=== PATIENT | male | born 1955 | race Caucasian/White ===

== ENCOUNTER 2023-06-15 08:51 | Outpatient (CLI) | payer MEDICARE, OTHER, SELFPAY | END 2023-06-15 08:52 | disposition home or self-care (01) | PROVIDERS: PCP Nurse Practitioner Family; Visit Provider Nurse Practitioner Family | DX: Z00.00 Encounter for general adult medical examination without abnormal findings (principal); E78.5 Hyperlipidemia, unspecified; I10 Essential (primary) hypertension; M10.9 Gout, unspecified; E11.9 Type 2 diabetes mellitus without complications; E87.5 Hyperkalemia; Z12.5 Encounter for screening for malignant neoplasm of prostate | CPT/HCPCS: 80053; 80061; 82043; 82570; 84153; 84443; 84550 ==

== ENCOUNTER 2023-06-28 09:12 | Outpatient (CLI) | payer MEDICARE, OTHER, SELFPAY | END 2023-06-28 09:13 | disposition home or self-care (01) | LOC: WOUND 09:14 | PROVIDERS: PCP Nurse Practitioner Family; Visit Provider Surgery | DX: M1A.0721 Idiopathic chronic gout, left ankle and foot, with tophus (tophi) (principal); E08.40 Diabetes mellitus due to underlying condition with diabetic neuropathy, unspecified; L97.322 Non-pressure chronic ulcer of left ankle with fat layer exposed; Z79.84 Long term (current) use of oral hypoglycemic drugs | CPT/HCPCS: 97597; 99213 ==

== ENCOUNTER 2023-07-07 08:49 | Outpatient (CLI) | payer MEDICARE, OTHER, SELFPAY | END 2023-07-07 08:50 | disposition home or self-care (01) | LOC: WOUND 08:50 | PROVIDERS: PCP Nurse Practitioner Family; Visit Provider Nurse Practitioner Family | DX: M1A.0721 Idiopathic chronic gout, left ankle and foot, with tophus (tophi) (principal); E08.40 Diabetes mellitus due to underlying condition with diabetic neuropathy, unspecified; L97.322 Non-pressure chronic ulcer of left ankle with fat layer exposed; Z79.84 Long term (current) use of oral hypoglycemic drugs | CPT/HCPCS: 97597 ==

== ENCOUNTER 2023-07-19 09:28 | Outpatient (CLI) | payer MEDICARE, OTHER, SELFPAY | END 2023-07-19 09:29 | disposition home or self-care (01) | LOC: WOUND 09:28 | PROVIDERS: PCP Nurse Practitioner Family; Visit Provider Surgery | DX: L89.523 Pressure ulcer of left ankle, stage 3 (principal) | CPT/HCPCS: 97597 ==

== ENCOUNTER 2023-07-26 10:59 | Outpatient (CLI) | payer MEDICARE, OTHER, SELFPAY | END 2023-07-26 11:00 | disposition home or self-care (01) | LOC: WOUND 10:59 | PROVIDERS: PCP Nurse Practitioner Family; Visit Provider Surgery | DX: M1A.0721 Idiopathic chronic gout, left ankle and foot, with tophus (tophi) (principal); E08.40 Diabetes mellitus due to underlying condition with diabetic neuropathy, unspecified; L89.523 Pressure ulcer of left ankle, stage 3; Z79.84 Long term (current) use of oral hypoglycemic drugs | CPT/HCPCS: 99212 ==

== ENCOUNTER 2023-08-09 10:50 | Outpatient (CLI) | payer MEDICARE, OTHER, SELFPAY | END 2023-08-09 10:51 | disposition home or self-care (01) | LOC: WOUND 10:50 | PROVIDERS: PCP Nurse Practitioner Family; Visit Provider Surgery | DX: M1A.0721 Idiopathic chronic gout, left ankle and foot, with tophus (tophi) (principal); E08.40 Diabetes mellitus due to underlying condition with diabetic neuropathy, unspecified; L89.523 Pressure ulcer of left ankle, stage 3; Z79.84 Long term (current) use of oral hypoglycemic drugs | CPT/HCPCS: 99212 ==

== ENCOUNTER 2023-11-24 08:45 | Outpatient (CLI) | payer MEDICARE, OTHER, SELFPAY ==
--- OUTSIDE RECORDS SUMMARY | 2023-11-24 08:49 | XMS_ITS | Clinical Summary ---
Author Name Unknown Organization [employer] [facility] Address [place], [place] [address] Care Team Providers Care Cartoonist Special Effects Name Role Phone Al Orourke MD Unavailable [phone] Joanne Serra NP Primary Care Provider Jeannine vailable Allergies Active Allergy Reactions Criticality Noted Date Comments Pollen Extracts Runny Nose 08/05/2020 Itchy watery eyes Medications Medication Sig Dispensed Refills Start Date End Date Status allopurinol (ZYLOPRIM) 100 mg tabletIndications:go ut Take 100 mg by mouth once daily. Indications: GOUT 0 Active atenolol (TENORMIN) 50 mg tablet Take 50 mg by mouth 2 times daily. 0 Active lisinopril (PRINIVIL; ZESTRIL) 40 mg tablet Take 80 mg by mouth once daily. 0 Active INDOMETHACIN (INDOCIN ORAL)Indications:pre vention of acute gout attack Take by mouth once daily if needed. Indications: GOUT PREVENTION 0 Active aspirin 81 mg tablet Take 81 mg by mouth once daily. 0 Active metFORMIN (GLUCOPHAGE) 500 mg tabletIndications:ty pe 2 diabetes mellitus Take 1,000 mg by mouth 2 times daily with meals. Indications: TYPE 2 DIABETES MELLITUS 0 Active atorvastatin (LIPITOR) 40 mg tablet Take 1 tablet by mouth at bedtime. 30 tablet 11 08/07/2013 Active glyBURIDE (MICRONASE; DIABETA) 2.5 mg tabletIndications:ty pe 2 diabetes mellitus Take 0.5 tablets by mouth 2 times daily before meals. Indications: TYPE 2 DIABETES MELLITUS 0 10/01/2013 Active prednisoLONE acetate 1% ophthalmic (PRED FORTE) suspensionIndication s:Nuclear sclerotic cataract of both eyes START DROPS IN AFFECTED EYE AFTER SURGERY, LEFT EYE 07/30/2020 RIGHT EYE 08/06/2020 . ONE DROP FOUR TIMES A DAY FOR THREE WEEKS. 5 mL 2 07/30/2020 Active multivit-min/FA/lyco pen/lutein (MEN 50 PLUS MULTIVITAMIN ORAL) Take 1 Tab by mouth once daily. 0 Active VICTOZA 3-CHULA 0.6 mg/0.1 mL (18 mg/3 mL) injection 0 08/03/2020 Active dapagliflozin (FARXIGA) 10 mg tablet Take 10 mg by mouth once daily. 0 Active Active Problems Problem Noted Date Diagnosed Date CAD (coronary artery disease) 10/01/2013 NSTEMI (non-ST elevated myocardial infarction) 1 Gout 08/07/2013 Hyperlipidemia, mixed 08/07/2013 HTN (hypertension) 08/06/2013 DM (diabetes mellitus) 08/06/2013 Social History Tobacco Use Types Packs/Day Years Used Date Smoking Tobacco: Never Smokeless Tobacco: Former Snuff Quit: 10/06/1998 Tobacco Cessation:Counseling Given: No Alcohol Use Standard Drinks/Week Comments No 0 (1 standard drink = 0.6 oz pur e alcohol) Social Connections Answer Date Recorded Frequency of Communication with Friends and Fami ly Not on file 02/25/2022 Sex and Gender Information Value Date Recorded Sex Assigned at Not on file Gender Identity Not on file Sexual Orientation Not on file Obstetrics History Last Filed Vital Signs Vital Sign Reading Time Taken Comments Blood Pressure 146/68 02/25/2022 3:23 PM CDT Pulse 60 02/25/2022 3:23 PM CDT Temperature 36.1 ??C (97 ??F) 08/06/2020 11:00 AM CDT Respiratory Rate 16 02/25/2022 3:23 PM CDT Oxygen Saturation 96% 08/06/2020 11:22 AM CDT Inhaled Oxygen Concentration - - Weight 101.2 kg (223 lb) 02/25/2022 3:23 PM CDT Height 182.2 cm (5' 11.75) 08/05/2020 12:10 PM CDT Body Mass Index 30.46 08/05/2020 12:10 PM CDT Plan of Treatment Health Maintenance Due Date Last Done Comments COVID-19 vaccine series (#1) 1955 Pneumococcal series for age 65+ (1 of 2 - PCV) 959 Tdap 1964 Depression screening for age 12+ 1965 BMI (ht and wt on same day) for age 18+ 1971 Hepatitis C screening for age 18-79 1971 Tetanus booster 1973 Colonoscopy through age 75 1998 Zoster (shingles) series for age 50+ (1 of 2) 05/21/20 03 Medicare Wellness for age 65+ 2018 Lipids for age 45-75 08/06/2018 08/06/2013 Influenza for age 65+ 06/30/2023 Medical Devices Implanted Type Area Urban Designer Device Identifier Shelf Expiration Date Model / Serial / Lot [id number] - [id number] Implanted:Qty : 1 on 07/30/2020 by Nikko Galindo MD at [facility] Opthalmology Implants Left: Eye [employer] 08/06/2024 [id number] / [id number] / NA Description:Tecnis Aspheric IOL +21.0 Iol [place] +21 Tecnis [id number] - [id number] Implanted:Qty : 1 on 08/06/2020 by Nikko Galindo MD at [facility] Opthalmology Implants Right: Eye [employer] 02/25/2025 [id number] 21.0# / [id number] / N/A Care Teams Cartoonist Special Effects Relationship Specialty Start Date End Date Joanne Serra NP [address] [place] [address] PCP - General Emergency Medicine 02/11/22 Al Orourke MD [address] [place] [address] Consulting Physician Cardiovascular Disease 01/16/15
== END 2023-11-24 08:46 | disposition home or self-care (01) ==
LOC: KYNREF 08:45
PROVIDERS: PCP Nurse Practitioner Family; Visit Provider Nurse Practitioner Family
DX: E11.9 Type 2 diabetes mellitus without complications (principal)
CPT/HCPCS: 80048; 84132

== ENCOUNTER 2024-01-12 08:38 | Outpatient (CLI) | payer MEDICARE, OTHER, SELFPAY | END 2024-01-12 08:39 | disposition home or self-care (01) | LOC: NFLDREF 01-19 08:45 | PROVIDERS: PCP Nurse Practitioner Family; Referring Provider Nurse Practitioner Family; Visit Provider Nurse Practitioner Family | DX: N28.9 Disorder of kidney and ureter, unspecified (principal); I10 Essential (primary) hypertension; E11.9 Type 2 diabetes mellitus without complications; Z79.84 Long term (current) use of oral hypoglycemic drugs | CPT/HCPCS: 80048 ==

== ENCOUNTER 2024-03-12 14:59 | Outpatient (CLI) | payer MEDICARE, OTHER, SELFPAY ==
--- OUTSIDE RECORDS SUMMARY | 2024-03-12 15:10 | XMS_ITS | Clinical Summary ---
Author Name Unknown Organization [employer] [facility] Address [place], [place] [address] Care Team Providers Care Port Patrol Officer Name Role Phone Al Orourke MD Unavailable [phone] Joanne Serra NP Primary Care Provider Jeannine vailable Allergies Active Allergy Reactions Criticality Noted Date Comments Pollen Extracts Runny Nose 08/05/2020 Itchy watery eyes Medications Medication Sig Dispensed Refills Start Date End Date Status allopurinol (ZYLOPRIM) 100 mg tabletIndications:go ut Take 100 mg by mouth once daily. Indications: GOUT Active atenolol (TENORMIN) 50 mg tablet Take 50 mg by mouth 2 times daily. Active lisinopril (PRINIVIL; ZESTRIL) 40 mg tablet Take 80 mg by mouth once daily. Active INDOMETHACIN (INDOCIN ORAL)Indications:pre vention of acute gout attack Take by mouth once daily if needed. Indications: GOUT PREVENTION Active aspirin 81 mg tablet Take 81 mg by mouth once daily. Active metFORMIN (GLUCOPHAGE) 500 mg tabletIndications:ty pe 2 diabetes mellitus Take 1,000 mg by mouth 2 times daily with meals. Indications: TYPE 2 DIABETES MELLITUS Active atorvastatin (LIPITOR) 40 mg tablet Take [...] Take 1 Tab by mouth once daily. Active VICTOZA 3-CHULA 0.6 mg/0.1 mL (18 mg/3 mL) injection 08/03/2020 Active dapagliflozin (FARXIGA) 10 mg tablet Take 10 mg by mouth once daily. Active Active Problems Problem Noted Date Diagnosed [...] Health Maintenance Due Date Last Done Comments Tdap 1964 Depression screening for age 12+ 1965 BMI (ht and wt on same day) for age 18+ 1971 Hepatitis C screening for age 18-79 1971 Tetanus booster 1973 Colonoscopy through age 75 1998 Zoster (shingles) series for age 50+ (1 of 2) 05/21/20 03 Medicare Wellness for age 65+ 2018 Pneumococcal series for age 65+ (1 of 1 - PCV) 018 Lipids for age 45-75 08/06/2018 08/06/2013 COVID-19 vaccine series (1 - 2022- season) 3 Influenza for age 65+ 06/30/2024 Medical Devices Implanted Type Area Pocket Secretary Assembler Device Identifier Shelf Expiration Date Model / Serial / Lot [id number] - [id number] Implanted:Qty : 1 on 07/30/2020 by Nikko Galindo MD at [facility] Opthalmology Implants Left: Eye [employer] 08/06/2024 [id number] / [id number] 0 / NA Description:Tecnis Aspheric IOL +21.0 Iol [place] +21 Tecnis [id number] - [id number] Implanted:Qty : 1 on 08/06/2020 by Nikko Galindo MD at [facility] Opthalmology Implants Right: Eye [employer] 02/25/2025 [id number] 21.0# / [id number] / N/A Procedures Procedure Name Priority Date/Time Associated Diagnosis Comments LIPID PANEL Timed 08/06/2013 2:25 PM CDT from Last 3 Months or Most Recently Relevant to Health Maintenance Results * (ABNORMAL) Lipid Panel Fasting (08/06/2013 2:25 PM CDT) CHOLESTEROL,TOTAL 272(H) 100 - 199 mg/dL 08/06/2013 2:58 PM CDT [facility] TRIGLYCERIDES 517(H) <150 mg/dL 08/06/2013 2:58 PM CDT [facility] HDL CHOLESTEROL 34(L) >40 mg/dL 3 2:58 PM CDT [facility] NON-HDL CHOLESTEROL 238(H) <145 mg/dl 08/06/2013 2:58 PM CDT [facility] CHOL/HDL RATIO 8.00(H) <4.50 08/06/2013 2:58 PM CDT [facility] LDL CHOLESTEROL 3 2:58 PM CDT [facility] Comment:Invalid LDL when Tri g >400. PATIENT STATUS FASTING 08/06/2013 2:58 PM CDT [facility] Blood specimen (specimen) BLOOD SPECIMEN / Unknown Non-Lab Venipuncture / Unknown 08/06/2013 2:25 PM CDT 08/06/2013 2:35 PM CDT Al Orourke MD CHEMISTRY [facility] SENDOUT [place]IP [address] [address] [place] [address] from Last 3 Months or Most Recently Relevant to Health Maintenance Care Teams Port Patrol Officer Relationship Specialty Start Date End Date Joanne Serra NP [address] [place] [address] PCP - General Emergency Medicine 02/11/22 Al Orourke MD [address] [place] [address] Consulting Physician Cardiovascular Disease 01/16/15
== END 2024-03-12 15:00 | disposition home or self-care (01) ==
PROVIDERS: PCP Nurse Practitioner Family; Visit Provider Nurse Practitioner Family
DX: R06.09 Other forms of dyspnea (principal)
CPT/HCPCS: 80053; 83880; 84484

== ENCOUNTER 2024-03-27 12:46 | Outpatient (CLI) | payer MEDICARE, SELFPAY ==
--- OUTSIDE RECORDS SUMMARY | 2024-03-27 12:53 | XMS_ITS | Clinical Summary ---
Author Organization [employer] [facility] Address [place], [place] [address] Care Team Providers Care Meteorological Technician Name Role Phone Al Orourke MD Unavailable Joanne Serra NP Primary Care Provider Jeannine [...] 08/05/2020 12:10 PM CDT Plan of Treatment Upcoming Encounters Date Type Department Care Team (Late st Contact Info) Description 03/27/2024 1:00 PM CDT Ancillary Procedure [facility] [address] [place] [address] Health Maintenance Due Date Last Done Comments [...] age 45-75 08/06/2018 08/06/2013 COVID-19 vaccine series ( - season) 3 Influenza for age 65+ 06/30/2024 Medical Devices Implanted Type Area Deputy Coroner Device Identifier Shelf Expiration Date Model / Serial / Lot [id number] - [id number] Implanted:Qty : 1 on 07/30/2020 by Nikko Galindo MD at [facility] Opthalmology Implants Left: Eye [employer] 08/06/2024 [id number] / [id number] / NA Description:Tecnis Aspheric IOL +21.0 Iol [place] +21 Tecnis [id number] - [id number] Implanted:Qty : 1 on 08/06/2020 by Nikko Galindo MD at [facility] Opthalmology Implants Right: Eye [employer] 02/25/2025 [id number] 21.0# / [id number] / N/A Procedures Procedure Name Priority Date/Time Associated Diagnosis Comments LIPID PANEL Timed 08/06/2013 2:25 PM CDT from Last 3 Months or Most Recently Relevant to Health Maintenance Results * (ABNORMAL) Lipid Panel Fasting (08/06/2013 2:25 PM CDT) Pathologist [facility] CHOLESTEROL,TOTAL 272(H) 100 - 199 mg/dL 08/06/2013 2:58 PM CDT [facility] TRIGLYCERIDES 517(H) <150 mg/dL 08/06/2013 2:58 PM CDT [facility] HDL CHOLESTEROL 34(L) >40 mg/dL 3 2:58 PM CDT [facility] NON-HDL CHOLESTEROL 238(H) <145 mg/dl 08/06/2013 2:58 PM CDT [facility] CHOL/HDL RATIO 8.00(H) <4.50 08/06/2013 2:58 PM CDT [facility] LDL CHOLESTEROL 3 2:58 PM CDT [facility] Comment:Invalid LDL when Tri g >400. PATIENT STATUS FASTING 08/06/2013 2:58 PM CDT [facility] Blood specimen (specimen) BLOOD SPECIMEN / Unknown Non-Lab Venipuncture / Unknown 08/06/2013 2:25 PM CDT 08/06/2013 2:35 PM CDT Al Orourke MD CHEMISTRY [facility] SENDOUT INTERNAL ZIP [address] [place] [address] from Last 3 Months or Most Recently Relevant to Health Maintenance Care Teams Meteorological Technician Relationship Specialty Start Date End Date Joanne Serra NP [address] [place] [address] PCP - General Emergency Medicine 02/11/22 Al Orourke MD [address] [place] [address] Consulting Physician Cardiovascular Disease 01/16/15
[2024-03-27] MEDS: PERFLUTREN LIPID MICROSPHERES 2 ML VIAL IV (13:30)
== END 2024-03-27 12:47 | disposition home or self-care (01) ==
LOC: RAD 12:51
PROVIDERS: PCP Nurse Practitioner Family; Visit Provider Nurse Practitioner Family
DX: R06.09 Other forms of dyspnea (principal); I35.0 Nonrheumatic aortic (valve) stenosis; I34.0 Nonrheumatic mitral (valve) insufficiency
CPT/HCPCS: 93306; Q9957

== ENCOUNTER 2024-04-12 18:30 | Emergency (ER) | payer MEDICARE, SELFPAY ==
[2024-04-12] VITALS (20 sets, daily range): BP systolic 151–231; BP diastolic 69–123; PULSE 53–71; RESP 12–20; TEMP 36.2; O2SAT 91–98; BMI 32.1
--- OUTSIDE RECORDS SUMMARY | 2024-04-12 19:09 | XMS_ITS | Clinical Summary ---
Author Organization [employer] [facility] Address [place], [place] [address] Care Team Providers Care Service Mechanic Name Role Phone Al Orourke MD Unavailable [phone] Tran Serra NP Primary Care Provider Jeannine vailable [...] HTN (hypertension) 08/06/2013 DM (diabetes mellitus) 08/06/2013 Encounters Date Type Department Care Team Description 03/27/2024 1:00 PM CDT Ancillary Procedure [facility] [address] [address] 03/27/2024 Travel from Last 3 Months Social History Tobacco Use Types Packs/Day Years [...] 65+ 06/30/2024 Medical Devices Implanted Type Area Substation Designer Device Identifier Shelf Expiration Date Model / Serial / Lot [id number] - [id number] Implanted:Qty : 1 on 07/30/2020 by Nikko Galindo MD at [facility] Opthalmology Implants Left: Eye [employer] 08/06/2024 [id number] / [id number] / NA Description:Tecnis Aspheric IOL +21.0 Iol [place] +21 Tecnis [id number] - [id number] Implanted:Qty : 1 on 08/06/2020 by Nikko Galindo MD at [facility] Opthalmology Implants Right: Eye [employer] 02/25/2025 [id number] 21.0# / [id number] / N/A Procedures Procedure Name Priority Date/Time Associated Diagnosis Comments ECHO TTE COMPLETE W CONTRAST Routine 03/27/2024 2:01 PM CDT Other forms of dyspnea LIPID PANEL Timed 08/06/2013 2:25 PM CDT from Last 3 Months or Most Recently Relevant to Health Maintenance Results * ECHO TTE COMPLETE W CONTRAST (03/27/2024 2:01 PM CDT) AORTIC VALVE MEAN PG 29 mmHg EJECTION FRACTION 65 % LVEDD 4.7 cm Anatomical Region Laterality Modality Ultrasound 03/27/2024 1:03 PM CDT Narrative 03/27/2024 2:57 PM CDT ECHOCARDIOGRAM MARY KNAPP ? Accession#: ?? [id number] : ?1955 68 years Study Date: ?? 03/27/2024 1:03:30 PM Gender: M ?BP: ? 158/76 mmHg Height: 180.00 cm ?BSA: ?2.20 m? ? ? Weight: 101.00 kg ?Tech: ? MSR ? Referring MD: TRAN SERRA Site: ? [facility] Reading Location: [facility] Patient Location: Outpatient. Procedure: 2D, Color Doppler and Spectral Doppler. Indication for study: Other forms of dyspnea Cardiac Rhythm: Regular.Study quality: Technically limited. Final Impressions: 1. Technically limited exam. 2. Normal left ventricular size, mildly increased wall thickness, normal global systolic function, calculated EF of 65 %. 3. The aortic valve is calcified and not well visualized, severe stenosis (paradoxical low flow low gradient) and no regurgitation. The aortic valve peak velocity is 3.3 m/s, the peak gradient is 43 mmHg, and the mean gradient is 29 mmHg. The aortic valve area is 0.91 cm? ? ? with a dimensionless index of 0.23. The stroke volume index is 31.1 ml/m? ? ?. 4. The mitral valve is sclerotic, trace mitral regurgitation. 5. Echo contrast was administered to enhance visualization of all left ventricular segments. Chamber Sizes and Function Normal left ventricular size, mildly increased wall thickness, normal global systolic function, calculated EF of 65 %. Left ventricular wall motion not well visualized. Left atrial size is normal. Right ventricular cavity size is normal, global systolic RV function is normal. The right atrium is normal. The pulmonary artery is not well visualized. The sinus of Valsalva is normal sized. The ascending aorta is normal sized. Valves, RV Pressures and Diastolic Function The aortic valve is calcified and not well visualized , severe stenosis and no regurgitation. The mitral valve is sclerotic, trace mitral regurgitation. Indeterminate pattern of LV diastolic filling. The tricuspid valve is not well visualized. Tricuspid regurgitation is mild regurgitation. The pulmonic valve is not well visualized. Unable to determine pulmonary regurgitation. Masses, Effusion, Shunts There is no pericardial effusion. The inferior vena cava is not well visualized, respiratory size variation not well visualized. No left to right shunting was detected by limited color flow Doppler interrogation of the interatrial septum. MEASUREMENTS AND CALCULATIONS 2-D Measurements and LV Function: LVID (d) 4.7 cm Planimetered EF 65 % LVID (s) 3.0 cm LV FS% (2D) ? 37 % IVS (d) ??1.2 cm LVOT diameter ?? 2.2 cm LVPW (d) 1.6 cm HR ?56 bpm Ao Sinus 3.5 cm LA Vol index ?26 ml/m2 Asc Ao ?? 3.7 cm RV Max 4C (d) ?? 4.1 cm Diastology: Mitral ?Tissue Doppler E Peak 1.2 m/s ??e', Septum ? 0.04 m/s A Peak 0.7 m/s ??e', Lateral ?0.05 m/s E/A ?1.8 ?E/e' Average ?? 27.73 DT ? 283 msec Aortic Valve: Vmax ? 3.3 m/s ??KALPANA (V) ?? 0.82 cm? ? ? VTI ?0.76 m ?? KALPANA (I) ?? 0.91 cm? ? ? LVOT V max 0.7 m/s ??Max PG ?43 mmHg LVOT VTI ?? 0.17 m ?? Mean PG ?? 29 mmHg SV ? 69 ml ?Dim Index 0.23 SV index ?? 31 ml/m? ? ? CO ?3.8 l/min ?CI ?1.7 l/min/m? ? ? Mitral Valve: MVA ? 2.7 cm? ? ? MV P 1/2 ??82 msec MV Mean G 2 mmHg MV VTI ?0.40 m Tricuspid Valve and estimated PA pressures: TAPSE 2.6 cm Contrast documentation: 2ml ml diluted Definity, lot #[id number], [facility]# [id number] was administered peripherally to enhance visualization of all left ventricular segments. . This study was interpreted by an [facility] accredited facility. CC: [facility] (formerly [facility]) [facility]. ??Final ?? Procedure Note Terese Briones MD - 03/27/2024 ECHOCARDIOGRAM MARY KNAPP : 1955 68 years Study Date: 03/27/2024 1:03:30 PM Gender: M BP: 158/76 mmHg Height: 180.00 cm BSA: 2.20 m? ? ? Weight: 101.00 kg Tech: MSR Referring MD: TRAN SERRA Site: [facility] Reading Location: [facility] Patient Location: Outpatient. Procedure: 2D, Color Doppler and Spectral Doppler. Indication for study: Other forms of dyspnea Cardiac Rhythm: Regular.Study quality: Technically limited. Final Impressions: 1. Technically limited exam. 2. Normal left ventricular size, mildly increased wall thickness, normalglobal systolic function, calculated EF of 65 %. 3. The aortic valve is calcified and not well visualized, severe stenosis(paradoxical low flow low gradient) and no regurgitation. The aortic valvepeak velocity is 3.3 m/s, the peak gradient is 43 mmHg, and the meangradient is 29 mmHg. The aortic valve area is 0.91 cm? ? ? with adimensionless index of 0.23. The stroke volume index is 31.1 ml/m? ? ?. 4. The mitral valve is sclerotic, trace mitral regurgitation. 5. Echo contrast was administered to enhance visualization of all leftventricular segments. Chamber Sizes and Function Normal left ventricular size, mildly increased wall thickness, normalglobal systolic function, calculated EF of 65 %. Left ventricular wallmotion not well visualized. Left atrial size is normal. Right ventricularcavity size is normal, global systolic RV function is normal. The rightatrium is normal. The pulmonary artery is not well visualized. The sinusof Valsalva is normal sized. The ascending aorta is normal sized. Valves, RV Pressures and Diastolic Function The aortic valve is calcified and not well visualized , severe stenosisand no regurgitation. The mitral valve is sclerotic, trace mitralregurgitation. Indeterminate pattern of LV diastolic filling. Thetricuspid valve is not well visualized. Tricuspid regurgitation is mildregurgitation. The pulmonic valve is not well visualized. Unable todetermine pulmonary regurgitation. Masses, Effusion, Shunts There is no pericardial effusion. The inferior vena cava is not wellvisualized, respiratory size variation not well visualized. No left toright shunting was detected by limited color flow Doppler interrogation ofthe interatrial septum. MEASUREMENTS AND CALCULATIONS 2-D Measurements and LV Function: LVID (d) 4.7 cm Planimetered EF 65 % LVID (s) 3.0 cm LV FS% (2D) 37 % IVS (d) 1.2 cm LVOT diameter 2.2 cm LVPW (d) 1.6 cm HR 56 bpm Ao Sinus 3.5 cm LA Vol index 26 ml/m2 Asc Ao 3.7 cm RV Max 4C (d) 4.1 cm Diastology: Mitral Tissue Doppler E Peak 1.2 m/s e', Septum 0.04 m/s A Peak 0.7 m/s e', Lateral 0.05 m/s E/A 1.8 E/e' Average 27.73 DT 283 msec Aortic Valve: Vmax 3.3 m/s KALPANA (V) 0.82 cm? ? ? VTI 0.76 m KALPANA (I) 0.91 cm? ? ? LVOT V max 0.7 m/s Max PG 43 mmHg LVOT VTI 0.17 m Mean PG 29 mmHg SV 69 ml Dim Index 0.23 SV index 31 ml/m? ? ? CO 3.8 l/min CI 1.7 l/min/m? ? ? Mitral Valve: MVA 2.7 cm? ? ? MV P 1/2 82 msec MV Mean G 2 mmHg MV VTI 0.40 m Tricuspid Valve and estimated PA pressures: TAPSE 2.6 cm Contrast documentation: 2ml ml diluted Definity, lot #[id number], [facility]#[id number] was administered peripherally to enhance visualization of allleft ventricular segments. . This study was interpreted by an [facility] accredited facility. CC: [facility] (med records) [facility]. Final Tran Serra AUTOMATIC SPLICING MACHINE OPERATOR ECHO ORD * (ABNORMAL) Lipid Panel Fasting (08/06/2013 2:25 PM CDT) CHOLESTEROL,TOTAL 272(H) 100 - 199 mg/dL 08/06/2013 2:58 PM CDT [facility] TRIGLYCERIDES 517(H) <150 mg/dL 08/06/2013 2:58 PM CDT [facility] HDL CHOLESTEROL 34(L) >40 mg/dL 3 2:58 PM CDT [facility] NON-HDL CHOLESTEROL 238(H) <145 mg/dl 08/06/2013 2:58 PM T [facility] CHOL/HDL RATIO 8.00(H) <4.50 08/06/2013 2:58 PM CDT [facility] LDL CHOLESTEROL 3 2:58 PM CDT [facility] Comment:Invalid LDL when Tri g >400. PATIENT STATUS FASTING 08/06/2013 2:58 PM CDT [facility] Blood specimen (specimen) BLOOD SPECIMEN / Unknown Non-Lab Venipuncture / Unknown 08/06/2013 2:25 PM CDT 08/06/2013 2:35 PM CDT Al Orourke MD CHEMISTRY [facility] SENDOUT INTERNAL ZIP [address] [place] [address] from Last 3 Months or Most Recently Relevant to Health Maintenance Care Teams Service Mechanic Relationship Specialty Start Date End Date Tran Serra AUTOMATIC SPLICING MACHINE OPERATOR [address] [place] [address] PCP - General Emergency Medicine 02/11/22 Al Orourke MD [address] [place] [address] Consulting Physician Cardiovascular Disease 01/16/15
[2024-04-12 19:31] LABS: Basophils Absolute Auto 0.02 K/uL (0.00-0.30); Basophils Percent Auto 0.3 % (0.0-3.0); Eosinophils Absolute Auto 0.14 K/uL (0.00-0.50); Eosinophils Percent Auto 2.3 % (0.0-7.0); Hematocrit 47.6 % (37.0-53.0); Hemoglobin* 16.1 gm/dL (13.5-17.5); Immature Granulocytes Abs Auto 0.01 K/uL (0.00-0.30); Immature Granulocytes Pct Auto 0.2 %; Lymphocytes Absolute Auto 1.54 K/uL (0.90-2.90); Lymphocytes Percent Auto 25.4 % (20-44); Mean Corpuscular HGB Conc 34 gm/dL (32-36); Mean Corpuscular Hemoglobin 28 pg (26-34); Mean Corpuscular Volume 83 fL (80-100); Monocytes Percent Auto 6.4 % (0.0-11.0); Neutrophils Absolute Auto 3.97 K/uL (1.7-7.0); Neutrophils Percent Auto 65.4 % (42.0-72.0); Platelet Count* 178 K/uL (140-440); RDW Coefficient of Variation % 14.5 % (11.5-15.5); Red Blood Count 5.71 m/uL (4.30-5.90); White Blood Count* 6.07 K/uL (4.50-11.00)
--- NOTE | 2024-04-12 19:32 | ED.GENADULT ---
HPI - General Adult General Date Seen: 04/12/24 <Swapna Nicholson MD - Last Filed: 04/28/24 16:42> Chief complaint: Abdominal Pain <Swapna Nicholson MD - Last Filed: 04/28/24 16:42> Stated complaint: Pain beneath R ribs <Swapna Nicholson MD - Last Filed: 04/28/24 16:42> Time Seen by Provider: 04/12/24 18:53 <Swapna Nicholson MD - Last Filed: 04/28/24 16:42> Source: patient, RN notes reviewed and old records reviewed <Swapna Nicholson MD - Last Filed: 04/28/24 16:42> Mode of arrival: ambulatory <wSapna Nicholson MD - Last Filed: 04/28/24 16:42> Limitations: no limitations <Swapna Nichloson MD - Last Filed: 04/28/24 16:42> History of Present Illness HPI narrative: Patient is a 68-year-old male with recent visit in clinic for dyspnea on exertion with murmur noted, he had an echo which showed severe aortic stenosis and he has an appointment next week with cardiology to discuss. He says that around 3:00 p.m. today he just had a diet Pepsi when he developed some pain in the right upper quadrant which occasionally radiated more toward the epigastrium and sometimes into the back. He says it waxed and waned for the next several hours, it is better now although it is not gone. He says if he was not going through all this cardiac workup he would have even come in, it has never been severe. No associated nausea, vomiting, black or bloody stools, fever, urinary symptoms. He does not feel short of breath. He says when the pain was at its worst if he took a very deep breath there was some worsening of pain but it does not hurt to breathe in general and he does not have any pleuritic pain right now. He denies any history of coronary artery disease, had a stress test a couple of years ago which he says was negative. Denies any history of gastritis, ulcers, gallstones, kidney stones,. Did have some sort of surgery as a 2-day-old which he thinks had to do with his stomach. <Swapna Nicholson MD - Last Filed: 04/28/24 16:42> Related Data Home medications: Previous Rx's ?Medication ?Instructions ?Recorded atorvastatin 10 mg tablet (Lipitor) 10 mg PO QHS 90 days #90 tabs 06/16/23 empagliflozin 25 mg tablet 25 mg PO DAILY 90 days #90 tabs 06/16/23 (Jardiance) indomethacin 50 mg capsule See Rx Instructions .Route 06/16/23 .COMPLEX #135 caps lisinopril 40 mg tablet 40 mg PO QDAY #90 tabs 06/16/23 tamsulosin 0.4 mg capsule 0.4 mg PO QDAY #90 caps 11/24/23 insulin glargine 100 unit/mL (3 30 unit (0.3 mL) subcut QAM 90 11/28/23 mL) subcutaneous pen (Lantus days #27 mL Solostar U-100 Insulin) furosemide 20 mg tablet (Lasix) 10 mg (1/2 x 20 mg) PO QAM 90 days 03/13/24 #45 tabs amlodipine 5 mg tablet 5 mg PO BID #30 tabs 04/14/24 hydralazine 10 mg tablet 30 mg (3 x 10 mg) PO TID #30 tabs 04/14/24 <Swapna Nicholson MD - Last Filed: 04/28/24 16:42> Allergies/adverse reactions: Allergies Allergy/AdvReac Type Severity Reaction Status Date / Time No Known Drug Allergies Allergy Verified 04/16/24 11:02 <Swapna Nicholson MD - Last Filed: 04/28/24 16:42> Review of Systems Status of ROS: Reports: 10 or more systems reviewed and unremarkable except as noted in History and below <Swapna Nicholson MD - Last Filed: 04/28/24 16:42> [facility] Medical History: Medical History (Updated 04/28/24 @ 00:00 by Rachana Chairez) NSTEMI (non-ST elevated myocardial infarction) (08/07/13) ?I21.4 - Non-ST elevation (NSTEMI) myocardial infarction (ICD-10) Ulcer of lower extremity ?L97.909 - Non-pressure chronic ulcer of unspecified part of unspecified lower leg with unspecified severity (ICD-10) Hypertension ?I10 - Essential (primary) hypertension (ICD-10) Severe aortic stenosis ?I35.0 - Nonrheumatic aortic (valve) stenosis (ICD-10) Left shoulder pain ?M25.512 - Pain in left shoulder (ICD-10) Trigger finger ?M65.30 - Trigger finger, unspecified finger (ICD-10) BPH (benign prostatic hyperplasia) ?N40.0 - Benign prostatic hyperplasia without lower urinary tract symptoms (ICD-10) Depression (04/29/11) ?F32.A - Depression, unspecified (ICD-10) Hyperlipidemia ?E78.5 - Hyperlipidemia, unspecified (ICD-10) Coronary artery disease ?I25.10 - Atherosclerotic heart disease of [place] coronary artery without angina pectoris (ICD-10) History of malignant neoplasm of skin ?Z85.828 - Personal history of other malignant neoplasm of skin (ICD-10) Gout ?M10.9 - Gout, unspecified (ICD-10) Type 2 diabetes mellitus ?E11.9 - Type 2 diabetes mellitus without complications (ICD-10) <Swapna Nicholson MD - Last Filed: 04/28/24 16:42> Surgical History: Surgical History History of coronary artery stent placement ?Z95.5 - Presence of coronary angioplasty implant and graft (ICD-10) History of cataract extraction ?Z98.49 - Cataract extraction status, unspecified eye (ICD-10) <Swapna Nicholson MD - Last Filed: 04/28/24 16:42> Family History: Family History Sister Lung cancer Mother Lung cancer <Swapna Nicholson MD - Last Filed: 04/28/24 16:42> Social History: Social History What is your current living situation?: I presently have a place to live Problems where you live: no known problems Problems where you live details: N/A In the past 12 months, utilities in danger of being shut off: no In past 12 months, lack of transportation kept you from medical appts, meetings, work, or getting things needed for daily living: no In the past 12 mos, have been you worried that your food would run out before you had money to buy more?: never true In the past 12 mos, the food you bought just didn't last and you didn't have money to buy more?: never true Highest level of school completed/degree received: Bachelor's degree Smoking Status: Never smoker Do you use any of these nicotine containing products: None Second hand tobacco smoke exposure: No How often do you have a drink containing alcohol: never How often do you have six or more drinks on one occasion: Never AUDIT-C Alcohol total score: 0 Non-prescribed substance use: denies use Caffeine: Yes How often does anyone, including family, friends and others, physically hurt you: never How often does anyone, including family, friends and others, insult or talk down to you: never How often does anyone, including family, friends and others, threaten you with harm: never How often does anyone, including family, friends and others, scream or curse at you: never Little interest or pleasure in doing things: not at all Feeling down, depressed, or hopeless: not at all service: No <Swapna Nicholson MD - Last Filed: 04/28/24 16:42> Exam Narrative: Exam Narrative: Vital signs as noted above. In general, an alert, well-appearing patient. He looks comfortable, breathing easily. Head: Normocephalic, atraumatic. Eyes: Pupils are equal reactive. Extraocular movements are full. Conjunctivae are normal. ENT: Mucous membranes are moist. Throat is normal. Neck: Supple without lymphadenopathy. Heart: Regular rate and rhythm. No murmur or rub. Lungs: Clear bilaterally. No increased work of breathing, crackles or wheezes. Abdomen: Protuberant and soft, nontender to palpation including the right upper quadrant. Negative Duncan's. Extremities: Well perfused. No edema. No calf tenderness. Pulses intact. Neurologic: Patient is alert and oriented to person and place. Speech is fluent. Face is symmetric. Moves all extremities equally. Affect: Normal. Skin: Warm and dry. Well perfused. <Swapna Nicholson MD - Last Filed: 04/28/24 16:42> Const: Vital Signs, click to edit/add: Vital Signs - 24 hr 04/12/24 18:40 04/12/24 19:07 04/12/24 19:30 Temperature 97.1 F L Pulse Rate 59 L Pulse Rate [Pulse Oximeter] 61 Respiratory Rate 20 Blood Pressure Blood Pressure [Ri ght Upper Arm] 209/94 H Pulse Oximetry 95 98 94 Oxygen Delivery Me thod Room Air 04/12/24 20:03 04/12/24 20:21 04/12/24 20:33 Temperature Pulse Rate 53 L 62 54 L Pulse Rate [Pulse Oximeter] Respiratory Rate 16 14 16 Blood Pressure 224/112 H 231/112 H 189/121 H Blood Pressure [Ri ght Upper Arm] Pulse Oximetry 95 97 96 Oxygen Delivery Me thod <Swapna Nicholson MD - Last Filed: 04/28/24 16:42> Vital Signs, click to edit/add: Vital Signs - 24 hr 04/12/24 18:40 04/12/24 19:07 04/12/24 19:30 Temperature 97.1 F L Pulse Rate 59 L Pulse Rate [Pulse Oximeter] 61 Respiratory Rate 20 Blood Pressure Blood Pressure [Ri ght Upper Arm] 209/94 H Pulse Oximetry 95 98 94 Oxygen Delivery Me thod Room Air 04/12/24 20:03 04/12/24 20:21 04/12/24 20:33 Temperature Pulse Rate 53 L 62 54 L Pulse Rate [Pulse Oximeter] Respiratory Rate 16 14 16 Blood Pressure 224/112 H 231/112 H 189/121 H Blood Pressure [Ri ght Upper Arm] Pulse Oximetry 95 97 96 Oxygen Delivery Me thod <Robert Tony MD - Last Filed: 04/15/24 07:55> Documenting provider has reviewed patient's vital signs: yes <Swapna Nicholson MD - Last Filed: 04/28/24 16:42> Course Course ED Course: On arrival, patient had an EKG. This shows a normal sinus rhythm, ventricular rate of 60. He does have T-wave inversions in leads 3 and F, I do not see any acute ST segment changes. He is significantly hypertensive here, he says this is unusual for him. He does have a history of hypertension but never numbers this high. Comparing his new EKG to his EKG from a month ago, he had upright T-waves in 3 and F at that time. Point of care troponin and other labs are pending. I did look with the bedside ultrasound, somewhat limited secondary to bowel gas but the visualized aorta looked normal, gallbladder did not show gallstones or wall thickening. Negative sonographic Duncan's. Overall, he looks comfortable, does not need anything for pain, rates pain is mild this time. My suspicion for dissection is therefore somewhat low but I did order a D-dimer, will maintain him on the monitor, see what his blood pressure does over time. Other diagnostic considerations would include acute coronary syndrome, pleural effusion or pneumonia, biliary colic, pulmonary embolism, pancreatitis or cholecystitis, diverticulitis, among others. Patient's lab work is unremarkable, white count and hemoglobin are normal, D-dimer was normal at 0.45. Chest x-ray by my review showed normal mediastinum, my suspicion for dissection is low. Metabolic panel normal, BUN of 27 creatinine 1.3, which is in line with his baseline creatinine. Blood sugars 212. Lactate normal at 1, LFTs are unremarkable and CRP is less than 0.5. Lipase is 94. Initial point of care troponin was 0.01. He remained significantly hypertensive however. I did talk with Cardiology about this patient given severe hypertension and EKG changes. He recommended control of blood pressure with either IV hydralazine or nitroglycerin. Recommended hydralazine 20 mg 3 times daily at home. I did given oral dose of 20 mg here and started a nitroglycerin drip. According to Cardiology, if patient's blood pressure is controlled, repeat troponin is negative and pain is resolved, he could go home and follow up with outpatient Cardiology. However, if blood pressure is not well controlled, pain is persistent, or troponin is abnormal, would recommend repeat conversation with Cardiology and consideration of admission here or transfer for more definitive management. Signed out to ric TOPETE for final disposition/plan. <Swapna Nicholson MD - Last Filed: 04/28/24 16:42> Vital Signs Vital signs: Initial Vital Signs Temperature 97.1 F L 04/12/24 18:40 Temperature Source Temporal Artery Scan 04/12/24 18:40 Pulse Rate 61 04/12/24 18:40 Pulse Rhythm Regular 04/12/24 18:40 Respiratory Rate 20 04/12/24 18:40 Blood Pressure 209/94 H 04/12/24 18:40 Blood Pressure Mean 132 H 04/12/24 18:40 Blood Pressure Position Supine 04/12/24 18:40 Pulse Oximetry 95 04/12/24 18:40 Oxygen Delivery Method Room Air 04/12/24 18:40 Vital Signs Temperature 97.1 F L 04/12/24 18:40 Pulse Rate 61 04/12/24 18:40 Respiratory Rate 20 04/12/24 18:40 Blood Pressure 209/94 H 04/12/24 18:40 Pulse Oximetry 95 04/12/24 18:40 Oxygen Delivery Method Room Air 04/12/24 18:40 Temperature 97.1 F L 04/13/24 01:44 Pulse Rate 61 04/13/24 01:44 Respiratory Rate 14 04/13/24 01:44 Blood Pressure 201/94 H 04/13/24 01:44 Pulse Oximetry 96 04/13/24 01:03 Oxygen Delivery Method Room Air 04/12/24 18:40 <Swapna Nicholson MD - Last Filed: 04/28/24 16:42> Initial Vital Signs Temperature 97.1 F L 04/12/24 18:40 Temperature Source Temporal Artery Scan 04/12/24 18:40 Pulse Rate 61 04/12/24 18:40 Pulse Rhythm Regular 04/12/24 18:40 Respiratory Rate 20 04/12/24 18:40 Blood Pressure 209/94 H 04/12/24 18:40 Blood Pressure Mean 132 H 04/12/24 18:40 Blood Pressure Position Supine 04/12/24 18:40 Pulse Oximetry 95 04/12/24 18:40 Oxygen Delivery Method Room Air 04/12/24 18:40 Vital Signs Temperature 97.1 F L 04/12/24 18:40 Pulse Rate 61 04/12/24 18:40 Respiratory Rate 20 04/12/24 18:40 Blood Pressure 209/94 H 04/12/24 18:40 Pulse Oximetry 95 04/12/24 18:40 Oxygen Delivery Method Room Air 04/12/24 18:40 Temperature 97.1 F L 04/13/24 01:44 Pulse Rate 61 04/13/24 01:44 Respiratory Rate 14 04/13/24 01:44 Blood Pressure 201/94 H 04/13/24 01:44 Pulse Oximetry 96 04/13/24 01:03 Oxygen Delivery Method Room Air 04/12/24 18:40 <Robert Tony MD - Last Filed: 04/15/24 07:55> Medications Administered Medications: Discontinued Medications Generic Name Dose Route Start Last Admin Trade Name Sawyerq PRN Reason Stop Dose Admin Amlodipine Besylate 5 mg 04/13/24 01:12 04/13/24 01:40 Amlodipine 5 Mg Tablet PO 04/13/24 01:13 5 mg ONCE ONE Administration Aspirin 324 mg 04/12/24 21:02 04/12/24 21:15 Aspirin 81 Mg Tab.Chew PO 04/12/24 21:03 324 mg ONCE ONE Administration Hydralazine HCl 20 mg 04/12/24 20:14 04/12/24 20:45 Hydralazine 10 Mg Tablet PO 04/12/24 20:15 20 mg ONCE ONE Administration Hydralazine HCl 25 mg 04/13/24 01:12 04/13/24 01:43 Hydralazine 25 Mg Tablet PO 04/13/24 01:13 25 mg ONCE ONE Administration Nitroglycerin/Dextrose 25,000 mcg in 250 mls @ 3 mls/hr 04/12/24 20:12 04/13/24 00:45 Nitroglycerin/Dextrose IVPB 0 mcg/min .TITRATE PRN 0 mls/hr Titration Protocol 5 MCG/MIN Lidocaine/Aluminum/Magnesium/Simeth 30 ml 04/12/24 23:47 04/13/24 00:34 Gi Cocktail (Visc Lido/Antacid) 30 Ml PO 04/12/24 23:48 30 ml ONCE ONE Administration Ondansetron HCl 4 mg 04/13/24 00:58 04/13/24 01:00 Ondansetron Odt 4 Mg Tab PO 04/13/24 00:59 4 mg ONCE ONE Administration <Swapna Nicholson MD - Last Filed: 04/28/24 16:42> Discontinued Medications Generic Name Dose Route Start Last Admin Trade Name Freq PRN Reason Stop Dose Admin Amlodipine Besylate 5 mg 04/13/24 01:12 04/13/24 01:40 Amlodipine 5 Mg Tablet PO 04/13/24 01:13 5 mg ONCE ONE Administration Aspirin 324 mg 04/12/24 21:02 04/12/24 21:15 Aspirin 81 Mg Tab.Chew PO 04/12/24 21:03 324 mg ONCE ONE Administration Hydralazine HCl 20 mg 04/12/24 20:14 06/14/24 20:45 Hydralazine 10 Mg Tablet PO 04/12/24 20:15 20 mg ONCE ONE Administration Hydralazine HCl 25 mg 04/13/24 01:12 04/13/24 01:43 Hydralazine 25 Mg Tablet PO 04/13/24 01:13 25 mg ONCE ONE Administration Nitroglycerin/Dextrose 25,000 mcg in 250 mls @ 3 mls/hr 04/12/24 20:12 04/13/24 00:45 Nitroglycerin/Dextrose IVPB 0 mcg/min .TITRATE PRN 0 mls/hr Titration Protocol 5 MCG/MIN Lidocaine/Aluminum/Magnesium/Simeth 30 ml 04/12/24 23:47 04/13/24 00:34 Gi Cocktail (Visc Lido/Antacid) 30 Ml PO 04/12/24 23:48 30 ml ONCE ONE Administration Ondansetron HCl 4 mg 04/13/24 00:58 04/13/24 01:00 Ondansetron Odt 4 Mg Tab PO 04/13/24 00:59 4 mg ONCE ONE Administration <Robert Tony MD - Last Filed: 04/15/24 07:55> Medical Decision Making MDM Narrative Medical decision making narrative: Received this patient in handoff at change of shift. Pending repeat troponins and EKG and nitroglycerin and hydralazine effect on elevated blood pressure. On nitro drip for marked hypertension. I suspect it would be easier to get control of this with inpatient hospitalization. Did discuss with hospitalist. Plan had been arranged as above potentially for outpatient management. Labs overall reassuring with improved creatinine as well. Had been initiated on nitroglycerin drip. Was at 40 mcg and did make it to 151 systolic. We did repeat EKG around this time as well as repeating a troponin. EKG remained similar by my read with these T-wave inversions persist as noted prior; though maybe with some of these T-wave changes being a little more equivocal Reviewing symptoms again with Mr. Knapp, he has described being particularly gassy or bloaty and that belching does relieve the discomfort that he had been initially complaining of. He admits to also being constipated. He would like to try GI cocktail. This was given and though he did end up vomiting, did appear to help somewhat. This may explain his abdominal lower chest pain symptoms but I am not sure that would explain this uncontrolled blood pressures. Reviewing records he is generally above 150 systolic. He does not typically struggle with lower extremity edema though there is very trace here when I check. Perhaps would benefit also from amlodipine. Has never had renal ultrasound; this might be part of evaluation as well. Does already have close follow-up this coming week with Cardiology. At this point is to continue with hydralazine as arranged through conversation with Cardiology. Was given 5 mg of amlodipine before departure. He is already taking furosemide which I would not increase and further stress kidneys. Already on 40 mg of lisinopril. And is verified to be taking atenolol. See patient discharge plan for further discussion/plan Procedure(s): XR chest 1V portable Accession Number(s): [id number] cc: BERNABE MCGEE, Joanne Serra; Swapna Nicholson M.D.~ For Patients: As a result of the Cures Act, medical imaging exams and procedure reports are released immediately into your electronic medical record. You may view this report before your referring provider. If you have questions, please contact your health care provider. INDICATION: Right upper quadrant chest pain TECHNIQUE: Chest radiograph 1 view on 2 films COMPARISON: 03/12/2024 FINDINGS: The sensitivity and specificity of the exam are moderately limited by the patient`s body habitus. Mediastinum: The mediastinum is normal in appearance. The heart silhouette is normal in size and morphology. Lung: Both lungs are unremarkable in appearance. A small stable granuloma is noted in the left lower lung zone. No sign of pleural effusion seen. No pneumothorax is identified. Bone and Soft tissue: Unremarkable for age. IMPRESSION: 1. No acute cardiopulmonary disease is seen. <Robert Tony MD - Last Filed: 04/15/24 07:55> Lab Data Lab results reviewed: Yes I reviewed the patient's lab results <Robert Tony MD - Last Filed: 04/15/24 07:55> Labs: Lab Results 04/12/24 04/12/24 04/12/24 Range/Units 19:20 21:20 23:46 WBC 6.07 (4.50-11.00) K/uL RBC 5.71 (4.30-5.90) m/uL Hgb 16.1 (13.5-17.5) gm/dL Hct 47.6 (37.0-53.0) % MCV 83 (80-100) fL MCH 28 (26-34) pg MCHC 34 (32-36) gm/dL RDW Coeff of Marty 14.5 (11.5-15.5) % Plt Count 178 (140-440) K/uL Neut % (Auto) 65.4 (42.0-72.0) % Lymph % (Auto) 25.4 (20-44) % [place] % (Auto) 6.4 (0.0-11.0) % Eos % (Auto) 2.3 (0.0-7.0) % Baso % (Auto) 0.3 (0.0-3.0) % Neut # (Auto) 3.97 (1.7-7.0) K/uL Lymph # (Auto) 1.54 (0.90-2.90) K/uL [place] # (Auto) 0.40 (0.00-0.90) K/UL Eos # (Auto) 0.14 (0.00-0.50) K/uL Baso # (Auto) 0.02 (0.00-0.30) K/uL Abs Immat Gran (auto) 0.01 (0.00-0.30) K/uL Imm/Tot Granulo (auto) 0.2 % D-Dimer Quant (PE/DVT) 0.45 (0.00-0.50) ug/ml Sodium 138 (135-149) mmol/L Potassium 4.0 (3.6-5.1) mmol/L Chloride 102 (96-114) mmol/L Carbon Dioxide 29 (20-32) mmol/L Anion Gap 7 (7-15) mEq/L BUN 27 (7-30) mg/dL Creatinine 1.3 (0.5-1.5) mg/dL Estimated Creat Clear 56.31 Estimated GFR 59 ml/min Glucose 212 H (60-115) mg/dL Lactate 1.0 (0.5-1.9) mmol/L Calcium 9.7 (8.4-10.6) mg/dL Total Bilirubin 0.7 (0.1-1.5) mg/dL Direct Bilirubin 0.5 (0.0-0.5) mg/dL AST 25 (12-35) U/L ALT 22 (4-50) U/L Alkaline Phosphatase 70 (40-150) U/L C-Reactive Protein < 0.5 L (0.5-1.0) mg/dL Total Protein 7.2 (6.0-8.3) g/dL Albumin 4.6 (3.3-5.0) g/dL Lipase 94 (23-300) U/L Urine Color Yellow (Yellow) Urine Appearance Clear (Clear) Urine pH 6.5 (5.0-8.5) Ur Specific [place] 1.020 (1.000-1.030) Urine Protein Trace A (Negative) Urine Glucose (UA) 2+ A (Negative) Urine Ketones 1+ A (Negative) Urine Blood Trace-intact A (Negative) Urine Nitrite Negative (Negative) Urine Bilirubin Negative (Negative) Urine Urobilinogen 0.2 (0.2-1.0) Ur Leukocyte Esterase Negative (Negative) Urine RBC 0-2 (0-2) Urine WBC 0-2 (0-5) Ur Squamous Epith Cells None (None-Few) Urine Bacteria None (None) POC Troponin I 0.01 0.02 (0.01-0.04) ng/ml <Swapna Nicholson MD - Last Filed: 04/28/24 16:42> Lab Results 04/12/24 04/12/24 04/12/24 Range/Units 19:20 21:20 23:46 WBC 6.07 (4.50-11.00) K/uL RBC 5.71 (4.30-5.90) m/uL Hgb 16.1 (13.5-17.5) gm/dL Hct 47.6 (37.0-53.0) % MCV 83 (80-100) fL MCH 28 (26-34) pg MCHC 34 (32-36) gm/dL RDW Coeff of Marty 14.5 (11.5-15.5) % Plt Count 178 (140-440) K/uL Neut % (Auto) 65.4 (42.0-72.0) % Lymph % (Auto) 25.4 (20-44) % [place] % (Auto) 6.4 (0.0-11.0) % Eos % (Auto) 2.3 (0.0-7.0) % Baso % (Auto) 0.3 (0.0-3.0) % Neut # (Auto) 3.97 (1.7-7.0) K/uL Lymph # (Auto) 1.54 (0.90-2.90) K/uL [place] # (Auto) 0.40 (0.00-0.90) K/UL Eos # (Auto) 0.14 (0.00-0.50) K/uL Baso # (Auto) 0.02 (0.00-0.30) K/uL Abs Immat Gran (auto) 0.01 (0.00-0.30) K/uL Imm/Tot Granulo (auto) 0.2 % D-Dimer Quant (PE/DVT) 0.45 (0.00-0.50) ug/ml Sodium 138 (135-149) mmol/L Potassium 4.0 (3.6-5.1) mmol/L Chloride 102 (96-114) mmol/L Carbon Dioxide 29 (20-32) mmol/L Anion Gap 7 (7-15) mEq/L BUN 27 (7-30) mg/dL Creatinine 1.3 (0.5-1.5) mg/dL Estimated Creat Clear 56.31 Estimated GFR 59 ml/min Glucose 212 H (60-115) mg/dL Lactate 1.0 (0.5-1.9) mmol/L Calcium 9.7 (8.4-10.6) mg/dL Total Bilirubin 0.7 (0.1-1.5) mg/dL Direct Bilirubin 0.5 (0.0-0.5) mg/dL AST 25 (12-35) U/L ALT 22 (4-50) U/L Alkaline Phosphatase 70 (40-150) U/L C-Reactive Protein < 0.5 L (0.5-1.0) mg/dL Total Protein 7.2 (6.0-8.3) g/dL Albumin 4.6 (3.3-5.0) g/dL Lipase 94 (23-300) U/L Urine Color Yellow (Yellow) Urine Appearance Clear (Clear) Urine pH 6.5 (5.0-8.5) Ur Specific [place] 1.020 (1.000-1.030) Urine Protein Trace A (Negative) Urine Glucose (UA) 2+ A (Negative) Urine Ketones 1+ A (Negative) Urine Blood Trace-intact A (Negative) Urine Nitrite Negative (Negative) Urine Bilirubin Negative (Negative) Urine Urobilinogen 0.2 (0.2-1.0) Ur Leukocyte Esterase Negative (Negative) Urine RBC 0-2 (0-2) Urine WBC 0-2 (0-5) Ur Squamous Epith Cells None (None-Few) Urine Bacteria None (None) POC Troponin I 0.01 0.02 (0.01-0.04) ng/ml <Robert Tony MD - Last Filed: 04/15/24 07:55> Discharge Plan Discharge Clinical Impression: Hypertensive urgency, Constipation, Atypical chest pain, Sensation of gaseous abdominal fullness <Swapna Nicholson MD - Last Filed: 04/28/24 16:42> Patient Disposition: Home w/ Parent or Adult <Swapna Nicholson MD - Last Filed: 04/28/24 16:42> Condition: Stable <Swapna Nicholson MD - Last Filed: 04/28/24 16:42> Additional Instructions: Please take these copies of the EKGs to your follow-up with Cardiology this coming week. Return for persistent and worsening chest pain, increasing shortness of breath, lightheadedness. It is possible it gas and constipation is playing some part here in your discomfort. If you are experiencing hard stool, would place an enema and repeat an hour if no good result. Could also place a suppository overnight. Clean out can also be accomplished then from above with a bottle of magnesium citrate and repeating the next day if no good result. Otherwise to control abdominal gas I would try a liquid anti gas. Usually it is something containing simethicone. Record blood pressures daily after a period of rest. Take these readings in to your follow-up. I am also adding some amlodipine to your blood pressure control. If you are noticing lower extremity swelling, consider wearing compression stockings when up and about and when at rest, get your legs up. Can take this next hydralazine at 5:00 a.m. Can also fudge dosing a little bit over the next few days so that the 3 times a day hydralazine dosing can be at a more convenient time. <Swapna Nicholsno MD - Last Filed: 04/28/24 16:42> Prescriptions: No Action tamsulosin 0.4 mg capsule 0.4 mg PO QDAY Qty: 90 3RF hydralazine 10 mg Tablet 30 mg PO TID Qty: 30 0RF amlodipine 5 mg Tablet 5 mg PO BID Qty: 30 0RF Jardiance 25 mg tablet 25 mg PO DAILY 90 Days Qty: 90 3RF Hold Instructions: Doctor's Order indomethacin 50 mg capsule See Rx Instructions .ROUTE .COMPLEX Qty: 135 3RF Dose Instruction: TAKE 1 CAPSULE BY MOUTH THREE TIMES DAILY NEEDED FOR GOUT Rx Instructions: TAKE 1 CAPSULE BY MOUTH THREE TIMES DAILY NEEDED FOR GOUT atorvastatin [Lipitor] 10 mg tablet 10 mg PO QHS 90 Days Qty: 90 3RF lisinopril 40 mg tablet 40 mg PO QDAY Qty: 90 3RF insulin glargine [Lantus Solostar U-100 Insulin] 100 unit/mL (3 mL) insulin pen 30 unit subcut QAM 90 Days Qty: 27 3RF furosemide [Lasix] 20 mg tablet 10 mg PO QAM 90 Days Qty: 45 3RF <Swapna Nicholson MD - Last Filed: 04/28/24 16:42> Follow Up/Referrals: Joanne Serra, PSYCHOLOGICAL AIDE, MAINTENANCE SHOP WELDER [Primary Care Provider] - <Swapna Nicholson MD - Last Filed: 04/28/24 16:42> Stand Alone Forms: MyHealth Info Instructions <Swapna Nicholson MD - Last Filed: 04/28/24 16:42>
[2024-04-12 19:39] LABS: Slide Review Reflex No
--- NOTE | 2024-04-12 19:41 | CRLHL7_ITS ---
For Patients: As a result of the Century Cures Act, medical imaging exams and procedure reports are released immediately into your electronic medical record. You may view this report before your referring provider. If you have questions, please contact your health care provider. INDICATION: Right upper quadrant chest pain TECHNIQUE: Chest radiograph 1 view on 2 films COMPARISON: 03/12/2024 FINDINGS: The sensitivity and specificity of the exam are moderately limited by the patient`s body habitus. Mediastinum: The mediastinum is normal in appearance. The heart silhouette is normal in size and morphology. Lung: Both lungs are unremarkable in appearance. A small stable granuloma is noted in the left lower lung zone. No sign of pleural effusion seen. No pneumothorax is identified. Bone and Soft tissue: Unremarkable for age. IMPRESSION: 1. No acute cardiopulmonary disease is seen. Dictated by: Eitan Parisi MD @ 04/12/2024 21:03:06 (Electronically Signed)
[2024-04-12 19:45] LABS: Albumin* 4.6 g/dL (3.3-5.0); Chloride* 102 mmol/L (96-114); Sodium* 138 mmol/L (135-149)
[2024-04-12 19:47] LABS: Creatinine* 1.3 mg/dL (0.5-1.5); Est. Creatinine Clearance* 56.31; Estimated Glomerular Filt Rate 59 ml/min
[2024-04-12 19:48] LABS: Alkaline Phosphatase* 70 U/L (40-150); Anion Gap 7 mEq/L (7-15); Aspartate Amino Transferase* 25 U/L (12-35); Bilirubin Direct* 0.5 mg/dL (0.0-0.5); Bilirubin Total* 0.7 mg/dL (0.1-1.5); Blood Urea Nitrogen* 27 mg/dL (7-30); Carbon Dioxide* 29 mmol/L (20-32); Glucose* 212 mg/dL (60-115); Lipase* 94 U/L (23-300); Total Protein* 7.2 g/dL (6.0-8.3)
[2024-04-12 19:49] LABS: Alanine Aminotransferase* 22 U/L (4-50); Calcium* 9.7 mg/dL (8.4-10.6); D Dimer Quantitative* 0.45 ug/ml (0.00-0.50)
[2024-04-12 19:54] LABS: C Reactive Protein* < 0.5 mg/dL (0.5-1.0)
[2024-04-12] MEDS: NITROGLYCERIN/DEXTROSE 25,000 MCG/250 ML BOTTLE 3 MCG IVPB (20:30)
[2024-04-12] MEDS: HYDRALAZINE 10 MG TABLET 20 MG PO (20:45)
[2024-04-12] MEDS: ASPIRIN 81 MG TAB.CHEW 324 MG PO (21:15)
[2024-04-12 21:32] LABS: Appearance Urine Clear (Clear); Bilirubin Urine Negative (Negative); Blood Urine Trace-intact (Negative); Color Urine Yellow (Yellow); Glucose Urine 2+ (Negative); Ketones Urine 1+ (Negative); Leukocyte Esterase Urine Negative (Negative); Nitrite Urine Negative (Negative); Protein Urine Trace (Negative); Urobilinogen Urine 0.2 (0.2-1.0); pH Urine 6.5 (5.0-8.5)
[2024-04-12 21:44] LABS: RBC Urine 0-2 (0-2); WBC Urine 0-2 (0-5)
[2024-04-13] VITALS: BP 159/86; PULSE 63; RESP 12; O2SAT 95
[2024-04-13 00:09] LABS: Troponin, Point-of-Care* 0.02 ng/ml (0.01-0.04)
[2024-04-13 00:15] VITALS: BP 157/80; PULSE 54; RESP 14; O2SAT 96
[2024-04-13 00:30] VITALS: BP 164/84; PULSE 57; RESP 16; O2SAT 94
[2024-04-13] MEDS: GI COCKTAIL (VISC LIDO/ANTACID) 30 ML PO (00:34)
[2024-04-13 00:45] VITALS: BP 170/141; PULSE 61; RESP 12; O2SAT 95
[2024-04-13] MEDS: ONDANSETRON ODT 4 MG TAB PO (01:00)
[2024-04-13 01:03] VITALS: BP 201/99; PULSE 59; RESP 14; O2SAT 96
[2024-04-13] MEDS: AMLODIPINE 5 MG TABLET PO (01:40)
[2024-04-13] MEDS: HYDRALAZINE 25 MG TABLET PO (01:43)
[2024-04-13 01:44] VITALS: BP 201/94; PULSE 61; RESP 14; TEMP 36.2
[2024-04-17 10:02] LABS: Troponin, Point-of-Care* 0.01 ng/ml (0.01-0.04)
== END 2024-04-13 01:44 | disposition home or self-care (01) ==
PROVIDERS: Family Medicine; Emergency Provider Emergency Medicine; PCP Nurse Practitioner Family
DX: I16.0 Hypertensive urgency (principal); K59.00 Constipation, unspecified; R07.9 Chest pain, unspecified
CPT/HCPCS: 36415; 71045; 80048; 80076; 81001; 83605; 83690; 83880; 84484; 84550; 85025; 85379; 86140; 93005; 94761; 96372; 96374; 99284; 99285; 99291; G0378; A9270; J0360

== ENCOUNTER 2024-04-13 19:51 | Observation (INO) | payer MEDICARE, OTHER, SELFPAY ==
[2024-04-13] VITALS (10 sets, daily range): BP systolic 188–213; BP diastolic 82–94; PULSE 58–87; RESP 14–18; TEMP 36.6–36.8; O2SAT 95–98; BMI 32.1; BMI 31.7
--- OUTSIDE RECORDS SUMMARY | 2024-04-13 20:40 | XMS_ITS | Clinical Summary ---
Author Organization [facility] Address [place], [place] [address] Care Team Providers Care Decal Maker Name Role Phone Al Orourke MD Unavailable [phone] Joanne Serra NP Primary Care Provider Jeannine [...] Encounters Date Type Department Care Team Description 04/12/2024 Telephone [facility] [address] [place] [address] August Montoya MD 03/27/2024 1:00 PM CDT Ancillary Procedure [facility] [address] [place] [address] 03/27/2024 Travel from Last 3 Months Social [...] 65+ 06/30/2024 Medical Devices Implanted Type Area Car Sales Associate Device Identifier Shelf Expiration Date Model / Serial / Lot [id number] - [id number] Implanted:Qty : 1 on 07/30/2020 by Nikko Galindo MD at [facility] Opthalmology Implants Left: Eye [employer] 08/06/2024 [id number] / [id number] / NA Description:Tecnis Aspheric IOL +21.0 Iol [place] +21 Tecnis [id number] - [id number] Implanted:Qty : 1 on 08/06/2020 by Nikko Galindo MD at [facility] Opthalmology Implants Right: Eye [employer] 02/25/2025 [id number] 21.0# / [id number] / N/A Procedures Procedure Name Priority [...] CDT Narrative 03/27/2024 2:57 PM CDT ECHOCARDIOGRAM JOSEPH KNAPP ? Accession#: ?? [id number] : ?1955 68 years Study Date: ?? 03/27/2024 1:03:30 PM Gender: M ?BP: ? 158/76 mmHg Height: 180.00 cm ?BSA: ?2.20 m? ? ? Weight: 101.00 kg ?Tech: ? MSR ? Referring MD: JOANNE SERRA Site: ? [facility] Reading Location: [facility] Patient Location: Outpatient. Procedure: 2D, Color Doppler [...] 2ml ml diluted Definity, lot #[id number], [facility]# [id number] was administered peripherally to enhance visualization of all left ventricular segments. . This study was interpreted by an [facility] accredited facility. CC: HIM ([facility]) [facility]. ??Final ?? Procedure Note Terese Briones MD - 03/27/2024 ECHOCARDIOGRAM JOSEPH KNAPP : 1955 68 years Study Date: 03/27/2024 1:03:30 PM Gender: M BP: 158/76 mmHg Height: 180.00 cm BSA: 2.20 m? ? ? Weight: 101.00 kg Tech: MSR Referring MD: JOANNE SERRA Site: [facility] Reading Location: Mobile [facility] Patient Location: Outpatient. Procedure: 2D, Color Doppler [...] 2ml ml diluted Definity, lot #[id number], [facility]#[id number] was administered peripherally to enhance visualization of allleft ventricular segments. . This study was interpreted by an [facility] accredited facility. CC: [facility] (med records) [facility]. Final Joanne Serra EMBOSSING PRESS OPERATOR [employer] ECHO ORD * (ABNORMAL) Lipid Panel Fasting (08/06/2013 2:25 PM CDT) Pathologist [facility] CHOLESTEROL,TOTAL 272(H) 100 - 199 mg/dL 08/06/2013 2:58 PM CDT [facility] TRIGLYCERIDES 517(H) <150 mg/dL 08/06/2013 2:58 PM T [facility] HDL CHOLESTEROL 34(L) >40 mg/dL 3 2:58 PM T [facility] NON-HDL CHOLESTEROL 238(H) <145 mg/dl 08/06/2013 2:58 PM T [facility] CHOL/HDL RATIO 8.00(H) <4.50 08/06/2013 2:58 PM T [facility] LDL CHOLESTEROL 3 2:58 PM T [facility] Comment:Invalid LDL when Tri g >400. PATIENT STATUS FASTING 08/06/2013 2:58 PM T [facility] Blood specimen (specimen) BLOOD SPECIMEN / Unknown Non-Lab Venipuncture / Unknown 08/06/2013 2:25 PM CDT 08/06/2013 2:35 PM CDT Al Orourke MD CHEMISTRY [facility] SENDOUT INTERNAL ZIP [address] [address] [place] [address] from Last 3 Months or Most Recently Relevant to Health Maintenance Care Teams Decal Maker Relationship Specialty Start Date End Date Joanne Serra EMBOSSING PRESS OPERATOR [employer] [address] [place] [address] PCP - General Emergency Medicine 02/11/22 Al Orourke MD [address] [place] [address] Consulting Physician Cardiovascular Disease 01/16/15
[2024-04-13 21:02] LABS: Troponin, Point-of-Care* 0.05 ng/ml (0.01-0.04)
--- NOTE | 2024-04-13 21:53 | P.IMHP_ITS ---
Hospitalist- H&P: HPI History of Present Illness Date Seen: 04/13/24 Chief complaint: R side upper abdominal/chest pain Narrative: ADMISSION HISTORY AND PHYSICAL - HOSPITALIST Chief Complaint: Hypertensive urgency HPI: 68 y/o WM with a hx of recent dx of aortic stenosis (The aortic valve area is 0.91 cm?? with a dimensionless index of 0.23)in late February 2024. Previous 2021 echo: The aortic valve area is 1.82 cm?? with a dimensionless index of 0.41. His presenting symptom to PCP was LOWRY and murmur was identified. He is to see [facility] next week for a TAVR. 1 Day ADVISOR CONSULTANT he had some abdominal - midepigastric pain and presented to the ED. His workup was unremarkable. He was in an Hypertensive urgency with pressures of 231/112, 224/112 ... He was given oral hydralazine and IV Nitro and observed. Cards was consulted and instructed on adding norvasc and hydralazine to his atenolol and lisinopril. The EKG had some new flipped T waves (Lead III); troponin was zero. Dr. Nicholson - ER visit 04/12/24 I did talk with Cardiology about this patient given severe hypertension and EKG changes. He recommended control of blood pressure with either IV hydralazine or nitroglycerin. Recommended hydralazine 20 mg 3 times daily at home. I did given oral dose of 20 mg here and started a nitroglycerin drip. According to Cardiology, if patient's blood pressure is controlled, repeat troponin is negative and pain is resolved, he could go home and follow up with outpatient Cardiology. However, if blood pressure is not well controlled, pain is persistent, or troponin is abnormal, would recommend repeat conversation with Cardiology and consideration of admission here or transfer for more definitive management Home for about 18 hours he returned with elevated pressures again of high 190's/80s. He denies chest pain or abdominal pain. Cardiac ROS negative. However this time, his trop is 0.05 up from 0.02. EKG tonight shows those flipped T waves have corrected. Also, his just three weeks ago and his family is very concerned about his well-being. ER COURSE: Dr. Sheehan discussed with Scott - admit - trend troponin - and increase hydralazine to 30mg TID. CODE STATUS: FULL EMERGENCY CONTACT PLAN: Primary Contact Name Kelly Enamorado Rel To Pat Daughter Cell I've updated the PFSH, medications and allergies in the Expanse tabs. INVESTIGATIONS: LABS/MICRO/ECG/IMAGING Blood pressures as described above. Currently 189/94. Pulse 64. Respirations 14. Afebrile. O2 sat 96% on room air. CBC done 1 day prior to admission is unremarkable. Hemoglobin 16.1 Chem panel done 1 day prior to admission reveals normal electrolytes, normal lactate. Glucose 212. CRP is less than 0.5 UA showed 2+ glucose and 1+ ketones Troponin 0.05 at 8:22 p.m. 6/15 previously had been 0.02 on the day prior to admission Chest x-ray negative Hemoglobin A1c historically is 7.6 ECHO 03/27/24 Impressions: 1. Technically limited exam. 2. Normal left ventricular size, mildly increased wall thickness, normal global systolic function, calculated EF of 65 %. 3. The aortic valve is calcified and not well visualized, severe stenosis (paradoxical low flow low gradient) and no regurgitation. The aortic valve peak velocity is 3.3 m/s, the peak gradient is 43 mmHg, and the mean gradient is 29 mmHg. The aortic valve area is 0.91 cm?? with a dimensionless index of 0.23. The stroke volume index is 31.1 ml/m??. 4. The mitral valve is sclerotic, trace mitral regurgitation. 5. Echo contrast was administered to enhance visualization of all left ventricular segments. Normal Cardiac stress test on 03/09/22 REVIEW OF SYSTEMS: 12-point ROS completed with patient and negative unless otherwise stated in HPI or below. PHYSICAL EXAM: CONSTITUTIONAL: Conversive, good historian. A/O. Knows setting and context. VITAL SIGNS: see record. HEENT: Normocephalic, atraumatic. PERRL, EOMI, conjunctivae pink, no scleral icterus. Ears and nose externally normal. Pharynx normal. NECK: No JVD. No carotid bruit, no thyromegaly, no adenopathy. CHEST: Clear to auscultation bilaterally HEART: S1 and S2. 4/6 holosystolic murmur. Edema TRACE. MUSCULOSKELETAL: No gross joint deformity or swelling. NEURO: Cranial nerves intact. Grossly intact. No asymmetric findings. SKIN: No rashes, petechiae, concerning changes PSYCHIATRIC: Euthymic. ADMIT TO MEDSURG: FLOOR CARE DVT: SCDs, short admission, ambulatory GI: PO intake Time spent: Today I spent 75 minutes seeing the patient, discussing the patient with ER staff, reviewing Expanse and EPIC notes/diagnostics, discussing the care plan with our care time that includes social work, PT/OT, pharmacy, RT, jail and documenting my impressions and plan in the medical record. [facility] Medical History (Updated 04/13/24 @ 23:42 by Marilyn Vásquez MD) Ulcer of lower extremity ?L97.909 - Non-pressure chronic ulcer of unspecified part of unspecified lower leg with unspecified severity (ICD-10) Hypertension ?I10 - Essential (primary) hypertension (ICD-10) Severe aortic stenosis ?I35.0 - Nonrheumatic aortic (valve) stenosis (ICD-10) Left shoulder pain ?M25.512 - Pain in left shoulder (ICD-10) Trigger finger ?M65.30 - Trigger finger, unspecified finger (ICD-10) BPH (benign prostatic hyperplasia) ?N40.0 - Benign prostatic hyperplasia without lower urinary tract symptoms (ICD-10) Depression (04/29/11) ?F32.A - Depression, unspecified (ICD-10) Hyperlipidemia ?E78.5 - Hyperlipidemia, unspecified (ICD-10) Coronary artery disease ?I25.10 - Atherosclerotic heart disease of [place] coronary artery without angina pectoris (ICD-10) History of malignant neoplasm of skin ?Z85.828 - Personal history of other malignant neoplasm of skin (ICD-10) Gout ?M10.9 - Gout, unspecified (ICD-10) Type 2 diabetes mellitus ?E11.9 - Type 2 diabetes mellitus without complications (ICD-10) Surgical History History of coronary artery stent placement ?Z95.5 - Presence of coronary angioplasty implant and graft (ICD-10) History of cataract extraction ?Z98.49 - Cataract extraction status, unspecified eye (ICD-10) Family History Sister Lung cancer Mother Lung cancer Social History What is your current living situation?: I presently have a place to live Problems where you live: no known problems Problems where you live details: N/A In the past 12 months, utilities in danger of being shut off: no In past 12 months, lack of transportation kept you from medical appts, meetings, work, or getting things needed for daily living: no In the past 12 mos, have been you worried that your food would run out before you had money to buy more?: never true In the past 12 mos, the food you bought just didn't last and you didn't have money to buy more?: never true Highest level of school completed/degree received: Bachelor's degree Smoking Status: Never smoker Do you use any of these nicotine containing products: None Second hand tobacco smoke exposure: No How often do you have a drink containing alcohol: never How often do you have six or more drinks on one occasion: Never AUDIT-C Alcohol total score: 0 Non-prescribed substance use: denies use Caffeine: Yes How often does anyone, including family, friends and others, physically hurt you : never How often does anyone, including family, friends and others, insult or talk down to you: never How often does anyone, including family, friends and others, threaten you with harm: never How often does anyone, including family, friends and others, scream or curse at you: never Little interest or pleasure in doing things: not at all Feeling down, depressed, or hopeless: not at all service: No Meds Home Medications and Allergies Allergies Allergy/AdvReac Type Severity Reaction Status Date / Time No Known Drug Allergies Allergy Verified 03/12/24 14:34 Exam Const: Vital Signs, click to edit/add: Vital Signs - 24 hr 04/13/24 19:57 04/13/24 20:12 04/13/24 20:32 Temperature 98.2 F Pulse Rate 58 L 61 Pulse Rate [Left P ulse Oximeter] 61 Respiratory Rate 16 16 16 Blood Pressure 193/86 H 188/86 H Blood Pressure [Ri ght Upper Arm] 197/82 H Pulse Oximetry 96 95 97 Oxygen Delivery Me thod Room Air Room Air Room Air 04/13/24 20:39 04/13/24 21:33 Temperature Pulse Rate 64 Pulse Rate [Left P ulse Oximeter] Respiratory Rate 14 Blood Pressure 189/94 H Blood Pressure [Ri ght Upper Arm] Pulse Oximetry 96 96 Oxygen Delivery Me thod Room Air Assessment and Plan Assessment and plan (1) Severe aortic stenosis: Problem comment: goal bp 150's/90's, valve appt for TAVR next week (2021 -->2023 valve area decreased from 1.82 to 0.9, pressure peak of 35 to 43) trend troponin, EKG, clinical picture euvolemic Status: Acute (2) Hypertensive urgency: Problem comment: increase hydralazine to 30 mg TID per cards, IV hydralazine prn. continue amlodipine, atenolol, lisinopril repeat EKG and troponin and trend Status: Acute (3) Coronary artery disease: Problem comment: s/p DINO prox LAD, angioplasty RCA 07/2013 Status: Acute (4) Gout: Status: Acute (5) Type 2 diabetes mellitus: Problem comment: home regimen: glipizide 10mg BID, Lantus 30 units qam accuchecks, SSI. Status: Acute (6) Hyperlipidemia: Problem comment: continue statin Status: Acute
--- NOTE | 2024-04-13 21:57 | ED_ITS ---
HPI - General Adult General Chief complaint: Abdominal Pain Stated complaint: R side upper abdominal/chest pain Time Seen by Provider: 04/13/24 20:13 History of Present Illness HPI narrative: Patient is a 68-year-old gentleman with complex past medical history including aortic stenosis who presents with persistently elevated blood pressure. Patient has chronic hypertension but had been doing well on lisinopril at 38. Patient also has aortic stenosis with aortic valve area 0.91 centimeter squared. He was seen here earlier today in the last night and had workup including negative troponin x2. There was some concern of flipped T-waves. He was on nitro drip and hydralazine was started. Cardiology consultation was obtained the patient was sent home where his blood pressures remained elevated. Initially he felt like he had been maybe having some abdominal pain today but now he denies any symptoms at all. He is very concerned that his blood pressure is high and is especially concerned as his 3 weeks ago. Related Data Previous Rx's ?Medication ?Instructions ?Recorded atorvastatin 10 mg tablet (Lipitor) 10 mg PO QHS 90 days #90 tabs 06/16/23 empagliflozin 25 mg tablet 25 mg PO DAILY 90 days #90 tabs 06/16/23 (Jardiance) glipizide 10 mg tablet 10 mg PO BID 90 days #180 tabs 06/16/23 indomethacin 50 mg capsule See Rx Instructions .Route 06/16/23 .COMPLEX #135 caps lisinopril 40 mg tablet 40 mg PO QDAY #90 tabs 06/16/23 atenolol 50 mg tablet 50 mg PO QDAY 90 days #90 tabs 06/20/23 tamsulosin 0.4 mg capsule 0.4 mg PO QDAY #90 caps 11/24/23 insulin glargine 100 unit/mL (3 30 unit (0.3 mL) subcut QAM 90 11/28/23 mL) subcutaneous pen (Lant days #27 mL Solostar U-100 Insulin) pen needle, diabetic 31 gauge x #100 ea 11/28/2311/02 (1st Tier Unifine Pentips) blood-glucose meter,continuous #1 ea 12/27/23 (Dexcom G6 Blueprinting Machine Operator) blood-glucose sensor (Dexcom G6 #9 ea 01/01/24 Sensor device) blood-glucose transmitter (Dexcom #1 ea 01/01/24 G6 Transmitter device) furosemide 20 mg tablet (Lasix) 10 mg (1/2 x 20 mg) PO QAM 90 days 03/13/24 #45 tabs amlodipine 5 mg tablet 5 mg PO DAILY #30 tabs 04/13/24 hydralazine 10 mg tablet 20 mg (2 x 10 mg) PO TID 30 days 04/13/24 #180 tabs Allergies Allergy/AdvReac Type Severity Reaction Status Date / Time No Known Drug Allergies Allergy Verified 03/12/24 14:34 Review of Systems Status of ROS: Reports: 10 or more systems reviewed and unremarkable except as noted in History and below [facility] Medical History Depression (04/29/11) ?F32.A - Depression, unspecified (ICD-10) Hyperlipidemia ?E78.5 - Hyperlipidemia, unspecified (ICD-10) Hypertension ?I10 - Essential (primary) hypertension (ICD-10) Coronary artery disease ?I25.10 - Atherosclerotic heart disease of [place] coronary artery without angina pectoris (ICD-10) History of malignant neoplasm of skin ?Z85.828 - Personal history of other malignant neoplasm of skin (ICD-10) Gout ?M10.9 - Gout, unspecified (ICD-10) Type 2 diabetes mellitus ?E11.9 - Type 2 diabetes mellitus without complications (ICD-10) Surgical History History of coronary artery stent placement ?Z95.5 - Presence of coronary angioplasty implant and graft (ICD-10) History of cataract extraction ?Z98.49 - Cataract extraction status, unspecified eye (ICD-10) Family History Sister Lung cancer Mother Lung cancer Social History What is your current living situation?: I presently have a place to live Problems where you live: no known problems In the past 12 months, utilities in danger of being shut off: no In past 12 months, lack of transportation kept you from medical appts, meetings, work, or getting things needed for daily living: no In the past 12 mos, have been you worried that your food would run out before you had money to buy more?: never true In the past 12 mos, the food you bought just didn't last and you didn't have money to buy more?: never true Smoking Status: Never smoker Do you use any of these nicotine containing products: None Second hand tobacco smoke exposure: No How often do you have a drink containing alcohol: never How often do you have six or more drinks on one occasion: Never AUDIT-C Alcohol total score: 0 Non-prescribed substance use: denies use How often does anyone, including family, friends and others, physically hurt you : never How often does anyone, including family, friends and others, insult or talk down to you: never How often does anyone, including family, friends and others, threaten you with harm: never How often does anyone, including family, friends and others, scream or curse at you: never Little interest or pleasure in doing things: not at all Feeling down, depressed, or hopeless: not at all service: No Exam Narrative: Exam Narrative: EXAM GENERAL: Patient appears comfortable and well. EYES: No scleral icterus. LYMPH: No supraclavicular or cervical lymphadenopathy. SKIN: Visible skin seen during exam normal or with benign process only. EXT: No dependent lower extremity pedal edema. HEART: Regular rate and rhythm with 3/6 systolic murmur. LUNGS: Clear to auscultation bilaterally with no crackles or wheezes. ABD: Soft, non tender, non distended. PSYCH: Good eye contact, speech is not pressured. Const: Vital Signs, click to edit/add: Vital Signs - 24 hr 04/13/24 19:57 04/13/24 20:12 04/13/24 20:32 Temperature 98.2 F Pulse Rate 58 L 61 Pulse Rate [Left P ulse Oximeter] 61 Respiratory Rate 16 16 16 Blood Pressure 193/86 H 188/86 H Blood Pressure [Ri ght Upper Arm] 197/82 H Pulse Oximetry 96 95 97 Oxygen Delivery Me thod Room Air Room Air Room Air 04/13/24 20:39 04/13/24 21:33 Temperature Pulse Rate 64 Pulse Rate [Left P ulse Oximeter] Respiratory Rate 14 Blood Pressure 189/94 H Blood Pressure [Ri ght Upper Arm] Pulse Oximetry 96 96 Oxygen Delivery Me thod Room Air Course Course ED Course: Patient seen and examined. Vital Signs Vital signs: Initial Vital Signs Temperature 98.2 F 04/13/24 19:57 Temperature Source Temporal Artery Scan 04/13/24 19:57 Pulse Rate 61 04/13/24 19:57 Pulse Rhythm Regular 04/13/24 19:57 Respiratory Rate 16 04/13/24 19:57 Blood Pressure 197/82 H 04/13/24 19:57 Blood Pressure Mean 120 H 04/13/24 19:57 Blood Pressure Position Sitting 04/13/24 19:57 Pulse Oximetry 96 04/13/24 19:57 Oxygen Delivery Method Room Air 04/13/24 19:57 Vital Signs Temperature 98.2 F 04/13/24 19:57 Pulse Rate 61 04/13/24 19:57 Respiratory Rate 16 04/13/24 19:57 Blood Pressure 197/82 H 04/13/24 19:57 Pulse Oximetry 96 04/13/24 19:57 Oxygen Delivery Method Room Air 04/13/24 19:57 Temperature 98.2 F 04/13/24 19:57 Pulse Rate 64 04/13/24 21:33 Respiratory Rate 14 04/13/24 21:33 Blood Pressure 189/94 H 04/13/24 21:33 Pulse Oximetry 96 04/13/24 21:33 Oxygen Delivery Method Room Air 04/13/24 21:33 Medical Decision Making MDM Narrative Medical decision making narrative: Patient is a 68-year-old gentleman who has complex history who comes in with refractory hypertension. I did discuss the case with Cardiology repeat EKG shows sinus bradycardia rate of [address] or T-wave changes. Troponin is a study elevated 0.05. I did review his extensive workup previously and actually had the same bark skinner tonight as last night. Patient is now asymptomatic. Cardiology does recommend admission with serial troponins p otentially. The blood pressure should be managed more aggressively with increase of hydralazine to 30 mg 3 times a day as well as making the amlodipine b.i.d.. I did discuss the case with the patient patient's daughter in the hospitalist all her agreeable the patient will be admitted to follow that treatment plan. Lab Data Labs: Lab Results 04/13/24 Range/Units 20:22 POC Troponin I 0.05 H (0.01-0.04) ng/ml Discharge Plan Discharge Clinical Impression: Hypertension Qualifiers: Hypertension type: primary hypertension Qualified Code(s): I10 - Essential (primary) hypertension Patient Disposition: Admitted As Observation Condition: Stable Activity Level: Other Discharge Diet: Other Prescriptions: No Action tamsulosin 0.4 mg capsule 0.4 mg PO QDAY Qty: 90 3RF amlodipine 5 mg tablet 5 mg PO DAILY Qty: 30 0RF hydralazine 10 mg tablet 20 mg PO TID 30 Days Qty: 180 0RF Jardiance 25 mg tablet 25 mg PO DAILY 90 Days Qty: 90 3RF glipizide 10 mg tablet 10 mg PO BID 90 Days Qty: 180 3RF indomethacin 50 mg capsule See Rx Instructions .ROUTE .COMPLEX Qty: 135 3RF Dose Instruction: TAKE 1 CAPSULE BY MOUTH THREE TIMES DAILY NEEDED FOR GOUT Rx Instructions: TAKE 1 CAPSULE BY MOUTH THREE TIMES DAILY NEEDED FOR GOUT atorvastatin [Lipitor] 10 mg tablet 10 mg PO QHS 90 Days Qty: 90 3RF lisinopril 40 mg tablet 40 mg PO QDAY Qty: 90 3RF atenolol 50 mg tablet 50 mg PO QDAY 90 Days Qty: 90 3RF insulin glargine [Lantus Solostar U-100 Insulin] 100 unit/mL (3 mL) insulin pen 30 unit subcut QAM 90 Days Qty: 27 3RF (DME) pen needle, diabetic [1st Tier Unifine Pentips] 31 gauge x 1/4 needle See Rx Instructions .Route Qty: 100 3RF Rx Instructions: daily (DME) Dexcom G6 Blueprinting Machine Operator Misc See Rx Instructions .Route Qty: 1 0RF Rx Instructions: As directed (DME) Dexcom G6 Transmitter Device See Rx Instructions .Route Qty: 1 3RF Rx Instructions: use to read blood sugar and change every 90 days (DME) Dexcom G6 Sensor Device See Rx Instructions .Route Qty: 9 3RF Rx Instructions: use to read blood sugar per gr directions. Change sensor every 10 days furosemide [Lasix] 20 mg tablet 10 mg PO QAM 90 Days Qty: 45 3RF Follow Up/Referrals: Joanne Serra, RADIOTELEPHONE OPERATOR, FINANCE TEACHER [Primary Care Provider] -
[2024-04-13 23:18] LABS: Chloride* 97 mmol/L (96-114); Potassium* 4.5 mmol/L (3.6-5.1); Sodium* 137 mmol/L (135-149)
[2024-04-13] MEDS: AMLODIPINE 5 MG TABLET PO (23:19)
[2024-04-13] MEDS: ATORVASTATIN 10 MG TABLET PO (23:19)
[2024-04-13] MEDS: HYDRALAZINE 10 MG TABLET 30 MG PO (23:19)
[2024-04-13 23:21] LABS: Anion Gap 9 mEq/L (7-15); Blood Urea Nitrogen* 25 mg/dL (7-30); Carbon Dioxide* 31 mmol/L (20-32); Creatinine* 1.1 mg/dL (0.5-1.5); Est. Creatinine Clearance* 66.55; Estimated Glomerular Filt Rate 72 ml/min
[2024-04-13 23:22] LABS: Calcium* 10.1 mg/dL (8.4-10.6); Glucose* 120 mg/dL (60-115)
[2024-04-13 23:38] LABS: NT Pro B Type NatriureticPept* 5380 pg/mL; Troponin I* 0.07 ng/mL (0.01-0.04)
[2024-04-14 00:40] LABS: Uric Acid* 10.2 mg/dL (2.2-8.4)
[2024-04-14 00:42] VITALS: BP 177/89
[2024-04-14] MEDS: HYDRALAZINE HCL 20 MG/ML inj 10 MG IVP (00:45)
[2024-04-14] MEDS: SODIUM CHLORIDE 0.9 % (FLUSH) 10 ML SYRINGE 5 ML IVF ×2 (00:46→08:34)
[2024-04-14] MEDS: ONDANSETRON ODT 4 MG TAB PO (02:51)
[2024-04-14 02:54] VITALS: BP 165/83; PULSE 73; RESP 18; TEMP 36.6; O2SAT 93
--- NOTE | 2024-04-14 04:47 | PC.NURSE ---
Shift note: Patient was admitted to the unit at 2225 on a wheelchair on account of elevated Bp. He was accompanied by his daughter. Conscious, alert and oriented. pt complained of mild epigastric pain and Bp on admission was extremely high (213/95). He was made comfortable in bed and oriented to room. Amlodipine and Hydralazine given. Rechecked in an hour time, systolic dropped to 165. SCD applied. Pt had adequate sleep. needle loom tender in place.
[2024-04-14 05:57] VITALS: BP 167/81
[2024-04-14 06:20] LABS: Troponin I* 0.06 ng/mL (0.01-0.04)
[2024-04-14 07:29] VITALS: PULSE 76
[2024-04-14 08:26] VITALS: BP 161/83; PULSE 67; RESP 18; TEMP 37.1; O2SAT 94
[2024-04-14] MEDS: AMLODIPINE 5 MG TABLET PO (08:29)
[2024-04-14] MEDS: FUROSEMIDE 20 MG TABLET 10 MG PO (08:29)
[2024-04-14] MEDS: HYDRALAZINE 10 MG TABLET 30 MG PO (08:30)
[2024-04-14] MEDS: atenoloL 50 MG TABLET PO (08:31)
[2024-04-14] MEDS: lisinopriL 20 MG TABLET 40 MG PO (08:32)
[2024-04-14] MEDS: EMPAGLIFLOZIN 10 MG TABLET 25 MG PO (08:33)
[2024-04-14 11:10] LABS: Troponin I* 0.06 ng/mL (0.01-0.04)
--- NOTE | 2024-04-14 11:16 | P.DS_ITS ---
DS: Providers Provider Date Seen: 04/14/24 Date of admission: 04/13/24 22:20 Primary care physician: Joanne Serra APRN, [employer] SALES SUPERVISOR Admitting Clinician: Marilyn Vásquez MD Attending Physician on discharge: Eduardo Massey Date of Discharge: 04/14/24 DS: Diagnosis Discharge Diagnosis (1) Hypertensive urgency: Status: Acute Problem details: increase hydralazine to 30 mg TID per cards, IV hydralazine prn. continue amlodipine, atenolol, lisinopril repeat EKG and troponin and trend Serial Troponin plateauted at 0.06 (2) Severe aortic stenosis: Status: Acute Problem details: goal bp 150's/90's, valve appt for TAVR next week (2021 -->2023 valve area decreased from 1.82 to 0.9, pressure peak of 35 to 43) trend troponin, EKG, clinical picture euvolemic (3) Hyperlipidemia: Status: Acute Problem details: continue statin (4) Coronary artery disease: Status: Acute Problem details: s/p DINO prox LAD, angioplasty RCA 07/2013 (5) Gout: Status: Acute (6) Type 2 diabetes mellitus: Status: Acute Problem details: home regimen: glipizide 10mg BID, Lantus 30 units qam accuchecks, SSI. DS: Summary Hospital Course Hospital Course: Chief Complaint: Hypertensive urgency HPI: 68 y/o WM with a hx of recent dx of aortic stenosis (The aortic valve area is 0.91 cm?? with a dimensionless index of 0.23)in late February 2024. Previous 2021 echo: The aortic valve area is 1.82 cm?? with a dimensionless index of 0.41. His presenting symptom to PCP was LOWRY and murmur was identified. He is to see [facility] next week for a TAVR. 1 Day BUTCHER ALL ROUND he had some abdominal - midepigastric pain and presented to the ED. His workup was unremarkable. He was in an Hypertensive urgency with pressures of 231/112, 224/112 ... He was given oral hydralazine and IV Nitro and observed. [facility] was consulted and instructed on adding norvasc and hydralazine to his atenolol and lisinopril. The EKG had some new flipped T waves (Lead III); troponin was zero. Dr. Nicholson - ER visit 04/12/24 I did talk with Cardiology about this patient given severe hypertension and EKG changes. He recommended control of blood pressure with either IV hydralazine or nitroglycerin. Recommended hydralazine 20 mg 3 times daily at home. I did given oral dose of 20 mg here and started a nitroglycerin drip. According to Cardiology, if patient's blood pressure is controlled, repeat troponin is negative and pain is resolved, he could go home and follow up with outpatient Cardiology. However, if blood pressure is not well controlled, pain is persistent, or troponin is abnormal, would recommend repeat conversation with Cardiology and consideration of admission here or transfer for more definitive management Home for about 18 hours he returned with elevated pressures again of high 190's/80s. He denies chest pain or abdominal pain. Cardiac ROS negative. However this time, his trop is 0.05 up from 0.02. EKG tonight shows those flipped T waves have corrected. Also, his just three weeks ago and his family is very concerned about his well-being. ER COURSE: Dr. Sheehan discussed with Cards - admit - trend troponin - and increase hydralazine to 30mg TID. The patient was monitored on tele; He has no chest pain, pressure, sob, headache and dizziness. At discharge norvasc increased to 5 mg BID and HYdralazine to 30 mg TID. He has follow up appointment this week with [facility] for TAVR evaluation. I instructed patient to return to ED if any worsening or new or recurrent cardiac or pulmonary symptoms. Time Spent with Patient Time attestation: Total time spent providing and/or coordinating discharge services: Exam Narrative: Exam Narrative: Gen: no acute distress HEENT: NCAT EOMI mmm Neck: Supple CV: RRR normal s1 s2; +3/6 systolic murmur Lungs: CTAB Abd: Soft,nt, nd Neuro: Alert, oriented, CN grossly intact; nonfocal screening?exam Psych: appropriate affect MSK: age appropriate muscle mass Skin; Warm, dry no rash on face Const: Vital Signs, click to edit/add: Vital Signs - 24 hr 04/13/24 19:57 04/13/24 20:12 04/13/24 20:32 Temperature 98.2 F Pulse Rate 58 L 61 Pulse Rate [Left P ulse Oximeter] 61 Pulse Rate [Right Pulse Oximeter] Respiratory Rate 16 16 16 Blood Pressure 193/86 H 188/86 H Blood Pressure [Ri ght Arm] Blood Pressure [Ri ght Upper Arm] 197/82 H Pulse Oximetry 96 95 97 [facility] Room Air Room Air 04/13/24 20:39 04/13/24 21:33 04/13/24 22:35 Temperature Pulse Rate 64 Pulse Rate [Left P ulse Oximeter] Pulse Rate [Right Pulse Oximeter] Respiratory Rate 14 Blood Pressure 189/94 H Blood Pressure [Ri ght Arm] Blood Pressure [Ri ght Upper Arm] Pulse Oximetry 96 96 98 [facility] Room Air 04/13/24 22:36 04/13/24 22:46 04/13/24 22:59 Temperature 97.9 F 97.9 F Pulse Rate Pulse Rate [Left P ulse Oximeter] Pulse Rate [Right Pulse Oximeter] 58 L 58 L Respiratory Rate 18 18 Blood Pressure Blood Pressure [Ri ght Arm] 213/91 H 213/91 H Blood Pressure [Ri ght Upper Arm] Pulse Oximetry 98 98 98 [facility] Room Air 04/13/24 22:59 04/13/24 23:30 04/14/24 00:42 Temperature Pulse Rate 87 Pulse Rate [Left P ulse Oximeter] Pulse Rate [Right Pulse Oximeter] 58 L Respiratory Rate 18 Blood Pressure Blood Pressure [Ri ght Arm] 177/89 H Blood Pressure [Ri ght Upper Arm] Pulse Oximetry Oxygen Delivery Me thod 04/14/24 02:54 04/14/24 05:57 04/14/24 08:26 Temperature 98 F Pulse Rate Pulse Rate [Left P ulse Oximeter] Pulse Rate [Right Pulse Oximeter] 73 Respiratory Rate 18 Blood Pressure Blood Pressure [Ri ght Arm] 165/83 H 167/81 H Blood Pressure [Ri ght Upper Arm] Pulse Oximetry 93 94 Oxygen Delivery [facility] DS: Data Data Completed and Pending Labs on day of discharge: Labs from last 24 hours 04/14/24 04/14/24 04/13/24 10:16 05:40 22:30 Sodium 137 Potassium 4.5 Chloride 97 Carbon Dioxide 31 Anion Gap 9 BUN 25 Creatinine 1.1 Estimated Creat Clear 66.55 Estimated GFR 72 Glucose 120 H Uric Acid 10.2 H Calcium 10.1 Troponin I 0.06 H* 0.06 H* 0.07 H* NT-Pro-B Natriuret Pep 5380 POC Troponin I 04/13/24 20:22 Sodium Potassium Chloride Carbon Dioxide Anion Gap BUN Creatinine Estimated Creat Clear Estimated GFR Glucose Uric Acid Calcium Troponin I NT-Pro-B Natriuret Pep POC Troponin I 0.05 H Discharge Plan Discharge Disposition: Home, Self-Care Date of Admission: 04/13/24 22:20 Attending Provider on Discharge: Eduardo Massey Primary Care Provider: Joanne Serra Condition: Stable Anticipated Discharge Date/Time: 04/14/24 11:12 Discharge Medications: New hydralazine 10 mg Tablet 30 mg PO TID Qty: 30 0RF amlodipine 5 mg Tablet 5 mg PO BID Qty: 30 0RF Continued tamsulosin 0.4 mg capsule 0.4 mg PO QDAY Qty: 90 3RF Jardiance 25 mg tablet 25 mg PO DAILY 90 Days Qty: 90 3RF Hold Instructions: Doctor's Order glipizide 10 mg tablet 10 mg PO BID 90 Days Qty: 180 3RF indomethacin 50 mg capsule See Rx Instructions .ROUTE .COMPLEX Qty: 135 3RF Dose Instruction: TAKE 1 CAPSULE BY MOUTH THREE TIMES DAILY NEEDED FOR GOUT Rx Instructions: TAKE 1 CAPSULE BY MOUTH THREE TIMES DAILY NEEDED FOR GOUT atorvastatin [Lipitor] 10 mg tablet 10 mg PO QHS 90 Days Qty: 90 3RF lisinopril 40 mg tablet 40 mg PO QDAY Qty: 90 3RF atenolol 50 mg tablet 50 mg PO QDAY 90 Days Qty: 90 3RF insulin glargine [Lantus Solostar U-100 Insulin] 100 unit/mL (3 mL) insulin pen 30 unit subcut QAM 90 Days Qty: 27 3RF furosemide [Lasix] 20 mg tablet 10 mg PO QAM 90 Days Qty: 45 3RF Discontinued amlodipine 5 mg tablet 5 mg PO DAILY Qty: 30 0RF hydralazine 10 mg tablet 20 mg PO TID 30 Days Qty: 180 0RF Discharge Orders: Discharge Order (Routine); Ordered 04/14/24 Ordered By: Eduardo Massey Additional Instructions: Please return to ED if having shortness of breath, chest pain, pressure, headache, dizziness or any other emergent/urgent medical concerns Activity Level: Activity as Tolerated and Other Discharge Diet: Other Diet Detail: Return to Previous Home diet Follow Up Appointments: Joanne Serra, HEMATOLOGY ONCOLOGY CONSULTANT, [employer] SALES SUPERVISOR [Primary Care Provider] - (3-5 days for post hospital follow up) Forms: [employer] Info Instructions
== END 2024-04-14 14:52 | disposition home or self-care (01) ==
LOC: ED 22:01 → MEDSURG 22:21
PROVIDERS: Hospitalist; Admitting Provider Family Medicine; Emergency Provider Internal Medicine; PCP Nurse Practitioner Family; Visit Provider Family Medicine
DX: I35.0 Nonrheumatic aortic (valve) stenosis (principal); I16.0 Hypertensive urgency; R00.1 Bradycardia, unspecified; R79.89 Other specified abnormal findings of blood chemistry; I25.10 Atherosclerotic heart disease of native coronary artery without angina pectoris; E78.5 Hyperlipidemia, unspecified; E11.9 Type 2 diabetes mellitus without complications; M10.9 Gout, unspecified; N40.0 Benign prostatic hyperplasia without lower urinary tract symptoms; I10 Essential (primary) hypertension; Z79.4 Long term (current) use of insulin; Z98.49 Cataract extraction status, unspecified eye; Z85.828 Personal history of other malignant neoplasm of skin; Z95.5 Presence of coronary angioplasty implant and graft
CPT/HCPCS: 36415; 80048; 83880; 84484; 84550; 93005; 94761; 96372; 96374; 99284; 99285; G0378; A9270; J0360

== ENCOUNTER 2024-05-20 14:28 | Outpatient (CLI) | payer MEDICARE, OTHER, SELFPAY ==
--- OUTSIDE RECORDS SUMMARY | 2024-05-20 14:35 | XMS_ITS | Encounter Summary ---
Author Organization [facility] er Address [address] [place] [address] Care Team Providers Care Manager Steel Name Role Phone SerraSyedJoannejillian Deluca APRN, MACHINE HAND Primary Care Provi surinder Reason for Visit * Reason Comments Med Refill Encounter Details Date Type Department Care Team (Late st Contact Info) Description 12/08/2021 Refill [place] [address] [address] Heraclio Horn MD [address] [facility] [address] [place] [address] Type 2 diabetes mellitus with complication, without long-term current use of insulin (HCC) Social History Tobacco Use Types Packs/Day Years Used Date Smoking Tobacco: Never Smokeless Tobacco: Never Alcohol Use Standard Drinks/Week Comments Not Currently 0 (1 standard drink = 0.6 oz pur e alcohol) Overall Financial Resource Strain (CARDIA) Answe r Date Recorded How hard is it for you to pa y for the very basics like food, housing, medical care, and heating? Not hard at all 08/13/2020 PHQ-2 Answer Date Recorded PHQ-9 Total Score 0 08/13/2020 Hunger Vital Sign Answer Date Recorded Within the past 12 months, y ou worried that your food would run out before you got the money to buy more. Never true 08/13/20 20 Within the past 12 months, t he food you bought just didn't last and you didn't have money to get more. Never true 08/13/2020 PRAPARE - Transportation Answer Date Re corded In the past 12 months, has l ack of transportation kept you from medical appointments or from getting medications? No 07/30 In the past 12 months, has l ack of transportation kept you from meetings, work, or from getting things needed for daily living? No 08/13/2020 Sex and Gender Information Value Date Recorded Sex Assigned at Not on file Gender Identity Not on file Sexual Orientation Not on file documented as of this encounter Miscellaneous Notes * Telephone Encounter - Kimberly Young RN - 12/09/2021 8:03 AM CST Please review. DRIVING TECHNICIAN * Telephone Encounter - Montserrat Berg MA - 12/09/2021 7:56 AM PILE DRIVING TECHNICIAN Last visit in provider department: 08/13/2020 Last visit requested medication was discussed: 08/13/2020 Upcoming appointment with provider: Visit date not found Last Rx: #90 no refills 09/14/2021 Requested Prescriptions Pending Prescriptions Disp Refills ??? glipiZIDE (GLUCOTROL) 5 MG tablet [Pharmacy Med Name: GLIPIZIDE TABS 5MG] 90 tablet 3 Sig: TAKE 1 TABLET ONCE DAILY WITH BREAKFAST Labs: Component Latest Ref Rng & Units 01/13/2021 Hemoglobin A1C 4.0 - 5.6 % A1C 7.5 (H) Vitals: BP Readings from Last 2 Encounters: 08/13/20 142/80 08/13/20 142/80 Patient is due for f/u DM appointment. PSR/Nurse: Please contact patient to assist with scheduling. DRIVING TECHNICIAN documented in this encounter Plan of Treatment Not on file documented as of this encounter Visit Diagnoses Diagnosis Type 2 diabetes mellitus with complication, without long-term current use of insulin (HCC) documented in this encounter Care Teams Manager Steel Relationship Specialty Start Date End Date Joanne Serra APRN, MACHINE HAND [address] [place] [address] PCP - General Family Medicine 06/13/22 documented as of this encounter
--- OUTSIDE RECORDS SUMMARY | 2024-05-20 14:35 | XMS_ITS | Encounter Summary ---
Author Organization [facility] er Address [address] [place] [address] Care Team Providers Care Asphalt Paving Superintendent Name Role Phone SerraJoanne Sandrine KIDD, DESIGN INSERTER Primary Care Provi surinder Reason for Visit * Reason Comments Med Refill Encounter Details Date Type Department Care Team (Late st Contact Info) Description 02/27/2022 Refill [place] [address] [place] [phone] Heraclio Horn MD 1705 [facility] 20 [place] [address] Coronary artery disease without angina pectoris, unspecified vessel or lesion type, unspecified whether [place] or transplanted heart; Type 2 diabetes mellitus with complication, without long-term current use of insulin (HCC); Essential hypertension; Hyperlipidemia, unspecified hyperlipidemia type Social History Tobacco Use Types Packs/Day Years [...] encounter Miscellaneous Notes * Telephone Encounter - Rosy Bustillo MD - 02/28/2022 2:55 PM CDT Natalio, I will let you address the patient's medication request as it looks like he is overdue for follow-up labs for his diabetes. * Telephone Encounter - Elvia Byrd MA - 02/28/2022 2:22 PM CDT Last visit in provider department: 08/13/2020 Last visit requested medication was discussed: 08/13/2020 Last Rx: atenolol (TENORMIN) 50 MG tablet last rx, # 90, no refill lisinopril (ZESTRIL) 40 MG tablet last rx, 11/30/2021 # 90, no refill metFORMIN (GLUCOPHAGE) 1000 MG tablet last rx, 11/30/2021 # 180, no refill atorvastatin (LIPITOR) 10 MG tablet last rx, 11/30/2021 # 90, no refill Requested Prescriptions Pending Prescriptions Disp Refills ??? atenolol (TENORMIN) 50 MG tablet [Pharmacy Med Name: ATENOLOL TABS 50MG] 90 tablet 3 Sig: TAKE 1 TABLET DAILY (NEED APPOINTMENT FOR FURTHER REFILLS) ??? lisinopril (ZESTRIL) 40 MG tablet [Pharmacy Med Name: LISINOPRIL TABS 40MG] 90 tablet 3 Sig: TAKE 1 TABLET DAILY (NEED APPOINTMENT FOR FURTHER REFILLS) ??? metFORMIN (GLUCOPHAGE) 1000 MG tablet [Pharmacy Med Name: METFORMIN HCL TABS 1000MG] 180 tablet3 Sig: TAKE 1 TABLET TWICE A DAY (NEEDS APPOINTMENT FOR FURTHER REFILLS) ??? atorvastatin (LIPITOR) 10 MG tablet [Pharmacy Med Name: ATORVASTATIN TABS 10MG] 90 tablet 3 Sig: TAKE 1 TABLET DAILY (NEED APPOINTMENT FOR FURTHER REFILLS) Labs: Component Latest Ref Rng & Units 01/13/2021 Hemoglobin A1C 4.0 - 5.6 % A1C 7.5 (H) 07/23/2020 RMAG, C8, Lipid Vitals: BP Readings from Last 2 Encounters: 08/13/20 142/80 08/13/20 142/80 Upcoming appointment with provider: none Pt due to be seen. Please work with your PSR to help pt set up appt. Please advise on extension until appt. documented in this encounter Plan of Treatment Not on file documented as of this encounter Visit Diagnoses Diagnosis Coronary artery disease without angina pectoris, unspecified vessel or lesion type, unspecified whether [place] or transplanted heart Type 2 diabetes mellitus with complication, without long-term current use of insulin (HCC) Essential hypertension Unspecified essential hypertension Hyperlipidemia, unspecified hyperlipidemia type documented in this encounter Care Teams Asphalt Paving Superintendent Relationship Specialty Start Date End Date Joanne Serra, VOIP ENGINEER, DESIGN INSERTER [address] [place] [address] PCP - General Family Medicine 06/13/22 documented as of this encounter
--- OUTSIDE RECORDS SUMMARY | 2024-05-20 14:35 | XMS_ITS | Encounter Summary ---
Author Organization [facility] er Address [address] [place] [address] Care Team Providers Care In Service Education Teacher Name Role Phone SerraJoanne nieves Sandrine KIDD, STAPLE FIBER WASHER Primary Care Provi surinder Reason for Visit * Reason Comments Med Refill Encounter Details Date Type Department Care Team (Late st Contact Info) Description 11/28/2021 Refill [place] [address] [place] [phone] Heraclio Horn MD 1705 [facility] 20 [place] [address] Type 2 diabetes mellitus with complication, without long-term current use of insulin (HCC); Essential hypertension; Coronary artery disease without angina pectoris, unspecified vessel or lesion type, unspecified whether [place] or transplanted heart; Hyperlipidemia, unspecified hyperlipidemia type Social History Tobacco [...] encounter Miscellaneous Notes * Telephone Encounter - Heraclio Horn MD - 11/30/2021 11:43 AM TELEPHONE SOLICITOR SUPERVISOR Needs appointment for further refills. 90 day supply ordered. PHONE SOLICITOR SUPERVISOR * Telephone Encounter - Shivani Nicole MA - 11/30/2021 10:17 AM TELEPHONE SOLICITOR SUPERVISOR Last visit in provider department: 08/13/20 Last visit requested medication was discussed: 08/13/20 Upcoming appointment with provider: none Last Rx: metFORMIN (Glucophage) 1000 MG tablet 01/18/21, #180, 2 refills lisinopril (ZESTRIL) 40 MG tablet 01/18/21, #90, 2 refills atenolol (TENORMIN) 50 MG tablet 01/18/21, #90, 2 refills atorvastatin (LIPITOR) 10 MG tablet 01/18/21, #90, 2 refills Requested Prescriptions Pending Prescriptions Disp Refills ??? metFORMIN (GLUCOPHAGE) 1000 MG tablet [Pharmacy Med Name: METFORMIN HCL TABS 1000MG] 180 tablet3 Sig: TAKE 1 TABLET TWICE A DAY ??? lisinopril (ZESTRIL) 40 MG tablet [Pharmacy Med Name: LISINOPRIL TABS 40MG] 90 tablet 3 Sig: TAKE 1 TABLET DAILY ??? atenolol (TENORMIN) 50 MG tablet [Pharmacy Med Name: ATENOLOL TABS 50MG] 90 tablet 3 Sig: TAKE 1 TABLET DAILY ??? atorvastatin (LIPITOR) 10 MG tablet [Pharmacy Med Name: ATORVASTATIN TABS 10MG] 90 tablet 3 Sig: TAKE 1 TABLET DAILY Labs: labs outdated Vitals: BP Readings from Last 2 Encounters: 08/13/20 142/80 08/13/20 Patient is due for an appointment. PSR/Nurse: Please contact patient to assist with scheduling. PHONE SOLICITOR SUPERVISOR documented in this encounter Plan of Treatment Not on file documented as of this encounter Visit Diagnoses Diagnosis Type 2 diabetes mellitus with complication, without long-term current use of insulin (HCC) Essential hypertension Unspecified essential hypertension Coronary artery disease without angina pectoris, unspecified vessel or lesion type, unspecified whether [place] or transplanted heart Hyperlipidemia, unspecified hyperlipidemia type documented in this encounter Care Teams In Service Education Teacher Relationship Specialty Start Date End Date Joanne Serra APRN, STAPLE FIBER WASHER [address] [place] [address] PCP - General Family Medicine 06/13/22 documented as of this encounter
--- OUTSIDE RECORDS SUMMARY | 2024-05-20 14:35 | XMS_ITS | Encounter Summary ---
Author Organization [facility] er Address [address] [place] [address] Care Team Providers Care Signalling And Communications Engineer Name Role Phone SerraSyedJoannejillian Deluca APRN, MANUFACTURING COORDINATOR Primary Care Provi surinder Reason for Visit * Reason Comments Med Refill Encounter Details Date Type Department Care Team (Late st Contact Info) Description 12/07/2021 Refill [place] [address] [address] Heraclio Horn MD 1705 [facility] 20 [place] [address] Type 2 diabetes mellitus with complication, without [...] encounter Miscellaneous Notes * Telephone Encounter - Sujata Kang LPN - 12/07/2021 2:42 PM CST Antonia in [place], [place] is requesting medication script written 01/18/2021 was [facility] to [facility] Last visit in provider department: 08/13/2020 Last visit requested medication was discussed: not reviewed in the last year Upcoming appointment with provider: Visit date not found Last Rx: 01/18/2021 # 90, 2 refills Requested Prescriptions Pending Prescriptions Disp Refills ??? Jardiance 25 MG tablet [Pharmacy Med Name: Jardiance 25 MG Oral Tablet] 30 tablet 0 Sig: Take 1 tablet by mouth once daily Labs: Component Latest Ref Rng & Units 01/13/2021 Hemoglobin A1C 4.0 - 5.6 % A1C 7.5 (H) Patient has pending labs Vitals: BP Readings from Last 2 Encounters: 08/13/20 142/80 08/13/20 142/80 Patient is due for appointment. PSR/Nurse: Please contact patient to assist with scheduling. HOSPICE AIDE documented in this encounter Plan of Treatment Not on file documented as of this encounter Visit Diagnoses Diagnosis Type 2 diabetes mellitus with complication, without long-term current use of insulin (HCC) documented in this encounter Care Teams Signalling And Communications Engineer Relationship Specialty Start Date End Date Joanne Serra, PHYSICIAN EXTENDER, MANUFACTURING COORDINATOR [address] [place] [address] PCP - General Family Medicine 06/13/22 documented as of this encounter
--- OUTSIDE RECORDS SUMMARY | 2024-05-20 14:35 | XMS_ITS | Encounter Summary ---
Author Organization [facility] er Address [address] [place] [address] Care Team Providers Care Recycling Sorter Name Role Phone SerraSyedJoannejillian Deluca APRN, ASSISTANT PROFESSOR OF SURGERY Primary Care Provi surinder Reason for Visit * Reason Comments Med Refill Encounter Details Date Type Department Care Team (Late st Contact Info) Description 01/24/2022 Refill [place] [address] [place] [phone] Heracloi Horn MD 1705 [facility] 20 [place] [address] Type 2 diabetes mellitus with complication, without [...] Telephone Encounter - Kimberly Young RN - 01/24/2022 8:19 AM CDT Please review. * Telephone Encounter - Sujata Kang LPN - 01/24/2022 8:05 AM CDT Last visit in provider department: 08/13/2020 Last visit requested medication was discussed: 08/13/2020 Upcoming appointment with provider: Visit date not found. Patient is due for appointment. PSR/Nurseplease contact patient to assist in scheduling. Last Rx: 12/07/2021 # 30, 0 refills Note to Pharmacy: Needs appointment for further refills Requested Prescriptions Pending Prescriptions Disp Refills ??? Jardiance 25 MG tablet [Pharmacy Med Name: Jardiance 25 MG Oral Tablet] 30 tablet 0 Sig: Take 1 tablet by mouth once daily Labs: 01/13/2021 HA1c Patient has pending labs Vitals: BP Readings from Last 2 Encounters: 08/13/20 142/80 08/13/20 142/80 documented in this encounter Plan of Treatment Not on file documented as of this encounter Visit Diagnoses Diagnosis Type 2 diabetes mellitus with complication, without long-term current use of insulin (HCC) documented in this encounter Care Teams Recycling Sorter Relationship Specialty Start Date End Date Joanne Serra, DEPARTMENT STORE DOOR GREETER, ASSISTANT PROFESSOR OF SURGERY [address] [place] [address] PCP - General Family Medicine 06/13/22 documented as of this encounter
--- OUTSIDE RECORDS SUMMARY | 2024-05-20 14:35 | XMS_ITS | Encounter Summary ---
Author Organization [facility] er Address [address] [place] [address] Care Team Providers Care Home Health Clinical Liaison Name Role Phone Joanne Serra APRN, TEAM AUTOMOBILE ASSEMBLER Primary Care Provi surinder Reason for Visit * Reason Comments Med Refill Encounter Details Date Type Department Care Team (Late st Contact Info) Description 04/24/2019 Refill [place] [address] [place] [address] Joanne Serra APRN, TEAM AUTOMOBILE ASSEMBLER [address] [place] [phone] Chronic gout without tophus, unspecified cause, unspecified site Social History Tobacco Use Types Packs/Day Years Used Date Smoking Tobacco: Never Assessed Sex and Gender Information Value Date Recorded Sex Assigned at Not on file Gender Identity Not on file Sexual Orientation Not on file documented as of this encounter Miscellaneous Notes * Telephone Encounter - Emma Palencia MA - 04/26/2019 8:28 AM CDT Patient informed and will call back to schedule labs * Telephone Encounter - Joanne Serra APRN, EVERARDO - 04/25/2019 12:04 PM CDT The supply was filled for 14 days, the patient needs labs before future refills. Mook Valdes * Telephone Encounter - Kimberly Young RN - 04/25/2019 11:48 AM CDT Please advise on refill. * Telephone Encounter - Elvia Byrd MA - 04/25/2019 11:44 AM CDT Indomethacin (Indocin) 50 mg capsule last rx, 09/06/18 # 60, 5 refills Last date med(s) reviewed: 03/15/18 No Appt scheduled Pt due to be seen. Please work with your PSR to help pt set up appt. Please advise on extension until appt. documented in this encounter Plan of Treatment Not on file documented as of this encounter Visit Diagnoses Diagnosis Chronic gout without tophus, unspecified cause, unspecified site documented in this encounter Care Teams Home Health Clinical Liaison Relationship Specialty Start Date End Date Joanne Serra, NETWORK ADMIN, TEAM AUTOMOBILE ASSEMBLER [address] [place] [id number] PCP - General Family Medicine 06/13/22 documented as of this encounter
--- OUTSIDE RECORDS SUMMARY | 2024-05-20 14:35 | XMS_ITS | Encounter Summary ---
Author Organization [facility] er Address [address] [place] [address] Care Team Providers Care Steel Finisher Name Role Phone Joanne Serra Sandrine KIDD, HOPPER FEEDER Primary Care Provi surinder Reason for Visit * Reason Comments Med Refill Encounter Details Date Type Department Care Team (Late st Contact Info) Description 10/13/2020 Refill [place] [address] [place] [address] Rosy Bustillo MD 1705 [facility] 20 [place] [address] Gout, unspecified cause, unspecified chronicity, unspecified site Social History Tobacco Use Types [...] Telephone Encounter - Heraclio Horn MD - 10/15/2020 9:09 AM CST Patient taking indomethacin every few days for aches and pains. He says since doing this he has nothad a gout attack in a few years. Switching indomethacin to Naproxen. Recommended to patient to useas infrequent as possible and at lowest dose given his risk of [place] (s/p Drug eluting stent in 2012).He states he has tried gout prophylactic medication in the past but it did not sit well with him. Offered alternative agent but patient declined. NISTRATIVE OFFICE CLERK * Telephone Encounter - Rosy Bustillo MD - 10/14/2020 11:03 AM ADMINISTRATIVE OFFICE CLERK Joseph recently had a physical with Dr. Horn. Even though I have filled his Rx for Indocin previously I would send this request to Dr. Horn. Let me know when you send this to him and I will remove this from my worklist. Thanks. NISTRATIVE OFFICE CLERK * Telephone Encounter - Elvia Byrd MA - 10/14/2020 10:36 AM CST Last visit in provider department: 08/13/2020 Last visit requested medication was discussed: 06/20/2019 Upcoming appointment with provider: none Last Rx: 06/12/2020 # 180, no refill Requested Prescriptions Pending Prescriptions Disp Refills ??? indomethacin (INDOCIN) 50 MG capsule [Pharmacy Med Name: Indomethacin 50 MG Oral Capsule] 180 capsule 0 Sig: TAKE 1 CAPSULE BY MOUTH TWICE DAILY WITH MEALS Pt due to be seen. Please work with your PSR to help pt set up appt. Please advise on extension until appt. NISTRATIVE OFFICE CLERK documented in this encounter Plan of Treatment Not on file documented as of this encounter Visit Diagnoses Diagnosis Gout, unspecified cause, unspecified chronicity, unspecified site documented in this encounter Care Teams Steel Finisher Relationship Specialty Start Date End Date Joanne Serra, SPEARER, HOPPER FEEDER [address] [place] [address] PCP - General Family Medicine 06/13/22 documented as of this encounter
--- OUTSIDE RECORDS SUMMARY | 2024-05-20 14:35 | XMS_ITS | Encounter Summary ---
Author Organization [facility] er Address [address] [place] [address] Care Team Providers Care Dampener Name Role Phone Joanne Serra APRN, FUEL RETROFITTING TECHNICIAN Primary Care Provi surinder Reason for Visit * Reason Comments Med Refill Encounter Details Date Type Department Care Team (Late st Contact Info) Description 07/04/2019 Refill [place] [address] [place] [address] Joanne Serra APRN, FUEL RETROFITTING TECHNICIAN [address] [place] [address] Neck pain Social History Tobacco Use Types Packs/Day Years Used Date Smoking Tobacco: Never Smokeless Tobacco: Never PHQ-2 Answer Date Recorded PHQ-2 Score 0 06/20/2019 Sex and Gender Information Value Date Recorded Sex Assigned at Not on file Gender Identity Not on file Sexual Orientation Not on file documented as of this encounter Miscellaneous Notes * Telephone Encounter - Марина John LPN - 07/09/2019 11:25 AM CDT SENT TO [facility]. Does the prescription request still need to be addressed * Telephone Encounter - Joanne Serra APRN, CNP - 07/09/2019 11:03 AM CDT I have done the order, can you contact the patient before sending to make sure that this is okay with him. Thanks Mook * Telephone Encounter - Марина John LPN - 07/09/2019 10:58 AM CDT [facility] can do an upright [facility] or [facility] FAX: [phone] State: upright upright soft tissue neck with and without contrast. * Telephone Encounter - Joanne Serra APRN, CNP - 07/09/2019 10:31 AM CDT Will check with [facility] to see if they can do a standing of MRI of the neck. Thanks, Mook * Telephone Encounter - Марина John LPN - 07/09/2019 9:06 AM CDT He couldn't stay still. He is going to need to find a different type of machine or something? He has to swallow and laying on his back with his sinus' is not going to work. He would like to talk to Mook personally. * Telephone Encounter - Марина John LPN - 07/08/2019 4:28 PM CDT Patient not home but will have him call tomorrow. * Telephone Encounter - Joanne Serra APRN, CNP - 07/08/2019 3:49 PM CDT Did this patient have his MRI of his neck, I have not seen results? Lucio Delvalle * Telephone Encounter - Lilo Peñaloza LPN - 07/08/2019 3:34 PM CDT Last visit in Provider Department: 06/20/2019 Upcoming appointment with Provider: none Last Rx: #30, 0 refills 06/20/19 Requested Prescriptions Pending Prescriptions Disp Refills ??? cyclobenzaprine (FLEXERIL) 10 MG tablet [Pharmacy Med Name: CYCLOBENZAPR 10MG TAB] 30 tablet 0 Sig: TAKE 1 TABLET BY MOUTH THREE TIMES DAILY NEEDED FOR MUSCLE SPASM documented in this encounter Plan of Treatment Not on file documented as of this encounter Visit Diagnoses Diagnosis Neck pain Cervicalgia documented in this encounter Care Teams Dampener Relationship Specialty Start Date End Date Joanne Serra, AGRICULTURE INSTRUCTOR, FUEL RETROFITTING TECHNICIAN [address] [place] [address] PCP - General Family Medicine 06/13/22 documented as of this encounter
--- OUTSIDE RECORDS SUMMARY | 2024-05-20 14:35 | XMS_ITS | Encounter Summary ---
Author Organization [facility] er Address [address] [place] [address] Care Team Providers Care Superintendent Communications Name Role Phone SerraJoanne nieves Sandrine KIDD, CUSTOMER SERVICE LEADER Primary Care Provi surinder Reason for Visit * Reason Comments Med Refill Encounter Details Date Type Department Care Team (Late st Contact Info) Description 08/23/2021 Refill [place] [address] [place] [id number] Heraclio Horn MD 1705 [facility] 20 [place] [address] Gout, unspecified cause, unspecified chronicity, unspecified site [...] encounter Miscellaneous Notes * Telephone Encounter - Swapna Deshpande - 06/13/2022 4:29 PM CDT Spoke with Pt. He has taken his cares to Joanne Serra at [facility]. No need to contact Pt further. * Telephone Encounter - Kimberly Young RN - 08/23/2021 11:08 AM CDT Please call patient to schedule labs. * Telephone Encounter - Kimberly Young RN - 08/23/2021 10:03 AM CDT Review request. * Telephone Encounter - hRoda Galvan MA - 08/23/2021 9:44 AM CDT Last visit in provider department: 08/13/2020 Last visit requested medication was discussed: 08/13/2020 Upcoming appointment with provider: None Last Rx: 02/02/2021- 180 with 1 refill Requested Prescriptions Pending Prescriptions Disp Refills ??? indomethacin (INDOCIN) 50 MG capsule [Pharmacy Med Name: Indomethacin 50 MG Oral Capsule] 180 capsule 0 Sig: TAKE 1 CAPSULE BY MOUTH 2 TIMES DAILY WITH MEALS Labs: Lab Results Component Value Date URICACID 7.3 04/07/2021 Vitals: BP Readings from Last 2 Encounters: 08/13/20 142/80 08/13/20 142/80 Patient is due for an appointment. PSR/Nurse: Please contact patient to assist with scheduling. documented in this encounter Plan of Treatment Not on file documented as of this encounter Visit Diagnoses Diagnosis Gout, unspecified cause, unspecified chronicity, unspecified site documented in this encounter Care Teams Superintendent Communications Relationship Specialty Start Date End Date Joanne Serra, CONVENTIONS RESERVATIONIST, CUSTOMER SERVICE LEADER [address] [place] [address] PCP - General Family Medicine 06/13/22 documented as of this encounter
--- OUTSIDE RECORDS SUMMARY | 2024-05-20 14:35 | XMS_ITS | Clinical Summary ---
Author Organization [facility] er Address [address] [place] [address] Care Team Providers Care Machine Programmer Name Role Phone SerraJoanne nieves Sandrine KIDD, HORTICULTURAL FARM MANAGER Primary Care Provi surinder Allergies Active Allergy Reactions Criticality Noted Date Comments Pollen Extract Other (see comments) 08/06/2013 Pollen, causes watery eyes. Medications Medication Sig Dispensed Refills Start Date End Date Status aspirin 81 MG chewable tabletIndications:C oronary artery disease without angina pectoris, unspecified vessel or lesion type, unspecified whether squaxin or transplanted heart Chew 1 tablet (81 mg total) daily 90 tablet 2 01/18/2021 Active Multiple Vitamin (Multivitamin Adult) tabletIndications:T ype 2 diabetes mellitus with complication, without long-term current use of insulin (HCC) Take 1 tablet by mouth daily 90 tablet 2 01/18/2021 Active Additional Information Patient not taking.Reported on 04/25/2024 nitroglycerin (NITROSTAT) 0.4 MG SL tabletIndications:C oronary artery disease without angina pectoris, unspecified vessel or lesion type, unspecified whether squaxin or transplanted heart Place 1 tablet (0.4 mg total) under the tongue if needed for chest pain 90 tablet 1 01/18/2021 Active allopurinol (ZYLOPRIM) 100 MG tabletIndications:G out, unspecified cause, unspecified chronicity, unspecified site Take 2 tablets by mouth once daily 60 tablet 06/23/2021 Active Additional Information Patient not taking.Reported on 04/25/2024 indomethacin (INDOCIN) 50 MG capsuleIndications: Gout, unspecified cause, unspecified chronicity, unspecified site TAKE 1 CAPSULE BY MOUTH 2 TIMES DAILY WITH MEALS 60 capsule 08/23/2021 Active Additional Information Patient not taking.Reported on 04/25/2024 liraglutide (Victoza) 18 MG/3ML injectionIndication s:Type 2 diabetes mellitus with complication, without long-term current use of insulin ([facility]) Inject 0.3 mL (1.8 mg total) under the skin 1 (one) time each day 27 mL 11/17/2021 Active Additional Information Patient not taking.Reported on 04/25/2024 Jardiance 25 MG tabletIndications:T ype 2 diabetes mellitus with complication, without long-term current use of insulin ([facility]) Take 1 tablet by mouth once daily 30 tablet 12/07/2021 Active glipiZIDE (GLUCOTROL) 5 MG tabletIndications:T ype 2 diabetes mellitus with complication, without long-term current use of insulin ([facility]) Take 1 tablet (5 mg total) by mouth 1 (one) time each day with breakfast 30 tablet 12/09/2021 Active Additional Information Patient not taking.Reported on 04/25/2024 atenolol (TENORMIN) 50 MG tabletIndications:C oronary artery disease without angina pectoris, unspecified vessel or lesion type, unspecified whether squaxin or transplanted heart TAKE 1 TABLET DAILY (NEED APPOINTMENT FOR FURTHER REFILLS) 14 tablet 02/28/2022 Active lisinopril (ZESTRIL) 40 MG tabletIndications:T ype 2 diabetes mellitus with complication, without long-term current use of insulin ([facility]),Essential hypertension TAKE 1 TABLET DAILY (NEED APPOINTMENT FOR FURTHER REFILLS) 14 tablet 02/28/2022 Active metFORMIN (GLUCOPHAGE) 1000 MG tabletIndications:T ype 2 diabetes mellitus with complication, without long-term current use of insulin ([facility]) TAKE 1 TABLET TWICE A DAY (NEEDS APPOINTMENT FOR FURTHER REFILLS) 28 tablet 02/28/2022 Active Additional Information Patient not taking.Reported on 04/25/2024 amLODIPine (NORVASC) 5 MG tablet Take 0.5 tablets (2.5 mg total) by mouth daily 04/19/2024 Active apixaban (ELIQUIS) 5 MG tablet Take 1 tablet (5 mg total) by mouth 2 times daily 04/19/2024 Active atorvastatin (LIPITOR) 10 MG tablet Take 4 tablets (40 mg total) by mouth 06/16/2023 Active furosemide (LASIX) 20 MG tablet Take 0.5 tablets (10 mg total) by mouth daily 03/13/2024 Active hydrALAZINE (APRESOLINE) 10 MG tablet Take 2 tablets (20 mg total) by mouth 3 (three) times a day 04/13/2024 Active Lantus SoloStar 100 UNIT/ML injection Inject 30 Units under the skin daily 03/11/2024 Active metoprolol tartrate (LOPRESSOR) 50 MG tablet Take 1 tablet (50 mg total) by mouth 2 times daily 04/19/2024 Active mupirocin (BACTROBAN) 2 % ointment Using Q-tip, apply small amount to both nostrils evening before and morning of surgery 04/22/2024 Active atorvastatin (LIPITOR) 10 MG tabletIndications:H yperlipidemia, unspecified hyperlipidemia type TAKE 1 TABLET DAILY (NEED APPOINTMENT FOR FURTHER REFILLS) 14 tablet 02/28/2022 4 Discontinu ed(Duplica te Order) Active Problems Problem Noted Date Diagnosed Date Essential hypertension 08/13/2020 Radiculopathy, lumbar region 07/23/2020 Pain of right lower extremity 07/23/2020 History of skin cancer 05/04/2020 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 Gout, unspecified 12/02/2016 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 10/15/2015 Type 2 diabetes mellitus wit h complication, without long-term current use of insulin 10/15/2015 CAD (coronary artery disease) 08/12/2013 Myocardial infarction 08/07/2013 Mixed hyperlipidemia 08/07/2013 Overview: date of onset unknown Benign neoplasm of unspecified choroid 4 Resolved Problems Problem Noted Date Diagnosed Date Resolved Date Exertional hypertension 10/15/201307/30 Encounters Date Type Department Care Team Description 04/25/2024 4:00 PM CDT Clinical Support [place] [address] [facility] [address] [place] [address] Medicare annual wellness visit, subsequent (Primary Dx) from Last 3 Months Immunizations Name Administration Dates Next Due Flu Vaccine High Dose 65yrs and Older IM 07/23/2020,08/22/2019,07/23/2018 INFLUENZA QUADRIVALENT MDV (IM) 08/11/2015 Influenza (IM) Preservative Free 10/09/2016,07/30 Influenza 6mo-64yrs Quad Pre servative Free IM 08/22/2019,10/13/2016,10/09/2016,08/11,08/13/2014,08/12/2013,11/10/2012 ,09/11/2010 Influenza TIV (IM) 10/13/2016, 4,11/10/2012,09/11 Influenza, Unspecified 08/11/2015 Pneumococcal Conjugate 13-Valent 10/15/2015 Pneumococcal Polysaccharide 07/23/2020, 3 Tdap 06/15/2023,01/18/2013,04/13/2010 Family History Medical History Relation Comments Cancer Mother LUNG Cancer Sister 2 LUNG Relation Status Comments Daughter 1 Alive Daughter 2 Alive Daughter 3 Alive Father Mother Sister 1 Alive Sister 2 Social History Tobacco Use Types Packs/Day Years Used Date Smoking Tobacco: Never Smokeless Tobacco: Never Tobacco Cessation:Counseling Given: No Alcohol Use Standard Drinks/Week Comments Not Currently 0 (1 standard drink = 0.6 oz pur e alcohol) Social Connection and Isolat ion Panel [NHANES] Answer Date Recorded In a typical week, how many times do you talk on the phone with family, friends, or neighbors? More than three times a week 04/25/2024 How often do you get togethe r with friends or relatives? Twice a week 04/25/2024 How often do you attend chur or rastafarian services? More than 4 times per year 04/25/2024 Do you belong to any clubs o r organizations such as mormon groups, unions, fraternal or athletic groups, or school groups? Yes 04/25/2024 How often do you attend meet ings of the clubs or organizations you belong to? Never 04/25/2024 Are you , , di vorced, , never , or living with a partner? 04/25/2024 AUDIT-C Answer Date Recorded Q1: How often do you have a drink containing alcohol? Never 04/25/2024 Q2: How many drinks containi ng alcohol do you have on a typical day when you are drinking? Patient does not drink Q3: How often do you have si x or more drinks on one occasion? Never 04/25/2024 Overall Financial Resource Strain (CARDIA) Answe r Date Recorded How hard is it for you to pa y for the very basics like food, housing, medical care, and heating? Patient declined 04/25/2024 PHQ-2 Answer Date Recorded PHQ-9 Total Score 1 04/25/2024 [facility] - Occupational Stress Questionnaire Answer Date Recorded Do you feel stress - tense, restless, nervous, or anxious, or unable to sleep at night because your mind is troubled all the time - these days? Not at all 04/25/2024 Exercise Vital Sign Answer Date Recorde d On average, how many days pe r week do you engage in moderate to strenuous exercise (like a brisk walk)? 5 days 04/25/2024 On average, how many minutes do you engage in exercise at this level? 30 min 04/25/2024 Hunger Vital Sign Answer Date Recorded Within the past 12 months, y ou worried that your food would run out before you got the money to buy more. Never true 04/25/20 24 Within the past 12 months, t he food you bought just didn't last and you didn't have money to get more. Never true 04/25/2024 PRAPARE - Transportation Answer Date Re corded In the past 12 months, has l ack of transportation kept you from medical appointments or from getting medications? No 03/31 In the past 12 months, has l ack of transportation kept you from meetings, work, or from getting things needed for daily living? No 04/25/2024 Housing Stability Vital Sign Answer Elroy e Recorded In the last 12 months, was t here a time when you were not able to pay the mortgage or rent on time? No 04/25/2024 In the past 12 months, how m any times have you moved where you were living? 0 04/25/2024 At any time in the past 12 m [facility], were you homeless or living in a correction (including now)? No 04/25/2024 Sex and Gender Information Value Date Recorded Sex Assigned at Not on file Gender Identity Not on file Sexual Orientation Not on file Last Filed Vital Signs Vital Sign Reading Time Taken Comments Blood Pressure 123/85 04/25/2024 3:55 PM CDT Pulse 66 04/25/2024 3:55 PM CDT Temperature 36.3 ??C (97.3 ??F) 04/25/2024 3:55 PM CD T Respiratory Rate 18 04/25/2024 3:55 PM CDT Oxygen Saturation 95% 04/25/2024 3:55 PM CDT Inhaled Oxygen Concentration - - Weight 98.5 kg (217 lb 3.2 oz) 04/25/2024 3:55 P M CDT Height 180.3 cm (5' 11) 04/25/2024 3:55 PM CDT Body Mass Index 30.29 04/25/2024 3:55 PM CDT Plan of Treatment Health Maintenance Due Date Last Done Comments CT Colonography 1955 Sigmoidoscopy 1955 iFOBT 1953 Fall Risk Performed 1971 Zoster Vaccines (1 of 2) 2003 FIT-DNA 07/18/2022 07/18/2019 Colonoscopy 07/24/2022 07/24/2019 Colorectal Cancer Screening 07/24/2022 COVID-19 Vaccine (1 - season) 2023 Influenza Vaccine (#1) 2024 0, 08/22/2019, 08/22/2019, Additional history exists DTaP,Tdap,and Td Vaccines (4 - Td or Tdap) 06/15/2033 06/15/2023, 01/18/2013, 04/13/2010 Pneumococcal Vaccine: 65+ Years Completed 07/23/2020, 10/15/2015, 08/12/2013 HPV Vaccines Aged Out No longer eligi ble based on patient's age to complete this topic Procedures Procedure Name Priority Date/Time Associated Diagnosis Comments COLOGUARD Routine 07/18/2019 7:30 AM CDT Colon cancer screening from Last 3 Months or Most Recently Relevant to Health Maintenance Results * Cologuard (07/18/2019 7:30 AM CDT) Cologuard result Negative Not Applicable [employer], [employer] Comment: A negative result indicates a low likelihood that a colorectal cancer (CRC) or an advanced adenoma (adenomatous polyps with more advanced pre-malignant features) is present. The chance that a person with a negative Cologuard test has a colorectal cancer is less than 1 in 1500 (negative predictive value >99.9%) or has an advanced adenoma is less than 5.3% (negative predictive value 94.7%). These data are based on a prospective cross-sectional screening study of 10,000 individuals at average risk for colorectal cancer who were screened with both Cologuard and colonoscopy. (Sonia Allred et al, N Engl J Med 2014;370(14):2872-2765) COLOGUARD RE-SCREENING RECOMMENDATION: Periodic routine colorectal cancer screening is an important part of preventive healthcare for asymptomatic persons at average risk for colorectal cancer. Following a negative Cologuard result, the [place] [employer] Society and U.S. Multi-Society Task Force screening guidelines recommend a Cologuard re-screening interval of 3 years. References: [place] [employer] Society (ACS). Colorectal cancer prevention and early detection. [place], [place]: [place] [employer] Society; [updated 2015Feb 20]. https://www.cancer.org/cancer/xzsha-gihveu-nfwmcq/usnvcufdr-asdklwdrw-hcbqbrl/ac s-rec ommendations.html. Accessed June 29, 2018; Daniel DK, Kermit CR, Faith CroftK, Colorectal Cancer Screening: Recommendations for Physicians and Patients from the U.S. Multi-Society Task Force on Colorectal Cancer Screening, Am J Gastroenterology 2017; 112:1799-4974. Test Type: Composite algorithmic analysis of stool DNA-biomarkers with hemoglobin immunoassay. ??Quantitative values of individual biomarkers are not reportable and are not associated with individual biomarker result reference ranges. Precautions and Limitations: Cologuard is intended for colorectal cancer screening of adults of either sex, 50 years or older, who are at typical average-risk for colorectal cancer. A negative Cologuard test result does not guarantee the absence of co lorectal cancer or advanced adenoma (pre-cancer). Patients with a negative Cologuard test result should be advised to continue participating in a colorectal cancer screening program. Cologuard may produce a positive result, even though a colonoscopy may not find colorectal cancer or precancerous polyps. The performance of Cologuard has been established in a cross sectional study (i.e., single point in time). Performance has not been evaluated in adults who have been previously tested with Cologuard or in patients less than 50 years of age. Cologuard has been approved for use by the U.S. FDA. Cologuard performance data in a 10,000 patient pivotal study using colonoscopy as the reference method can be accessed at the following location: www.[employer]/results. Additional description of the Cologuard test process, warnings and precautions can be found at www.cologuardtest.com. Rx Only. [facility], [address] [place] [address]., [place], [address], , Clinical Liz olsen Lithograph Press Operator, GIANNI ZAMAN, Ph.D., [facility], [place] NO: [id number] Stool 07/18/2019 7:30 AM CDT 07/19/2019 3:12 PM CDT Joanne Serra APRN, HORTICULTURAL FARM MANAGER LAB BODY FL UIDS AND STOOLS ORDERABLES [facility], [facility] [address] [place] [address], from Last 3 Months or Most Recently Relevant to Health Maintenance Care Teams Machine Programmer Relationship Specialty Start Date End Date Joanne Serra APRN, HORTICULTURAL FARM MANAGER [address] [place] [address] [place] [address] PCP - General Family Medicine 06/13/22
--- OUTSIDE RECORDS SUMMARY | 2024-05-20 14:35 | XMS_ITS | Encounter Summary ---
Author Organization [facility] er Address [address] [place] [address] Care Team Providers Care Primer Charging Tool Setter Name Role Phone Joanne Serra APRN, BEAUTY OPERATOR APPRENTICE Primary Care Provi surinder Reason for Visit * Reason Comments Annual Exam Encounter Details Date Type Department Care Team (Latest Contact Info) Description 04/25/2024 4:00 PM CDT Clinical Support [facility] [address] [place] [address] Medicare annual wellness visit, subsequent (Primary Dx) Social History Tobacco Use Types Packs/Day Years [...] 04/25/2024 How often do you attend chur ch or confucianism services? More than 4 times per year 04/25/2024 Do you belong to any clubs o r organizations such as spiritism groups, unions, fraternal or athletic groups, or [...] Date Recorded PHQ-9 Total Score 1 04/25/2024 [facility] - Occupational Stress Questionnaire Answer Date Recorded [...] any time in the past 12 m [facility], were you homeless or living in a prison (including now)? No 04/25/2024 Sex and Gender Information Value Date Recorded Sex Assigned at Not on file Gender Identity Not on file Sexual Orientation Not on file documented as of this encounter Progress Notes * Trina Carl RN - 04/25/2024 4:00 PM CDT Annual Wellness Visit The following portions of the patient's chart were reviewed in this encounter and updated as appropriate: Visit Vitals Smoking Status Never Pain Assessment Scored: and location: BMI/weight management reviewed: BMI: There is no height or weight on file to calculate BMI. Fall Risk Assessment performed. Scored: Tug time: PHQ-9 mental health screening performed. Scored: ESTUARDO-7 anxiety screening performed. Scored: Mini-Cog test performed. Scored: CAGE-AID test performed. Advanced Care Planning: The following healthcare items are recommended to you based on your age, sex, personal and family history: Health Maintenance Topic Date Due Medicare Annual Wellness Visit (AWV) Never done Zoster Vaccines (1 of 2) Never done Diabetic: Foot Exam 06/21/2020 Diabetes: Urine Protein Screening 07/23/2021 Diabetes: Retinopathy Screening 07/23/2022 Colorectal Cancer Screening 07/24/2022 COVID-19 Vaccine ( season) Never done Influenza Vaccine (Season Ended) 2024 Diabetes: Hemoglobin A1C 10/17/2024 Lipid Panel 04/17/2025 Fall Risk Performed 04/25/2025 DTaP,Tdap,and Td Vaccines (4 - Td or Tdap) 06/15/2033 Pneumococcal Vaccine: 65+ Years Completed HPV Vaccines Aged Out ASCVD Risk Score: The ASCVD Risk score (Jo MORENO, et al., 2019) failed to calculate for the following reasons: The patient has a prior AK or stroke diagnosis Prostate Cancer Screening: (Male patients only) Lab Results Component Value Date PSA 0.4 06/11/2019 Hepatitis C Screening: Recommended for those born between 0299-9480, receiving blood transfusion before 1991, illicit injection drug use No results found for: HEPCAB Glaucoma Screening: Recommended annually if you have diabetes, family history of glaucoma, and over 50 or and over 65. AAA Screening: Screening recommended if not previously done if you have a family history of abdominal aortic aneurysm, or are male age 65-75 and have smoked at least 100 cigarettes in your lifetime Lung Cancer Screening: Recommended annually if age 50-77, asymptomatic, current smoker or quit in last 15 years and have at least a 20 year ???pack year?? history. Social History Socioeconomic History Marital status: Tobacco Use Smoking status: Never Smokeless tobacco: Never Vaping Use Vaping status: Never Used Substance and Sexual Activity Alcohol use: Not Currently Drug use: Not Currently Social Determinants of Health Financial Resource Strain: Patient Declined (04/25/2024) Overall Financial Resource Strain (CARDIA) Difficulty of Paying Living Expenses: Patient declined Recent Concern: Financial Resource Strain - Medium Risk (04/17/2024) Received from [facility] Financial Resource Strain Difficulty of Paying Living Expenses: 2 Difficulty of Paying Living Expenses: 1 Food Insecurity: No Food Insecurity (04/25/2024) Hunger Vital Sign Worried About Running Out of Food in the Last Year: Never true Ran Out of Food in the Last Year: Never true Transportation Needs: No Transportation Needs (04/25/2024) PRAPARE - Transportation Lack of Transportation (Medical): No Lack of Transportation (Non-Medical): No Physical Activity: Sufficiently Active (04/25/2024) Exercise Vital Sign Days of Exercise per Week: 5 days Minutes of Exercise per Session: 30 min Stress: No Stress Concern Present (04/25/2024) [facility] [place] [facility] - Occupational Stress Questionnaire Feeling of Stress : Not at all Social Connections: Moderately Integrated (04/25/2024) Social Connection and Isolation Panel [NHANES] Frequency of Communication with Friends and Family: More than three times a week Frequency of Social Gatherings with Friends and Family: Twice a week Attends Mu-Ism Services: More than 4 times per year Active Member of Clubs or Organizations: Yes Attends Club or Organization Meetings: Never Marital Status: Housing Stability: Low Risk (04/25/2024) Housing Stability Vital Sign Unable to Pay for Housing in the Last Year: No Number of Times Moved in the Last Year: 0 Homeless in the Last Year: No An Annual Wellness Visit was completed today with your healthcare team. This visit allows us to review your health history and identify current or potential risks. Referrals, immunizations, and/or testing may be available to you based on these findings. Please let your healthcare team know if you would like any of these services offered today or at any time in the future. Materials for review regarding available services and resources will be provided. Don't hesitate to reach out to your healthcare team with any questions or concerns. Informed patient that he is due for immunizations including shingles, and COVID. He declines at this time. Patient is also due for diabetic foot exam, urine protein, and retinopathy screening. Instructed patient to follow up with his primary care provider in [place] for this. He also declines colonoscopy at this time. documented in this encounter Plan of Treatment Not on file documented as of this encounter Visit Diagnoses Diagnosis Medicare annual wellness visit, subsequent- Primary documented in this encounter Care Teams Primer Charging Tool Setter Relationship Specialty Start Date End Date Joanne Serra, OCCUPATIONAL HYGIENIST, BEAUTY OPERATOR APPRENTICE [address] [place] [address] PCP - General Family Medicine 06/13/22 documented as of this encounter
--- OUTSIDE RECORDS SUMMARY | 2024-05-20 14:36 | XMS_ITS | Clinical Summary ---
Author Organization [facility] Address [place], [place] [address] Care Team Providers Care Colon And Rectal Surgeon Name Role Phone Al Orourke MD Unavailable [phone] Joanne Serra NP Primary Care Provider Jeannine vailable [facility] Unavailable [phone] Allergies Active Allergy Reactions Criticality Noted Date Comments Pollen Extracts Runny Nose 08/05/2020 Itchy watery eyes Medications Medication Sig Dispensed Refills Start Date End Date Status aspirin 81 mg tablet Take 81 mg by mouth once daily. Active Jardiance 25 mg tablet Take 25 mg by mouth once daily. 4 Active Lantus Solostar U-100 Insulin 100 unit/mL (3 mL) pen Inject 30 units subcutaneous once daily in the morning. 4 Active atorvastatin (LIPITOR) 40 mg tabletIndication s:Coronary artery disease, unspecified vessel or lesion type, unspecified whether angina present, unspecified whether [place] or transplanted heart Take 1 Tablet (40 mg) by mouth at bedtime. 30 Tablet 11 4 Active nitroglycerin (NITROSTAT) 0.4 mg sublingual tabletIndication s:Coronary artery disease, unspecified vessel or lesion type, unspecified whether angina present, unspecified whether [place] or transplanted heart Place 1 Tablet (0.4 mg) under the tongue every 5 minutes if needed for Chest pain 1st choice. Up to 3 tablets in 15 minutes. 25 Tablet 1 4 Active apixaban (ELIQUIS) 5 mg tabletIndication s:New onset atrial fibrillation (HC) Take 1 Tablet (5 mg) by mouth two times daily. 60 Tablet 1 4 Active furosemide (LASIX) 40 mg tabletIndication s:S/P CABG x 3 Take 1 Tablet (40 mg) by mouth once daily in the morning for 7 days. 7 Tablet 4 05/22/20 24 Active potassium chloride (KLOR-CON M10) 10 mEq extended-release tablet (part/cryst)Jia cations:S/P CABG x 3 Take 2 Tablets (20 mEq) by mouth once daily with a meal for 7 days. 14 Tablet 4 05/21/20 24 Active metoprolol tartrate (LOPRESSOR) 25 mg tabletIndication s:S/P CABG x 3 Take 1 Tablet (25 mg) by mouth two times daily. 180 Tablet 3 4 Active acetaminophen (TYLENOL EXTRA STRGTH) 500 mg tabletIndication s:S/P CABG x 3,Postoperative pain Take 2 Tablets (1,000 mg) by mouth every 6 hours if needed for Pain. Max acetaminophen dose: 4000mg in 24 hrs. 4 Active amiodarone (CORDARONE) 200 mg tabletIndication s:S/P CABG x 3,Paroxysmal atrial fibrillation (HC) Take 2 Tablets (400 mg) by mouth two times daily for 6 days, THEN 1 Tablet (200 mg) two times daily for 7 days, THEN 1 Tablet (200 mg) once daily. 108 Tablet 4 08/05/20 24 Active furosemide (LASIX) 20 mg tablet Take 10 mg by mouth once daily in the morning. 4 05/14/20 24 Discontinued(* IP Discontinued) indomethacin (INDOCIN) 50 mg capsule Take 50 mg by mouth 3 times daily if needed for Gout Pain. 05/14/20 24 Discontinued(* IP Discontinued) amLODIPine (NORVASC) 2.5 mg tabletIndication s:Coronary artery disease, unspecified vessel or lesion type, unspecified whether angina present, unspecified whether [place] or transplanted heart Take 1 Tablet (2.5 mg) by mouth once daily. 4 05/14/20 24 Discontinued(* IP Discontinued) amLODIPine (NORVASC) 5 mg tabletIndication s:Coronary artery disease, unspecified vessel or lesion type, unspecified whether angina present, unspecified whether [place] or transplanted heart Take 0.5 Tablets (2.5 mg) by mouth once daily. 4 05/07/20 24 Discontinued(P harmacist change per medication history (E-cancel not sent)) metoprolol tartrate (LOPRESSOR) 50 mg tabletIndication s:Coronary artery disease, unspecified vessel or lesion type, unspecified whether angina present, unspecified whether [place] or transplanted heart Take 1 Tablet (50 mg) by mouth two times daily. 60 Tablet 2 4 05/14/20 24 Discontinued(* IP Discontinued) mupirocin (BACTROBAN) 2 % ointmentIndicati ons:Aortic valve stenosis, etiology of cardiac valve disease unspecified,CAD, multiple vessel Using Q-tip, apply small amount to both nostrils evening before and morning of surgery 22 g 4 05/14/20 24 Discontinued(* IP Discontinued) chlorhexidine (Peridex) 0.12 % solutionIndicati ons:Aortic valve stenosis, etiology of cardiac valve disease unspecified,CAD, multiple vessel Swish and spit 15 ml by mouth the night before and on the morning of surgery 118 mL 4 05/14/20 24 Discontinued(* IP Discontinued) Active Problems Problem Noted Date Diagnosed Date s/p AVR (Inspiris #27) 05/07/2024 05/07/2024 Overview: Dr. Oliveira s/p 3V CABG (MCGILL-LAD, SVG-OM1, SVG-PDA) 05/07/2024 Overview: Dr. Oliveira s/p Biatrial MAZE and LAAL (Atriclip #40 mm) 05/0705/07/2024 Acute blood loss anemia 05/07/2024 Leukopenia 05/07/2024 Thrombocytopenia 05/07/2024 Coagulopathy 05/07/2024 Severe aortic stenosis 04/20/2024 NSTEMI (non-ST elevated myocardial infarction) 0 04/16/2024 Aortic stenosis 04/16/2024 CKD (chronic kidney disease), stage III 04/16/20 Atrial fibrillation 04/16/2024 CAD (coronary artery disease) 10/01/2013 NSTEMI (non-ST elevated myocardial infarction) 1 Gout 08/07/2013 Hyperlipidemia, mixed 08/07/2013 HTN (hypertension) 08/06/2013 DM (diabetes mellitus) 08/06/2013 Resolved Problems Problem Noted Date Diagnosed Date Resolved Date DIC (disseminated intravascular coagulation) 05/07/2024 Encounters Date Type Department Care Team Description 05/18/2024 4:00 AM CDT Home Care Visit [address] [address] Kellee Young RN SN - MISSED VISIT 05/17/2024 Plan of Care Documentation [address] [address] 05/16/2024 9:00 AM CDT Home Care Visit [address] [address] Dayna Olvera RN SN - OASIS START OF CARE 05/07/2024 7:40 AM CDT Anesthesia Event [address] [address] Isreal Larry MD Spillers, Anna E, CRNA 05/07/2024 7:00 AM CDT - 05/07/2024 4:08 PM CDT Surgery [address] [address] Kumar Valera MD CORONARY ARTERY BYPASS WITH GRAFTING X3, AORTIC VALVE REPLACEMENT, LEFT ATRIAL APPENDAGE CLIP, RUFINO x2, TEMPORARY V-PACING WIRES 05/07/2024 5:30 AM CDT - 05/14/2024 4:34 PM CDT Hospital Encounter [address] [address] Kumar Valera MD s/p 3V CABG (MCGILL-LAD, SVG-OM1, SVG-PDA) 05/07/2024 (Primary Dx); Aortic valve stenosis, etiology of cardiac valve disease unspecified; Postoperative pain; Paroxysmal atrial fibrillation (HC); s/p AVR (Inspiris #27) 05/07/2024 Discharge Disposition: Home Health 05/06/2024 9:40 AM CDT Education [address] [place] [address] Education 05/06/2024 9:15 AM CDT - 05/06/2024 11:59 PM CDT Hospital Encounter [address] [place] [address] Kumar Valera MD Coronary artery disease, unspecified vessel or lesion type, unspecified whether angina present, unspecified whether [place] or transplanted heart 05/06/2024 Travel 04/30/2024 Telephone [facility] [address] [facility] [address] [place] [address] Judith Marrero PA Cardiovascular Diagnostic Testing 04/22/2024 Telephone [facility] [address] [place] [address] Kumar Valear MD Education (Pre cardiac surgery ) 04/16/2024 3:41 PM CDT - 04/19/2024 4:56 PM CDT Hospital Encounter [address] [address] Dheeraj Lorenzana MD [facility] Hospitalist amol Rudd, MD Cynthia Ann John Edward, MD NSTEMI (non-ST elevated myocardial infarction) (HC) (Primary Dx); Coronary artery disease, unspecified vessel or lesion type, unspecified whether angina present, unspecified whether [place] or transplanted heart; New onset atrial fibrillation (HC); Aortic valve stenosis, etiology of cardiac valve disease unspecified Discharge Disposition: Home Self Care 04/16/2024 Travel 04/13/2024 Telephone [facility] [address] [place] [address] August Montoya MD 04/12/2024 Telephone [facility] [address] [place] [address] August Montoya MD 03/27/2024 1:00 PM CDT Ancillary Procedure [facility] [facility] [address] [place] [address] 03/27/2024 Travel from Last 3 Months Social History Tobacco Use Types Packs/Day Years Used Date Smoking Tobacco: Never Smokeless Tobacco: Former Snuff Quit: 10/06/1998 Tobacco Cessation:Counseling Given: No Alcohol Use Standard Drinks/Week Comments No 0 (1 standard drink = 0.6 oz pur e alcohol) Social Connections Answer Date Recorded Frequency of Communication with Friends and Fami ly 0 04/17/2024 Financial Resource Strain Answer Date R ecorded Difficulty of Paying Living Expenses 3 05/07/2024 Difficulty of Paying Living Expenses Not on file 05/07/2024 Food Insecurity Answer Date Recorded Worried About Running Out of Food in the Last Ye ar 1 04/17/2024 Transportation Needs Answer Date Record ed Lack of Transportation (Medical) 1 04/17/2024 Housing Stability Answer Date Recorded Unable to Pay for Housing in the Last Year 1 04/17/2024 Sex and Gender Information Value Date Recorded Sex Assigned at Not on file Gender Identity Not on file Sexual Orientation Not on file Obstetrics History Last Filed Vital Signs Vital Sign Reading Time Taken Comments Blood Pressure 95/60 05/16/2024 9:42 AM CDT Pulse 75 05/16/2024 9:40 AM CDT Temperature 36.7 ??C (98 ??F) 05/16/2024 9:40 AM CDT Respiratory Rate 14 05/14/2024 11:04 AM CDT Oxygen Saturation 99% 05/16/2024 9:40 AM CDT Inhaled Oxygen Concentration - - Weight 95.7 kg (211 lb) 05/16/2024 9:40 AM CDT Height 182.9 cm (6') 05/16/2024 9:40 AM CDT Body Mass Index 28.62 05/16/2024 9:40 AM CDT Plan of Treatment Upcoming Encounters Date Type Department Care Team (Late st Contact Info) Description 06/13/2024 1:40 PM CDT Office Visit [facility] [address] [facility] [address] [place] [phone] Henrietta Obrien PA [address] [place] [address] Health Maintenance Due Date Last Done Comments Pneumococcal series for age 65+ (1 of 2 - PCV) 1959 Tdap 1964 Depression screening for age 12+ 1965 BMI (ht and wt on same day) for age 18+ 1971 Hepatitis C screening for age 18-79 1971 Tetanus booster 1973 Colonoscopy through age 75 1998 Zoster (shingles) series for age 50+ (1 of 2) 2003 Medicare Wellness for age 65+ 2018 COVID-19 vaccine series (2022- season) 2023 Influenza for age 65+ 06/30/2024 Lipids for age 45-75 04/17/2029 04/17/2024, 08/06/20 13 Medical Devices Implanted Type Area Switchboard And Control Room Operator Device Identifier Shelf Expiration Date Model / Serial / Lot [id number] - [id number] Implanted:Qt y: 1 on 07/30/2020 by Nikko Galindo MD at [facility] Opthalmology Implants Left: Eye [employer] 08/06/2024 [id number] / [id number] / NA Description:Tecnis Aspheric IOL +21.0 Iol Towner +21 Tecnis [id number] - [id number] Implanted:Qt y: 1 on 08/06/2020 by Nikko Galindo MD at [facility] Opthalmology Implants Right: Eye [employer] 02/25/2025 [id number] 21.0# / [id number] / N/A Occluder Christlele 40mm Atriclip Flex V Exclusion Sys - [id number] Implanted:Qt y: 1 on 05/07/2024 by Kumar Valera MD at [facility] Left: Heart [employer] 11/30/2026 [id number] / / [id number] Valve Aortic 27mm Inspirus Resilia Tissue - [id number] Implanted:Qt y: 1 on 05/07/2024 by Kumar Valera MD at [facility] Aortic Valve [employer] Kavin [id number] 12/06/2027 [id number] / [id number] / Procedures Procedure Name Priority Date/Time Associated Diagnosis Comments SCAN-CARDIAC STRIP 05/16/2024 2:27 AM CDT SCAN-CARDIAC STRIP 05/15/2024 10:31 PM CDT SCAN-CARDIAC STRIP 05/15/2024 9:03 AM CDT ECHO TTE COMPLETE W CONTRAST Routine 05/14/2024 12:59 PM CDT POTASSIUM Timed 05/14/2024 11:15 AM CDT GLUCOSE METER Timed 05/14/2024 11:08 AM CDT EKG 12 LEAD Routine 05/14/2024 10:43 AM CDT GLUCOSE METER Timed 05/14/2024 8:06 AM CDT SCAN-CARDIAC STRIP 05/14/2024 7:49 AM CDT PLATELET COUNT Early AM 05/14/2024 5:30 AM CDT WHITE BLOOD COUNT Early AM 05/14/2024 5:30 AM CDT MAGNESIUM Early AM 05/14/2024 5:30 AM CDT HEMOGLOBIN Early AM 05/14/2024 5:30 AM CDT BASIC METABOLIC PANEL Early AM 05/14/2024 5:30 AM CDT SCAN-CARDIAC STRIP 05/14/2024 12:00 AM CDT GLUCOSE METER Timed 05/13/2024 9:34 PM CDT GLUCOSE METER Timed 05/13/2024 6:03 PM CDT GLUCOSE METER Timed 05/13/2024 4:38 PM CDT SCAN-CARDIAC STRIP 05/13/2024 3:51 PM CDT EKG 12 LEAD Routine 05/13/2024 12:54 PM CDT GLUCOSE METER Timed 05/13/2024 12:08 PM CDT GLUCOSE METER Timed 05/13/2024 8:14 AM CDT EKG 12 LEAD Routine 05/13/2024 6:42 AM CDT EKG 12 LEAD STAT 05/13/2024 4:55 AM CDT WHITE BLOOD COUNT Early AM 05/13/2024 4:48 AM CDT MAGNESIUM Early AM 05/13/2024 4:48 AM CDT HEMOGLOBIN Early AM 05/13/2024 4:48 AM CDT BASIC METABOLIC PANEL Early AM 05/13/2024 4:48 AM CDT SCAN-CARDIAC STRIP 05/13/2024 3:41 AM CDT GLUCOSE METER Timed 05/12/2024 9:36 PM CDT SCAN-CARDIAC STRIP 05/12/2024 7:28 PM CDT GLUCOSE METER Timed 05/12/2024 5:10 PM CDT GLUCOSE METER Timed 05/12/2024 11:34 AM CDT SCAN-CARDIAC STRIP 05/12/2024 10:50 AM CDT GLUCOSE METER Timed 05/12/2024 7:48 AM CDT WHITE BLOOD COUNT Early AM 05/12/2024 6:13 AM CDT MAGNESIUM Early AM 05/12/2024 6:13 AM CDT HEMOGLOBIN Early AM 05/12/2024 6:13 AM CDT BASIC METABOLIC PANEL Early AM 05/12/2024 6:13 AM CDT SCAN-CARDIAC STRIP 05/12/2024 2:11 AM CDT GLUCOSE METER Timed 05/11/2024 9:17 PM CDT SCAN-CARDIAC STRIP 05/11/2024 7:10 PM CDT POTASSIUM Timed 05/11/2024 5:51 PM CDT GLUCOSE METER Timed 05/11/2024 5:26 PM CDT GLUCOSE METER Timed 05/11/2024 1:20 PM CDT POTASSIUM Timed 05/11/2024 12:30 PM CDT SCAN-CARDIAC STRIP 05/11/2024 10:48 AM CDT GLUCOSE METER Timed 05/11/2024 7:56 AM CDT WHITE BLOOD COUNT Early AM 05/11/2024 5:41 AM CDT PLATELET COUNT Early AM 05/11/2024 5:41 AM CDT MAGNESIUM Early AM 05/11/2024 5:41 AM CDT HEMOGLOBIN Early AM 05/11/2024 5:41 AM CDT BASIC METABOLIC PANEL Early AM 05/11/2024 5:41 AM CDT SCAN-CARDIAC STRIP 05/11/2024 12:59 AM CDT GLUCOSE METER Timed 05/11/2024 12:05 AM CDT GLUCOSE METER Timed 05/10/2024 9:08 PM CDT GLUCOSE METER Timed 05/10/2024 5:25 PM CDT SCAN-CARDIAC STRIP 05/10/2024 5:15 PM CDT SCAN-CARDIAC STRIP 05/10/2024 3:26 PM CDT URINALYSIS MICROSCOPIC Timed 11:38 AM CDT UA W/ SEDIMENT EXAM REFLEXED PER CRITERIA Today 05/10/2024 11:38 AM CDT GLUCOSE METER Timed 05/10/2024 11:22 AM CDT PLATELET COUNT Today 05/10/2024 9:49 AM CDT MAGNESIUM Today 05/10/2024 9:49 AM CDT HEMOGLOBIN Today 05/10/2024 9:49 AM CDT BASIC METABOLIC PANEL Today 05/10/2024 9:49 AM CDT XR CHEST 2 VIEWS PA AND LATERAL Routine 05/10/2024 9:09 AM CDT GLUCOSE METER Timed 05/10/2024 7:52 AM CDT GLUCOSE METER Timed 05/09/2024 9:38 PM CDT SCAN-CARDIAC STRIP 05/09/2024 7:[address] CHEST ABDOMEN PELVIS WO STAT 05/09/2024 7:[address] HEAD BRAIN WO STAT 05/09/2024 7:32 PM CDT GLUCOSE METER Timed 05/09/2024 6:16 PM CDT SCAN-CARDIAC STRIP 05/09/2024 6:10 PM CDT GLUCOSE METER Timed 05/09/2024 5:00 PM CDT SCAN-CARDIAC STRIP 05/09/2024 4:41 PM CDT GLUCOSE METER Timed 05/09/2024 11:56 AM CDT GLUCOSE METER Timed 05/09/2024 7:44 AM CDT SCAN-CARDIAC STRIP 05/09/2024 7:30 AM CDT WHITE BLOOD COUNT Early AM 05/09/2024 5:17 AM CDT PLATELET COUNT Early AM 05/09/2024 5:17 AM CDT MAGNESIUM Early AM 05/09/2024 5:17 AM CDT HEMOGLOBIN Early AM 05/09/2024 5:17 AM CDT BASIC METABOLIC PANEL Early AM 05/09/2024 5:17 AM CDT PROTIME-INR Early AM 05/09/2024 5:17 AM CDT SCAN-CARDIAC STRIP 05/09/2024 1:17 AM CDT GLUCOSE METER Timed 05/08/2024 8:48 PM CDT GLUCOSE METER Timed 05/08/2024 5:03 PM CDT SCAN-CARDIAC STRIP 05/08/2024 4:17 PM CDT GLUCOSE METER Timed 05/08/2024 2:08 PM CDT BASIC METABOLIC PANEL Today 05/08/2024 12:39 PM CDT GLUCOSE METER Timed 05/08/2024 12:09 PM CDT GLUCOSE METER Timed 05/08/2024 10:09 AM CDT GLUCOSE METER Timed 05/08/2024 8:03 AM CDT SCAN-CARDIAC STRIP 05/08/2024 7:30 AM CDT EKG 12 LEAD Early AM 05/08/2024 6:24 AM CDT GLUCOSE METER Timed 05/08/2024 5:52 AM CDT GLUCOSE METER Timed 05/08/2024 5:05 AM CDT XR CHEST 1 VIEW PORTABLE Routine 05/08/2024 4:56 AM CDT GLUCOSE METER Timed 05/08/2024 4:07 AM CDT WHITE BLOOD COUNT Early AM 05/08/2024 4:05 AM CDT PLATELET COUNT Early AM 05/08/2024 4:05 AM CDT MAGNESIUM Early AM 05/08/2024 4:05 AM CDT [facility] IONIZED [facility] DRAW ONLY Early AM 05/08/2024 4:05 AM CDT PROTIME-INR Early AM 05/08/2024 4:05 AM CDT HEMOGLOBIN Early AM 05/08/2024 4:05 AM CDT BASIC METABOLIC PANEL Early AM 05/08/2024 4:05 AM CDT GLUCOSE METER Timed 05/08/2024 2:58 AM CDT GLUCOSE METER Timed 05/08/2024 2:11 AM CDT GLUCOSE METER Timed 05/08/2024 1:02 AM CDT SCAN-CARDIAC STRIP 05/08/2024 12:37 AM CDT POTASSIUM Timed 05/07/2024 11:52 PM CDT GLUCOSE METER Timed 05/07/2024 11:50 PM CDT GLUCOSE METER Timed 05/07/2024 10:57 PM CDT GLUCOSE METER Timed 05/07/2024 10:02 PM CDT GLUCOSE METER Timed 05/07/2024 8:58 PM CDT SCAN-CARDIAC STRIP 05/07/2024 8:02 PM CDT GLUCOSE METER Timed 05/07/2024 8:02 PM CDT GLUCOSE METER Timed 05/07/2024 6:58 PM CDT POTASSIUM STAT 05/07/2024 5:58 PM CDT GLUCOSE METER Timed 05/07/2024 5:55 PM CDT GLUCOSE METER Timed 05/07/2024 4:53 PM CDT XR CHEST 1 VIEW PORTABLE STAT 05/07/2024 4:18 PM CDT ARTERIAL BLOOD GAS Timed 05/07/2024 4:03 PM CDT FIBRINOGEN,QUANTITATIVE STAT 05/07/20 4:03 PM CDT THROMBIN TIME STAT 05/07/2024 4:03 PM CDT PROTIME-INR STAT 05/07/2024 4:03 PM CDT APTT STAT 05/07/2024 4:03 PM CDT PLATELET COUNT STAT 05/07/2024 4:03 PM CDT MAGNESIUM STAT 05/07/2024 4:03 PM CDT HEMOGLOBIN STAT 05/07/2024 4:03 PM CDT GLUCOSE METER Timed 05/07/2024 4:02 PM CDT SCAN-CARDIAC STRIP 05/07/2024 4:00 PM CDT BEDSIDE US STUDY ARCHIVE Preop 05/07/2024 3:53 PM CDT TRANSFUSE PLASMA (NURSE COMMUNICATION ORDER) STAT 05/07/2024 3:19 PM CDT TRANSFUSE PLASMA (NURSE COMMUNICATION ORDER) STAT 05/07/2024 3:17 PM CDT PLASMA ORDER STAT 05/07/2024 3:08 PM CDT PLASMA SNGL DON FFPEA UNIT STAT 05/07/2024 3:07 PM CDT PLASMA SNGL DON FFPEA UNIT STAT 05/07/2024 3:07 PM CDT RED CELL MORPHOLOGY STAT 05/07/2024 2:29 PM CDT PLATELET ESTIMATE STAT 05/07/2024 2:29 PM CDT MANUAL DIFFERENTIAL STAT 05/07/2024 2:29 PM CDT CBC WITH AUTO DIFFERENTIAL STAT 05/07/2024 2:29 PM CDT THROMBIN TIME STAT 05/07/2024 2:29 PM CDT CARDIAC THROMBOELASTOGRAPHY STAT 05/07/2024 2:29 PM CDT APTT STAT 05/07/2024 2:29 PM CDT PROTIME-INR STAT 05/07/2024 2:29 PM CDT FIBRINOGEN,QUANTITATIVE STAT 05/07/20 2:29 PM CDT CBC WITH AUTO DIFFERENTIAL STAT 05/07/2024 2:29 PM CDT PATH TISSUE EXAM Today 05/07/2024 2:20 PM CDT ECHO RUFINO WO CONTRAST W COLOR W LTD DOPPLER Routine 05/07/2024 2:10 PM CDT Aortic valve stenosis, etiology of cardiac valve disease unspecified [facility] CATH INFUSION PR70 Routine 05/07/20 11:03 AM CDT [facility] KIT PR5 Routine 05/07/2024 11:03 AM CDT [facility] AN INTRODUCER 2 LUMEN PERFORMABLE Routine 05/07/2024 11:03 AM CDT [facility] DRSG PR1 Routine 05/07/2024 11:03 AM CDT [facility] DRSG PR5 Routine 05/07/2024 11:03 AM CDT [facility] TUBING PR5 Routine 05/07/2024 11:03 AM CDT [facility] KIT MONITORING PR5 Routine 05/07/20 24 11:03 AM CDT [facility] ADPTR PR1 Routine 05/07/2024 11:03 AM CDT [facility] CATH INFUSION PR30 Routine 05/07/20 24 11:03 AM CDT [facility] TUBING PR1 Routine 05/07/2024 11:03 AM CDT [facility] TUBING PR5 Routine 05/07/2024 11:03 AM CDT [facility] TUBING PR1 Routine 05/07/2024 11:03 AM CDT [facility] ANES US GUIDE FOR VASC ACCESS Routine 05/07/2024 11:03 AM CDT [facility] STOPCOCK PR5 Routine 05/07/2024 11:03 AM CDT CVC TRIPLE LUMEN Routine 05/07/2024 11:03 AM CDT [facility] KIT PR5 Routine 05/07/2024 11:02 AM CDT [facility] STATLOCK PR1 Routine 05/07/2024 11:02 AM CDT [facility] DRSG PR5 Routine 05/07/2024 11:02 AM CDT [facility] DRSG PR1 Routine 05/07/2024 11:02 AM CDT [facility] TUBING PR20 Routine 05/07/2024 11:02 AM CDT [facility] TUBING PR1 Routine 05/07/2024 11:02 AM CDT [facility] CATH INFUSION PR10 Routine 05/07/20 11:02 AM CDT ENDOTRACHEAL TUBE Routine 05/07/2024 8:54 AM CDT ENDOTRACHEAL TUBE Routine 05/07/2024 8:54 AM CDT ENDOTRACHEAL TUBE Routine 05/07/2024 8:54 AM CDT CARDIAC THROMBOELASTOGRAPHY STAT 05/07/2024 8:20 AM CDT RUFINO Routine 05/07/2024 8:19 AM CDT ENDOSCOPIC HARVEST VEIN 05/07/20 7:10 AM CDT CORONARY ARTERY DISEASE Case Notes SWING - 8HRSPERFUSION - Confirmed for 7am with Angel #[id number] - RM 04/22-Confirmed time change to 0930 W/Rahel 07/05 ANW / Time chg to 0800 w/Aamir 0800 7/8 NRAtricure rep notified about case 04/24/24 [facility] Special Needs HT - 5' 222 LBS HYPERTENSION DIABETICCHRONIC KIDNEY DISEASE MAZE PROCEDURE 05/07/2024 7:10 AM CDT CORONARY ARTERY DISEASE Case Notes SWING - 8HRSPERFUSION - Confirmed for 7am with Angel #[id number] - RM 04/22-Confirmed time change to 0930 W/Rahel 07/05 ANW / Time chg to 0800 w/Aamir 0800 7/8 [employer] rep notified about case 04/24/24 [facility] Special Needs HT - 5' 222 LBS HYPERTENSION DIABETICCHRONIC KIDNEY DISEASE BYPASS CORONARY ARTERY WITH REPLACEMENT AORTIC VALVE 05/07/2024 7:10 AM CDT CORONARY ARTERY DISEASE Case Notes SWING - 8HRSPERFUSION - Confirmed for 7am with Angel #[id number] - RM 04/22-Confirmed time change to 0930 W/Rahel 07/05 ANW / Time chg to 0800 w/Aamir 0800 7/8 [employer] rep notified about case 04/24/24 [facility] Special Needs HT - 5' 11 / 222 LBS HYPERTENSION DIABETICCHRONIC KIDNEY DISEASE GLUCOSE METER Timed 05/07/2024 6:28 AM CDT RBC W/O TYPE & SCREEN STAT 05/07/2024 6:14 AM CDT RED BLOOD CELLS EA UNIT STAT 05/07/20 6:13 AM CDT RED BLOOD CELLS EA UNIT STAT 05/07/20 6:13 AM CDT RBC W/O TYPE & SCREEN STAT 05/07/2024 6:02 AM CDT RED BLOOD CELLS EA UNIT STAT 05/07/20 6:02 AM CDT RED BLOOD CELLS EA UNIT STAT 05/07/20 6:02 AM CDT RED BLOOD CELLS EA UNIT STAT 05/07/20 6:02 AM CDT RED BLOOD CELLS EA UNIT STAT 05/07/20 6:02 AM CDT SCAN-CARDIAC STRIP 05/07/2024 12:00 AM CDT SCAN-OPERATIVE/PROCEDUR E REPORT 05/07/2024 12:00 AM CDT PRINCIPAL CLOUD ARCHITECT BLOOD TYPE STAT 05/06/2024 9:36 AM CDT Coronary artery disease, unspecified vessel or lesion type, unspecified whether angina present, unspecified whether [place] or transplanted heart PRINCIPAL CLOUD ARCHITECT QUESTION TEST STAT 05/06/2024 9:33 AM CDT Coronary artery disease, unspecified vessel or lesion type, unspecified whether angina present, unspecified whether [place] or transplanted heart TYPE & SCREEN STAT 05/06/2024 9:33 AM CDT Coronary artery disease, unspecified vessel or lesion type, unspecified whether angina present, unspecified whether [place] or transplanted heart TSH STAT 05/06/2024 9:33 AM CDT Coronary artery disease, unspecified vessel or lesion type, unspecified whether angina present, unspecified whether [place] or transplanted heart T4 (THYROXINE) STAT 05/06/2024 9:33 AM CDT Coronary artery disease, unspecified vessel or lesion type, unspecified whether angina present, unspecified whether [place] or transplanted heart PROTIME-INR STAT 05/06/2024 9:33 AM CDT Coronary artery disease, unspecified vessel or lesion type, unspecified whether angina present, unspecified whether [place] or transplanted heart HEPATIC FUNCTION PANEL STAT 9:33 AM CDT Coronary artery disease, unspecified vessel or lesion type, unspecified whether angina present, unspecified whether [place] or transplanted heart CBC W PLT NO DIFF STAT 05/06/2024 9:33 AM CDT Coronary artery disease, unspecified vessel or lesion type, unspecified whether angina present, unspecified whether [place] or [place] heart BASIC METABOLIC PANEL STAT 05/06/2024 9:33 AM CDT Coronary artery disease, unspecified vessel or lesion type, unspecified whether angina present, unspecified whether [place] or [place] heart HEMOGLOBIN A1C SCREENING STAT 05/06/2024 9:33 AM CDT Coronary artery disease, unspecified vessel or lesion type, unspecified whether angina present, unspecified whether [place] or transplanted heart SCAN CORRESP-IMAGING 04/22/2024 3:59 PM CDT SCAN CORRESP-EKG RESULTS 04/22/2024 3:41 PM CDT SCAN CORRESP-EKG RESULTS 04/22/2024 2:33 PM CDT GLUCOSE METER Timed 04/19/2024 1:35 PM CDT GLUCOSE METER Timed 04/19/2024 11:18 AM CDT XR ORTHOPANTOGRAM Routine 04/19/2024 10:56 AM CDT SCAN-CARDIAC STRIP 04/19/2024 8:58 AM CDT GLUCOSE METER Timed 04/19/2024 7:38 AM CDT POTASSIUM Today 04/19/2024 5:47 AM CDT BASIC METABOLIC PANEL Early AM 04/19/2024 3:40 AM CDT HEMATOCRIT Early AM 04/19/2024 3:40 AM CDT HEMOGLOBIN Early AM 04/19/2024 3:40 AM CDT PLATELET COUNT Early AM 04/19/2024 3:40 AM CDT MAGNESIUM Early AM 04/19/2024 3:40 AM CDT APTT Timed 04/19/2024 3:40 AM CDT GLUCOSE METER Timed 04/19/2024 2:43 AM CDT SCAN-CARDIAC STRIP 04/19/2024 2:41 AM CDT GLUCOSE METER Timed 04/19/2024 1:59 AM CDT GLUCOSE METER Timed 04/18/2024 9:20 PM CDT APTT Timed 04/18/2024 8:46 PM CDT GLUCOSE METER Timed 04/18/2024 5:08 PM CDT SCAN-CARDIAC STRIP 04/18/2024 3:41 PM CDT APTT Timed 04/18/2024 1:17 PM CDT GLUCOSE METER Timed 04/18/2024 11:25 AM CDT US VEIN MAPPING LOWER EXTREMITY BILATERAL Routine 04/18/2024 11:17 AM CDT CTA CHEST ABD PELVIS TAVR - DUAL READ Routine 04/18/2024 10:38 AM CDT GLUCOSE METER Timed 04/18/2024 10:03 AM CDT GLUCOSE METER Timed 04/18/2024 7:44 AM CDT SCAN-CARDIAC STRIP 04/18/2024 7:41 AM CDT MAGNESIUM ALICIA 04/18/2024 5:04 AM CDT APTT Timed 04/18/2024 5:04 AM CDT BASIC METABOLIC PANEL Early AM 04/18/2024 5:04 AM CDT SCAN-CARDIAC STRIP 04/18/2024 2:41 AM CDT GLUCOSE METER Timed 04/18/2024 1:58 AM CDT APTT Timed 04/17/2024 10:53 PM CDT GLUCOSE METER Timed 04/17/2024 10:06 PM CDT SCAN-CARDIAC STRIP 04/17/2024 7:52 PM CDT GLUCOSE METER Timed 04/17/2024 6:07 PM CDT SCAN-CARDIAC STRIP 04/17/2024 5:21 PM CDT GLUCOSE METER Timed 04/17/2024 1:20 PM CDT CVL CORONARY ANGIOGRAM POSS PCI Routine 04/17/2024 11:22 AM CDT GLUCOSE METER Timed 04/17/2024 10:48 AM CDT SCAN-CARDIAC STRIP 04/17/2024 8:42 AM CDT APTT Timed 04/17/2024 7:17 AM CDT GLUCOSE METER Timed 04/17/2024 6:34 AM CDT PRO-BNP ALICIA 04/17/2024 6:07 AM CDT T4,FREE ALICIA 04/17/2024 6:07 AM CDT TSH ALICIA 04/17/2024 6:07 AM CDT HEMOGLOBIN A1C SCREENING ALICIA 04/17/2024 6:07 AM CDT HEPATIC FUNCTION PANEL ALICIA 6:07 AM CDT LIPID PANEL Early AM 04/17/2024 6:07 AM CDT TROPONIN T (HS) ONE TIME Early AM 04/17/2024 6:07 AM CDT BASIC METABOLIC PANEL Early AM 04/17/2024 6:07 AM CDT CBC W PLT NO DIFF Early AM 04/17/2024 6:07 AM CDT SCAN-CARDIAC STRIP 04/17/2024 1:45 AM CDT GLUCOSE METER Timed 04/17/2024 1:20 AM CDT APTT Timed 04/17/2024 1:12 AM CDT GLUCOSE METER Timed 04/16/2024 10:13 PM CDT GLUCOSE METER Timed 04/16/2024 6:47 PM CDT EXTRA TUBE BLUE Today 04/16/2024 5:06 PM CDT TROPONIN T (HS) ONE TIME Timed 04/16/2024 4:55 PM CDT GLUCOSE METER Timed 04/16/2024 4:20 PM CDT XR CHEST 2 VIEWS PA AND LATERAL STAT 04/16/2024 3:52 PM CDT APTT ALICIA 04/16/2024 3:07 PM CDT EXTRA TUBE BLUE Today 04/16/2024 3:07 PM CDT CBC WITH AUTO DIFFERENTIAL STAT 04/16/2024 3:07 PM CDT TROPONIN T (HS) ACUTE W/2HR REFLEX STAT 04/16/2024 3:07 PM CDT BASIC METABOLIC PANEL STAT 04/16/2024 3:07 PM CDT CBC WITH AUTO DIFFERENTIAL STAT 04/16/2024 3:07 PM CDT EKG 12 LEAD STAT 04/16/2024 2:17 PM CDT ECHO TTE COMPLETE W CONTRAST Routine 03/27/2024 2:01 PM CDT Other forms of dyspnea from Last 3 Months Results * SCAN-CARDIAC STRIP (05/16/2024 2:27 AM CDT) Scanner OTHER * SCAN-CARDIAC STRIP (05/15/2024 10:31 PM CDT) Scanner OTHER * SCAN-CARDIAC STRIP (05/15/2024 9:03 AM CDT) Scanner OTHER * ECHO TTE COMPLETE W CONTRAST (05/14/2024 12:59 PM CDT) Only the most recent of2 resultswithin the time period is included. EJECTION FRACTION 65% PROSOLV Anatomical Region Laterality Modality Ultrasound 05/14/2024 12:0 0 PM CDT Narrative 05/14/2024 3:40 [place] [address] Main: [email or web address] ? Transthoracic Echo Report JOSEPH KNAPP Andriyisreal ID: [id number] Age: 68 : 1955 Ordering Provider: AMALIA MAURICE Exam Date: 05/14/2024 12:00 Gender: M Development System Efficiency Manager: DRAKE Height: 71 in BSA: 2.19 m?? BP: 132 / 70 Weight: 218 lbs BMI: 30.4 kg/m?? HR: 79 Location: [facility] Rhythm: Normal Sinus Rhythm Procedure Components: 2D imaging with contrast, Color Doppler, Spectral Doppler Indications: Aortic valve replacement Technical Quality: Very technically difficult study Contrast: Definity Constrast Dose (ml): .30 [facility]#: [id number] Final Conclusion Previous Study: 03/27/2024 1. Normal left ventricular chamber size. Mildly increased left ventricular wall thickness. Normal left ventricular systolic function. Calculated left ventricular ejection fraction (modified Neri technique) is 64%. No regional wall motion abnormalities. 2. Normal right ventricular size and systolic function. 3. Status post aortic valve replacement with a 27 mm Miller Inspiris Resilia aortic bioprosthetic valve (05/07/2024). No aortic prosthetic stenosis. Aortic prosthetic systolic mean gradient is 4 mmHg. Aortic prosthesis effective orifice area by Doppler is 2.5 cm??. No aortic prosthetic regurgitation. 4. No pericardial effusion. 5. Compared to prior study of 03/27/2024, the following changes have occurred: status post AVR Estimated EF: 65% FINDINGS Left Ventricle Normal left ventricular chamber size. Mildly increased left ventricular wall thickness. Normal left ventricular systolic function. Calculated left ventricular ejection fraction (modified Neri technique) is 64%. No regional wall motion abnormalities. Diastolic Function Findings consistent with increased left ventricular filling pressure. Right Ventricle Normal right ventricular chamber size. Normal right ventricular systolic function. Right ventricular systolic pressure cannot be estimated due to inability to detect peak tricuspid regurgitation Doppler velocity. Left Atrium Left atrial volume index is 28.9 ml/m??. Normal left atrial size. Right Atrium Normal right atrial size. Atrial Septum Atrial septum was not well visualized. Aortic Valve Status post aortic valve replacement with a 27 mm Miller Inspiris Resilia aortic bioprosthetic valve (05/07/2024). No aortic prosthetic stenosis. Aortic prosthetic systolic mean gradient is 4 mmHg. Aortic prosthesis effective orifice area by Doppler is 2.5 cm??. No aortic prosthetic regurgitation. Mitral Valve Moderate mitral annular calcification. Trivial mitral valve regurgitation. No mitral valve stenosis. Trivial mitral inflow obstruction. Mitral valve diastolic mean gradient is 2.5 mmHg. Tricuspid Valve Normal tricuspid valve. Trivial tricuspid valve regurgitation. No tricuspid valve stenosis. Pulmonic Valve Pulmonary valve was not well visualized. No pulmonary valve regurgitation. No pulmonary valve stenosis. Pericardium No pericardial effusion. Aorta Normal indexed ascending aorta dimension (3.2 cm, 1.5 cm/m??). Inferior Vena Cava Normal inferior vena cava with normal inspiratory collapse. MEASUREMENTS ??(Male / Female) Normal Values 2D MEASUREMENTS AND LV FUNCTION IVS Diastolic Thickness ? 1.1 cm ?< 1.1 cm / < 1.0 cm LV Diastolic Diameter PLAX ?4.2 cm ?4.2 - 5.9 / 3.9 - 5.3 cm LV Diastolic Diameter Index ? 1.92 cm/m?? LVPW Diastolic Thickness ?1.3 cm ?< 1.1 cm / < 1.0 cm LV Systolic Diameter PLAX ? 3.1 cm LV Systolic Diameter Index ?1.42 cm/m?? LVOT Diameter ? 2.2 cm LVOT Cardiac Output ? 4.68 l/min LVOT Cardiac Index ?2.08 l/min??m?? LVOT Stroke Volume ?59.3 ml Stroke Volume Index ? 26.3 ml/m?? LA Area 4C View ? 18.7 cm?? LA Length 4C ?5.11 cm LA Area 2C View ? 20.9 cm?? LA Length 2C ?5.8 cm LA Volume MOD BP ?63.3 ml LA Volume Index MOD BP ?28.9 ml/m?16 - 34 ml/m?? LV Mass ? 178 g LV Mass Index ? 80 g/m?? Ascending Aorta Diameter(s) ? 3.2 cm Ascending Aorta Index ? 1.46 cm/m?? M MODE TAPSE MM ?0.691 cm DIASTOLOGY Mitral E Point Velocity ? 1.34 m/sec ?0.70 - 1.02 m/sec Mitral A Point Velocity ? 0.41 m/sec ?0.06 - 1.06 m/sec Mitral E to A Ratio ? 3.27 ?1.1 - 2.1 MV Deceleration Time ?184 msec ?167 - 231 msec LV E' Lateral Velocity ?0.039 m/sec Mitral E to LV E' Lateral Ratio ?? 34.4 LV E' Septal Velocity ? 0.0353 m/sec Mitral E to LV E' Septal Ratio ?38 AORTIC VALVE AV Peak Velocity ?1.29 m/sec ?< 2.0 m/sec AV Peak Gradient ?6.66 mmHg AV Mean Gradient ?4 mmHg AV Velocity Time Integral ? 23.3 cm LVOT Peak Velocity ?0.829 m/sec LVOT Velocity Time Integral ? 15.6 cm AV Area Cont Eq vti ? 2.55 cm?? AV Area Cont Eq pk ?2.44 cm?? AV Dimensionless Index ?0.67 MITRAL VALVE MV Peak Gradient ?7.62 mmHg MV Mean Gradient ?2.5 mmHg MV Velocity Time Integral ? 33.7 cm MV Pressure Half Time ? 54 msec MV Area PHT ? 4.07 cm?? HCM DATA LVOT JERE (r) ?2.75 mmHg Esthela Lincoln MD (Electronically Signed) [facility] Accredited Site Final Date: 14 May 2024 15:39 ICD-10 Codes: V43.3 Procedure Note Esthela Lincoln MD - 05/14/2024 [place] [address] Main: [email or web address] Transthoracic Echo Report JOSEPH KNAPP Andriyian ID: [id number] Age: 68 : 1955 Ordering Provider: AMALIA MAURICE Exam Date: 05/14/2024 12:00 Gender: M Development System Efficiency Manager: DRAKE Height: 71 in BSA: 2.19 m?? BP: 132 / 70 Weight: 218 lbs BMI: 30.4 kg/m?? HR: 79 Location: [facility] Rhythm: Normal SinusRhythm Procedure Components: 2D imaging with contrast, Color Doppler, SpectralDoppler Indications: Aortic valve replacement Technical Quality: Very technically difficult study Contrast: Definity Constrast Dose (ml): .30 [facility]#: [id number] Final Conclusion Previous Study: 03/27/2024 1. Normal left ventricular chamber size. Mildly increased leftventricular wall thickness. Normal left ventricular systolic function. Calculated left ventricular ejection fraction (modified Simpsontechnique) is 64%. No regional wall motion abnormalities. 2. Normal right ventricular size and systolic function. 3. Status post aortic valve replacement with a 27 mm Miller InspirisResilia aortic bioprosthetic valve (05/07/2024). No aortic prosthetic stenosis. Aortic prosthetic systolic mean gradient is 4 mmHg. Aorticprosthesis effective orifice area by Doppler is 2.5 cm??. No aortic prosthetic regurgitation. 4. No pericardial effusion. 5. Compared to prior study of 03/27/2024, the following changes haveoccurred: status post AVR Estimated EF: 65% FINDINGS Left Ventricle Normal left ventricular chamber size. Mildly increasedleft ventricular wall thickness. Normal left ventricular systolic function. Calculated left ventricular ejection fraction(modified Neri technique) is 64%. No regional wall motion abnormalities. Diastolic Function Findings consistent with increased left ventricularfilling pressure. Right Ventricle Normal right ventricular chamber size. Normal rightventricular systolic function. Right ventricular systolic pressure cannot be estimated due to inability to detect peak tricuspidregurgitation Doppler velocity. Left Atrium Left atrial volume index is 28.9 ml/m??. Normal left atrialsize. Right Atrium Normal right atrial size. Atrial Septum Atrial septum was not well visualized. Aortic Valve Status post aortic valve replacement with a 27 mm EdwardsInspiris Resilia aortic bioprosthetic valve (05/07/2024). No aortic prosthetic stenosis. Aortic prosthetic systolic mean gradientis 4 mmHg. Aortic prosthesis effective orifice area by Doppler is 2.5 cm??. No aortic prosthetic regurgitation. Mitral Valve Moderate mitral annular calcification. Trivial mitral valveregurgitation. No mitral valve stenosis. Trivial mitral inflow obstruction. Mitral valve diastolic mean gradient is 2.5 mmHg. Tricuspid Valve Normal tricuspid valve. Trivial tricuspid valveregurgitation. No tricuspid valve stenosis. Pulmonic Valve Pulmonary valve was not well visualized. No pulmonaryvalve regurgitation. No pulmonary valve stenosis. Pericardium No pericardial effusion. Aorta Normal indexed ascending aorta dimension (3.2 cm, 1.5 cm/m??). Inferior Vena Cava Normal inferior vena cava with normal inspiratorycollapse. MEASUREMENTS (Male / Female) Normal Values 2D MEASUREMENTS AND LV FUNCTION IVS Diastolic Thickness 1.1 cm < 1.1 cm / < 1.0cm LV Diastolic Diameter PLAX 4.2 cm 4.2 - 5.9 / 3.9 -5.3 cm LV Diastolic Diameter Index 1.92 cm/m?? LVPW Diastolic Thickness 1.3 cm < 1.1 cm / < 1.0cm LV Systolic Diameter PLAX 3.1 cm LV Systolic Diameter Index 1.42 cm/m?? LVOT Diameter 2.2 cm LVOT Cardiac Output 4.68 l/min LVOT Cardiac Index 2.08 l/min??m?? LVOT Stroke Volume 59.3 ml Stroke Volume Index 26.3 ml/m?? LA Area 4C View 18.7 cm?? LA Length 4C 5.11 cm LA Area 2C View 20.9 cm?? LA Length 2C 5.8 cm LA Volume MOD BP 63.3 ml LA Volume Index MOD BP 28.9 ml/m?? 16 - 34 ml/m?? LV Mass 178 g LV Mass Index 80 g/m?? Ascending Aorta Diameter(s) 3.2 cm Ascending Aorta Index 1.46 cm/m?? M MODE TAPSE MM 0.691 cm DIASTOLOGY Mitral E Point Velocity 1.34 m/sec 0.70 - 1.02m/sec Mitral A Point Velocity 0.41 m/sec 0.06 - 1.06m/sec Mitral E to A Ratio 3.27 1.1 - 2.1 MV Deceleration Time 184 msec 167 - 231 msec LV E' Lateral Velocity 0.039 m/sec Mitral E to LV E' Lateral Ratio 34.4 LV E' Septal Velocity 0.0353 m/sec Mitral E to LV E' Septal Ratio 38 AORTIC VALVE AV Peak Velocity 1.29 m/sec < 2.0 m/sec AV Peak Gradient 6.66 mmHg AV Mean Gradient 4 mmHg AV Velocity Time Integral 23.3 cm LVOT Peak Velocity 0.829 m/sec LVOT Velocity Time Integral 15.6 cm AV Area Cont Eq vti 2.55 cm?? AV Area Cont Eq pk 2.44 cm?? AV Dimensionless Index 0.67 MITRAL VALVE MV Peak Gradient 7.62 mmHg MV Mean Gradient 2.5 mmHg MV Velocity Time Integral 33.7 cm MV Pressure Half Time 54 msec MV Area PHT 4.07 cm?? HCM DATA LVOT JERE (r) 2.75 mmHg Esthela Lincoln MD (Electronically Signed) [facility] Accredited Site Final Date: 14 May 2024 15:39 ICD-10 Codes: V43.3 Amalia BELLAMY ECHO ORD * POTASSIUM (05/14/2024 11:15 AM CDT) Only the most recent of6 resultswithin the time period is included. POTASSIUM 4.1 3.5 - 5.1 mmol/L 05/14/2024 12:10 PM CDT [facility] Blood BLOOD SPECIMEN / Unknown Venipuncture / Unknown 05/14/2024 11:15 AM CDT 05/14/2024 11:45 AM CDT Kumar Soni MD CHEMISTRY [facility] [address] [place] [phone] [place] [address] * (ABNORMAL) GLUCOSE METER (05/14/2024 11:08 AM CDT) Only the most recent of67 resultswithin the time period is included. Pathologist [facility] GLUCOSE METER 202(H) 65 - 100 mg/dL 05/14/2024 11:22 AM CDT [facility] Blood BLOOD SPECIMEN / Unknown 05/14/2024 11:08 AM CDT 05/14/2024 11:22 AM CDT Kumar Soni MD CHEMISTRY [facility] [address] [id number] [place] [address] * EKG 12 LEAD (05/14/2024 10:43 AM CDT) Only the most recent of6 resultswithin the time period is included. Pathologist [facility] Interpretation Sinus rhythm with 1st degree A-V block Prolonged QT Abnormal ECG When compared with ECG of 13-May-2024 12:54, No significant change was found BEYOND NOW Ventricular Rate 74 BPM BEYOND NOW Atrial Rate 74 BPM BEYOND NOW P-R Interval 236 ms BEYOND NOW QRS Duration 110 ms BEYOND NOW QT 434 ms BEYOND NOW QTc 481 ms BEYOND NOW P Sheldon 87 degrees BEYOND NOW R Sheldon 87 degrees BEYOND NOW T Sheldon 58 degrees BEYOND NOW 05/14/2024 10:4 3 AM CDT 05/14/2024 4:10 PM CDT Judith BELLAMY EKG ORD BEYOND NOW [place], [place] * SCAN-CARDIAC STRIP (05/14/2024 7:49 AM CDT) Scanner OTHER * PLATELET COUNT (05/14/2024 5:30 AM CDT) Only the most recent of7 resultswithin the time period is included. Pathologist [facility] PLATELET COUNT 234 140 - 440 thou/cu mm 05/14/2024 5:51 AM CDT [facility] MPV 9.9 6.5 - 11.0 fL 05/14/2024 5:51 AM CDT [facility] Blood BLOOD SPECIMEN / Unknown Venipuncture / Unknown 05/14/2024 5:30 AM CDT 05/14/2024 5:42 AM CDT Oscar Flor MD HEMATOLOGY [facility] SENDOUT [phone] [place] [id number] * WHITE BLOOD COUNT (05/14/2024 5:30 AM CDT) Only the most recent of6 resultswithin the time period is included. WHITE BLOOD COUNT 4.6 4.5 - 11.0 thou/cu mm 05/14/2024 5:51 AM CDT [facility] NRBC 0.0 % 05/14/2024 5:51 AM CDT [facility] ABS NRBC 0.0 thou /cu mm 05/14/2024 5:51 AM CDT [facility] Blood BLOOD SPECIMEN / Unknown Venipuncture / Unknown 05/14/2024 5:30 AM CDT 05/14/2024 5:42 AM CDT Judith BELLAMY HEMATOLOGY [facility] SENDOUT [address]NAL [id number] [place] [address] * (ABNORMAL) HEMOGLOBIN (05/14/2024 5:30 AM CDT) Only the most recent of9 resultswithin the time period is included. HEMOGLOBIN 10.7(L) 13.5 - 17.5 g/dL 05/14/2024 5:51 AM CDT [facility] MCV 83 80 - 100 fL 05/14/2024 5:51 AM CDT [facility] Blood BLOOD SPECIMEN / Unknown Venipuncture / Unknown 05/14/2024 5:30 AM CDT 05/14/2024 5:42 AM CDT Judith BELLAMY HEMATOLOGY [facility] SENDOUT [phone] [place] [address] * MAGNESIUM (05/14/2024 5:30 AM CDT) Only the most recent of10 resultswithin the time period is included. MAGNESIUM 2.1 1.6 - 2.4 mg/dL 05/14/2024 6:22 AM T [facility] Blood BLOOD SPECIMEN / Unknown Venipuncture / Unknown 05/14/2024 5:30 AM CDT 05/14/2024 5:42 AM CDT Judith BELLAMY CHEMISTRY [facility] SENDOUT INTERNAL ZIP [phone] [place] [address] * (ABNORMAL) BASIC METABOLIC PANEL (05/14/2024 5:30 AM CDT) Only the most recent of13 resultswithin the time period is included. Pathologist [facility] SODIUM 135(L) 136 - 145 mmol/L 05/14/2024 6:10 AM [facility] POTASSIUM 3.5 3.5 - 5.1 mmol/L 05/14/2024 6:10 AM [facility] CHLORIDE 94(L) 98 - 107 mmol/L 05/14/2024 6:10 AM [facility] CO2,TOTAL 30(H) 22 - 29 mmol/L 05/14/2024 6:10 AM [facility] ANION GAP 11 5 - 18 05/14/2024 6:10 AM [facility] GLUCOSE 242(H) 70 - 99 mg/dL 05/14/2024 6:10 AM [facility] CALCIUM 8.6(L) 8.8 - 10.2 mg/dL 05/14/2024 6:10 AM [facility] BUN 26(H) 8 - 23 mg/dL 05/14/2024 6:10 AM [facility] CREATININE 1.27(H) 0.70 - 1.20 mg/dL 05/14/2024 6:10 AM [facility] BUN/CREAT RATIO 20 10 - 20 6:10 AM [facility] eGFR 61(L) >90 mL/min/1.7 3m2 05/14/2024 6:10 AM CDT [facility] Comment:As of 2022, eG FR is calculated by the CKD-EPI creatinine equation without race adjustment. ??eGFR can be influenced by muscle mass, exercise, and diet. ??The reported eGFR is an estimation only and is only applicable if the renal function is stable. Blood BLOOD SPECIMEN / Unknown Venipuncture / Unknown 05/14/2024 5:30 AM CDT 05/14/2024 5:42 AM CDT Judith BELLAMY CHEMISTRY [facility] SENDOUT [place] [phone] [place] [address] * SCAN-CARDIAC STRIP (05/14/2024 12:00 AM CDT) Scanner OTHER * SCAN-CARDIAC STRIP (05/13/2024 3:51 PM CDT) Scanner OTHER * SCAN-CARDIAC STRIP (05/13/2024 3:41 AM CDT) Scanner OTHER * SCAN-CARDIAC STRIP (05/12/2024 7:28 PM CDT) Scanner OTHER * SCAN-CARDIAC STRIP (05/12/2024 10:50 AM CDT) Scanner OTHER * SCAN-CARDIAC STRIP (05/12/2024 2:11 AM CDT) Scanner OTHER * SCAN-CARDIAC STRIP (05/11/2024 7:10 PM CDT) Scanner OTHER * SCAN-CARDIAC STRIP (05/11/2024 10:48 AM CDT) Scanner OTHER * SCAN-CARDIAC STRIP (05/11/2024 12:59 AM CDT) Scanner OTHER * SCAN-CARDIAC STRIP (05/10/2024 5:15 PM CDT) Scanner OTHER * SCAN-CARDIAC STRIP (05/10/2024 3:26 PM CDT) Scanner OTHER * URINALYSIS MICROSCOPIC (05/10/2024 11:38 AM CDT) RBC 0-2 0-2, None Seen /HPF 05/10/2024 11:54 AM CDT [facility] WBC 0-2 0-2, 3-5, None Seen /HPF 05/10/2024 11:54 AM CDT [facility] BACTERIA None Seen None Seen, Rare, Few Bacteria/ HPF 05/10/2024 11:54 AM CDT [facility] EPITHELIAL CELLS None Seen None Seen, Few Epi/HPF 05/10/2024 11:54 AM CDT [facility] HYALINE CASTS 3-5 0-2, 3-5 /LPF 05/10/2024 11:54 AM CDT [facility] Urine URINE SPECIMEN / Unknown Non-Blood / Unknown 05/10/2024 11:38 AM CDT 05/10/2024 11:44 AM CDT Cristina Hu MD URINE [facility] SENDOUT INTERNAL ZIP [phone] [place] [address] * (ABNORMAL) UA W/ SEDIMENT EXAM REFLEXED PER CRITERIA (05/10/2024 11:38 AM CDT) COLOR Yellow Yellow Color 05/10/2024 11:53 AM CDT [facility] CLARITY Clear Clear Clarity 05/10/2024 11:53 AM CDT [facility] SPECIFIC GRAVITY,URINE 1.015 1.010, 1.015, 1.020, 1.025 05/10/2024 11:53 AM CDT [facility] PH,URINE 5.0(A) 6.0, 7.0, 8.0, 5.5, 6.5, 7.5, 8.5 05/10/2024 11:53 AM CDT [facility] UROBILINOGEN, QUALITATIVE Normal Normal EU/dl 05/10/2024 11:53 AM CDT [facility] PROTEIN, URINE Negative Negative mg/dL 05/10/2024 11:53 AM CDT [facility] GLUCOSE, URINE 100(A) Negative mg/dL 05/10/2024 11:53 AM CDT [facility] KETONES,URINE Negative Negative mg/dL 05/10/2024 11:53 AM CDT [facility] BILIRUBIN,URI NE Negative Negative 05/10/2024 11:53 AM CDT [facility] OCCULT BLOOD,URINE Trace(A) Negative 05/10/2024 11:53 AM CDT [facility] NITRITE Negative Negative 05/10/2024 11:53 AM CDT [facility] LEUKOCYTE ESTERASE Negative Negative 05/10/2024 11:53 AM CDT [facility] Urine URINE SPECIMEN / Unknown Non-Blood / Unknown 05/10/2024 11:38 AM CDT 05/10/2024 11:44 AM CDT Cristina Hu MD URINE [facility] SENDOUT INTERNAL ZIP [phone] [place] [address] * XR CHEST 2 VIEWS PA AND LATERAL (05/10/2024 9:09 AM CDT) Only the most recent of2 resultswithin the time period is included. Anatomical Region Laterality Modality CHEST, THORAX, Lung, HEART Compu aliya Radiography 05/10/2024 9:09 AM CDT Impressions 05/10/2024 9:16 AM CDT Heart is mildly enlarged, unchanged. Sternotomy and left atrial appendage clip. Minimal atelectasis at the left lung base. Lungs are otherwise clear. Narrative 05/10/2024 9:16 AM CDT For Patients: As a result of the Century Cures Act, medical imaging exams and procedure reports are released immediately into your electronic medical record. You may view this report before your referring provider. If you have questions, please contact your health care provider. EXAM: XR CHEST 2 VIEWS PA AND LATERAL LOCATION: [facility] DATE: 05/10/2024 INDICATION: Post Procedure COMPARISON: 05/08/2024 Procedure Note Abram Vázquez MD - 05/10/2024 For Patients: As a result of the Cures Act, medical imagingexams and procedure reports are released immediately into your electronicmedical record. You may view this report before your referring provider.If you have questions, please contact your health care provider. EXAM: XR CHEST 2 VIEWS PA AND LATERAL LOCATION: [facility] DATE: 05/10/2024 INDICATION: Post Procedure COMPARISON: 05/08/2024 IMPRESSION: Heart is mildly enlarged, unchanged. Sternotomy and left atrial appendageclip. Minimal atelectasis at the left lung base. Lungs are otherwiseclear. Judith BELLAMY GENERAL IMAGI [facility] * SCAN-CARDIAC STRIP (05/09/2024 7:49 PM CDT) Scanner OTHER * CT CHEST ABDOMEN PELVIS WO (05/09/2024 7:33 PM CDT) Anatomical Region Laterality Modality Abdomen, Pelvis, AORTA, LIVER, SPLEEN, CHEST Computed Tomography 05/09/2024 7:33 PM CDT Impressions 05/09/2024 8:14 PM CDT 1. ??Small bilateral pleural effusions with associated compressive atelectasis, right greater than left. 2. ??Expected postoperative changes in the chest, abdomen, and pelvis, including small left pneumothorax, pneumomediastinum, and subcutaneous/intramuscular gas. 3. ??Moderate volume of gas within the bladder may be related to recent instrumentation. 4. ??Additional findings as above. Pneumothorax was called to Wendy Vance RN by Dr. Geovani Lund on 05/09/2024 8:07 PM CDT. Narrative 05/09/2024 8:14 PM CDT For Patients: As a result of the Cures Act, medical imaging exams and procedure reports are released immediately into your electronic medical record. You may view this report before your referring provider. If you have questions, please contact your health care provider. EXAM: CT CHEST ABDOMEN PELVIS WO LOCATION: [facility] DATE: 05/09/2024 INDICATION: Chest trauma, cardiac injury suspected COMPARISON: 04/18/[address] TECHNIQUE: CT scan of the chest, abdomen, and pelvis was performed without IV contrast. Multiplanar reformats were obtained. Dose reduction techniques were used. Exam significantly limited by lack of intravenous contrast. CONTRAST: None. FINDINGS: LUNGS AND PLEURA: Small left pneumothorax. Small left and ygqhu-hj-mjgstgsf right pleural effusions. Dependent consolidation within the right lower lobe favored to represent atelectasis. Calcified left upper lobe granuloma. MEDIASTINUM/AXILLAE: Small amount of pneumomediastinum. No mediastinal hematoma. Left atrial appendage clip. Coronary artery stents. Aortic valve replacement.. CORONARY ARTERY CALCIFICATION: Previous intervention (stents or CABG). HEPATOBILIARY: Dependent sludge within the gallbladder. PANCREAS: Unremarkable SPLEEN: Unremarkable ADRENAL GLANDS: Unremarkable KIDNEYS/BLADDER: No nephroureterolithiasis. Moderate amount of gas within the bladder. BOWEL: Normal caliber appendix. Moderate amount of fluid within nondilated colonic segments. This may be related to cathartic use or diarrheal illness. LYMPH NODES: No significant retroperitoneal adenopathy VASCULATURE: No abdominal aortic aneurysm PELVIC ORGANS: No free fluid MUSCULOSKELETAL: Moderate subcutaneous edema in the abdomen and pelvis. Subcutaneous and intramuscular emphysema within the chest and abdomen, greatest over the anterior left chest. Small amount of gas also extends into the left neck. Interval removal of mediastinal drains and chest tubes. Epicardial pacer wires are noted. Median sternotomy. L2 pars defects. Procedure Note Geovani Lund MD - 05/09/2024 For Patients: As a result of the Century Cures Act, medical imagingexams and procedure reports are released immediately into your electronicmedical record. You may view this report before your referring provider.If you have questions, please contact your health care provider. EXAM: CT CHEST ABDOMEN PELVIS WO LOCATION: [facility] DATE: 05/09/2024 INDICATION: Chest trauma, cardiac injury suspected COMPARISON: 04/18/[address] TECHNIQUE: CT scan of the chest, abdomen, and pelvis was performed withoutIV contrast. Multiplanar reformats were obtained. Dose reductiontechniques were used. Exam significantly limited by lack of intravenouscontrast. CONTRAST: None. FINDINGS: LUNGS AND PLEURA: Small left pneumothorax. Small left yhvjslwi-im-sngfympt right pleural effusions. Dependent consolidation withinthe right lower lobe favored to represent atelectasis. Calcified leftupper lobe granuloma. MEDIASTINUM/AXILLAE: Small amount of pneumomediastinum. No mediastinalhematoma. Left atrial appendage clip. Coronary artery stents. Aortic valvereplacement.. CORONARY ARTERY CALCIFICATION: Previous intervention (stents or CABG). HEPATOBILIARY: Dependent sludge within the gallbladder. PANCREAS: Unremarkable SPLEEN: Unremarkable ADRENAL GLANDS: Unremarkable KIDNEYS/BLADDER: No nephroureterolithiasis. Moderate amount of gas withinthe bladder. BOWEL: Normal caliber appendix. Moderate amount of fluid within nondilatedcolonic segments. This may be related to cathartic use or diarrhealillness. LYMPH NODES: No significant retroperitoneal adenopathy VASCULATURE: No abdominal aortic aneurysm PELVIC ORGANS: No free fluid MUSCULOSKELETAL: Moderate subcutaneous edema in the abdomen and pelvis.Subcutaneous and intramuscular emphysema within the chest and abdomen,greatest over the anterior left chest. Small amount of gas also extendsinto the left neck. Interval removal of mediastinal drains and chesttubes. Epicardial pacer wires are noted. Median sternotomy. L2 parsdefects. IMPRESSION: 1. Small bilateral pleural effusions with associated compressiveatelectasis, right greater than left. 2. Expected postoperative changes in the chest, abdomen, and pelvis,including small left pneumothorax, pneumomediastinum, andsubcutaneous/intramuscular gas. 3. Moderate volume of gas within the bladder may be related to recentinstrumentation. 4. Additional findings as above. Pneumothorax was called to Wendy Vance RN by Dr. Geovani Lund on05/09/2024 8:07 PM CDT. Georgi Natarajan MD CT * CT HEAD BRAIN WO (05/09/2024 7:32 PM CDT) Anatomical Region Laterality Modality HEAD, BRAIN Computed Tomogra phy 05/09/2024 7:32 PM CDT Impressions 05/09/2024 8:02 PM CDT 1. ??No acute intracranial process. Narrative 05/09/2024 8:02 PM CDT For Patients: As a result of the Cures Act, medical imaging exams and procedure reports are released immediately into your electronic medical record. You may view this report before your referring provider. If you have questions, please contact your health care provider. EXAM: CT HEAD BRAIN WO LOCATION: [facility] DATE: 05/09/2024 INDICATION: Mental status change, unknown cause COMPARISON: None. TECHNIQUE: Routine CT Head without IV contrast. Multiplanar reformats. Dose reduction techniques were used. FINDINGS: Streak artifact limits aspects of exam. INTRACRANIAL CONTENTS: No intracranial hemorrhage, extraaxial collection, or mass effect. ??No CT evidence of acute infarct. Mild presumed chronic small vessel ischemic changes. Mild generalized volume loss. No hydrocephalus. VISUALIZED ORBITS/SINUSES/MASTOIDS: No intraorbital abnormality. No paranasal sinus mucosal disease. No middle ear or mastoid effusion. BONES/SOFT TISSUES: No acute abnormality. Procedure Note Kalia Barahona MD - 05/09/2024 For Patients: As a result of the Cures Act, medical imagingexams and procedure reports are released immediately into your electronicmedical record. You may view this report before your referring provider.If you have questions, please contact your health care provider. EXAM: CT HEAD BRAIN WO LOCATION: [facility] DATE: 05/09/2024 INDICATION: Mental status change, unknown cause COMPARISON: None. TECHNIQUE: Routine CT Head without IV contrast. Multiplanar reformats.Dose reduction techniques were used. FINDINGS: Streak artifact limits aspects of exam. INTRACRANIAL CONTENTS: No intracranial hemorrhage, extraaxial collection,or mass effect. No CT evidence of acute infarct. Mild presumed chronicsmall vessel ischemic changes. Mild generalized volume loss. Nohydrocephalus. VISUALIZED ORBITS/SINUSES/MASTOIDS: No intraorbital abnormality. Noparanasal sinus mucosal disease. No middle ear or mastoid effusion. BONES/SOFT TISSUES: No acute abnormality. IMPRESSION: 1. No acute intracranial process. Georgi Natarajan MD CT * SCAN-CARDIAC STRIP (05/09/2024 6:10 PM CDT) Scanner OTHER * SCAN-CARDIAC STRIP (05/09/2024 4:41 PM CDT) Scanner OTHER * SCAN-CARDIAC STRIP (05/09/2024 7:30 AM CDT) Scanner OTHER * (ABNORMAL) Protime-INR (05/09/2024 5:17 AM CDT) Only the most recent of5 resultswithin the time period is included. INR 1.3(H) <1.3 05/09/2024 5:35 AM CDT [facility] PROTIME 14.7(H) 10.3 - 12.3 sec 05/09/2024 5:35 AM CDT [facility] Blood BLOOD SPECIMEN / Unknown Line/Port / Unknown 05/09/2024 5:17 AM CDT 05/09/2024 5:26 AM CDT Narrative [facility] - 05/09/2024 5:35 AM CDT ?Therapeutic Range 2.0-3.0 for most anticoagulated patients 2.5-3.5 or 4.0 for high risk patients The INR is only used for patients on stable oral anticoagulant therapy. It makes no significant contribution to the diagnosis or treatment of patients whose Protime is prolonged for other reasons. INR results are increased when heparin levels exceed 1.0 U/mL, which corresponds to an aPTT >125 seconds if the patient is on UFH. Kumar Soni MD HEMATOLOGY [facility] SENDOUT INTERNAL [facility] [id number] [address] [place] [address] * SCAN-CARDIAC STRIP (05/09/2024 1:17 AM CDT) Scanner OTHER * SCAN-CARDIAC STRIP (05/08/2024 4:17 PM CDT) Scanner OTHER * SCAN-CARDIAC STRIP (05/08/2024 7:30 AM CDT) Scanner OTHER * XR Chest Portable 1 View- In AM (05/08/2024 4:56 AM CDT) Only the most recent of2 resultswithin the time period is included. Anatomical Region Laterality Modality HEART, THORAX, CHEST Computed Ra diography 05/08/2024 4:56 AM CDT Impressions 05/08/2024 5:17 AM CDT Interval removal of endotracheal tube and nasogastric tube. Right internal jugular cordis sheath, sternotomy wires, mediastinal surgical clips, mediastinal drain, left atrial appendage clip, left chest tube, and prosthetic aortic valve redemonstrated. Mild atelectasis in the left lung base. No new confluent airspace opacity, pleural effusion or pneumothorax. Stable mild cardiomegaly without pulmonary vascular congestion. Narrative 05/08/2024 5:17 AM CDT For Patients: As a result of the Cures Act, medical imaging exams and procedure reports are released immediately into your electronic medical record. You may view this report before your referring provider. If you have questions, please contact your health care provider. EXAM: XR CHEST 1 VIEW PORTABLE LOCATION: [facility] DATE: 05/08/2024 INDICATION: ET tube placement COMPARISON: 05/07/2024 Procedure Note Leonard Wilson MD - 05/08/2024 For Patients: As a result of the Cures Act, medical imagingexams and procedure reports are released immediately into your electronicmedical record. You may view this report before your referring provider.If you have questions, please contact your health care provider. EXAM: XR CHEST 1 VIEW PORTABLE LOCATION: [facility] DATE: 05/08/2024 INDICATION: ET tube placement COMPARISON: 05/07/2024 IMPRESSION: Interval removal of endotracheal tube and nasogastric tube. Right internaljugular cordis sheath, sternotomy wires, mediastinal surgical clips,mediastinal drain, left atrial appendage clip, left chest tube, andprosthetic aortic valve redemonstrated. Mild atelectasis in the left lungbase. No new confluent airspace opacity, pleural effusion or pneumothorax.Stable mild cardiomegaly without pulmonary vascular congestion. Kumar Soni MD GENERAL IM AGING * (ABNORMAL) Calcium Ionized (05/08/2024 4:05 AM CDT) CALCIUM,IONIZE D 1.11(L) 1.15 - 1.27 mmol/L 05/08/2024 4:19 AM CDT [facility] Blood BLOOD SPECIMEN / Unknown Non-Lab Venipuncture / Unknown 05/08/2024 4:05 AM CDT 05/08/2024 4:16 AM CDT Kumar Soni MD CHEMISTRY [facility] SENDOUT INTERNAL ZIP [phone] [place] [address] * SCAN-CARDIAC STRIP (05/08/2024 12:37 AM CDT) Scanner OTHER * SCAN-CARDIAC STRIP (05/07/2024 8:02 PM CDT) Scanner OTHER * (ABNORMAL) Thrombin Time - Immediate Postop (05/07/2024 4:03 PM CDT) Only the most recent of2 resultswithin the time period is included. Pathologist [facility] THROMBIN TIME 28(H) <16 sec 05/07/2024 4:37 PM CDT [facility] Blood BLOOD SPECIMEN / Unknown Non-Lab Venipuncture / Unknown 05/07/2024 4:03 PM CDT 05/07/2024 4:11 PM CDT Kumar Soni MD HEMATOLOGY [facility] SENDOUT INTERNAL ZIP [phone] [place] [address] * (ABNORMAL) ARTERIAL BLOOD GAS (05/07/2024 4:03 PM CDT) PH, ARTERIAL 7.49(H) 7.35 - 7.45 05/07/2024 4:17 PM CDT [facility] PCO2, ARTERIAL 32(L) 35 - 48 mmHg 05/07/2024 4:17 PM CDT [facility] PO2, ARTERIAL 160(H) 83 - 108 mmHg 05/07/2024 4:17 PM CDT [facility] HCO3, ARTERIAL 24 21 - 28 mmol/L 05/07/2024 4:17 PM CDT [facility] BASE EXCESS, ARTERIAL 1.7 -2.0 - 3.0 05/07/2024 4:17 PM CDT [facility] O2 SATURATION, ARTERIAL 99(H) 94 - 98 % 05/07/2024 4:17 PM CDT [facility] INSPIRED O2 05/07/2024 4:17 PM CDT [facility] Comment:Unit of Measure: Lit ers (L) if <=20; Percent (%) if >20 PATIENT TEMPERATURE 37.0 Degrees C 05/07/2024 4:17 PM CDT [facility] Blood ARTERIAL BLOOD SPECIMEN / Unknown Non-Lab Venipuncture / Unknown 05/07/2024 4:03 PM CDT 05/07/2024 4:11 PM CDT Kumar Soni MD CHEMISTRY Performing Organization Address City/[facility]/ZIP Co de Phone Number [facility] SENDOUT INTERNAL ZIP [phone] [place] [phone] * (ABNORMAL) APTT - Immediate Postop (05/07/2024 4:03 PM CDT) Only the most recent of10 resultswithin the time period is included. APTT 45(H) 28 - 36 sec 05/07/2024 4:37 PM CDT [facility] Blood BLOOD SPECIMEN / Unknown Non-Lab Venipuncture / Unknown 05/07/2024 4:03 PM CDT 05/07/2024 4:11 PM CDT Narrative [facility] - 05/07/2024 4:37 PM CDT Therapeutic Range: 57-87 seconds Kmuar Soni MD HEMATOLOGY Performing Organization Address City/[facility]/ZIP Co de Phone Number [facility] SENDOUT INTERNAL ZIP [phone] [place] [phone] * Fibrinogen, Quantitative - Immediate Postop (05/07/2024 4:03 PM CDT) Only the most recent of2 resultswithin the time period is included. FIBRINOGEN,ELIAS NTITATIVE 273 193 - 401 mg/dL 05/07/2024 4:37 PM CDT [facility] Blood BLOOD SPECIMEN / Unknown Non-Lab Venipuncture / Unknown 05/07/2024 4:03 PM CDT 05/07/2024 4:11 PM CDT Kumar Soni MD HEMATOLOGY [facility] SENDOUT INTERNAL ZIP [phone] [place] [address] * SCAN-CARDIAC STRIP (05/07/2024 4:00 PM CDT) Scanner OTHER * TRANSFUSE PLASMA (NURSE COMMUNICATION ORDER) (05/07/2024 3:19 PM CDT) Blood BLOOD SPECIMEN / Unknown [facility] * TRANSFUSE PLASMA (NURSE COMMUNICATION ORDER) (05/07/2024 3:18 PM CDT) Blood BLOOD SPECIMEN / Unknown [facility] * PLASMA ORDER, 2 units (05/07/2024 3:08 PM CDT) QUANTITY 2 05/07/2024 3:08 PM CDT [facility] BLOOD BANK Blood BLOOD SPECIMEN / Unknown 05/07/2024 3:06 PM CDT Swapna Gibbons CRNA BLOOD BANK [facility] BLOOD BANK [address] [place] [address] * PLASMA SNGL DON FFPEA UNIT (05/07/2024 3:07 PM CDT) Only the most recent of2 resultswithin the time period is included. PRODUCT BLOOD TYPE A Rh Positive [facility] BLOOD BANK PRODUCT ID NUMBER [id number] [facility] PRODUCT STATUS Transfused [facility] PRODUCT DESCRIPTION FP ACD-A Thaw [facility] PRODUCT CODE [id number] [facility] ISSUE DATE/TIME 05/07/24 15:09 [facility] Swapna Gibbons CRNA BLOOD BANK Performing Organization Address City/State/[facility] Co de Phone Number [facility] [address] [place] [address] * (ABNORMAL) CBC WITH AUTO DIFFERENTIAL (05/07/2024 2:29 PM CDT) Only the most recent of2 resultswithin the time period is included. WHITE BLOOD COUNT 1.5(L) 4.5 - 11.0 thou/cu mm 05/07/2024 3:30 PM CDT [facility] RED BLOOD COUNT 3.64(L) 4.30 - 5.90 mil/cu mm 05/07/2024 3:30 PM CDT [facility] HEMOGLOBIN 10.5(L) 13.5 - 17.5 g/dL 05/07/2024 3:30 PM CDT [facility] HEMATOCRIT 30.0(L) 37.0 - 53.0 % 05/07/2024 3:30 PM CDT [facility] MCV 82 80 - 100 fL 05/07/2024 3:30 PM CDT [facility] MCH 28.8 26.0 - 34.0 pg 05/07/2024 3:30 PM CDT [facility] MCHC 35.0 32.0 - 36.0 g/dL 05/07/2024 3:30 PM CDT [facility] RDW 14.9 11.5 - 15.5 % 05/07/2024 3:30 PM CDT [facility] PLATELET COUNT 97(L) 140 - 440 thou/cu mm 05/07/2024 3:30 PM CDT [facility] MPV 10.1 6.5 - 11.0 fL 05/07/2024 3:30 PM CDT [facility] NRBC 0.0 % 05/07/2024 3:30 PM CDT [facility] ABS NRBC 0.0 thou /cu mm 05/07/2024 3:30 PM T [facility] Blood BLOOD SPECIMEN / Unknown Line/Port / Unknown 05/07/2024 2:29 PM CDT 05/07/2024 2:38 PM CDT Sylvia Taylor CRNA HEMATOLOGY [facility] SENDOUT INTERNAL ZIP [phone] [place] [address] * (ABNORMAL) Cardiac Thromboelastography (05/07/2024 2:29 PM CDT) Only the most recent of2 resultswithin the time period is included. VLADIMIR REASON Diffuse Cardiac Bleeding 05/07/2024 8:33 PM CDT [facility] INTEM CT 164 122 - 208 s 05/07/2024 8:33 PM CDT [facility] INTEM CFT 86 45 - 110 s 05/07/2024 8:33 PM CDT [facility] INTEM ALPHA 75 70 - 81 ?? 05/07/2024 8:33 PM CDT [facility] INTEM A10 51 46 - 67 mm 05/07/2024 8:33 PM CDT [facility] INTEM A20 57 51 - 72 mm 05/07/2024 8:33 PM CDT [facility] INTEM MCF 57 51 - 72 mm 05/07/2024 8:33 PM CDT [facility] INTEM ML 8 % 05/07/2024 8:33 PM CDT [facility] INTEM LI30 99 % 05/07/2024 8:33 PM CDT [facility] EXTEM CT 91(H) 43 - 82 s 05/07/2024 8:33 PM CDT [facility] EXTEM CFT 91 48 - 127 s 05/07/2024 8:33 PM CDT [facility] EXTEM ALPHA 72 65 - 80 ?? 05/07/2024 8:33 PM CDT [facility] EXTEM A10 52 46 - 67 mm 05/07/2024 8:33 PM CDT [facility] EXTEM A20 58 50 - 70 mm 05/07/2024 8:33 PM CDT [facility] EXTEM MCF 59 52 - 70 mm 05/07/2024 8:33 PM CDT [facility] EXTEM ML 9 % 05/07/2024 8:33 PM CDT [facility] EXTEM LI30 100 % 05/07/2024 8:33 PM CDT [facility] FIBTEM CT 80 s 05/07/2024 8:33 PM CDT [facility] FIBTEM ALPHA 60 ?? 05/07/2024 8:33 PM CDT [facility] FIBTEM A10 15 7 - 24 mm 05/07/2024 8:33 PM CDT [facility] FIBTEM A20 17 7 - 24 mm 05/07/2024 8:33 PM CDT [facility] FIBTEM MCF 17 7 - 24 mm 05/07/2024 8:33 PM CDT [facility] FIBTEM ML 0 % 05/07/2024 8:33 PM CDT [facility] FIBTEM LI30 100 % 05/07/2024 8:33 PM CDT [facility] HEPTEM CT 178 122 - 208 s 05/07/2024 8:33 PM CDT [facility] HEPTEM CFT 108 45 - 110 s 05/07/2024 8:33 PM CDT [facility] HEPTEM ALPHA 72 70 - 81 ?? 05/07/2024 8:33 PM CDT [facility] HEPTEM A10 46 mm 05/07/2024 8:33 PM CDT [facility] HEPTEM A20 51 51 - 72 mm 05/07/2024 8:33 PM CDT [facility] HEPTEM MCF 51 51 - 72 mm 05/07/2024 8:33 PM CDT [facility] HEPTEM ML 14 % 05/07/2024 8:33 PM CDT [facility] Blood BLOOD SPECIMEN / Unknown Line/Port / Unknown 05/07/2024 2:29 PM CDT 05/07/2024 2:38 PM CDT Sylvia Taylor CRNA HEMATOLOGY [facility] SENDOUT INTERNAL ZIP [phone] [place] [address] * (ABNORMAL) RED CELL MORPHOLOGY (05/07/2024 2:29 PM CDT) ELLIPTOCYTES Few 05/07/2024 3:29 PM CDT [facility] RBC COMMENT Present(A ) RBC morphology appears normal, RBC morphology within normal limits for newborns. 05/07/2024 3:29 PM CDT [facility] Blood BLOOD SPECIMEN / Unknown Line/Port / Unknown 05/07/2024 2:29 PM CDT 05/07/2024 2:38 PM CDT Sylvia Ayesha Taylor MEASUREMENT AND SENSING TECHNICIAN HEMATOLOGY [facility] SENDOUT INTERNAL ZIP [address] [place] [phone] * (ABNORMAL) PLATELET ESTIMATE (05/07/2024 2:29 PM CDT) PLATELET ESTIMATE Decreased (A) Adequate, No estimate 05/07/2024 3:29 PM CDT [facility] Blood BLOOD SPECIMEN / Unknown Line/Port / Unknown 05/07/2024 2:29 PM CDT 05/07/2024 2:38 PM CDT Sylvia E Brandon MEASUREMENT AND SENSING TECHNICIAN HEMATOLOGY [facility] SENDOUT INTERNAL ZIP [address] [place] [phone] * (ABNORMAL) MANUAL DIFFERENTIAL (05/07/2024 2:29 PM CDT) % NEUTROPHILS 57.0 % 05/07/2024 3:29 PM CDT [facility] % LYMPHOCYTES 40.0 % 05/07/2024 3:29 PM CDT [facility] % MONOCYTES 3.0 % 05/07/2024 3:29 PM CDT [facility] % EOSINOPHILS 0.0 % 05/07/2024 3:29 PM CDT [facility] % BASOPHILS 0.0 % 05/07/2024 3:29 PM CDT [facility] NEUTROPHILS ABSOLUTE 0.9(L) 1.7 - 7.0 thou/cu mm 05/07/2024 3:29 PM CDT [facility] LYMPHOCYTES ABSOLUTE 0.6(L) 0.9 - 2.9 thou/cu mm 05/07/2024 3:29 PM CDT [facility] MONOCYTES ABSOLUTE 0.0 <0.9 thou/cu mm 05/07/2024 3:29 PM CDT [facility] EOSINOPHILS ABSOLUTE 0.0 <0.5 thou/cu mm 05/07/2024 3:29 PM CDT [facility] BASOPHILS ABSOLUTE 0.0 <0.3 thou/cu mm 05/07/2024 3:29 PM CDT [facility] Blood BLOOD SPECIMEN / Unknown Line/Port / Unknown 05/07/2024 2:29 PM CDT 05/07/2024 2:38 PM CDT Sylvia Taylor CRNA HEMATOLOGY [facility] SENDOUT INTERNAL ZIP [address] [place] [address] * PATH TISSUE EXAM (05/07/2024 2:20 PM CDT) Case Report Pathology Report ?Case: [id number] ? Authorizing Provider: ??Tee Soni, ?Collected: ? 05/07/2024 1420 ? MD Kumar ? Ordering Location: ? [facility] ?Received: ?05/07/2024 1525 ? Pathologist: ? Balaji Queen MD ? Specimen: ?Aortic Valve Leaflets, Aortic valve leaflets for routine ? 05/09/2024 9:34 AM T [facility] Final Diagnosis A) AORTIC VALVE, EXCISION: 1. 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 Negative for vegetations or valvulitis 05/09/2024 9:34 AM T [facility] Clinical Information Aortic stenosis, coronary artery disease, atrial fibrillation. 05/09/2024 9:34 AM T [facility] Gross Description A) Received fresh labeled with the patient's name and aortic valve leaflets, are 3 separate valve leaflets averaging 3.0 x 2.0 x 0.3 cm. There is marked calcification and atherosclerotic plaque. Clay Shop Supervisor sections are submitted in 1 cassette following decalcification. A photograph is uploaded. TTP 05/07/2024 05/09/2024 9:34 AM T [facility] Microscopic Description The final diagnosis is based on microscopic examination of appropriate sections of all specimens. 05/09/2024 9:34 AM T [facility] Additional Information Interpreted at [facility] - [address], [place] [address] 05/09/2024 9:34 AM T [facility] Tissue (Aortic Valve Leaflets) 05/07/2024 2:20 PM CDT 05/07/2024 3:25 PM CDT Kumar Soni MD PATHOLOGY/ CYTOLOGY [facility] [address] [place] [address], [facility] SENDOUT INTERNAL ZIP [phone] [place] [address] * ECHO RUFINO WO CONTRAST W COLOR W LTD DOPPLER (05/07/2024 2:10 PM CDT) EJECTION FRACTION 60-65% PROSOLV Anatomical Region Laterality Modality Ultrasound, Othe r 05/07/2024 8:29 AM CDT Narrative 05/07/2024 4:10 [place] [address] Main: [email or web address] ?Transesophageal Echo Report PHUC JOSEPH Andriyian ID: [id number] Age: 68 : 1955 Ordering Provider: KUMAR VALERA Exam Date: 05/07/2024 08:29 Gender: M Development System Efficiency Manager: ALLY Height: 71 in BSA: 2.18 m?? BP: 134 / 74 Weight: 216 lbs BMI: 30.1 kg/m?? HR: 73 Location: OR Rhythm: Normal Sinus Rhythm Procedure Components: 2D imaging, Color Doppler, Limited Spectral Doppler, 3-D imaging and reconstruction with independent workstation review Indications: Aortic valve stenosis, etiology of cardiac valve disease unspecified Technical Quality: Adequate Contrast: None Final Conclusion Intraoperative RUFINO Pre: 1. ??Normal left ventricular size with moderately increased left ventricular wall thickness. ?? Normal systolic function. ??Estimated left ventricular ejection fraction 60 to 65%. ??No regional wall motion abnormalities. 2. ??Calcified aortic valve (trileaflet) with significantly reduced systolic opening consistent with severe aortic valve stenosis. 3. ??Dilated left atrial appendage without left atrial appendage thrombus. ??Spontaneous echo contrast present in the left atrial appendage. 4. ??Mitral annular calcification without mitral valve stenosis. ??Trivial mitral valve regurgitation. 5. ??Intact atrial septum without atrial level shunt by color flow. Surgery: Status post aortic valve replacement with a 27 mm Miller Inspiris Resilia aortic bioprosthetic valve, left atrial appendage exclusion with a 40-mm AtriClip, MAZE, and CABG 05/07/2024. Post: 1. ??Well-seated bioprosthetic aortic valve without prosthetic or periprosthetic regurgitation. Prosthetic valve mean gradient 4 mmHg. 2. ??Normal left ventricular systolic function. ??Estimated ejection fraction 60 to 65%. ??No regional wall motion abnormalities. 3. ??Tiny residual left atrial appendage pouch. 4. ??Remainder of echocardiographic findings unchanged from prebypass images. Estimated EF: 60-65% Level of Sedation: General Procedure The patient was under general anesthesia and the transesophageal probe had already been passed by the anesthesia staff. Transesophageal echocardiogram was performed and results were discussed with the surgeon in the operating room. The probe was left in position for removal following completion of the procedure. Complications There were no apparent complications. Medications The patient was under general anesthesia for the procedure. See procedural records for anesthesia details. FINDINGS Left Ventricle Normal left ventricular chamber size. Moderately increased left ventricular wall thickness. Normal left ventricular systolic function. Estimated left ventricular ejection fraction is 60-65%. No regional wall motion abnormalities. Right Ventricle Normal right ventricular chamber size. Normal right ventricular systolic function. Right ventricular systolic pressure cannot be estimated due to inability to detect peak tricuspid regurgitation Doppler velocity. Left Atrium Borderline left atrial enlargement. Left Atrial Pre-op: normal left atrial appendage without evidence of thrombus, however some evidence of smoke. Appendage Post-op: status post left atrial appendage clip with a 40-mm AtriClip (05/07/2024). No thrombus in the left atrial appendage. Right Atrium Normal right atrial size. Atrial Septum No evidence of inter-atrial shunt by color flow Doppler. Aortic Valve Pre-op: trileaflet aortic valve. Severe calcific aortic valve stenosis. Mean gradient of 24 mmHg (previous resting TTE showed a mean gradient of 29 mmHg). Trivial aortic valve regurgitation. Post-op: status post 27-mm Miller Inspiris Resilia aortic bioprosthetic valve (05/07/2024). ?? Aortic prosthetic systolic mean gradient is 4 mmHg. Aortic prosthetic systolic peak velocity is 1.4 m/sec. No aortic prosthetic or beatriz-prosthetic regurgitation. Mitral Valve Mildly calcified posterior mitral annulus with restricted motion of the posterior mitral valve leaflet. Mildly thickened mitral valve. No mitral valve stenosis. Trivial mitral valve regurgitation. Tricuspid Valve Normal tricuspid valve. No tricuspid valve stenosis. Trivial tricuspid valve regurgitation. Pulmonic Valve Normal pulmonary valve. No pulmonary valve stenosis. Trivial pulmonary valve regurgitation. Ascending Aorta Post-op: aortic sinus of Valsalva was not well visualized. Normal indexed ascending aorta dimension (3.6 cm, 1.6 cm/m??). Aortic Arch and Trivial immobile atherosclerosis of the aortic arch. Trivial immobile atherosclerosis of the descending thoracic Descending Aorta aorta. Pericardium No pericardial effusion. MEASUREMENTS ??(Male / Female) Normal Values 2D MEASUREMENTS AND LV FUNCTION Ascending Aorta Diameter(s) ? 3.56 cm Ascending Aorta Index ? 1.63 cm/m?? AORTIC VALVE AV Peak Velocity ?1.36 m/sec ?< 2.0 m/sec AV Peak Gradient ?7.4 mmHg AV Mean Gradient ?4 mmHg AV Velocity Time Integral ? 27.8 cm Wenceslao Go MD [facility] Accredited Site (Electronically Signed) Final Date: 07 May 2024 16:10 ICD-10 Codes: I35.0 Procedure Note Wenceslao Go MD - 05/07/2024 [place] [address] Main: [email or web address] Trans[facility]ophageal Echo Report JOSEPH KNAPP Paul ID: [id number] Age: 68 : 1955 Ordering Provider:KUMAR VALERA Exam Date: 05/07/2024 08:29 Gender: M Development System Efficiency Manager: ALLY Height: 71 in BSA: 2.18 m?? BP: 134 / 74 Weight: 216 lbs BMI: 30.1 kg/m?? HR: 73 Location: OR Rhythm: Normal Sinus Rhythm Procedure Components: 2D imaging, Color Doppler, Limited SpectralDoppler, 3-D imaging and reconstruction with independent workstation review Indications: Aortic valve stenosis, etiology of cardiac valve diseaseunspecified Technical Quality: Adequate Contrast: None Final Conclusion Intraoperative RUFINO Pre: 1. Normal left ventricular size with moderately increased leftventricular wall thickness. Normal systolic function. Estimated left ventricular ejection fraction 60 to 65%. No regional wall motionabnormalities. 2. Calcified aortic valve (trileaflet) with significantly reducedsystolic opening consistent with severe aortic valve stenosis. 3. Dilated left atrial appendage without left atrial appendage thrombus.Spontaneous echo contrast present in the left atrial appendage. 4. Mitral annular calcification without mitral valve stenosis. Trivialmitral valve regurgitation. 5. Intact atrial septum without atrial level shunt by color flow. Surgery: Status post aortic valve replacement with a 27 mm Miller InspirisResilia aortic bioprosthetic valve, left atrial appendage exclusion with a 40-mm AtriClip, MAZE, and CABG 05/07/2024. Post: 1. Well-seated bioprosthetic aortic valve without prosthetic orperiprosthetic regurgitation. Prosthetic valve mean gradient 4 mmHg. 2. Normal left ventricular systolic function. Estimated ejectionfraction 60 to 65%. No regional wall motion abnormalities. 3. Tiny residual left atrial appendage pouch. 4. Remainder of echocardiographic findings unchanged from prebypassimages. Estimated EF: 60-65% Level of Sedation: General Procedure The patient was under general anesthesia and thetransesophageal probe had already been passed by the anesthesia staff. Transesophageal echocardiogram was performed andresults were discussed with the surgeon in the operating room. The probe was left in position for removalfollowing completion of the procedure. Complications There were no apparent complications. Medications The patient was under general anesthesia for the procedure.See procedural records for anesthesia details. FINDINGS Left Ventricle Normal left ventricular chamber size. Moderately increasedleft ventricular wall thickness. Normal left ventricular systolic function. Estimated left ventricular ejection fraction is60-65%. No regional wall motion abnormalities. Right Ventricle Normal right ventricular chamber size. Normal rightventricular systolic function. Right ventricular systolic pressure cannot be estimated due to inability to detect peak tricuspidregurgitation Doppler velocity. Left Atrium Borderline left atrial enlargement. Left Atrial Pre-op: normal left atrial appendage without evidence ofthrombus, however some evidence of smoke. Appendage Post-op: status post left atrial appendage clip with a 40-mmAtriClip (05/07/2024). No thrombus in the left atrial appendage. Right Atrium Normal right atrial size. Atrial Septum No evidence of inter-atrial shunt by color flow Doppler. Aortic Valve Pre-op: trileaflet aortic valve. Severe calcific aorticvalve stenosis. Mean gradient of 24 mmHg (previous resting TTE showed a mean gradient of 29 mmHg). Trivial aortic valveregurgitation. Post-op: status post 27-mm Miller Inspiris Resilia aortic bioprostheticvalve (05/07/2024). Aortic prosthetic systolic mean gradient is 4 mmHg. Aortic prosthetic systolic peakvelocity is 1.4 m/sec. No aortic prosthetic or beatriz-prosthetic regurgitation. Mitral Valve Mildly calcified posterior mitral annulus with restrictedmotion of the posterior mitral valve leaflet. Mildly thickened mitral valve. No mitral valve stenosis. Trivial mitral valveregurgitation. Tricuspid Valve Normal tricuspid valve. No tricuspid valve stenosis.Trivial tricuspid valve regurgitation. Pulmonic Valve Normal pulmonary valve. No pulmonary valve stenosis.Trivial pulmonary valve regurgitation. Ascending Aorta Post-op: aortic sinus of Valsalva was not wellvisualized. Normal indexed ascending aorta dimension (3.6 cm, 1.6 cm/m??). Aortic Arch and Trivial immobile atherosclerosis of the aortic arch.Trivial immobile atherosclerosis of the descending thoracic Descending Aorta aorta. Pericardium No pericardial effusion. MEASUREMENTS (Male / Female) Normal Values 2D MEASUREMENTS AND LV FUNCTION Ascending Aorta Diameter(s) 3.56 cm Ascending Aorta Index 1.63 cm/m?? AORTIC VALVE AV Peak Velocity 1.36 m/sec < 2.0 m/sec AV Peak Gradient 7.4 mmHg AV Mean Gradient 4 mmHg AV Velocity Time Integral 27.8 cm Wenceslao Go MD [facility] Accredited Site (Electronically Signed) Final Date: 07 May 2024 16:10 ICD-10 Codes: I35.0 Kumar Soni MD ECHO ORD * CVC TRIPLE LUMEN, HCHG STOPCOCK PR5, HCHG ANES US GUIDE FOR VASC ACCESS, HCHG TUBING PR1, HCHG TUBING PR5, HCHG TUBING PR1, HCHG CATH INFUSION PR30, HCHG ADPTR PR1, HCHG KIT MONITORING PR5, HCHG TUBING PR5, HCHG DRSG PR5, HCHG DRSG PR1, AHC AN INTRODUCER 2 LUMEN PERFORMABLE, HCHG KIT PR5, HCHG CATHINFUSION PR70 (05/07/2024 11:03 AM CDT) Isreal Cortez MD - 05/07/2024 11:03 AM CDT Isreal Larry MD ? 05/07/2024 11:04 AM CVC Patient location during procedure: OR Start time: 05/07/2024 8:05 AM End time: 05/07/2024 8:13 AM Indications: CVP monitoring and vascular access Completed: patient identified, risks and benefits discussed, consent obtained, hand hygiene performed, gown, full-body drape, chloraprep used and completely dried prior to procedure, cap, mask, gloves and timeout performed CVC Patient position: Trendelenburg Laterality: right Site: internal jugular Ultrasound guidance: live ultrasound, ultrasound permanent image saved and sterile gel and probe cover used in ultrasound-guided central venous catheter insertion. Needle localization (ultrasound): no pathologic findings, selected vessel patent, anatomically normal, potential access sites evaluated and needle visualized entering selected vessel. Confirmation: manometry and wire visualized in vein by ultrasound Port Insertion: all ports aspirated and all ports flushed easily Securement/Dressing: Biopatch applied, line sutured in place, dressing applied Catheter Catheter size: 9 Fr Catheter length: 11.5 cm Number of Lumens: double lumen Introducer present: yes Introducer type: TLIC Additional Notes Fluid column manometry and ultrasound guidance used to verify wire placement in the vein. The catheter tip was advanced to reside in the superior vena cava. Please see radiologist report for line placement confirmation from X-ray post-operatively. Isreal Larry MD ANESTHESIA PX NOTE ORDERABLES * HCHG CATH INFUSION PR10, HCHG TUBING PR1, HCHG TUBING PR20, HCHG DRSG PR1, HCHG DRSG PR5, HCHG STATLOCK PR1, HCHG KIT PR5 (05/07/2024 11:02 AM CDT) Isreal Cortez MD - 05/07/2024 11:02 AM CDT Isreal Larry MD ? 05/07/2024 11:03 AM Arterial Line Patient location during procedure: OR Start time: 05/07/2024 7:50 AM End time: 05/07/2024 7:53 AM Indications: monitoring Staffing Preanesthetic Checklist Completed: patient identified, risks and benefits discussed, consent obtained and timeout performed Arterial Line Patient position: supine. ??Comment:. Laterality: right Site: radial Local Anesthetic: lidocaine 1%. Needle localization (ultrasound): anatomically normal and potential access sites evaluated. Securement/dressing: Biopatch applied, dressing applied, STATLOCK stabilization placed. ??Comment: Supplemental O2: supplemental oxygen. ??Comment:. Needle Catheter size: 20 G. ??Comment:. Catheter length: 12 cm. ??Comment: Events: no complications. Isreal Larry MD ANESTHESIA PX NOTE ORDERABLES * HCHG TUBE PR1, HCHG INSTRUMENT DISP PR10, HCHG STYLET PR1 (05/07/2024 8:54 AM CDT) Narrative Sylvia Taylor CRNA - 05/07/2024 8:54 AM CDT Sylvia Taylor CRNA ? 05/07/2024 ??8:54 AM Procedure: ETT Patient location during procedure: OR ETT Properties Mask Ventilation: oral airway Final Technique: video laryngoscopy Type: straight Location: oral Cuffed: yes Tube Size: 8.0 mm Stylet: yes Laryngoscope Blade: Glidescope Blade Size: 4 Cormack-Lehane Grade View: 1 Insertion Attempts: 1 Placement Verification: auscultation, end tidal CO2 and symmetrical chest wall movement Assessment: pharynx clear, atraumatic and dentition unchanged Secured at: 23 Measured From: lips Difficulty: 0 (not difficult) Isreal Larry MD ANESTHESIA PX NOTE ORDERABLES * RUFINO (05/07/2024 8:19 AM CDT) Narrative Isreal Larry MD - 05/07/2024 8:19 AM CDT Isreal Larry MD ? 05/07/2024 11:02 AM RUFINO Start time: 05/07/2024 8:19 AM End time: 05/07/2024 8:21 AM Completed: Patient identified, risks and benefits discussed, monitors and equipment assessed and anesthesia consent obtained. General Procedure Information Diagnostic Indications for Echo: assessment of surgical repair, hemodynamic monitoring, assessment of cardiac structure and function and elective. Probe Insertion: easy Inserted by: AnesthesiologistProbe Type: multiplane Report generated by: Telephoto Installer Stomach suctioned: yes Bite block inserted Anesthesia Information Anesthesiologist: ??Isreal Larry MD Echocardiogram Comments: ? RUFINO Probe Placement Informed consent was obtained. ??Benefit, alternatives, and risks of procedure were discussed including but not limited to the risks of infection, bleeding, dental trauma, and esophageal, tracheal, and gastric injury. ??All questions answered. Under general endotracheal anesthesia, a 100 cm multiplane RUFINO probe was prepared with lubricant. ??In the supine position, the RUFINO probe was introduced into the mouth and gently advanced into the esophagus and stomach with constant pressure. ??The probe was easily inserted to a depth of 40 cm without resistance. ??The probe was left in an unlocked position and image capture was suspended. ??The patient tolerated the procedure well. ??There were no apparent complications. No diagnostic images obtained by me. RUFINO used by me for monitoring purposes. ??Official diagnostic interpretations done by Cardiology. Isreal Larry MD ANESTHESIA PX NOTE ORDERABLES * RBC W/O TYPE & SCREEN (05/07/2024 6:14 AM CDT) Only the most recent of2 resultswithin the time period is included. QUANTITY 2 05/07/2024 6:14 AM CDT [facility] B[facility]OD [facility] Blood BLOOD SPECIMEN / Unknown 05/07/2024 6:06 AM CDT Sylvia Taylor [facility] BLOOD B[facility] Performing Organization Address City/State/[facility] Co de Phone Number [facility] B[facility]OD B[facility] [address] [place] [address] * RED BLOOD CELLS EA UNIT (05/07/2024 6:13 AM CDT) Only the most recent of6 resultswithin the time period is included. CROSSMATCH Compatible Compatible [facility] BLOOD [facility] PRODUCT BLOOD TYPE A Rh Positive [facility] B[facility]OD [facility] PRODUCT ID NUMBER [id number] [facility] B[facility]OD [facility] PRODUCT STATUS /Relea sed [facility] B[facility]OD [facility] PRODUCT DESCRIPTION RBC -1 LR [facility] BLOOD [facility] PRODUCT CODE [id number] [facility] BLOOD [facility] Sylvia Taylor CRNA BLOOD BANK Performing Organization Address City/[facility] Co de Phone Number [facility] BLOOD [facility] [address] [place] [phone] * SCAN-CARDIAC STRIP (05/07/2024 12:00 AM CDT) Narrative 05/07/2024 12:00 AM CDT Ordered by an unspecified provider. Other Clinical Staff OTHER * SCAN-OPERATIVE/PROCEDURE REPORT (05/07/2024 12:00 AM CDT) Narrative 05/07/2024 12:00 AM CDT Ordered by an unspecified provider. Other Clinical Staff OTHER * PRINCIPAL CLOUD ARCHITECT BLOOD TYPE (05/06/2024 9:36 AM CDT) ABORH A Rh Positive 05/06/2024 10:23 AM CDT [facility] BLOOD BANK Blood BLOOD SPECIMEN / Unknown Venipuncture / Unknown 05/06/2024 9:36 AM CDT 05/06/2024 9:36 AM CDT Judith BELLAMY BLOOD BANK Performing Organization Address [facility] Co de Phone Number [facility] [address] [place] [phone] * PRINCIPAL CLOUD ARCHITECT QUESTION TEST (05/06/2024 9:33 AM CDT) QABT Question Yes 05/06/2024 10:03 AM CDT [facility] BLOOD B[facility] Blood BLOOD SPECIMEN / Unknown Venipuncture / Unknown 05/06/2024 9:33 AM CDT 05/06/2024 9:36 AM CDT Judith BELLAMY BLOOD BANK Performing Organization Address City/[facility] Co de Phone Number [facility] [address] [place] [phone] * (ABNORMAL) HEMOGLOBIN A1C SCREENING (05/06/2024 9:33 AM CDT) Only the most recent of2 resultswithin the time period is included. HEMOGLOBIN A1C SCREENING 9.5(H) <=6.4 % 05/06/2024 9:54 AM CDT [facility] Blood BLOOD SPECIMEN / Unknown Venipuncture / Unknown 05/06/2024 9:33 AM CDT 05/06/2024 9:36 AM CDT [facility] LABORATORY - 05/06/2024 9:54 AM CDT ? (<5.7%) ?Normal ? (5.7% to 6.4%) ? Indicates prediabetes ? (>=6.5%) ? Confirms diabetes Falsely low levels may be seen with: Recent Transfusion, Recent Significant Blood Loss, Hemolytic Diseases, or Falsely elevated levels may be seen with: Untreated Anemias, Splenectomy Judith BELLAMY CHEMISTRY Performing Organization Address [facility] de Phone Number [facility] SENDOUT INTERNAL ZIP [phone] [place], [place] [id number] * TSH (05/06/2024 9:33 AM CDT) Only the most recent of2 resultswithin the time period is included. [facility] TSH 2.31 0.27 - 4.20 uIU/mL 05/06/2024 10:23 AM CDT [facility] Blood BLOOD SPECIMEN / Unknown Venipuncture / Unknown 05/06/2024 9:33 AM CDT 05/06/2024 9:36 AM CDT [facility] LABORATORY - 05/06/2024 10:23 AM CDT In Adults, TSH values between 5.00 and 10.00 uIU/ml do not necessarily indicate the presence of Hypothyroidism. Correlation with clinical findings such as presence of goiter and/or Thyroperoxidase (TPO) Antibody may be helpful. For more information please refer to LUIZ 2004; 291: 228-238. Judith BELLAMY CHEMISTRY Performing Organization Address [facility] Co de Phone Number [facility] SENDOUT INTERNAL [facility] [phone] [place] [phone] * TYPE & SCREEN (05/06/2024 9:33 AM CDT) Pathologist [facility] ABORH A Rh Positive 05/06/2024 10:35 AM CDT [facility] B[facility] ANTIBODY SCREEN Negative Negative 05/06/2024 10:35 AM CDT [facility] B[facility] SPECIMEN EXPIRATION DATE/TIME 05/09/24 23:59 05/06/2024 10:35 AM CDT [facility] BLOOD B[facility] Blood BLOOD SPECIMEN / Unknown Venipuncture / Unknown 05/06/2024 9:33 AM CDT 05/06/2024 9:36 AM CDT Judith BELLAMY BLOOD BANK [facility] BLOOD BANK [address] [place] [address] * (ABNORMAL) CBC W PLT NO DIFF (05/06/2024 9:33 AM CDT) Only the most recent of2 resultswithin the time period is included. Pathologist [facility] WHITE BLOOD COUNT 5.2 4.5 - 11.0 thou/cu mm 05/06/2024 9:52 AM CDT [facility] RED BLOOD COUNT 6.08(H) 4.30 - 5.90 mil/cu mm 05/06/2024 9:52 AM CDT [facility] HEMOGLOBIN 17.0 13.5 - 17.5 g/dL 05/06/2024 9:52 AM T [facility] HEMATOCRIT 50.5 37.0 - 53.0 % 05/06/2024 9:52 AM T [facility] MCV 83 80 - 100 fL 05/06/2024 9:52 AM CDT [facility] MCH 28.0 26.0 - 34.0 pg 05/06/2024 9:52 AM CDT [facility] MCHC 33.7 32.0 - 36.0 g/dL 05/06/2024 9:52 AM CDT [facility] RDW 15.2 11.5 - 15.5 % 05/06/2024 9:52 AM T [facility] PLATELET COUNT 221 140 - 440 thou/cu mm 05/06/2024 9:52 AM CDT [facility] MPV 10.9 6.5 - 11.0 fL 05/06/2024 9:52 AM CDT [facility] NRBC 0.0 % 05/06/2024 9:52 AM CDT [facility] ABS NRBC 0.0 thou /cu mm 05/06/2024 9:52 AM CDT [facility] Blood BLOOD SPECIMEN / Unknown Venipuncture / Unknown 05/06/2024 9:33 AM CDT 05/06/2024 9:36 AM CDT Narrative [facility] - 05/06/2024 9:52 AM CDT To be collected on 05/06/2024, at [facility] lab ONLY, for upcoming surgery on 05/07/2024. This procedure was originally ordered at [facility]. Judith BELLAMY HEMATOLOGY [facility] SENDOUT INTERNAL [facility] [id number] [place] [address] * T4 (THYROXINE) (05/06/2024 9:33 AM CDT) T4 (THYROXINE) 7.0 4.5 - 11.7 ug/dL 05/06/2024 2:48 PM CDT [facility] Blood BLOOD SPECIMEN / Unknown Venipuncture / Unknown 05/06/2024 9:33 AM CDT 05/06/2024 9:36 AM CDT Judith BELLAMY CHEMISTRY [facility] [address] [place] [address] * HEPATIC FUNCTION PANEL (05/06/2024 9:33 AM CDT) Only the most recent of2 resultswithin the time period is included. ALBUMIN 4.1 4.0 - 4.9 g/dL 05/06/2024 10:23 AM CDT [facility] PROTEIN,TOTAL 7.2 6.0 - 8.0 g/dL 05/06/2024 10:23 AM CDT [facility] BILIRUBIN,TOTAL 0.4 0.0 - 1.2 mg/dL 05/06/2024 10:23 AM CDT [facility] BILIRUBIN,DIRECT <0.2 0.0 - 0.3 mg/dL 05/06/2024 10:23 AM CDT [facility] BILIRUBIN,INDIRE CT 05/06/2024 10:23 AM CDT [facility] Comment:Unable to calculate, Direct Bili <0.2 ALK PHOSPHATASE 80 40 - 129 IU/L 05/06/2024 10:23 AM CDT [facility] ALT (SGPT) 13 10 - 50 IU/L 05/06/2024 10:23 AM CDT [facility] AST (SGOT) 22 10 - 50 IU/L 05/06/2024 10:23 AM CDT [facility] Blood BLOOD SPECIMEN / Unknown Venipuncture / Unknown 05/06/2024 9:33 AM CDT 05/06/2024 9:36 AM CDT Judith BELLAMY CHEMISTRY [facility] SENDOUT INTERNAL ZIP [phone] [place] [address] * SCAN CORRESP-IMAGING (04/22/2024 3:59 PM CDT) Anatomical Region Laterality Modality Other Narrative 04/22/2024 3:59 PM CDT Ordered by an unspecified provider. Other Clinical Staff OTHER * SCAN CORRESP-EKG RESULTS (04/22/2024 3:41 PM CDT) Only the most recent of2 resultswithin the time period is included. Narrative 04/22/2024 3:41 PM CDT Ordered by an unspecified provider. Other Clinical Staff OTHER * XR ORTHOPANTOGRAM (04/19/2024 10:56 AM CDT) Anatomical Region Laterality Modality PANOREX Computed Radiogr aphy 04/19/2024 10:5 6 AM CDT Impressions 04/19/2024 11:00 AM CDT The visualized facial bones and mandibule are intact. No periapical lucency. Probable dens appears of the left maxillary and mandibular incisors, cuspids, and premolars. Correlate with direct visual inspection. Narrative 04/19/2024 11:00 AM CDT For Patients: As a result of the Cures Act, medical imaging exams and procedure reports are released immediately into your electronic medical record. You may view this report before your referring provider. If you have questions, please contact your health care provider. EXAM: XR ORTHOPANTOGRAM LOCATION: [facility] DATE: 04/19/2024 INDICATION: free text)->Pre-op AVR COMPARISON: None. Procedure Note Manuel Banks MD - 04/19/2024 For Patients: As a result of the Cures Act, medical imagingexams and procedure reports are released immediately into your electronicmedical record. You may view this report before your referring provider.If you have questions, please contact your health care provider. EXAM: XR ORTHOPANTOGRAM LOCATION: [facility] DATE: 04/19/2024 INDICATION: free text)->Pre-op AVR COMPARISON: None. IMPRESSION: The visualized facial bones and mandibule are intact. No periapicallucency. Probable dens appears of the left maxillary and mandibularincisors, cuspids, and premolars. Correlate with direct visualinspection. Judith BELLAMY GENERAL IMAGI NG * SCAN-CARDIAC STRIP (04/19/2024 8:58 AM CDT) Scanner OTHER * HEMATOCRIT (04/19/2024 3:40 AM CDT) HEMATOCRIT 48.7 37.0 - 53.0 % 04/19/2024 3:47 AM CDT [facility] Blood BLOOD SPECIMEN / Unknown Venipuncture / Unknown 04/19/2024 3:40 AM CDT 04/19/2024 3:44 AM CDT Narrative [facility] - 04/19/2024 3:47 AM CDT Every morning while on IV heparin. Every morning while on IV heparin. Necessary every morning while on IV heparin. Celestino Marie MD HEMATOLOGY [facility] SENDOUT [place] [phone] [place] [address] * SCAN-CARDIAC STRIP (04/19/2024 2:41 AM CDT) Scanner OTHER * SCAN-CARDIAC STRIP (04/18/2024 3:41 PM CDT) Scanner OTHER * US VEIN MAPPING LOWER EXTREMITY BILATERAL (04/18/2024 11:17 AM CDT) Anatomical Region Laterality Modality LEGS, LEG L, LEG R Ultrasound 04/18/2024 11:1 7 AM CDT Impressions 04/18/2024 11:47 AM CDT 1. On the right the saphenous venous system is patent and compressible. There is some modest wall thickening and in the small saphenous vein on the right. 2. On the left the greater saphenous vein is patent and compressible. The small saphenous vein in the mid and lower calf is noncompressible which could be sequelae of thrombophlebitis. Bilateral popliteal cysts. The right measures 5.0 cm x 2.6 cm x 5.1 cm. The left measures 4.5 cm x 2.3 cm x 3.4 cm Narrative 04/18/2024 11:47 AM CDT For Patients: As a result of the Century Cures Act, medical imaging exams and procedure reports are released immediately into your electronic medical record. You may view this report before your referring provider. If you have questions, please contact your health care provider. EXAM: US VEIN MAPPING LOWER EXTREMITY BILATERAL LOCATION: [facility] DATE: 04/18/2024 INDICATION: Graft suitability COMPARISON: None. TECHNIQUE: Ultrasound examination of the lower extremity veins was performed, including banerjee-scale and compression imaging. LOWER ??EXTREMITY FINDINGS: ?? VENOUS DIAMETERS RIGHT GREAT SAPHENOUS VEIN Upper Thigh: 6.5 mm Mid Thigh: 2.1 mm Lower Thigh: 2.5 mm Knee: 1.8 mm Upper Calf: 1.7 mm Mid Calf: 2.1 mm Lower Calf: 2.6 mm Ankle: 2.6 mm LEFT GREAT SAPHENOUS VEIN Upper Thigh: 5.5 mm Mid Thigh: 2.2 mm Lower Thigh: 2.3 mm Knee: 1.9 mm Upper Calf: 2.2 mm Mid Calf: 2.2 mm Lower Calf: 2.0 mm Ankle: 2.9 mm RIGHT SMALL SAPHENOUS VEIN Upper Calf: 2.7 mm Mid Calf: 2.1 mm Lower Calf: 2.1 mm Ankle: 1.3 mm LEFT SMALL SAPHENOUS VEIN Upper Calf: 5.4 mm Mid Calf: Noncompressible, 2.0 mm Lower Calf: Noncompressible, 1.8 mm Ankle: Not visualized Procedure Note Gary Pena MD - 04/18/2024 For Patients: As a result of the Cures Act, medical imagingexams and procedure reports are released immediately into your electronicmedical record. You may view this report before your referring provider.If you have questions, please contact your health care provider. EXAM: US VEIN MAPPING LOWER EXTREMITY BILATERAL LOCATION: [facility] DATE: 04/18/2024 INDICATION: Graft suitability COMPARISON: None. TECHNIQUE: Ultrasound examination of the lower extremity veins wasperformed, including banerjee-scale and compression imaging. LOWER EXTREMITY FINDINGS: VENOUS DIAMETERS RIGHT GREAT SAPHENOUS VEIN Upper Thigh: 6.5 mm Mid Thigh: 2.1 mm Lower Thigh: 2.5 mm Knee: 1.8 mm Upper Calf: 1.7 mm Mid Calf: 2.1 mm Lower Calf: 2.6 mm Ankle: 2.6 mm LEFT GREAT SAPHENOUS VEIN Upper Thigh: 5.5 mm Mid Thigh: 2.2 mm Lower Thigh: 2.3 mm Knee: 1.9 mm Upper Calf: 2.2 mm Mid Calf: 2.2 mm Lower Calf: 2.0 mm Ankle: 2.9 mm RIGHT SMALL SAPHENOUS VEIN Upper Calf: 2.7 mm Mid Calf: 2.1 mm Lower Calf: 2.1 mm Ankle: 1.3 mm LEFT SMALL SAPHENOUS VEIN Upper Calf: 5.4 mm Mid Calf: Noncompressible, 2.0 mm Lower Calf: Noncompressible, 1.8 mm Ankle: Not visualized IMPRESSION: 1. On the right the saphenous venous system is patent and compressible.There is some modest wall thickening and in the small saphenous vein onthe right. 2. On the left the greater saphenous vein is patent and compressible. Thesmall saphenous vein in the mid and lower calf is noncompressible whichcould be sequelae of thrombophlebitis. Bilateral popliteal cysts. The right measures 5.0 cm x 2.6 cm x 5.1 cm.The left measures 4.5 cm x 2.3 cm x 3.4 cm Amalia BELLAMY US * CTA CHEST ABD PELVIS TAVR - DUAL READ (04/18/2024 10:38 AM CDT) Anatomical Region Laterality Modality CHEST, Abdomen, Pelvis Computed Tomography, Other Impressions 04/18/2024 3:43 PM CDT 1. ?No significant incidental extracardiac findings. 2. ?Please refer to human relations teacher's dictation for the cardiac CT report. Narrative 04/18/2024 3:43 PM CDT Images from the original result were not included. STUDY: CTA CHEST, ABDOMEN, AND PELVIS TAVR Study date: 04/18/2024 FINAL IMPRESSIONS: Trileaflet aortic valve with severe calcification. ??Aortic valve calcium score is 2135 AU. ?? Aortic annulus area is 524 mm2 with perimeter 83 mm. ?? 1+ ??left ventricular outflow tract calcification. ??Prominent mitral annular calcification. Appropriate height to coronary ostia. ??Severe [place] ASVD. ??Previous stent in LAD. No intracardiac mass or thrombus Iliofemoral anatomy is amenable for vascular access bilaterally. ??Trivial scattered calcific plaque noted. Please see radiology report for noncardiovascular findings. STUDY PARAMETERS: Scanner: Siemens Definition Force Contrast: 100 ml of Omnipaque 350 Scan protocol: Helical with dose modulation for heart image acquisition. ?? High-pitch for chest, abdomen, and pelvis image acquisition. Radiation dose: 34 mSv for heart and chest, abdomen, pelvis imaging. Image quality: Excellent FINDINGS: Aortic valve annulus and outflow tract: Aortic valve: ??Severely calcified trileaflet valve with reduced leaflet opening excursion. Arterial access: Other findings: Coronary arteries: ??Dominance: Left circumflex artery Severe coronary artery calcification is present previous stents are present. Left atrium and left atrial appendage: Normal contrast opacification Pericardium: Normal without effusion. Thoracic aorta: Normal great artery branching pattern. No atheromatous disease in the ascending aorta. ??Mild calcified atheroma in distal aortic arch and descending thoracic aorta. Abdominal aorta: Normal size and morphology. Abdominal aorta branch arteries: Celiac artery: Normal. Superior mesenteric artery: Normal. Right renal artery: Normal. Left renal artery: Normal. FOR PATIENT: Results are automatically released to your [employer] account once available, in compliance with federal regulations. ?? This means that you may see your results before your provider has had a chance to review them. ??Please allow 2-3 business days for your provider to comment on the results. Georgi Borja MD .................... ??04/18/2024 ?? 2:56 PM 04/18/2024 For Patients: As a result of the Cures Act, medical imaging exams and procedure reports are released immediately into your electronic medical record. You may view this report before your referring provider. If you have questions, please contact your health care provider. EXAM: OVERREAD: DETAILED [facility]CCAME[facility] RADIOLOGY EXTRACARDIAC OVERREAD OF CARDIAC CT WITH ABDOMEN AND PELVIS LOCATION: [facility] DATE: 04/18/2024 INDICATION: Pre-TAVR planning. TECHNIQUE: Dose reduction techniques were used. COMPARISON: None. FINDINGS: LIMITED CHEST: Prior granulomatous disease. No consolidation, effusion, or suspicious nodule. LIMITED MEDIASTINUM: No adenopathy. Normal caliber aorta. Great vessels widely patent. LIMITED ABDOMEN: Normal caliber aorta. Renal and mesenteric vasculature patent. Minimal atheromatous plaque. The liver, spleen, and pancreas enhance uniformly without focal lesion. No calcified gallstones, presumed contrast in the gallbladder. Adrenal glands are not enlarged. Kidneys enhance symmetrically and appear within normal limits. Bowel unremarkable. LIMITED PELVIS: Normal iliac inflow and proximal femoral vasculature. Minimal atheromatous plaque. No free fluid, mass, or adenopathy. Modest left colonic diverticulosis. Contrast within the bladder. MUSCULOSKELETAL: Expected degenerative change in the hips and spine. Osseous structures intact. Amalia BELLAMY CT * SCAN-CARDIAC STRIP (04/18/2024 7:41 AM CDT) Scanner OTHER * SCAN-CARDIAC STRIP (04/18/2024 2:41 AM CDT) Scanner OTHER * SCAN-CARDIAC STRIP (04/17/2024 7:52 PM CDT) Scanner OTHER * SCAN-CARDIAC STRIP (04/17/2024 5:21 PM CDT) Scanner OTHER * CVL CORONARY ANGIOGRAM POSS PCI (04/17/2024 11:22 AM CDT) Anatomical Region Laterality Modality Other 04/17/2024 11:2 2 AM CDT Narrative Transcriptions Suman Esquivel MBBS - 04/17/2024 11:54 AM CDT [facility] Cardiac Catheterization Report Name: JOSEPH KNAPP Event Date: 04/17/2024 11:22 Excellian ID #: [id number] HI #: [id number] Diagnostic Physician: SUMAN ESQUIVEL [facility] Referring Physician: Date: 1955 Gender: Male Age: 68 Summary/Conclusions PRESENTATION / INDICATIONS * NonSTEMI * Severe aortic stenosis * Preserved LV function * History of PCI to proximal LAD with DESx1 in 2012 VASCULAR ACCESS * Using ultrasound guidance and a percutaneous technique, the right radialartery was accessed. Ultrasound was used to confirm vessel patency,localizing needle into the lumen of the vessel. An image was saved for themedical record. DIAGNOSTIC - CORONARY * Left dominant coronary artery system * The left main artery was normal in appearance and free of obstructivedisease. * The proximal LAD has severe 80% in-stent restenosis. Proximal LAD beyondstented segment has severe 90% stenosis. First diagonal branch has sfcguqo73% stenosis (small vessel). * The circumflex artery is a large dominant vessel. Large OM1 has 60- 70%stenosis. LPLA has no stenosis. Distal LCx/LPDA has 70% stenosis. * The non-dominant RCA is small and has diffuse disease. RECOMMENDATIONS & PLAN * PCI + TAVR vs CABG+SAVR will be discussed with the patient. Consent & Bruni Protocol The risks, benefits, and alternatives of the procedure were discussed withthe patient and written informed consent was obtained. Bruni protocol was followed. TIME OUT conducted just prior tostarting procedure confirmed patient identity, site/side, procedure,patient position, and availability of correct equipment and implants (ifapplicable). Staff Name Title SUMAN ESQUIVEL Diagnostic Telephoto Installer Jackie Chilel RN Nurse Tim Dos Santos RN Nurse Jemal José RTR Scrub Nikko Gross RTR Monitor Procedures ? US Guided Access ? Coronary Angiography Hemodynamics State: Baseline Pressures (mmHg) Site Systolic Diastolic End Diastolic A Wave V Wave Mean AO 70 48 57 AO 82 59 67 Procedure Details Estimated Blood Loss: < 30 ml Specimen Collected: None Level of Sedation Achieved: Moderate Procedure Start: 11:22 Fluoroscopy Time: 2 min Cumulative Air Kerma: 189 mGy DAP: 82008 mGy/cm2 Contrast: Visipaque 320, 45 ml Physiologic Data Weight: 100.9 kg BSA: 2.20 m2 Vascular Access Time Access Sheath Size 11:22 Percutaneous Puncture to Rt Radial Artery Complications ? No Complications Medications Ordered and Administered Start Time Stop Time Medication Dose Units Route Ordered By Given By 11:13 Fentanyl 25 mcg IV Suman Esquivel Tyler RN 11:13 Versed (midazolam) 1 mg IV Sumna Esquivel Tyler RN 11:22 Lidocaine 1% 2 ml Subcut Suman Esquivel Mohammad N 11:23 Nitroglycerin 200 mcg IA Suman Esquivel Mohammad N 11:23 Nicardipine 200 mcg IA Suman Esquivel Mohammad N 11:25 Heparin 5000 units IV Suman Esquivel Mohammad N I personally monitored the patient?s conscious sedation during theprocedure. Conscious sedation starts with the first sedation medication dose ofFentanyl or Versed and ends when the procedure is completed, the patientis stable for recovery status, and the physician or other qualified healthcare professional providing the sedation ends personal [id number] time with the patient. The medications listed above were verbally ordered by me and read back tome as documented above. Refer to the procedure log report for additional case details. electronically signed on 04/17/2024 11:54:53 AM with status of Final Suman Esquivel MD [facility] [address] [place] [address] (p) [phone](f) Rhoda BELLAMY CV IMAGING * SCAN-CARDIAC STRIP (04/17/2024 8:42 AM CDT) Scanner OTHER * (ABNORMAL) TROPONIN T (HS) ONE TIME (04/17/2024 6:07 AM CDT) Only the most recent of2 resultswithin the time period is included. TROPONIN T HS 683(H) 6-15 ng/L ng/L 04/17/2024 7:14 AM T [facility] Blood BLOOD SPECIMEN / Unknown Venipuncture / Unknown 04/17/2024 6:07 AM CDT 04/17/2024 6:36 AM CDT Narrative [facility] - 04/17/2024 7:14 AM CDT hs-cTnT (Elecsys Troponin T Gen 5) concentration (s) above the sex-specific 99th percentile (16 ng/L or greater for males or 11 ng/L or greater for females) are indicative of myocardial injury. If initial hs-cTnT <=100 ng/L at presentation, a 0h/2h ABSOLUTE (ng/L) delta change (rising or falling) of >=10 ng/L suggests a significant change, whereas a 0h/2h delta change <=3 ng/L suggests no significant change. If initial hs-cTnT >100 ng/L at presentation, a 0h/2h/ RELATIVE (percent, %) delta change of 20% is suggested to distinguish patients with acute vs. chronic myocardial injury. There are multiple etiologies that can cause hs-cTnT increases above the 99th percentile (myocardial injury) other than acute myocardial infarction. Clinical context and careful clinical evaluation are critical for diagnosis and risk-stratification. The diagnosis of acute myocardial infarction requires a rising and/or falling pattern in hs-cTnT concentrations with at least one value above the sex-specific 99th percentile PLUS at least one of the following clinical criteria: ischemic symptoms, new or presumed new significant ST-T wave changes or new LBBB, development of pathological Q waves, imaging evidence of new loss of viable myocardium or new regional wall motion abnormality, or identification of intracoronary atherothrombosis or an acute angiographic culprit on coronary angiography. In appropriate low-risk patients with a non-ischemic electrocardiogram without active chest pain with a symptom onset >3-hours without recurrence, a single initial hs-cTnT<6 ng/L identifies patient with a very low risk in emergency department patient population. Millie Borges [employer] CHEMISTRY Performing Organization Address City/[facility]/ZIP Co de Phone Number [facility] SENDOUT INTERNAL ZIP [phone] [place] [phone] * T4,FREE (04/17/2024 6:07 AM CDT) T4,FREE 1.48 0.93 - 1.70 ng/dL 04/17/2024 5:54 PM CDT [facility] Blood BLOOD SPECIMEN / Unknown Venipuncture / Unknown 04/17/2024 6:07 AM CDT 04/17/2024 6:36 AM CDT Rosette Rainey NP CHEMISTRY Performing Organization Address [facility] Co de Phone Number [facility] SENDOUT INTERNAL ZIP [phone] [place] [address] * (ABNORMAL) PRO-BNP (04/17/2024 6:07 AM CDT) PRO-BNP 3,636(H) <125 pg/mL 04/17/2024 6:17 PM CDT [facility] Blood BLOOD SPECIMEN / Unknown Venipuncture / Unknown 04/17/2024 6:07 AM CDT 04/17/2024 6:36 AM CDT Narrative [facility] - 04/17/2024 6:17 PM CDT The following cut-points have been suggested for the use of proBNP for the diagnostic evaluation of heart failure (HF) in patient with acute dyspnea. Patients with eGFR >= 60 Diagnosis (rule in CHF) ? <50 Years Old ?450 pg/mL 50 - 75 Years Old ?900 pg/mL >75 Years Old ? 1800 pg/mL Exclusion (rule out CHF) Age Independent ?300 pg/mL A cutoff of 1200 pg/mL for patients with an eGFR <60 yields a diagnostic sensitivity of 89% and specificity of 72% for acute congestive heart failure. ? Amalia BELALMY SEND OUTS [facility] SENDOUT INTERNAL Z[address] [phone] [place] [address] * (ABNORMAL) LIPID PANEL (04/17/2024 6:07 AM CDT) CHOLESTEROL,TOTAL 203(H) 100 - 199 mg/dL 04/17/2024 7:14 AM T [facility] Comment: Cholesterol, Total Reference Ranges Desirable <200 mg/dL Borderline 200-239 mg/dL High >=240 mg/dL TRIGLYCERIDES 168(H) <150 mg/dL 04/17/2024 7:14 AM CDT [facility] HDL CHOLESTEROL 51 >40 mg/dL 7:14 AM T [facility] NON-HDL CHOLESTEROL 152(H) <145 mg/dl 04/17/2024 7:14 AM T [facility] CHOL/HDL RATIO 3.98 <4.50 04/17/2024 7:14 AM T [facility] LDL CHOLESTEROL 118 <=130 mg/dL 04/17/2024 7:14 AM CDT [facility] VLDL CHOLESTEROL 34(H) <=30 mg/dL 04/17/2024 7:14 AM CDT [facility] PROVIDER ORDERED STATUS FASTING 04/17/2024 7:14 AM CDT [facility] Blood BLOOD SPECIMEN / Unknown Venipuncture / Unknown 04/17/2024 6:07 AM CDT 04/17/2024 6:36 AM CDT Millie Borges NP CHEMISTRY [facility] SENDOUT INTERNAL ZIP [phone] [place] [phone] * SCAN-CARDIAC STRIP (04/17/2024 1:45 AM CDT) Scanner OTHER * EXTRA TUBE BLUE (04/16/2024 5:06 PM CDT) Only the most recent of2 resultswithin the time period is included. Blood BLOOD SPECIMEN / Unknown Extra Tube / Unknown 04/16/2024 5:06 PM CDT 04/16/2024 5:06 PM CDT Doctor Unknown LABORATORY [facility] SENDOUT INTERNAL ZIP [address] [place] [address] * (ABNORMAL) TROPONIN T ACUTE W/2HR REFLEX (04/16/2024 3:07 PM CDT) TROPONIN T HS 827(H) 6-15 ng/L ng/L 04/16/2024 3:41 PM CDT [facility] Blood BLOOD SPECIMEN / Unknown Non-Lab Venipuncture / Unknown 04/16/2024 3:07 PM CDT 04/16/2024 3:14 PM CDT Narrative [facility] - 04/16/2024 3:41 PM CDT hs-cTnT (Elecsys Troponin T Gen 5) concentration (s) above the sex-specific 99th percentile (16 ng/L or greater for males or 11 ng/L or greater for females) are indicative of myocardial injury. If initial hs-cTnT <=100 ng/L at presentation, a 0h/2h ABSOLUTE (ng/L) delta change (rising or falling) of >=10 ng/L suggests a significant change, whereas a 0h/2h delta change <=3 ng/L suggests no significant change. If initial hs-cTnT >100 ng/L at presentation, a 0h/2h/ RELATIVE (percent, %) delta change of 20% is suggested to distinguish patients with acute vs. chronic myocardial injury. There are multiple etiologies that can cause hs-cTnT increases above the 99th percentile (myocardial injury) other than acute myocardial infarction. Clinical context and careful clinical evaluation are critical for diagnosis and risk-stratification. The diagnosis of acute myocardial infarction requires a rising and/or falling pattern in hs-cTnT concentrations with at least one value above the sex-specific 99th percentile PLUS at least one of the following clinical criteria: ischemic symptoms, new or presumed new significant ST-T wave changes or new LBBB, development of pathological Q waves, imaging evidence of new loss of viable myocardium or new regional wall motion abnormality, or identification of intracoronary atherothrombosis or an acute angiographic culprit on coronary angiography. In appropriate low-risk patients with a non-ischemic electrocardiogram without active chest pain with a symptom onset >3-hours without recurrence, a single initial hs-cTnT<6 ng/L identifies patient with a very low risk in emergency department patient population. Ilan Montes IV, MD CHEMISTRY [facility] SENDOUT INTERNAL [facility] [phone] [place] [phone] from Last 3 Months Advance Directives * Full Code (Latest Code Status on File) Date Activated Date Inactivated Comments 05/07/2024 5:58 AM 05/14/2024 6:39 PM Question Answer Comments Code Status Discussion: Per Existing Order * Full Code Date Activated Date Inactivated Comments 04/16/2024 5:15 PM 04/19/2024 7:01 PM Question Answer Comments Code Status Discussion: Reviewed Preferences Care Teams Colon And Rectal Surgeon Relationship Specialty Start Date End Date Joanne Serra [employer]ER [address] [place] [address] PCP - General Emergency Medicine 02/11/22 lA Orourke MD [address] [place] [address] Consulting Physician Cardiovascular Disease 01/16/15 [facility] [address] [place] [address] 05/14/24
== END 2024-05-20 14:29 | disposition home or self-care (01) ==
PROVIDERS: PCP Nurse Practitioner Family; Visit Provider Nurse Practitioner Family
DX: I10 Essential (primary) hypertension (principal); D64.9 Anemia, unspecified; E11.628 Type 2 diabetes mellitus with other skin complications
CPT/HCPCS: 80048; 85025

== ENCOUNTER 2024-07-24 21:20 | Outpatient (CLI) | payer MEDICARE, OTHER, SELFPAY ==
--- OUTSIDE RECORDS SUMMARY | 2024-07-24 21:23 | XMS_ITS | Encounter Summary ---
Author Organization [facility] Address [address] [place] [address] Care Team Providers Care Folder Stitcher Operator Name Role Phone Unavailable Primary Care Provider Unavailabl e Reason for Visit * Reason Onset Date Comments Scheduling 07/05/2024 Encounter Details Date Type Department Care Team (Late st Contact Info) Description 07/05/2024 Clinical Communication Department of Cardiac Rehabilitation in [address] [phone] Swapna Lux, CCRP, [facility] Scheduling Social History Tobacco Use Types Packs/Day Years Used Date Smoking Tobacco: Never Smokeless Tobacco: Never PHQ-2 Answer Date Recorded PHQ-2 Score 0 06/19/2024 Depression Answer Date Recor ded PHQ-9 Total Score (max 27) 2 06/19 Nutrition Answer Date Recorded Nutrition: EVOO Fat Source 13 07/14 Nutrition: Servings of Fruits/Vegetables per Day Not on file 07/14/2020 Dental Answer Date Recorded Dental: Regular Dentist Unknown 12/30/19 21 Sex and Gender Information Value Date Recorded Sex Assigned at Not on file Gender Identity Not on file Sexual Orientation Not on file documented as of this encounter Plan of Treatment Upcoming Encounters Date Type Department Care Team (Late st Contact Info) Description 07/26/2024 11:00 AM CDT Appointment Department of Cardiac Rehabilitation in [address] [phone] Tim Zamarripa M.D. [address] [place] [phone] documented as of this encounter Visit Diagnoses Not on filedocumented in this encounter Additional Health Concerns Assessment Noted Time PHQ-9 Depression Total Score: 2 06/19/20 24 1:08 PM CDT documented as of this encounter
--- OUTSIDE RECORDS SUMMARY | 2024-07-24 21:23 | XMS_ITS | Encounter Summary ---
Author Organization [facility] Address [address] [place] [address] Care Team Providers Care Commercial Print Salesman Name Role Phone Unavailable Primary Care Provider Unavailabl e Encounter Details Date Type Department Care Team (Latest Contact Info) Description 07/23/2024 Plan of Care Documentation Department of Cardiac Rehabilitation in [address] [place] [id number] Social History Tobacco Use Types Packs/Day Years [...] Date Recorded Dental: Regular Dentist Unknown 12/30/19 Sex and Gender Information Value Date Recorded Sex Assigned at Not on file Gender Identity Not on file Sexual Orientation Not on file documented as of this encounter Miscellaneous Notes * Specialty Plan of Care - Swapna Lux, CCRP, CEP - 07/23/2024 11:43 AM CDT Images from the original note were not included. Mr. Knapp (69 y.o., : 1955, ) was referred to the [facility] on 05/14/2024, by Referred by Judith BELLAMY ([facility]); order signed by Dr.Tyler Zamarripa and has completed 16 sessions out of the 36 prescribed. PCP: No primary care provider on file. Neon Glass Bender: Henrietta Obrien P.A.-C. Program: Cardiac Rehab Phase II Type: Center-Based Intake Date: 05/28/2024 Date of Enrollment: 06/03/2024 Primary Diagnosis: CABG 05/07/2024 Secondary Diagnosis: Valve 05/07/2024 AACVPR Risk: Low 05/28/2024 06/25/2024 07/23/2024 Symptoms ITP Inclusion: Symptoms Initial Reassessment Reassessment Synopsis Pt was referred for CR following CABGx3, AVR, s/p MAZE and LAAL on 05/[address] [facility].Leading up to cardiac surgery pt had been experiencing progressive worsening of SOB, fatigue, and stamina. He was hospitalized on 04/16- 04/19 for NSTEMI and no dx of Afib. During this hospitalization, angiogram was completed and demonstrated severe CAD, it was decided to d/c patient and pursue scheduled open heart surgery 2-3 weeks later. Since pt has been home he's been feeling ok, he still feels that his endurance is not where he'd like it but it has been improving slowly since surgery. No concerns for LE edema or reoccuring Afib, although he wasn't able to notice that he was in Afib prior tosurgery. He is currently still on an amiodarone taper and Eliquis. He will be able to drive himselfagain starting next week. He is planning to start with CR 3x per week. He has a f[facility]. He does have a cardiac history which included DESx1 to prox LAD in 2012, HTN, HLD, DM2, and CKD stage III. Pt has been doing well since starting rehab. He's had some mild orthopedic complaints during rehab sessions but no new or worsening cardiac Sx. He did meet with hisCVD team on 06/13 during which they suspected pt was retaining some fluid so he was restarted on 40mg of Lasix. He is scheduled to f/u with CVD Dr. Salmon later this week 06/27. No new cardiac S/S. Hehad a f/u visit on 06/27 with CVD in [place], he was instructed to stop Lasix at this time. He has had no reported bouts of afib or palpitations that he's noticed, still on amiodarone. No arrhythmias have been noted on CR telemetry. Overall his biggest complaint remains low energy. His energy hasimproved a little since pre surgery but isn't where he'd like it yet, he is having a sleep study completed through his PCP later this week to r/o HEMA. Joint pain has also become a limiting factor for exercise progression on the TM. He wonders if this is related to statin therapy. He has a history of gout but doesn't think these pains are similar to his past gout pain. He will f/u with CVD again on 07/25. Cardiovascular Symptoms Shortness of Breath;Fatigue None Fatigue Home O2 Use No No No Ejection Fraction Date 05/14/2024 Ejection Fraction (EF) % 65 % Other Education Documentation No documentation found. Exercise Assessment 06/19/2024 DASI Calculations Estimated V02 Peak 16.24 Estimated MET Level 4.64 Six Minute Walk 06/03/2024 Total Distance Walked (Meters) 298.7 Estimated METs 2.46 % of Predicted Distance 62.29 Comments 05/28/2024 06/24/2024 06/25/2024 07/22/2024 Exercise Assessment ITP Inclusion: Exercise Assessment Initial Reassessment Reassessment Reassessment Resting HR (Telemetry) 75 65 Resting Pulse 82 Pulse Rate Source Pulse oximetry Cardiac Rhythm SR;Other (Comment);A-fib Hx of pAfib (s/p MAZE and LAAL procedure, on Eliquis and amiodarone taper) SR;Other (Comment);A-fib Hx of pAfib (s/p MAZE and LAAL procedure, on Eliquis and amiodarone taper) SR;Other (Comment);A-fib Hx of pAfib (s/p MAZE and LAAL procedure, on Eliquis and amiodarone taper) Exercise Limitations Yes Yes Yes Limitation Description Sternal precautions 10 lb wt limit until 07/08, then can increase to 20 lbs until 08/07 Sternal precautions 10 lb wt limit until 07/08, then can increase to 20 lbs until 08/07 Sternal precautions 20 lbs until 08/07 Action Taken Will monitor sternal discomfort and progress workloads as tolerated Will continue to monitor sternal discomfort and progress workloads as tolerated Will continue to monitor sternal discomfort and progress workloads as tolerated Assistive Device None None None Peak METs 3.2 4.5 Aerobic Minutes per Day (Home) 0 minutes 0 minutes 60 minutes Aerobic Days per Week (Home) 0 Days 0 Days 1 Days Aerobic Minutes per Day (Rehab) 0 minutes 39 minutes 43 minutes Aerobic Days per Week (Rehab) 0 Days 3 Days 3 Days Aerobic Minutes per Week 0 117 189 Strength Training Days per Week 0 Days 0 Days Flexibility Training Days per Week 0 0 05/28/2024 06/25/2024 07/23/2024 Exercise Prescription Frequency of Sessions Weekly Weekly Weekly Sessions per week 3-5 3-5 3-5 Intensity Work at a level that is comfortable but also challenging Work at a level that is comfortable but also challenging Work at a level that is comfortable but also challenging Rating of Perceived Exertion range (RPE): 11-14 11-14 11-14 Warm Up Minutes: 2-5 2-5 2-5 Aerobic exercise minutes: 20-25 30-40 35-45 Cool Down minutes: 2-5 2-5 2-5 Goal Minutes/session Work up to 30 mins 30+ 40+ Goal Minutes/Week Work up to 150 mins 150+ 150+ Rehab Aerobic Exercise Equipment Treadmill;Recumbent stepper (with or without arms) Treadmill;Recumbent stepper (with or without arms);Arm Ergometer Treadmill;Arm Ergometer;Recumbent stepper (with orwithout arms) Non-Rehab Aerobic Exercise Equipment Walking Walking Walking Progression Use RPE to guide when to increase work level intensity and duration;Increase 1-5 minutes each session, as tolerated;Follow/match rehab intensity Use RPE to guide when to increase work level intensity and duration;Increase 1-5 minutes each session, as tolerated;Follow/match rehab intensity Use RPE to guide when to increase work level intensity and duration;Increase 1-5 minutes each session, as tolerated;Follow/match rehab intensity Flexibility and Balance Stretch major muscle groups daily Stretch major muscle groups daily Stretchmajor muscle groups daily Sternal precautions Yes Yes Sternal precautions comment Per hospital discharge summary: do not lift anything heavier than 10 pounds for two months after surgery (07/08) - you may increase to 20 pounds during the third month after surgery - do not push or pull until chest is well healed - avoid driving for four weeks after surgery (starting 06/04) - do not drive if you are taking prescription pain medicine Per hospital discharge summary: do not lift anything heavier than 10 pounds for two months after surgery (07/08) - you may increase to 20 pounds during the third month after surgery - do not push or pull until chest is well healed - avoid driving for four weeks after surgery (starting 06/04) - do not drive if you are taking prescription pain medicine Per hospital discharge summary: may increase to 20 pounds during thethird month after surgery Strength Training Calisthenics Calisthenics Calisthenics Number of strength sessions per week: 2-3 5-7 5-7 Weight: 0 0 Reps: 10 10-15 10-15 Sets: 1 1 1 Hobbies/Activities Avoid prolonged sitting Avoid prolonged sitting Avoid prolonged sitting 05/28/2024 06/25/2024 07/23/2024 Exercise Plan Goals Compliance to on-site program;Compliance to home program;Improve exercise tolerance;Increase exercise duration;Increase exercise intensity;Increase frequency of exercise;Establish independent exercise routine Compliance to on- site program;Compliance to home program;Improve exercise tolerance;Increase exercise duration;Increase exercise intensity;Increase frequency of exercise;Establish independent exercise routine Compliance to on-site program;Compliance to home program;Improve exercise tolerance;Increase exercise duration;Increase exercise intensity;Increase frequency of exercise;Establish independent exercise routine;Obtain gym membership Interventions Facility orientation;Equipment instruction;Review of signs/symptoms to report;Exercise/activity guidelines;Therapist Discussion Facility orientation;Equipment instruction;Review of signs/symptoms to report;Exercise/activity guidelines;Therapist Discussion Exercise/activity guidelines;Therapist Discussion Progress Toward Goals Since surgery pt has been trying to do more walking and get back to completing his ADLs independently. He doesn't have any exercise equipment at home but he has been a member ofa gym in the past. He has chickens on his property which he hasn't been able to care for d/t this chore requires him to lift more than 10#. He has a friend who has been living with him since surgery and helps him with the ADLs and chores that he is unable to complete at this time. He was previouslyan active person and enjoyed outdoor hobbies like golf and fishing. He is motivated to get back to his active lifestyle and hobbies and hopeful rehab will help him get there faster. Pt has been slow to establish a structured exercise routine outside of rehab. He continues to stay active with ADLs and caring for his chickens but has not do much intentionally walking or exercise at home. He's been able to do more chicken chores without any sternal discomfort but is still limited by the amount of eggs he collects at one time d/t the weight of the bucket. He is tolerating close to 40 mins of aerobic exercise in rehab 3x per week. Will continue to progress workloads as prescribed and consider introducing IT during this next month. Orthopedic hip pain has been a limitation on the TM, will adjust workloads as tolerated. Currently pt reports home exercise has primarily consisted of ADLs and chicken chores. Occasionally he tries to make a point to go to [employer] and walk laps for aroudn 1 hr. 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 He's been consistent with CR 3x per week and is tolerating exercise well. Adjustments were made to TM workloads d/t hip and back pain. We discussed options to increase home exercise. Pt is interested in walking laps at the [employer] and field as he feels the ofe of the track is easier on his joints than the indoor fieldhouse in . He would also consider joining the [facility] at the conclusion of CR to gain access to a pool to mix in some swimming or pool walking as part of his cardio workout. Exercise Education Documentation Individualized ExRx, taught by Swapna Lux CCRP, CEP at 06/25/2024 1:41 PM. Learner: Patient Readiness: Acceptance Method: Explanation Response: Able to Teach Back Risk Factors For Heart Disease [id number], taught by Swapna Lux CCRP CEP at 06/25/2024 1:41 PM. Learner: Patient Readiness: Acceptance Method: Explanation Response: Able to Teach Back Cardiac Rehab Program Expectations, taught by Swapna Lux CCRP, CEP at 05/28/2024 3:07 PM. Learner: Patient Readiness: Acceptance Method: Explanation Response: Able to Teach Back Calisthenics, taught by Swapna Lux CCRP CEP at 05/28/2024 3:07 PM. Learner: Patient Readiness: Acceptance Method: Explanation Response: Able to Teach Back Nutrition Assessment 06/19/2024 Picture Your Plate Total Score 59 Total Score Interpretation A PYP score of 51-60 indicates a more healthful dietary pattern, with some room for improvement 05/28/2024 06/24/2024 06/25/2024 07/22/2024 Nutrition Assessment ITP Inclusion: Nutrition Assessment Initial Reassessment Reassessment Reassessment Height 182.9 cm 182.9 cm 182.9 cm Weight 99.5 kg 101 kg 101 kg BMI 29.74 30.19 30.07 Dietary Recommendations Low Salt;Diabetic;Low Fat/ Low Cholesterol Low Salt;Diabetic;Low Fat/ Low Cholesterol Low Salt;Diabetic;Low Fat/ Low Cholesterol Low Salt Amount 2000 mg 2000 mg 2000 mg Appetite Good Good Good 05/28/2024 06/25/2024 07/23/2024 Plan Goals Increase fruit intake;Increase vegetable intake;Decrease simple sugar intake;Decrease overallportions;Compliance with dietary guidelines;Reduce saturated fat intake;Limit sodium intake Increase fruit intake;Increase vegetable intake;Decrease simple sugar intake;Decrease overall portions;Compl iance with dietary guidelines;Reduce saturated fat intake;Limit sodium intake Increase fruit intake;Increase vegetable intake;Decrease simple sugar intake;Decrease overall portions;Compliance with dietary guidelines;Reduce saturated fat intake;Limit sodium intake Limit sodium intake to 2000 mg 2000 mg 2000 mg Nutrition Counseling Staff education only Interventions Discussion on identifying/incorporating diet changes;Discussion on current eating habits;Healthy shopping tips/food labels/eating out;Therapist discussion;Importance of dietary compliance Discussion on identifying/incorporating diet changes;Discussion on current eating habits;Healthy shopping tips/food labels/eating out;Therapist discussion;Importance of dietary compliance Discussion on identifying/incorporating diet changes;Discussion on current eating habits;Healthy shopping tips/food labels/eating out;Therapist discussion;Importance of dietary compliance Progress Toward Goals Since cardiac surgery pt has already started making some positive dietary changes. He has been focused on increasing his vegetable and salad intake while being more mindful of sodium and sugar intake. He is eating more chicken and trying to prepare lean red meat in moderation.His daughters got him an air fryer and he typically tries to prepare his meat on his grill to avoidadded fat from oils. He shared that 2 of his daughters are nurses and 1 is a salesperson women's hats so they've been good support and resources when it comes to making these changes to his diet. Pt continues to make heart healthy dietary changes. He has been monitoring his sodium and sugar intake. He continues to use healthier cooking methods such as air frying and grilling. We have checked his BS pre and post exercise for his first 6 sessions and education opportunities were emphasized when pts BS were quite elevated after he had a fried chicken sandwich for lunch from the [facility] [place] prior to rehab. He's demonstrated growth in understanding of the impact carbs has on his BS. Will continue toprovide education and resources as needed. Dietary habits have remained the same. He continues to monitor sodium and sugar intake. He has gotten into a routine of checking BS at home on avg 4x per week. These readings have been within goal range. Nutrition Education Documentation Risk Factors For Heart Disease [id number], taught by Swapna Lux CCRP, CEP at 06/25/2024 1:41 PM. Learner: Patient Readiness: Acceptance Method: Explanation Response: Able to Teach Back Psychosocial Assessment 06/19/2024 PHQ-9 PHQ-9 Total Score (max 27) 2 PHQ-9 Interpretation None to minimal depression 06/19/2024 [facility] Total Score 23 05/28/2024 06/25/2024 07/23/2024 Psychosocial Assessment ITP Inclusion: Psychosocial Initial Reassessment Reassessment Social Determinants of Health have been reviewed. For high-risk areas identified, a plan of treatment and follow-up information will be documented in appropriate areas within the ITP Yes Yes Yes Current Medication Therapy No No No Current Issues Other (comment) Other (comment) Other (comment) Comment Frustration Frustration Frustration Patient Stress Factors Health changes Health changes Health changes Needs Expressed Physical Denies Denies 05/28/2024 06/25/2024 07/23/2024 Plan Goals Continue to use effective stress management techniques;Utilize a support system;Effective stress management;Improved used of coping strategies;Return to leisure and social activities;Demonstrate self-management strategies;Normailize sleep patterns Continue to use effective stress management techniques;Utilize a support system;Effective stress management;Improved used of coping strategies;Return to leisure and social activities;Demonstrate self-management strategies;Normailize sleep patterns Continue to use effective stress management techniques;Utilize a support system;Effective stress management;Improved used of coping strategies;Return to leisure and social activities;Demonstrate self- management strategies;Normailize sleep patterns Interventions Discussed/reviewed current coping skills;Discussed/reviewed support system;Discussed/reviewed depression s/s;Therapist discussion Discussed/reviewed current coping skills;Discussed/reviewed support system;Discussed/reviewed depression s/s;Therapist discussion Discussed/reviewed current coping skills;Discussed/reviewed support system;Discussed/reviewed depression s/s;Therapist discussion Progress Toward Goals Pt reports noticing some mood changes since his surgery. He is aware that he's felt more frustrated with his need for physical help d/t his restrictions post surgery. He cared for his who was ill for many years and has always been a very independent person so having to rely on others for help himself has been challenging but he is grateful for his support system. He hasa friend who's been living with him since the surgery and helping him with managing his medicationsand the physical work of his chickens and house work. He has 3 daughters who live close by and 9 grandkids. He is retired from working in the [employer] industry. Sleep has been improving since he's been home. He is looking forward to being able to drive himself again next week. Ptsmood has improved since regaining his independence and ability to drive again. He still gets frustrated with his physical limitations when it comes to his chicken chores but he's been able to help collect some eggs for which he was unable to do immediately after his surgery. He continues to feel supported by family and friends. No concerns with sleep quality at this time. No new concerns for depression or anxiety. Pt continues to feel frustrated with physical limitations and now worsening jointpain. He wonders if the joint pain is related to his statin or the fact that he discontinued takingTylenol regularly about 2 weeks ago. He's also been struggling with low energy levels and day time t iredness despite sleeping 7-8 hrs at night. He is going through some sleep study testings later this week to r/o HEMA. Psychosocial Education Documentation No documentation found. Other Core Components Hypertension Assessment 05/28/2024 06/24/2024 06/25/2024 07/22/2024 Hypertension ITP Inclusion: Hypertension Assessment Initial Reassessment Reassessment Reassessment History of Hypertension Yes Yes Yes Current Medication Therapy Yes Yes Yes Hypertension Medications metoprolol metoprolol, lasix metoprolol Blood Pressure 138/60 Resting BP (Telemetry) 126/58 148/62 05/28/2024 06/25/2024 07/23/2024 Plan Goals Stable BP response;BP at physician prescribed goal;Continue lifestyle choices for optimal blood pressure changes;Decrease sodium intake;Medication compliance;Monitor BP at home Stable BP response;BP at physician prescribed goal;Continue lifestyle choices for optimal blood pressure changes;Decrease sodium intake;Medication compliance;Monitor BP at home Stable BP response;BP at physician prescribed goal;Continue lifestyle choices for optimal blood pressure changes;Decrease sodium intake;Medication compliance;Monitor BP at home Interventions Therapist discussion Therapist discussion Therapist discussion Progress Toward Goals Pt has been monitoring his BP at home regularly. He reports avg has been around 130/80s. During his hospitalization he was struggling with orthostatic hypotension and dizziness but he stated this has improved since he's been home and he hasn't had any issues within the last week. He tries to take his time standing which has helped reduce the lightheadedness bouts. SBP in rehab has varied quite a bit 110s-150s. Pt reports compliance with metoprolol. He was recently put on lasix d/t suspicion of fluid retention. No reports of lightheadedness/dizziness since intake. BP continues to vary at rest. He is no longer on Lasix. Pt reports his avg home BP has been normal <130/80s with avg rehab resting SBP 140-160s. Recovery BP in rehab most of the time is WNL, pt may have some white coat syndrome with first BP check in rehab, so we will continue to monitor. He is scheduled for CVD f/u this week. Encouraged pt to start writing down his home BP readings and bring these with to clinic visits. Hypertension Education Documentation Risk Factors For Heart Disease [id number], taught by Swapna Lux, CCRP, CEP at 06/25/2024 1:41 PM. Learner: Patient Readiness: Acceptance Method: Explanation Response: Able to Teach Back Hyperlipidemia Assessment 05/28/2024 06/25/2024 07/23/2024 Hyperlipidemia Assessment History of Hyperlipidemia Yes Yes Yes Current Medication Therapy Yes Yes Yes Hyperlipidemia Medications Atorvastatin (recently increased dose to 40mg) Atorvastatin Atorvastatin Lipids 04/17/2024 06/13/2024 6:07 AM 2:31 PM CHOL 203 109 TRIG 168 165 HDL 51 53 TTLCHOLHDLRT 3.98 2.06 05/28/2024 06/25/2024 07/23/2024 Plan Goals Improve lipids;Lipids in optimal range;Understand current lipid profile;Decrease dietary trans fats/saturated fats/cholesterol;Increase aerobic exercise;Medication compliance;Continue lifestylechoices for optimal lipid management Improve lipids;Lipids in optimal range;Understand current lipid profile;Decrease dietary trans fats/saturated fats/cholesterol;Increase aerobic exercise;Medication compliance;Continue lifestyle choices for optimal lipid management Improve lipids;Lipids in optimal range;Understand current lipid profile;Decrease dietary trans fats/saturated fats/cholesterol;Increase aerobic exercise;Medication compliance;Continue lifestyle choices for optimal lipid management Interventions Therapist discussion;Review lipid profile;Discussion on hyperlipidemia medications Therapist discussion;Review lipid profile;Discussion on hyperlipidemia medications Therapist discussion;Discussion on hyperlipidemia medications Progress Toward Goals Pt reports compliance with atorvastatin as prescribed. He was previously on alower dose and feels that he noticed more myalgias after initiating the 40mg dose. He plans to discuss this with the Cardiology provider he is scheduled to see on 06/13. He is making good progress with diet changes and is planning to attend CR 3x per week starting next week. Pt continues to take statin therapy as prescribed. He is making good progress with diet changes and is working on increasingexercise durations in rehab. Pt would benefit from establishing a better home exercise routine, will continue to provide recommmendations and encouragement. Pt has started to notice worsening joint pa in specifically in his hip and back. He has CVD f/u this week and therapist encouraged pt to discuss options with his provider. He is making good progress with dietary changes and working on planninga better home exercise routine. Hyperlipidemia Education Documentation Risk Factors For Heart Disease [id number], taught by Swapna Lux, CCRP, CEP at 06/25/2024 1:41 PM. Learner: Patient Readiness: Acceptance Method: Explanation Response: Able to Teach Back Education Comments No comments found. Diabetes Assessment 05/28/2024 06/25/2024 07/23/2024 Diabetes History of Diabetes Diabetes Type II Diabetes Type II Diabetes Type II Current Medication Therapy Yes Yes Yes Current Medication Therapy Jardiance, 30 units Lantus insulin Jardiance, 30 units Lantus insulin Jardiance, 30 units Lantus insulin Do you monitor your blood glucose at home? No No Yes How many times a day? Weekly Average Daily Range 120-150s Diabetic Labs 06/12/2024 06/12/2024 06/17/2024 06/17/2024 2:37 PM 3:17 PM 1:04 PM 1:44 PM POC GLUCOSE 133 113 172 159 05/28/2024 06/25/2024 07/23/2024 Plan Goals Fasting blood glucose In optimal range;Management of hypo/hyperglycemia;Start monitoring blood glucose at home;Decrease carbohydrate intake;Compliance with diabetic nutritional guidelines;Continue lifestyle choices for optimal diabetes management Fasting blood glucose In optimal range;Management of hypo/hyperglycemia;Start monitoring blood glucose at home;Decrease carbohydrate intake;Compliance with diabetic nutritional guidelines;Continue lifestyle choices for optimal diabetes managementFasting blood glucose In optimal range;Management of hypo/hyperglycemia;Start monitoring blood glucose at home;Decrease carbohydrate intake;Compliance with diabetic nutritional guidelines;Continue lifestyle choices for optimal diabetes management Interventions Discussion on signs/symptoms/management of hyper/hypoglycemia;Discussion on glucose monitoring/glucometer use;Discussion on glucose monitoring with exercise;Therapist discussion Discussion on signs/symptoms/management of hyper/hypoglycemia;Discussion on glucose monitoring/glucometer use;Discussion on glucose monitoring with exercise;Therapist discussion Discussion on signs/symptoms/management of hyper/hypoglycemia;Discussion on glucose monitoring/glucometer use;Discussion on glucose monitoring with exercise;Therapist discussion Progress Toward Goals Pt reports that he has been compliant with taking Jardiance and long acting insulin regularly. He was checking his BS at home daily prior to cardiac surgery but hasn't resumed this yet. He has interest in pursuing a CGM, encouraged pt to reach out to his PCP for an order/prescription since he is on insulin now, Medicare may help pay for this. Discussed pre and post exercise monitoring which pt was agreeable to. He is making healthy dietary changes and planning to attend CR3x per week, which will also help improve BS control. Pre and post exercsise BS were checked for pts first 6 sessions. Readings were all WNL. There was one day when readings were quite elevated in the 200s. Pt had acknowledged that he ate a fried chicken sandwich at the [facility] just prior to that visit. Education was provided and pt has verablized growth in understanding of dietary impacts onhis BS. Otherwise, pts BS have been stable. He has not yet resumed checking at home and is hoping to check with his PCP about a Rx for a CGM now that he is taking insulin. Pt has started checking BS at home on avg 4x per week. Readings have ranged mostly between 120-150s. He's taking Jardiance and Lantus as prescribed and has not reported episodes of symptomatic hyper or hypoglycemia. Diabetes Education Documentation No documentation found. Tobacco Assessment 05/28/2024 Tobacco Assessment Smoking Status Never - no goals/interventions indicated Social History Tobacco Use Smoking Status Never Smokeless Tobacco Never Tobacco Education Documentation No documentation found. Heart Failure Assessment 05/28/2024 Heart Failure Assessment History of Heart Failure No, no goals / interventions indicated Heart Failure Education Documentation No documentation found. Medication Compliance Assessment 05/28/2024 06/25/2024 07/23/2024 Medications Have you been compliant with all medications? Yes Yes Yes 05/28/2024 06/25/2024 07/23/2024 Plan Goals Medication compliance;Knowledge of medication Medication compliance;Knowledge of medication Medication compliance;Knowledge of medication Interventions Medication review;Therapist discussion Medication review;Therapist discussion Medication review;Therapist discussion Progress Toward Goals Pt reports he has a friend who has been setting up his medications. He didn'thave all of his medication memorized since his friend has been managing things for him however he reports compliance as far as he knows. Pt reports compliance with current medication. He continues tohave assistance from his friend with medication set up and management. Pt reports compliance with current medication. He continues to have assistance from his friend with medication set up and management. Medication Compliance Education Documentation No documentation found. Medications were reviewed every visit. documented in this encounter Plan of Treatment Upcoming Encounters Date Type Department Care Team (Late st Contact Info) Description 07/26/2024 11:00 AM CDT Appointment Department of Cardiac Rehabilitation in [address] [phone] Tim Zamarripa M.D. [address] [place] [phone] documented as of this encounter Visit Diagnoses Not on filedocumented in this encounter Additional Health Concerns Assessment Noted Time PHQ-9 Depression Total Score: 2 06/19/20 24 1:08 PM CDT documented as of this encounter
--- OUTSIDE RECORDS SUMMARY | 2024-07-24 21:23 | XMS_ITS | Clinical Summary ---
Author Organization [facility] Address [address] [place] [address] Care Team Providers Care Electrical Accessories Ii Assembler Name Role Phone Unavailable Primary Care Provider Unavailabl e Source Comments Patient records contain information from all sites at [facility]. For routine questions regarding patient records, call [phone] during business hours, M-F 8:00 AM - 5:00 PM Central Time. Record requests for emergency care only can be directed to [phone] at any time.[facility] Allergies Active Allergy Reactions Criticality Noted Date Comments Bee Pollen Itching Medium 08/06/2013 Itchy watery eyes Medications Medication Sig Dispensed Refills Start Date End Date Status aspirin 81 mg chewable tablet Chew 81 mg. Active atenoloL (TENORMIN) 50 mg tablet 01/22/2020 Active atorvastatin (LIPITOR) 10 mg tablet 01/22/2020 Active glipiZIDE (GLUCOTROL) 10 mg tablet Take 10 mg by mouth. 01/17/2020 Active indomethacin (INDOCIN) 50 mg capsule Take 50 mg by mouth. 01/21/2020 Active lisinopriL (PRINIVIL,ZESTRIL) 40 mg tablet Take 40 mg by mouth. 01/17/2020 Active metFORMIN (GLUCOPHAGE) 1,000 mg tablet Take 1,000 mg by mouth. 01/17/2020 Active nitroglycerin (NITROSTAT) 0.[address] 0.4 mg under the tongue. Active Active Problems Problem Noted Date Diagnosed Date Atherosclerotic Heart Diseas e Of [place] Coronary Artery Without Angina Pectoris 10/01/2013 Gout 08/07/2013 Overview (03/16/2020): date of onset unknown Hyperlipidemia Mixed 08/07/2013 Overview (03/16/2020): date of onset unknown Non-ST Elevation Myocardial Infarction 3 Hypertension Essential Primary 12/14/2010 Overview (03/16/2020): Hypertension, essential NOS date of onset unknown Diabetes Mellitus Type 2 Without Complication Overview (03/16/2020): Diabetes type II NOS Date of onset unknown Nevus Choroid 03/25/2004 Pain Leg Right Radiculopathy Lumbar Encounters Date Type Department Care Team Description 07/24/2024 10:55 AM CDT Hospital Encounter Department of Cardiac Rehabilitation in [address] [phone] Tim Zamarripa M.D. Bypass Coronary Artery Graft Status Post; Prosthesis Aortic Valve 07/23/2024 Plan of Care Documentation Department of Cardiac Rehabilitation in [address] [phone] 07/22/2024 10:52 AM CDT - 07/22/2024 11:59 PM CDT Hospital Encounter Department of Cardiac Rehabilitation in [address] [phone] Tim Zamarripa M.D. Bypass Coronary Artery Graft Status Post; Prosthesis Aortic Valve Discharge Disposition: Home or Self Care 07/19/2024 Clinical Communication Department of Cardiac Rehabilitation in [address] [phone] Swapna Lux, CCRP, CEP Scheduling 07/17/2024 10:39 AM CDT - 07/17/2024 11:59 PM CDT Hospital Encounter Department of Cardiac Rehabilitation in [address] [phone] Tim Zamarripa M.D. Bypass Coronary Artery Graft Status Post; Prosthesis Aortic Valve Discharge Disposition: Home or Self Care 07/12/2024 2:00 PM CDT - 07/12/2024 11:59 PM CDT Hospital Encounter Department of Cardiac Rehabilitation in [address] [place] [phone] Tim Zamarripa M.D. Bypass Coronary Artery Graft Status Post; Prosthesis Aortic Valve Discharge Disposition: Home or Self Care 07/12/2024 2:00 PM CDT - 07/12/2024 11:59 PM CDT Hospital Encounter Department of Laboratory Medicine in [address] [phone] Joanne Serra C.N.P. Chronic Kidney Disease Discharge Disposition: Home or Self Care 07/12/2024 Clinical Communication Department of Cardiac Rehabilitation in [address] [phone] Swapna Lux CCRP, CEP Scheduling 07/05/2024 2:23 PM CDT - 07/05/2024 11:59 PM CDT Hospital Encounter Department of Cardiac Rehabilitation in [address] [phone] Tim Zamarripa M.D. Bypass Coronary Artery Graft Status Post; Prosthesis Aortic Valve Discharge Disposition: Home or Self Care 07/05/2024 Clinical Communication Department of Cardiac Rehabilitation in [address] [phone] Swapna Lux CCRP, CEP Scheduling 07/03/2024 12:54 PM CDT - 07/03/2024 11:59 PM CDT Hospital Encounter Department of Cardiac Rehabilitation in [address] [phone] Tim Zamarripa M.D. Bypass Coronary Artery Graft Status Post; Prosthesis Aortic Valve Discharge Disposition: Home or Self Care 06/28/2024 10:52 AM CDT - 06/28/2024 11:59 PM CDT Hospital Encounter Department of Cardiac Rehabilitation in [address] [phone] Tim Zamarripa M.D. Bypass Coronary Artery Graft Status Post; Prosthesis Aortic Valve Discharge Disposition: Home or Self Care 06/26/2024 10:50 AM CDT - 06/26/2024 11:59 PM CDT Hospital Encounter Department of Cardiac Rehabilitation in [address] [phone] Tim Zamarripa M.D. Bypass Coronary Artery Graft Status Post; Prosthesis Aortic Valve Discharge Disposition: Home or Self Care 06/25/2024 Plan of Care Documentation Department of Cardiac Rehabilitation in [address] [phone] 06/24/2024 12:52 PM CDT - 06/24/2024 11:59 PM CDT Hospital Encounter Department of Cardiac Rehabilitation in [address] [address] Tim Zamarripa M.D. Bypass Coronary Artery Graft Status Post; Prosthesis Aortic Valve Discharge Disposition: Home or Self Care 06/21/2024 1:45 PM CDT - 06/21/2024 11:59 PM CDT Hospital Encounter Department of Cardiac Rehabilitation in [address] [phone] Tim Zamarripa M.D. Bypass Coronary Artery Graft Status Post; Prosthesis Aortic Valve Discharge Disposition: Home or Self Care 06/21/2024 1:40 PM CDT - 06/21/2024 1:44 PM CDT Hospital Encounter Department of Laboratory Medicine in [address] [phone] Joanne Serra C.N.P. Insufficiency Renal Chronic; Hypertensive Chronic Kidney Disease With Stage 1 Through Stage 4 Chronic Kidney Disease, Or Unspecified Chronic Kidney Disease Discharge Disposition: Home or Self Care 06/21/2024 Clinical Communication Department of Cardiac Rehabilitation in [address] [phone] Swapna Lux, EAGLEP, CEP Scheduling 06/19/2024 12:53 PM CDT - 06/19/2024 11:59 PM CDT Hospital Encounter Department of Cardiac Rehabilitation in [address] [address] Tim Zamarripa M.D. Bypass Coronary Artery Graft Status Post; Prosthesis Aortic Valve Discharge Disposition: Home or Self Care 06/17/2024 12:42 PM CDT - 06/17/2024 11:59 PM CDT Hospital Encounter Department of Cardiac Rehabilitation in [address] [phone] Tim Zamarripa M.D. Bypass Coronary Artery Graft Status Post; Prosthesis Aortic Valve Discharge Disposition: Home or Self Care 06/12/2024 2:25 PM CDT - 06/12/2024 11:59 PM CDT Hospital Encounter Department of Cardiac Rehabilitation in [address] [phone] Tim Zamarripa M.D. Bypass Coronary Artery Graft Status Post; Prosthesis Aortic Valve Discharge Disposition: Home or Self Care 06/10/2024 2:21 PM CDT - 06/10/2024 11:59 PM CDT Hospital Encounter Department of Cardiac Rehabilitation in [address] [phone] Tim Zamarripa M.D. Bypass Coronary Artery Graft Status Post; Prosthesis Aortic Valve Discharge Disposition: Home or Self Care 06/07/2024 2:23 PM CDT - 06/07/2024 11:59 PM CDT Hospital Encounter Department of Cardiac Rehabilitation in [address] [phone] Tim Zamarripa M.D. Bypass Coronary Artery Graft Status Post; Prosthesis Aortic Valve Discharge Disposition: Home or Self Care 06/05/2024 2:15 PM CDT - 06/05/2024 11:59 PM CDT Hospital Encounter Department of Cardiac Rehabilitation in [address] [phone] Tim Zamarripa M.D. Bypass Coronary Artery Graft Status Post; Prosthesis Aortic Valve Discharge Disposition: Home or Self Care 06/03/2024 2:21 PM CDT - 06/03/2024 11:59 PM CDT Hospital Encounter Department of Cardiac Rehabilitation in [address] [phone] Tim Zamarripa M.D. Bypass Coronary Artery Graft Status Post; Prosthesis Aortic Valve Discharge Disposition: Home or Self Care 05/28/2024 1:00 PM CDT - 05/28/2024 11:59 PM CDT Hospital Encounter Department of Cardiac Rehabilitation in [address] [address] Tim Zamarripa M.D. Bypass Coronary Artery Graft Status Post; Prosthesis Aortic Valve Discharge Disposition: Home or Self Care 05/28/2024 Plan of Care Documentation Department of Cardiac Rehabilitation in [address] [phone] 2024 Clinical Communication Department of Cardiac Rehabilitation in [address] [address] Swapna Lux, CCRP, CEP Cardiac Rehab 2024 Orders Only Department of Cardiac Rehabilitation in [address] [address] Swapna Lux, CCRP, CEP Bypass Coronary Artery Graft Status Post (Primary Dx); Prosthesis Aortic Valve from Last 3 Months Immunizations Name Administration Dates Next Due Influenza, Unspecified 08/11/2015 Social History Tobacco Use Types Packs/Day Years [...] Sign Reading Time Taken Comments Blood Pressure 154/95 03/16/2020 11:15 AM CDT Pulse 52 03/16/2020 11:15 AM CDT Temperature 37.1 ??C (98.7 ??F) 03/16/2020 10:10 AM C DT Respiratory Rate 18 03/16/2020 10:10 AM CDT Oxygen Saturation 97% 03/16/2020 11:15 AM CDT Inhaled Oxygen Concentration - - Weight 102 kg (225 lb) 03/16/2020 10:10 AM CDT Height 182.9 cm (6') 03/16/2020 10:10 AM CDT Body Mass Index 30.52 03/16/2020 10:10 AM CDT Plan of Treatment Upcoming Encounters Date Type Department Care Team (Late st Contact Info) Description 07/26/2024 11:00 AM CDT Appointment Department of Cardiac Rehabilitation in [address] [phone] Tim Zamarripa M.D. [address] [place] [phone] Health Maintenance Due Date Last Done Comments CT Colonography 1953 Colonoscopy 1953 Diabetic Office Visit with F oot Exam 1953 FIT 1953 Hepatitis C Screening 1953 Office Visit for Blood Press ure Check / Re-check 1953 Urine Albumin 1953 Zoster Vaccines (1 of 2) 2003 Dilated Eye Exam 07/25/2006 07/25/2005, , 03/25/2004 Hepatitis B Vaccines (1 of 3 - Risk 3-dose series) 2013 Depression Screening (Annual PHQ-2) 10/30/2023 Fall Risk Screen (Annual) 10/30/2023 COVID-19 Vaccine (1 - 2023-2 5 season) 2024 Influenza Vaccine (#1) 2024 , 08/22/2019, 07/23/2018, Additional history exists Hemoglobin A1C 08/06/2024 05/06/2024, 03/30, 01/13/2021, Additional history exists Creatinine Level (Kidney Fun ction Test) 07/12/2025 07/12/2024, 06/21/2024, 06/13/2024, Additional history exists Potassium Level 07/12/2025 07/12/2024, 05/31, 06/13/2024, Additional history exists Sodium Level 07/12/2025 07/12/2024, 05/31, 06/13/2024, Additional history exists Cologuard 12/22/2025 12/22/2022, 07/18/2019 Colorectal Cancer Screening 12/22/2025 Lipid (Cholesterol) Screening 06/13/2029, 04/17/2024, 07/23/2020, Additional history exists DTaP,Tdap,and Td Vaccines (4 - Td or Tdap) 06/15/2033 06/15/2023, 01/18/2013, 04/13/2010 Pneumococcal vaccine (65+ years) Completed 07/23/2020, 10/15/2015, 08/12/2013 Procedures Procedure Name Priority Date/Time Associated Diagnosis Comments BASIC METABOLIC PANEL, S/P Routine 07/12/2024 2:06 PM CDT Chronic Kidney Disease BASIC METABOLIC PANEL, S/P Routine 06/21/2024 1:57 PM CDT Insufficiency Renal Chronic Hypertensive Chronic Kidney Disease With Stage 1 Through Stage 4 Chronic Kidney Disease, Or Unspecified Chronic Kidney Disease GLUCOSE POCT, B Routine 06/17/2024 1:44 PM CDT GLUCOSE POCT, B Routine 06/17/2024 1:04 PM CDT GLUCOSE POCT, B Routine 06/12/2024 3:17 PM CDT GLUCOSE POCT, B Routine 06/12/2024 2:37 PM CDT GLUCOSE POCT, B Routine 06/10/2024 3:16 PM CDT GLUCOSE POCT, B Routine 06/10/2024 2:37 PM CDT GLUCOSE POCT, B Routine 06/07/2024 3:15 PM CDT GLUCOSE POCT, B Routine 06/07/2024 2:39 PM CDT GLUCOSE POCT, B Routine 06/05/2024 3:13 PM CDT GLUCOSE POCT, B Routine 06/05/2024 2:38 PM CDT GLUCOSE POCT, B Routine 06/03/2024 3:15 PM CDT GLUCOSE POCT, B Routine 06/03/2024 2:37 PM CDT 6 MINUTE WALK Routine 06/03/2024 2:30 PM CDT Bypass Coronary Artery Graft Status Post OPHTHALMOLOGY IMAGE EXAM Routine 03/25/2004 12:00 PM CDT from Last 3 Months or Most Recently Relevant to Health Maintenance Results * (ABNORMAL) Basic Metabolic Panel (07/12/2024 2:06 PM CDT) Only the most recent of2 resultswithin the time period is included. Potassium, P 5.1 3.6 - 5.2 mmol/L 07/12/2024 2:25 PM CDT CNFL Sodium, P 138 135 - 145 mmol/L 07/12/2024 2:25 PM CDT CNFL Chloride, P 102 98 - 107 mmol/L 07/12/2024 2:25 PM CDT CNFL Bicarbonate, P 27 22 - 29 mmol/L 07/12/2024 2:25 PM CDT CNFL Anion Gap, P 9 7 - 15 07/12/2024 2:25 PM CDT CNFL BUN (Blood Urea Nitrogen), P 39(H) 8 - 24 mg/dL 07/12/2024 2:25 PM CDT CNFL Creatinine 1.56(H) 0.74 - 1.35 mg/dL 07/12/2024 2:25 PM CDT CNFL Estimated GFR (eGFR) 47(L) >=60 mL/min/BSA 07/12/2024 2:25 PM CDT CNFL Comment: Estimated GFR calculated using the 2020 CKD_EPI creatinine equation. Calcium, Total, P 9.4 8.8 - 10.2 mg/dL 07/12/2024 2:25 PM CDT CNFL Glucose, P 253(H) 70 - 140 mg/dL 07/12/2024 2:25 PM CDT CNFL Blood (Blood, Venous) 07/12/2024 2:06 PM CDT 07/12/2024 2:08 PM CDT Joanne Serra C.N.P. LAB BLOOD ADD- ON Performing Organization Address City/[facility]/[place] [address], [place] [address] * (ABNORMAL) Glucose, POCT (06/17/2024 1:44 PM CDT) Only the most recent of12 resultswithin the time period is included. Glucose, POCT, B 159(H) 70 - 140 mg/dL 06/17/2024 1:44 PM CDT CNFL Blood 06/17/2024 1:44 PM CDT 06/18/2024 9:[address] [facility] LAB POCT ORDERABLES- MANUAL Performing Organization Address City/[facility]/ZIP Co de Phone Number [facility] [address] [place] [address], [place] [address] * 6 MINUTE WALK (06/03/2024 2:30 PM CDT) Narrative Swapna Lux CCRP, CEP - 06/03/2024 2:30 PM CDT Swapna Lux CCRP, CEP ? 06/03/2024 ??3:48 PM Six Minute Walk Performed by: Swapna Lux, CCRP, CEP Authorized by: Tim Zamarripa M.D. ?? Were medications taken in the last 24 hours?: yes ?? PRE WALK Assistive Device: ??None 6 Min Walk Distance Type: ??Hallway Height (cm): ??183 Weight (kg): ??100 BMI: ??29.9 Resting Heart Rate: ??64 Heart Rate Source: ??Telemetry Resp Rate: Resting SpO2: ??97 Resting BP: ??126/64Supplemental Oxygen used: ??Supplemental Oxygen Not Used Jose Dyspnea: ??0 - Nothing at all Jose Fatigue: ??0 - Nothing at all Jose Rating of Perceived Exertion (RPE): ??6 - No exertion at all POST WALK Heart Rate: ??86 Heart Rate Source: ??Telemetry SpO2: ??96 BP: ??142/60 Jose Dyspnea: ??3 - Moderate Jose Fatigue: ??3 - Moderate Jose Rating of Perceived Exertion: ??13 - Somewhat Hard Time of Test: ??14:30 CDT Total Distance Walked (Feet): ??980 Total Distance Walked (Meters): ??298.7 Total # of Times Stopped: ??0 Time Stopped (Seconds): ??0 Time Walked (Seconds): ??360 CALCULATIONS Estimated MPH: ??1.9 Estimated METs: ??2.46 % of Predicted Distance: ??62.29 Tim Zamarirpa M.D. CV STRESS PROCEDUR ES * OPHTHALMOLOGY IMAGE EXAM (03/25/2004 12:00 PM CDT) Anatomical Region Laterality Modality Other 03/25/2004 12:0 0 PM CDT Addenda Addendum by Provider, Historical on 03/25/2004 12:00 PM CDT OPH^^^MCR US-Eye 03/25/2004 12:00:00 Historical Provider IMG NON RAD IMAGING PROCEDURES from Last 3 Months or Most Recently Relevant to Health Maintenance
--- OUTSIDE RECORDS SUMMARY | 2024-07-24 21:23 | XMS_ITS ---
Author Organization [facility] Address [address] [place] [address] Care Team Providers Care Ticket Taker [place] Name Role Phone Unavailable Unavailable Unavailable Surgery Details Not on file Complications Check Surgery Details section. Procedure Estimated Blood Loss Check Surgery Details section. Procedure Findings Check Surgery Details section. Procedure Specimens Taken Check Surgery Details section.
--- OUTSIDE RECORDS SUMMARY | 2024-07-24 21:23 | XMS_ITS | Encounter Summary ---
Author Organization [facility] Address [address] [place] [address] Care Team Providers Care Polygraph Operator Name Role Phone Unavailable Primary Care Provider Unavailabl e Reason for Referral * Outpatient (Routine) - Authorized Specialty Diagnoses / Procedures Referred By Annette plunkett Referred To Contact Diagnoses Bypass Coronary Artery Graft Status Post Prosthesis Aortic Valve Procedures Cardiac Rehab Program Tim Zamarripa M.D. [address] [place] [address] [facility] Region Referral ID Status Reason Start Date Expiration Date V isits Requested Visits Authorized [id number] Authorized 2024 2025 99 99 Reason for Visit * Outpatient (Routine) - Authorized Specialty Diagnoses / Procedures Referred By Annette plunkett Referred To Contact Diagnoses Bypass Coronary Artery Graft Status Post Prosthesis Aortic Valve Procedures Cardiac Rehab Program Tim Zamarripa M.D. [address] [place] [address] [facility] Region Referral ID Status Reason Start Date Expiration Date V isits Requested Visits Authorized [id number] Authorized 2024 2025 99 99 Encounter Details Date Type Department Care Team (Latest Contact Info) Description 06/28/2024 10:52 AM CDT - 06/28/2024 11:59 PM CDT Hospital Encounter Department of Cardiac Rehabilitation in [address] [place] [address] Tim Zamarripa M.D. [address] [place] [phone] Bypass Coronary Artery Graft Status Post; Prosthesis Aortic Valve Discharge Disposition: Home or Self Care Social History Tobacco Use Types Packs/Day Years [...] on file documented as of this encounter Medications at Time of Discharge Medication Sig Dispensed Refills Start Date End Date aspirin 81 mg chewable tablet Chew 81 mg. atenoloL (TENORMIN) 50 mg tablet 01/22/2020 atorvastatin (LIPITOR) 10 mg tablet 01/22/2020 glipiZIDE (GLUCOTROL) 10 mg tablet Take 10 mg by mouth. 01/17/2020 indomethacin (INDOCIN) 50 mg capsule Take 50 mg by mouth. 01/21/2020 nitroglycerin (NITROSTAT) 0.[address] 0.4 mg under the tongue. documented as of this encounter Plan of Treatment Upcoming Encounters Date Type Department Care Team (Late st Contact Info) Description 07/26/2024 11:00 AM CDT Appointment Department of Cardiac Rehabilitation in [address] [phone] Tim Zamarripa M.D. [address] [place] [phone] Scheduled Orders Name Type Priority Associated Diagnoses Orde r Schedule Cardiac Rehab Program Card Rehab Routine Bypass Coronary Artery Graft Status Post Prosthesis Aortic Valve Once for 1 Occurrences starting 06/28/2024 until 06/28/2024 documented as of this encounter Visit Diagnoses Diagnosis Bypass Coronary Artery Graft Status Post Prosthesis Aortic Valve documented in this encounter Additional Health Concerns Assessment Noted Time PHQ-9 Depression Total Score: 2 06/19/20 24 1:08 PM CDT documented as of this encounter
--- OUTSIDE RECORDS SUMMARY | 2024-07-24 21:23 | XMS_ITS | Referral Summary ---
Author Organization [facility] Address [address] [place] [address] Care Team Providers Care Cold Roller Name Role Phone Unavailable Primary Care Provider Unavailabl e Source Comments Patient records contain information from all sites at [facility]. For routine questions regarding patient records, call [phone] during business hours, M-F 8:00 AM - 5:00 PM Central Time. Record requests for emergency care only can be directed to [phone] at any time.[facility] Encounters Date Type Department Care Team Description 07/24/2024 10:55 AM CDT Hospital Encounter Department of Cardiac Rehabilitation in [address] [address] Tim Zamarripa M.D. Bypass Coronary Artery Graft Status Post; Prosthesis Aortic Valve 07/23/2024 Plan of Care Documentation Department of Cardiac Rehabilitation in [address] [phone] 07/22/2024 10:52 AM CDT - 07/22/2024 11:59 PM CDT Hospital Encounter Department of Cardiac Rehabilitation in [address] [address] Tim Zamarripa M.D. Bypass Coronary Artery Graft Status Post; Prosthesis Aortic Valve Discharge Disposition: Home or Self Care 07/19/2024 Clinical Communication Department of Cardiac Rehabilitation in [address] [address] Swapna Lux CCRP, CEP Scheduling 07/17/2024 10:39 AM CDT - 07/17/2024 11:59 PM CDT Hospital Encounter Department of Cardiac Rehabilitation in [address] [address] Tim Zamarripa M.D. Bypass Coronary Artery Graft Status Post; Prosthesis Aortic Valve Discharge Disposition: Home or Self Care 07/12/2024 Clinical Communication Department of Cardiac Rehabilitation in [address] [address] Swapna Lux CCRP, CEP Scheduling 07/12/2024 2:00 PM CDT - 07/12/2024 11:59 PM CDT Hospital Encounter Department of Cardiac Rehabilitation in [address] [address] Tim Zamarripa M.D. Bypass Coronary Artery Graft Status Post; Prosthesis Aortic Valve Discharge Disposition: Home or Self Care 07/12/2024 2:00 PM CDT - 07/12/2024 11:59 PM CDT Hospital Encounter Department of Laboratory Medicine in [address] [address] Joanne Serra C.NDionnaP. Chronic Kidney Disease Discharge Disposition: Home or Self Care 07/05/2024 Clinical Communication Department of Cardiac Rehabilitation in [address] [address] Swapna Lux CCRP, CEP Scheduling 07/05/2024 2:23 PM CDT - 07/05/2024 11:59 PM CDT Hospital Encounter Department of Cardiac Rehabilitation in [address] [address] Tim Zamarripa M.D. Bypass Coronary Artery Graft Status Post; Prosthesis Aortic Valve Discharge Disposition: Home or Self Care 07/03/2024 12:54 PM CDT - 07/03/2024 11:59 PM CDT Hospital Encounter Department of Cardiac Rehabilitation in [address] [address] Tim Zamarripa M.D. Bypass Coronary Artery Graft Status Post; Prosthesis Aortic Valve Discharge Disposition: Home or Self Care 06/28/2024 10:52 AM CDT - 06/28/2024 11:59 PM CDT Hospital Encounter Department of Cardiac Rehabilitation in [address] [address] Tim Zamarripa M.D. Bypass Coronary Artery Graft Status Post; Prosthesis Aortic Valve Discharge Disposition: Home or Self Care 06/26/2024 10:50 AM CDT - 06/26/2024 11:59 PM CDT Hospital Encounter Department of Cardiac Rehabilitation in [address] [address] Tim Zamarripa M.D. Bypass Coronary Artery Graft Status Post; Prosthesis Aortic Valve Discharge Disposition: Home or Self Care 06/25/2024 Plan of Care Documentation Department of Cardiac Rehabilitation in [address] [address] 06/24/2024 12:52 PM CDT - 06/24/2024 11:59 PM CDT Hospital Encounter Department of Cardiac Rehabilitation in [address] [address] Tim Zamarripa M.D. Bypass Coronary Artery Graft Status Post; Prosthesis Aortic Valve Discharge Disposition: Home or Self Care 06/21/2024 Clinical Communication Department of Cardiac Rehabilitation in [address] [address] Swapna Lux, EAGLEP, CEP Scheduling 06/21/2024 1:40 PM CDT - 06/21/2024 1:44 PM CDT Hospital Encounter Department of Laboratory Medicine in [address] [address] Joanne Serra C.N.P. Insufficiency Renal Chronic; Hypertensive Chronic Kidney Disease With Stage 1 Through Stage 4 Chronic Kidney Disease, Or Unspecified Chronic Kidney Disease Discharge Disposition: Home or Self Care 06/21/2024 1:45 PM CDT - 06/21/2024 11:59 PM CDT Hospital Encounter Department of Cardiac Rehabilitation in [address] [address] Tim Zamarripa M.D. Bypass Coronary Artery Graft Status Post; Prosthesis Aortic Valve Discharge Disposition: Home or Self Care 06/19/2024 12:53 PM CDT - 06/19/2024 11:59 PM CDT Hospital Encounter Department of Cardiac Rehabilitation in [address] [address] Tim Zamarripa M.D. Bypass Coronary Artery Graft Status Post; Prosthesis Aortic Valve Discharge Disposition: Home or Self Care 06/17/2024 12:42 PM CDT - 06/17/2024 11:59 PM CDT Hospital Encounter Department of Cardiac Rehabilitation in [address] [address] Tim Zamarripa M.D. Bypass Coronary Artery Graft Status Post; Prosthesis Aortic Valve Discharge Disposition: Home or Self Care 06/12/2024 2:25 PM CDT - 06/12/2024 11:59 PM CDT Hospital Encounter Department of Cardiac Rehabilitation in [address] [address] Tim Zamarripa M.D. Bypass Coronary Artery Graft Status Post; Prosthesis Aortic Valve Discharge Disposition: Home or Self Care 06/10/2024 2:21 PM CDT - 06/10/2024 11:59 PM CDT Hospital Encounter Department of Cardiac Rehabilitation in [address] [address] Tim Zamarripa M.D. Bypass Coronary Artery Graft Status Post; Prosthesis Aortic Valve Discharge Disposition: Home or Self Care 06/07/2024 2:23 PM CDT - 06/07/2024 11:59 PM CDT Hospital Encounter Department of Cardiac Rehabilitation in [address] [address] Tim Zamarripa M.D. Bypass Coronary Artery Graft Status Post; Prosthesis Aortic Valve Discharge Disposition: Home or Self Care 06/05/2024 2:15 PM CDT - 06/05/2024 11:59 PM CDT Hospital Encounter Department of Cardiac Rehabilitation in [address] [address] Tim Zamarripa M.D. Bypass Coronary Artery Graft Status Post; Prosthesis Aortic Valve Discharge Disposition: Home or Self Care 06/03/2024 2:21 PM CDT - 06/03/2024 11:59 PM CDT Hospital Encounter Department of Cardiac Rehabilitation in [address] [address] Tim Zamarripa M.D. Bypass Coronary Artery Graft Status Post; Prosthesis Aortic Valve Discharge Disposition: Home or Self Care 05/28/2024 Plan of Care Documentation Department of Cardiac Rehabilitation in [address] [address] 05/28/2024 1:00 PM CDT - 05/28/2024 11:59 PM CDT Hospital Encounter Department of Cardiac Rehabilitation in [address] [address] Tim Zamarripa M.D. 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 [address] [place] [phone] Procedures Procedure Name Priority Date/Time Associated Diagnosis [...] Joanne Serra C.N.P. LAB BLOOD ADD- ON [facility] [address] [place] [address], [facility] in [address] [address] * (ABNORMAL) Glucose, POCT (06/17/2024 1:44 PM CDT) Only the most recent of12 resultswithin the time period is included. Glucose, POCT, B 159(H) 70 - 140 mg/dL 06/17/2024 1:44 PM CDT CNFL Blood 06/17/2024 1:44 PM CDT 06/18/2024 9:00 AM CDT Generic Rals LAB POCT ORDERABLES- MANUAL [facility] [address] [place], [place] [id number], [place] [address] * 6 MINUTE WALK (06/03/2024 2:30 PM CDT) Narrative Swapna Lux, CCRP, CEP - 06/03/2024 2:30 PM CDT Swapna Lux CCRP, FADY ? 06/03/2024 ??3:48 PM Six Minute Walk Performed by: Swapna Lux CCRP, FADY Authorized by: Tim Zamarripa M.D. ?? Were [...] ??2.46 % of Predicted Distance: ??62.29 Tim Zamarripa M.D. CV STRESS PROCEDUR ES * OPHTHALMOLOGY IMAGE EXAM (03/25/2004 12:00 PM CDT) Anatomical Region Laterality Modality Other 03/25/2004 12:0 0 PM CDT Addenda Addendum by Provider, Historical on 03/25/2004 12:00 PM CDT OPH^^^MCR US-Eye 03/25/2004 12:00:00 Historical Provider IMG NON RAD IMAGING PROCEDURES from Last 3 Months or Most Recently Relevant to Health Maintenance
--- OUTSIDE RECORDS SUMMARY | 2024-07-24 21:23 | XMS_ITS | Encounter Summary ---
Author Organization [facility] Address [address] [place] [address] Care Team Providers Care Diet Consultant Name Role Phone Unavailable Primary Care Provider Unavailabl e Reason for Referral * Outpatient (Routine) - Authorized Specialty Diagnoses / Procedures Referred By Annette plunkett Referred To Contact Diagnoses Bypass Coronary Artery Graft Status Post Prosthesis Aortic Valve Procedures Cardiac Rehab Program Tim Zamarripa M.D. [address] [place] [address] [facility] Region Referral ID Status Reason Start Date Expiration Date V isits Requested Visits Authorized [id number] Authorized 2024 2025 99 99 Reason for Visit * Outpatient (Routine) - Authorized Specialty Diagnoses / Procedures Referred By Annette plunkett Referred To Contact Diagnoses Bypass Coronary Artery Graft Status Post Prosthesis Aortic Valve Procedures Cardiac Rehab Program Tim Zamarripa M.D. [address] [place] [address] [facility] Region Referral ID Status Reason Start Date Expiration Date V isits Requested Visits Authorized [id number] Authorized 2024 2025 99 99 Encounter Details Date Type Department Care Team (Latest Contact Info) Description 07/12/2024 2:00 PM CDT - 07/12/2024 11:59 PM CDT Hospital Encounter Department of Cardiac Rehabilitation in [address] [place] [address] Tim Zamarripa M.D. [address] [phone] Bypass Coronary Artery Graft Status Post; Prosthesis [...] CDT Appointment Department of Cardiac Rehabilitation in [address] [address] Tim Zamarripa M.D. [address] [place] [address] Scheduled Orders Name Type Priority Associated Diagnoses Orde r Schedule Cardiac Rehab Program Card Rehab Routine Bypass Coronary Artery Graft Status Post Prosthesis Aortic Valve Once for 1 Occurrences starting 07/12/2024 until 07/12/2024 documented as of this encounter Visit Diagnoses Diagnosis Bypass Coronary Artery Graft Status Post Prosthesis Aortic Valve documented in this encounter Additional Health Concerns Assessment Noted Time PHQ-9 Depression Total Score: 2 06/19/20 24 1:08 PM CDT documented as of this encounter
--- OUTSIDE RECORDS SUMMARY | 2024-07-24 21:23 | XMS_ITS | Encounter Summary ---
Author Organization [facility] Address [address] [place] [address] Care Team Providers Care Yard Assistant Name Role Phone Unavailable Primary Care Provider Unavailabl e Reason for Referral * Outpatient (Routine) - Authorized Specialty Diagnoses / Procedures Referred By Annette plunkett Referred To Contact Diagnoses Bypass Coronary Artery Graft Status Post Prosthesis Aortic Valve Procedures Cardiac Rehab Program Tim Zamarripa M.D. [address] [place] [address] [facility] Region Referral ID Status Reason Start Date Expiration Date V isits Requested Visits Authorized [id number] Authorized 2024 2025 99 99 Reason for Visit * Outpatient (Routine) - Authorized Specialty Diagnoses / Procedures Referred By Annette plunkett Referred To Contact Diagnoses Bypass Coronary Artery Graft Status Post Prosthesis Aortic Valve Procedures Cardiac Rehab Program Tim Zamarripa M.D. [address] [place] [address] [facility] Region Referral ID Status Reason Start Date Expiration Date V isits Requested Visits Authorized [id number] Authorized 2024 2025 99 99 Encounter Details Date Type Department Care Team (Latest Contact Info) Description 07/17/2024 10:39 AM CDT - 07/17/2024 11:59 PM CDT Hospital Encounter Department of Cardiac Rehabilitation in [address] [place] [address] Tim Zamarripa M.D. [address] [place] [phone] Bypass Coronary Artery Graft Status Post; Prosthesis [...] CDT Appointment Department of Cardiac Rehabilitation in [address] [address] Tim Zamarripa M.D. [address] [place] [address] Scheduled Orders Name Type Priority Associated Diagnoses Orde r Schedule Cardiac Rehab Program Card Rehab Routine Bypass Coronary Artery Graft Status Post Prosthesis Aortic Valve Once for 1 Occurrences starting 07/17/2024 until 07/17/2024 documented as of this encounter Visit Diagnoses Diagnosis Bypass Coronary Artery Graft Status Post Prosthesis Aortic Valve documented in this encounter Additional Health Concerns Assessment Noted Time PHQ-9 Depression Total Score: 2 06/19/20 24 1:08 PM CDT documented as of this encounter
--- OUTSIDE RECORDS SUMMARY | 2024-07-24 21:23 | XMS_ITS | Encounter Summary ---
Author Organization [facility] Address [address] [place] [address] Care Team Providers Care Scorer Helper Name Role Phone Unavailable Primary Care Provider Unavailabl e Reason for Referral * Outpatient (Routine) - Authorized Specialty Diagnoses / Procedures Referred By Annette plunkett Referred To Contact Diagnoses Bypass Coronary Artery Graft Status Post Prosthesis Aortic Valve Procedures Cardiac Rehab Program Tim Zamarripa M.D. [address] [place] [address] [facility] Region Referral ID Status Reason Start Date Expiration Date V isits Requested Visits Authorized [id number] Authorized 2024 2025 99 99 Reason for Visit * Outpatient (Routine) - Authorized Specialty Diagnoses / Procedures Referred By Annette plunkett Referred To Contact Diagnoses Bypass Coronary Artery Graft Status Post Prosthesis Aortic Valve Procedures Cardiac Rehab Program Tim Zamarripa M.D. [address] [place] [address] [facility] Region Referral ID Status Reason Start Date Expiration Date V isits Requested Visits Authorized [id number] Authorized 2024 2025 99 99 Encounter Details Date Type Department Care Team (Latest Contact Info) Description 07/22/2024 10:52 AM CDT - 07/22/2024 11:59 PM CDT Hospital Encounter Department of Cardiac Rehabilitation in [address] [place] [address] Tim Zamarripa M.D. [address] [place] [phone] Bypass Coronary Artery Graft Status Post; Prosthesis [...] CDT Appointment Department of Cardiac Rehabilitation in [address] [address] Tim Zamarripa M.D. [address] [place] [address] Scheduled Orders Name Type Priority Associated Diagnoses Orde r Schedule Cardiac Rehab Program Card Rehab Routine Bypass Coronary Artery Graft Status Post Prosthesis Aortic Valve Once for 1 Occurrences starting 07/22/2024 until 07/22/2024 documented as of this encounter Visit Diagnoses Diagnosis Bypass Coronary Artery Graft Status Post Prosthesis Aortic Valve documented in this encounter Additional Health Concerns Assessment Noted Time PHQ-9 Depression Total Score: 2 06/19/20 24 1:08 PM CDT documented as of this encounter
--- OUTSIDE RECORDS SUMMARY | 2024-07-24 21:23 | XMS_ITS | Encounter Summary ---
Author Organization [facility] Address [address] [place] [address] Care Team Providers Care Recovery Specialist Name Role Phone Unavailable Primary Care Provider Unavailabl e Encounter Details Date Type Department Care Team (Late st Contact Info) Description 07/12/2024 2:00 PM CDT - 07/12/2024 11:59 PM CDT Hospital Encounter Department of Laboratory Medicine in [address] [address] Joanne Serra, C.N.P. [address] [place] [phone] Chronic Kidney Disease Discharge Disposition: Home or Self Care Social [...] Appointment Department of Cardiac Rehabilitation in [address] [address] Tim Zamarripa M.D. [address] [place] [phone] documented as of this encounter Procedures Procedure Name Priority Date/Time Associated Diagnosis Comments BASIC METABOLIC PANEL, S/P Routine 07/12/2024 2:06 PM CDT Chronic Kidney Disease documented in this encounter Results * (ABNORMAL) Basic Metabolic Panel (07/12/2024 2:06 PM CDT) Potassium, P 5.1 3.6 - 5.2 mmol/L [...] LAB BLOOD ADD- ON Performing Organization Address City/State/[facility] Co de Phone Number [facility] [address] [place] [address], [facility] CNFL [facility] [place] [address] documented in this encounter Visit Diagnoses Diagnosis Chronic Kidney Disease documented in this encounter Additional Health Concerns Assessment Noted Time PHQ-9 Depression Total Score: 2 06/19/20 24 1:08 PM CDT documented as of this encounter
--- OUTSIDE RECORDS SUMMARY | 2024-07-24 21:23 | XMS_ITS | Encounter Summary ---
Author Organization [facility] Address [address] [place] [address] Care Team Providers Care Webbing Weaver Name Role Phone Unavailable Primary Care Provider Unavailabl e Reason for Referral * Outpatient (Routine) - Authorized Specialty Diagnoses / Procedures Referred By Annette plunkett Referred To Contact Diagnoses Bypass Coronary Artery Graft Status Post Prosthesis Aortic Valve Procedures Cardiac Rehab Program Tim Zamarripa M.D. [address] [place] [address] [facility] Region Referral ID Status Reason Start Date Expiration Date V isits Requested Visits Authorized [id number] Authorized 2024 2025 99 99 Reason for Visit * Outpatient (Routine) - Authorized Specialty Diagnoses / Procedures Referred By Annette plunkett Referred To Contact Diagnoses Bypass Coronary Artery Graft Status Post Prosthesis Aortic Valve Procedures Cardiac Rehab Program Tim Zamarripa M.D. [address] [place] [address] [facility] Region Referral ID Status Reason Start Date Expiration Date V isits Requested Visits Authorized [id number] Authorized 2024 2025 99 99 Encounter Details Date Type Department Care Team (Latest Contact Info) Description 07/24/2024 10:55 AM CDT Hospital Encounter Department of Cardiac Rehabilitation in [address] [phone] Tim Zamarripa M.D. [address] [place] [address] Bypass Coronary Artery Graft Status Post; Prosthesis Aortic Valve Social History Tobacco Use Types Packs/Day Years [...] CDT Appointment Department of Cardiac Rehabilitation in [address] [phone] Tim Zamarripa M.D. [address] [place] [phone] Scheduled Orders Name Type Priority Associated Diagnoses Orde r Schedule Cardiac Rehab Program Card Rehab Routine Bypass Coronary Artery Graft Status Post Prosthesis Aortic Valve Once for 1 Occurrences starting 07/24/2024 until 07/24/2024 documented as of this encounter Visit Diagnoses Diagnosis Bypass Coronary Artery Graft Status Post Prosthesis Aortic Valve documented in this encounter Additional Health Concerns Assessment Noted Time PHQ-9 Depression Total Score: 2 06/19/20 24 1:08 PM CDT documented as of this encounter
--- OUTSIDE RECORDS SUMMARY | 2024-07-24 21:23 | XMS_ITS | Encounter Summary ---
Author Organization [facility] Address [address] [place] [address] Care Team Providers Care Fitter Mechanic Name Role Phone Unavailable Primary Care Provider Unavailabl e Reason for Referral * Outpatient (Routine) - Authorized Specialty Diagnoses / Procedures Referred By Annette plunkett Referred To Contact Diagnoses Bypass Coronary Artery Graft Status Post Prosthesis Aortic Valve Procedures Cardiac Rehab Program Tim Zamarripa M.D. [address] [place] [address] [facility] Region Referral ID Status Reason Start Date Expiration Date V isits Requested Visits Authorized [id number] Authorized 2024 2025 99 99 Reason for Visit * Outpatient (Routine) - Authorized Specialty Diagnoses / Procedures Referred By Annette plunkett Referred To Contact Diagnoses Bypass Coronary Artery Graft Status Post Prosthesis Aortic Valve Procedures Cardiac Rehab Program Tim Zamarripa M.D. [address] [place] [address] [facility] Region Referral ID Status Reason Start Date Expiration Date V isits Requested Visits Authorized [id number] Authorized 2024 2025 99 99 Encounter Details Date Type Department Care Team (Latest Contact Info) Description 06/26/2024 10:50 AM CDT - 06/26/2024 11:59 PM CDT Hospital Encounter Department of Cardiac Rehabilitation in [address] [place] [address] Tim Zamarripa M.D. [address] [place] [phone] Bypass Coronary Artery Graft Status Post; Prosthesis [...] CDT Appointment Department of Cardiac Rehabilitation in [address] [phone] Tim Zamarripa M.D. [address] [place] [address] Scheduled Orders Name Type Priority Associated Diagnoses Orde r Schedule Cardiac Rehab Program Card Rehab Routine Bypass Coronary Artery Graft Status Post Prosthesis Aortic Valve Once for 1 Occurrences starting 06/26/2024 until 06/26/2024 documented as of this encounter Visit Diagnoses Diagnosis Bypass Coronary Artery Graft Status Post Prosthesis Aortic Valve documented in this encounter Additional Health Concerns Assessment Noted Time PHQ-9 Depression Total Score: 2 06/19/20 24 1:08 PM CDT documented as of this encounter
--- OUTSIDE RECORDS SUMMARY | 2024-07-24 21:23 | XMS_ITS | Encounter Summary ---
Author Organization [facility] Address [address] [place] [address] Care Team Providers Care Hospital Admissions Clerk Name Role Phone Unavailable Primary Care Provider Unavailabl e Reason for Referral * Outpatient (Routine) - Authorized Specialty Diagnoses / Procedures Referred By Annette plunkett Referred To Contact Diagnoses Bypass Coronary Artery Graft Status Post Prosthesis Aortic Valve Procedures Cardiac Rehab Program Tim Zamarripa M.D. [address] [place] [address] [facility] Region Referral ID Status Reason Start Date Expiration Date V isits Requested Visits Authorized [id number] Authorized 2024 2025 99 99 Reason for Visit * Outpatient (Routine) - Authorized Specialty Diagnoses / Procedures Referred By Annette plunkett Referred To Contact Diagnoses Bypass Coronary Artery Graft Status Post Prosthesis Aortic Valve Procedures Cardiac Rehab Program Tim Zamarripa M.D. [address] [place] [address] [facility] Region Referral ID Status Reason Start Date Expiration Date V isits Requested Visits Authorized [id number] Authorized 2024 2025 99 99 Encounter Details Date Type Department Care Team (Latest Contact Info) Description 07/05/2024 2:23 PM CDT - 07/05/2024 11:59 PM CDT Hospital Encounter Department of Cardiac Rehabilitation in [address] [place] [address] Tim Zamarripa M.D. [address] [place] [phone] Bypass Coronary Artery Graft Status Post; Prosthesis [...] Appointment Department of Cardiac Rehabilitation in [address] [address] Tim Zamarripa M.D. [address] [place] [phone] Scheduled Orders Name Type Priority Associated Diagnoses Orde r Schedule Cardiac Rehab Program Card Rehab Routine Bypass Coronary Artery Graft Status Post Prosthesis Aortic Valve Once for 1 Occurrences starting 07/05/2024 until 07/05/2024 documented as of this encounter Visit Diagnoses Diagnosis Bypass Coronary Artery Graft Status Post Prosthesis Aortic Valve documented in this encounter Additional Health Concerns Assessment Noted Time PHQ-9 Depression Total Score: 2 06/19/20 24 1:08 PM CDT documented as of this encounter
--- OUTSIDE RECORDS SUMMARY | 2024-07-24 21:23 | XMS_ITS | Encounter Summary ---
Author Organization [facility] Address [address] [place] [address] Care Team Providers Care Accounting Advisory Services Manager Name Role Phone Unavailable Primary Care Provider Unavailabl e Encounter Details Date Type Department Care Team (Latest Contact Info) Description 06/25/2024 Plan of Care Documentation Department of Cardiac Rehabilitation in [address] [place] [phone] Social History Tobacco Use Types Packs/Day Years [...] Care - Swapna Lux, CCRP, CEP - 06/25/2024 1:42 PM CDT Images from the original note were not included. Mr. Knapp (69 y.o., : 1955, ) was referred to the [facility] on 05/14/2024, by Referred by Judith BELLAMY ([facility]); order signed by Dr.Tyler Zamarripa and has completed 9 sessions out of the 36 prescribed. PCP: No primary care provider on file. Rip Tailer: Henrietta Obrien P.A.-C. Program: Cardiac Rehab Phase II Type: Center-Based Intake Date: 05/28/2024 Date of Enrollment: 06/03/2024 Primary Diagnosis: CABG 05/07/2024 Secondary Diagnosis: Valve 05/07/2024 AACVPR Risk: Low 05/28/2024 06/25/2024 Symptoms ITP Inclusion: Symptoms Initial Reassessment Synopsis Pt was referred for CR following CABGx3, AVR, s/p MAZE and LAAL on 05/07 at [facility].Leading up to cardiac surgery pt had been [...] has a f/u visit scheduledwith [facility] at [facility] on 06[facility]13. He does have a cardiac [...] CVD Dr. Salmon later this week 06/27. Cardiovascular Symptoms Shortness of Breath;Fatigue None Home O2 Use No No Ejection Fraction Date 05/14/2024 Ejection Fraction (EF) % 65 % Other Education Documentation No documentation found. Exercise Assessment 06/19/2024 DASI Calculations Estimated V02 Peak 16.24 Estimated MET Level 4.64 Six Minute Walk 06/03/2024 Total Distance Walked (Meters) 298.7 Estimated METs 2.46 % of Predicted Distance 62.29 Comments 05/28/2024 06/24/2024 06/25/2024 Exercise Assessment ITP Inclusion: Exercise Assessment Initial Reassessment Reassessment Resting HR (Telemetry) 75 Resting Pulse 82 Pulse Rate Source Pulse oximetry Cardiac Rhythm SR;Other (Comment);A-fib Hx of pAfib (s/p MAZE and LAAL procedure, on Eliquis and amiodarone taper) SR;Other (Comment);A-fib Hx of pAfib (s/p MAZE and LAAL procedure, on Eliquis and amiodarone taper) Exercise Limitations Yes Yes Limitation Description Sternal precautions 10 lb wt limit until 07/08, then can increase to 20 lbs until 08/07 Sternal precautions 10 lb wt limit until 07/08, then can increase to 20 lbs until 08/07 Action Taken Will monitor sternal discomfort and progress workloads as tolerated Will continue to monitor sternal discomfort and progress workloads as tolerated Assistive Device None None Peak METs 3.2 Aerobic Minutes per Day (Home) 0 minutes 0 minutes Aerobic Days per Week (Home) 0 Days 0 Days Aerobic Minutes per Day (Rehab) 0 minutes 39 minutes Aerobic Days per Week (Rehab) 0 Days 3 Days Aerobic Minutes per Week 0 117 Strength Training Days per Week 0 Days Flexibility Training Days per Week 0 05/28/2024 06/25/2024 Exercise Prescription Frequency of Sessions Weekly Weekly Sessions per week 3-5 3-5 Intensity Work at a level that is comfortable but also challenging Work at a level that is comfortable but also challenging Rating of Perceived Exertion range (RPE): 11-14 11-14 Warm Up Minutes: 2-5 2-5 Aerobic exercise minutes: 20-25 30-40 Cool Down minutes: 2-5 2-5 Goal Minutes/session Work up to 30 mins 30+ Goal Minutes/Week Work up to 150 mins 150+ Rehab Aerobic Exercise Equipment Treadmill;Recumbent stepper (with or without arms) Treadmill;Recumbent stepper (with or without arms);Arm Ergometer Non-Rehab Aerobic Exercise Equipment Walking Walking Progression Use RPE to guide when to increase work level intensity and duration;Increase 1-5 minutes each session, as tolerated;Follow/match rehab intensity Use RPE to guide when to increase work level intensity and duration;Increase 1-5 minutes each session, as tolerated;Follow/match rehab intensity Flexibility and Balance Stretch major muscle groups daily Stretch major muscle groups daily Sternal precautions Yes Yes [...] if you are taking prescription pain medicine Strength Training Calisthenics Calisthenics Number of strength sessions per week: 2-3 5-7 Weight: 0 Reps: 10 10-15 Sets: 1 1 Hobbies/Activities Avoid prolonged sitting Avoid prolonged sitting 05/28/2024 06/25/2024 Exercise Plan Goals Compliance to on-site program;Compliance to home program;Improve exercise tolerance;Increase exercise duration;Increase exercise intensity;Increase frequency of exercise;Establish independent exercise routine Compliance to on- site program;Compliance to home program;Improve exercise tolerance;Increase exercise duration;Increase exercise intensity;Increase frequency of exercise;Establish independent exercise routine Interventions Facility orientation;Equipment instruction;Review of signs/symptoms to report;Exercise/activity guidelines;Therapist Discussion Facility orientation;Equipment instruction;Review of signs/symptoms to report;Exercise/activity guidelines;Therapist Discussion Progress Toward Goals Since surgery [...] the TM, will adjust workloads as tolerated. Exercise Education Documentation Individualized ExRx, taught by Swapna Lux CCRP, CEP at 06/25/2024 1:41 PM. Learner: Patient Readiness: Acceptance Method: Explanation Response: Able to Teach Back Risk Factors For Heart Disease [id number], taught by Swapna Lux CCRP, CEP at 06/25/2024 1:41 PM. Learner: Patient Readiness: Acceptance Method: Explanation Response: Able to Teach Back Cardiac Rehab Program Expectations, taught by Swapna Lux CCRP, CEP at 05/28/2024 3:07 PM. Learner: Patient Readiness: Acceptance Method: Explanation Response: Able to Teach Back Calisthenics, taught by Swapna Lux CCRP, CEP at 05/28/2024 3:07 PM. Learner: Patient Readiness: Acceptance Method: Explanation Response: Able to Teach Back Nutrition Assessment 06/19/2024 Picture Your Plate Total Score 59 Total Score Interpretation A PYP score of 51-60 indicates a more healthful dietary pattern, with some room for improvement 05/28/2024 06/24/2024 06/25/2024 Nutrition Assessment ITP Inclusion: Nutrition Assessment Initial Reassessment Reassessment Height 182.9 cm 182.9 cm Weight 99.5 kg 101 kg BMI 29.74 30.19 Dietary Recommendations Low Salt;Diabetic;Low Fat/ Low Cholesterol Low Salt;Diabetic;Low Fat/ Low Cholesterol Low Salt Amount 2000 mg 2000 mg Appetite Good Good 05/28/2024 06/25/2024 Plan Goals Increase fruit intake;Increase vegetable intake;Decrease simple sugar intake;Decrease overallportions;Compliance with dietary guidelines;Reduce saturated fat intake;Limit sodium intake Increase fruit intake;Increase vegetable intake;Decrease simple sugar intake;Decrease overall portions;Compl iance with dietary guidelines;Reduce saturated fat intake;Limit sodium intake Limit sodium intake to 2000 mg 2000 mg Interventions Discussion on identifying/incorporating diet changes;Discussion on [...] daughters are nurses and 1 is a dietetic technician registered so they've been good support and resources [...] fried chicken sandwich [facility] lunch from [facility] prior to rehab. He's demonstrated growth in understanding of the impact carbs has on his BS. Will continue toprovide education and resources as needed. Nutrition Education Documentation Risk Factors For Heart Disease [id number], taught by Swapna Lux, CCRP, CEP at 06/25/2024 1:41 PM. Learner: Patient Readiness: Acceptance Method: Explanation Response: Able to Teach Back Psychosocial Assessment 06/19/2024 PHQ-9 PHQ-9 Total Score (max 27) 2 PHQ-9 Interpretation None to minimal depression 06/19/2024 [facility] Total Score 23 05/28/2024 06/25/2024 Psychosocial Assessment ITP Inclusion: Psychosocial Initial Reassessment Social Determinants of Health have been reviewed. For high-risk areas identified, a plan of treatment and follow-up information will be documented in appropriate areas within the ITP Yes Yes Current Medication Therapy No No Current Issues Other (comment) Other (comment) Comment Frustration Frustration Patient Stress Factors Health changes Health changes Needs Expressed Physical Denies 05/28/2024 06/25/2024 Plan Goals Continue to use effective stress management techniques;Utilize a support system;Effective stress management;Improved used of coping strategies;Return to leisure and social activities;Demonstrate self-management strategies;Normailize sleep patterns Continue to use effective stress management techniques;Utilize a support system;Effective stress management;Improved used of coping strategies;Return to leisure and social activities;Demonstrate self-management strategies;Normailize sleep patterns Interventions Discussed/reviewed current coping [...] 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 Sleep has been improving since he's [...] concerns with sleep quality at this time. Psychosocial Education Documentation No documentation found. Other Core Components Hypertension Assessment 05/28/2024 06/24/2024 06/25/2024 Hypertension ITP Inclusion: Hypertension Assessment Initial Reassessment Reassessment History of Hypertension Yes Yes Current Medication Therapy Yes Yes Hypertension Medications metoprolol metoprolol, lasix Blood Pressure 138/60 Resting BP (Telemetry) 126/58 05/28/2024 06/25/2024 Plan Goals Stable BP response;BP at physician prescribed goal;Continue lifestyle choices for optimal blood pressure changes;Decrease sodium intake;Medication compliance;Monitor BP at home Stable BP response;BP at physician prescribed goal;Continue lifestyle choices for optimal blood pressure changes;Decrease sodium intake;Medication compliance;Monitor BP at home Interventions Therapist discussion Therapist discussion Progress Toward Goals [...] retention. No reports of lightheadedness/dizziness since intake. Hypertension Education Documentation Risk Factors For Heart Disease [id number], taught by Swapna Lux, CCRP, CEP at 06/25/2024 1:41 PM. Learner: Patient Readiness: Acceptance Method: Explanation Response: Able to Teach Back Hyperlipidemia Assessment 05/28/2024 06/25/2024 Hyperlipidemia Assessment History of Hyperlipidemia Yes Yes Current Medication Therapy Yes Yes Hyperlipidemia Medications Atorvastatin (recently increased dose to 40mg) Atorvastatin Lipids 04/17/2024 06/13/2024 6:07 AM 2:31 PM CHOL 203 109 TRIG 168 165 HDL 51 53 TTLCHOLHDLRT 3.98 2.06 05/28/2024 06/25/2024 Plan Goals Improve lipids;Lipids in optimal range;Understand current lipid profile;Decrease dietary trans fats/saturated fats/cholesterol;Increase aerobic exercise;Medication compliance;Continue lifestylechoices for optimal lipid management Improve lipids;Lipids in optimal range;Understand current lipid profile;Decrease dietary trans fats/saturated fats/cholesterol;Increase aerobic exercise;Medication compliance;Continue lifestyle choices for optimal lipid management Interventions Therapist discussion;Review lipid profile;Discussion on hyperlipidemia medications Therapist discussion;Review lipid profile;Discussion on hyperlipidemia medications Progress Toward Goals Pt [...] will continue to provide recommmendations and encouragement. Hyperlipidemia Education Documentation Risk Factors For Heart Disease [id number], taught by Swapna Lux, CCRP, CEP at 06/25/2024 1:41 PM. Learner: Patient Readiness: Acceptance Method: Explanation Response: Able to Teach Back Education Comments No comments found. Diabetes Assessment 05/28/2024 06/25/2024 Diabetes History of Diabetes Diabetes Type II Diabetes Type II Current Medication Therapy Yes Yes Current Medication Therapy Jardiance, 30 units Lantus insulin Jardiance, 30 units Lantus insulin Do you monitor your blood glucose at home? No No Diabetic Labs 06/12/2024 06/12/2024 06/17/2024 06/17/2024 2:37 PM 3:17 PM 1:04 PM 1:44 PM POC GLUCOSE 133 113 172 159 05/28/2024 06/25/2024 Plan Goals Fasting blood glucose In optimal [...] ate a fried chicken sandwich at the critical access hospital just prior to that visit. Education was provided and pt has verablized growth in understanding of dietary impacts onhis BS. Otherwise, pts BS have been stable. He has not yet resumed checking at home and is hoping to check with his PCP about a Rx for a CGM now that he is taking insulin. Diabetes Education Documentation No documentation found. Tobacco Assessment 05/28/2024 Tobacco Assessment Smoking Status Never - no goals/interventions indicated Social History Tobacco Use Smoking Status Never Smokeless Tobacco Never Tobacco Education Documentation No documentation found. Heart Failure Assessment 05/28/2024 Heart Failure Assessment History of Heart Failure No, no goals / interventions indicated Heart Failure Education Documentation No documentation found. Medication Compliance Assessment 05/28/2024 06/25/2024 Medications Have you been compliant with all medications? Yes Yes 05/28/2024 06/25/2024 Plan Goals Medication compliance;Knowledge of medication Medication compliance;Knowledge of medication Interventions Medication review;Therapist discussion Medication review;Therapist discussion Progress [...] Appointment Department of Cardiac Rehabilitation in [address] [phone] Tim Zamarripa M.D. [address] [facility] [place] [phone] documented as of this encounter Visit Diagnoses Not on filedocumented in this encounter Additional Health Concerns Assessment Noted Time PHQ-9 Depression Total Score: 2 06/19/20 24 1:08 PM CDT documented as of this encounter
--- OUTSIDE RECORDS SUMMARY | 2024-07-24 21:23 | XMS_ITS | Encounter Summary ---
Author Organization [facility] Address [address] [place] [address] Care Team Providers Care Jacquard Fixer Name Role Phone Unavailable Primary Care Provider Unavailabl e Reason for Visit * Reason Onset Date Comments Scheduling 07/19/2024 Encounter Details Date Type Department Care Team (Late st Contact Info) Description 07/19/2024 Clinical Communication Department of Cardiac Rehabilitation in [address] [phone] Swapna Lux, CCRP, [facility] Scheduling Social History Tobacco Use Types Packs/Day [...] Appointment Department of Cardiac Rehabilitation in [address] [phone] Tim Zamarripa M.D. [address] [place] [phone] documented as of this encounter Visit Diagnoses Not on filedocumented in this encounter Additional Health Concerns Assessment Noted Time PHQ-9 Depression Total Score: 2 06/19/20 24 1:08 PM CDT documented as of this encounter
--- OUTSIDE RECORDS SUMMARY | 2024-07-24 21:23 | XMS_ITS | Encounter Summary ---
Author Organization [facility] Address [address] [place] [address] Care Team Providers Care Heavy Duty Truck Mechanic Name Role Phone Unavailable Primary Care Provider Unavailabl e Reason for Visit * Reason Onset Date Comments Scheduling 07/12/2024 Encounter Details Date Type Department Care Team (Late st Contact Info) Description 07/12/2024 Clinical Communication Department of Cardiac Rehabilitation in [address] [phone] Swapna Lux, CCRP, [facility] Scheduling Social History Tobacco Use Types Packs/Day [...] CDT Appointment Department of Cardiac Rehabilitation in [address] [phone] Tim Zamarripa M.D. [address] [place] [phone] documented as of this encounter Visit Diagnoses Not on filedocumented in this encounter Additional Health Concerns Assessment Noted Time PHQ-9 Depression Total Score: 2 06/19/20 24 1:08 PM CDT documented as of this encounter
--- OUTSIDE RECORDS SUMMARY | 2024-07-24 21:23 | XMS_ITS | Encounter Summary ---
Author Organization [facility] Address [address] [place] [address] Care Team Providers Care Garnett Mechanic Name Role Phone Unavailable Primary Care Provider Unavailabl e Reason for Referral * Outpatient (Routine) - Authorized Specialty Diagnoses / Procedures Referred By Annette plunkett Referred To Contact Diagnoses Bypass Coronary Artery Graft Status Post Prosthesis Aortic Valve Procedures Cardiac Rehab Program Tim Zamarripa M.D. [address] [place] [address] [facility] Region Referral ID Status Reason Start Date Expiration Date V isits Requested Visits Authorized [id number] Authorized 2024 2025 99 99 Reason for Visit * Outpatient (Routine) - Authorized Specialty Diagnoses / Procedures Referred By Annette plunkett Referred To Contact Diagnoses Bypass Coronary Artery Graft Status Post Prosthesis Aortic Valve Procedures Cardiac Rehab Program Tim Zamarripa M.D. [address] [place] [address] [facility] Region Referral ID Status Reason Start Date Expiration Date V isits Requested Visits Authorized [id number] Authorized 2024 2025 99 99 Encounter Details Date Type Department Care Team (Latest Contact Info) Description 07/03/2024 12:54 PM CDT - 07/03/2024 11:59 PM CDT Hospital Encounter Department of Cardiac Rehabilitation in [address] [place] [address] Tim Zamarripa M.D. [address] [place] [phone] Bypass Coronary Artery Graft Status Post; Prosthesis [...] CDT Appointment Department of Cardiac Rehabilitation in [address] [phone] Tim Zamarripa M.D. [address] [place] [phone] Scheduled Orders Name Type Priority Associated Diagnoses Orde r Schedule Cardiac Rehab Program Card Rehab Routine Bypass Coronary Artery Graft Status Post Prosthesis Aortic Valve Once for 1 Occurrences starting 07/03/2024 until 07/03/2024 documented as of this encounter Visit Diagnoses Diagnosis Bypass Coronary Artery Graft Status Post Prosthesis Aortic Valve documented in this encounter Additional Health Concerns Assessment Noted Time PHQ-9 Depression Total Score: 2 06/19/20 24 1:08 PM CDT documented as of this encounter
--- OUTSIDE RECORDS SUMMARY | 2024-07-24 21:23 | XMS_ITS | Encounter Summary ---
Author Organization [facility] Address [address] [place] [address] Care Team Providers Care Foreign Banknote Teller Name Role Phone Unavailable Primary Care Provider Unavailabl e Reason for Referral * Outpatient (Routine) - Authorized Specialty Diagnoses / Procedures Referred By Annette plunkett Referred To Contact Diagnoses Bypass Coronary Artery Graft Status Post Prosthesis Aortic Valve Procedures Cardiac Rehab Program Tim Zamarripa M.D. [address] [place] [phone] [facility] Region Referral ID Status Reason Start Date Expiration Date V isits Requested Visits Authorized [id number] Authorized 2024 2025 99 99 Reason for Visit * Outpatient (Routine) - Authorized Specialty Diagnoses / Procedures Referred By Annette plunkett Referred To Contact Diagnoses Bypass Coronary Artery Graft Status Post Prosthesis Aortic Valve Procedures Cardiac Rehab Program Tim Zamarripa M.D. [address] [place] [phone] [facility] Region Referral ID Status Reason Start Date Expiration Date V isits Requested Visits Authorized [id number] Authorized 2024 2025 99 99 Encounter Details Date Type Department Care Team (Latest Contact Info) Description 06/24/2024 12:52 PM CDT - 06/24/2024 11:59 PM CDT Hospital Encounter Department of Cardiac Rehabilitation in [address] [place] [phone] Tim Zamarripa M.D. [address] [place] [phone] Bypass Coronary Artery Graft Status Post; Prosthesis [...] CDT Appointment Department of Cardiac Rehabilitation in [address] [phone] Tim Zamarripa M.D. [address] [place] [address] Scheduled Orders Name Type Priority Associated Diagnoses Orde r Schedule Cardiac Rehab Program Card Rehab Routine Bypass Coronary Artery Graft Status Post Prosthesis Aortic Valve Once for 1 Occurrences starting 06/24/2024 until 06/24/2024 documented as of this encounter Visit Diagnoses Diagnosis Bypass Coronary Artery Graft Status Post Prosthesis Aortic Valve documented in this encounter Additional Health Concerns Assessment Noted Time PHQ-9 Depression Total Score: 2 06/19/20 24 1:08 PM CDT documented as of this encounter
--- OUTSIDE RECORDS SUMMARY | 2024-07-24 21:24 | XMS_ITS | Encounter Summary ---
Author Organization [facility] Address [address] [place] [address] Care Team Providers Care Electric Meter Tester Shop Name Role Phone Unavailable Primary Care Provider Unavailabl e Reason for Referral * Outpatient (Routine) - Authorized Specialty Diagnoses / Procedures Referred By Annette plunkett Referred To Contact Diagnoses Bypass Coronary Artery Graft Status Post Prosthesis Aortic Valve Procedures Cardiac Rehab Program Tim Zamarripa M.D. [address] [place] [address] [facility] Region Referral ID Status Reason Start Date Expiration Date V isits Requested Visits Authorized [id number] Authorized 2024 2025 99 99 Reason for Visit * Outpatient (Routine) - Authorized Specialty Diagnoses / Procedures Referred By Annette plunkett Referred To Contact Diagnoses Bypass Coronary Artery Graft Status Post Prosthesis Aortic Valve Procedures Cardiac Rehab Program Tim Zamarripa M.D. [address] [place] [address] [facility] Region Referral ID Status Reason Start Date Expiration Date V isits Requested Visits Authorized [id number] Authorized 2024 2025 99 99 Encounter Details Date Type Department Care Team (Latest Contact Info) Description 06/03/2024 2:21 PM CDT - 06/03/2024 11:59 PM CDT Hospital Encounter Department of Cardiac Rehabilitation in [address] [place] [address] Tim Zamarripa M.D. [address] [address] Bypass Coronary Artery Graft Status Post; Prosthesis Aortic Valve Discharge Disposition: Home or Self Care Social History Tobacco Use Types Packs/Day Years Used Date Smoking Tobacco: Never Smokeless Tobacco: Never Nutrition Answer Date Recorded Nutrition: EVOO Fat [...] the tongue. documented as of this encounter Procedure Notes * Swapna Lux CCRP, CEP - 06/03/2024 2:30 PM CDTAssociated Order(s): Six Minute Walk Post-Procedure Diagnose(s): Bypass Coronary Artery Graft Status Post Six Minute Walk Performed by: Swapna Lux CCRP, CEP Authorized by: Tim Zamarripa M.D. Were medications taken in the last 24 hours?: yes PRE WALK Assistive Device: None 6 Min Walk Distance Type: Hallway Height (cm): 183 Weight (kg): 100 BMI: 29.9 Resting Heart Rate: 64 Heart Rate Source: Telemetry Resp Rate: Resting SpO2: 97 Resting BP: 126/64Supplemental Oxygen used: Supplemental Oxygen Not Used Jose Dyspnea: 0 - Nothing at all Jose Fatigue: 0 - Nothing at all Jose Rating of Perceived Exertion (RPE): 6 - No exertion at all POST WALK Heart Rate: 86 Heart Rate Source: Telemetry SpO2: 96 BP: 142/60 Jose Dyspnea: 3 - Moderate Jose Fatigue: 3 - Moderate Jose Rating of Perceived Exertion: 13 - Somewhat Hard Time of Test: 14:30 CDT Total Distance Walked (Feet): 980 Total Distance Walked (Meters): 298.7 Total # of Times Stopped: 0 Time Stopped (Seconds): 0 Time Walked (Seconds): 360 CALCULATIONS Estimated MPH: 1.9 Estimated METs: 2.46 % of Predicted Distance: 62.29 documented in this encounter Plan of Treatment Upcoming Encounters Date Type Department Care Team (Late st Contact Info) Description 07/26/2024 11:00 AM CDT Appointment Department of Cardiac Rehabilitation in [address] [phone] Tim Zamarripa M.D. [address] [place] [phone] Scheduled Orders Name Type Priority Associated Diagnoses Orde r Schedule Cardiac Rehab Program Card Rehab Routine Bypass Coronary Artery Graft Status Post Prosthesis Aortic Valve Once for 1 Occurrences starting 06/03/2024 until 06/03/2024 documented as of this encounter Procedures Procedure Name Priority Date/Time Associated Diagnosis Comments GLUCOSE POCT, B Routine 06/03/2024 3:15 PM CDT GLUCOSE POCT, B Routine 06/03/2024 2:37 PM CDT 6 MINUTE WALK Routine 06/03/2024 2:30 PM CDT Bypass Coronary Artery Graft Status Post documented in this encounter Results * Glucose, POCT (06/03/2024 3:15 PM CDT) Glucose, POCT, B 125 70 - 140 mg/dL 06/03/2024 3:15 PM CDT CNFL Blood 06/03/2024 3:15 PM CDT 06/03/2024 3:38 PM CDT Generic [facility] POCT ORDERABLES- MANUAL [facility] [address] [place] [address], [facility] [[email or web address]] [address] [address] * (ABNORMAL) Glucose, POCT (06/03/2024 2:37 PM CDT) Glucose, POCT, B 144(H) 70 - 140 mg/dL 06/03/2024 2:37 PM CDT CNFL Blood 06/03/2024 2:37 PM CDT 06/03/2024 3:38 PM CDT Generic [facility] POCT ORDERABLES- MANUAL Performing Organization Address City/[facility] Co de Phone Number [facility] [address] [place] [address], [facility] in [address] [address] * 6 MINUTE WALK (06/03/2024 2:30 PM CDT) Narrative Swapna Lux CCRP, CEP - 06/03/2024 2:30 PM CDT Swapna Lux CCRP CEP ? 06/03/2024 ??3:48 PM Six Minute Walk Performed by: Swapna Lux CCRP CEP Authorized by: Tim Zamarripa M.D. ?? [...] Rate Source: ??Telemetry SpO2: ??96 BP: ??142/60 Joes Dyspnea: ??3 - Moderate Jose Fatigue: ??3 [...] Tim Zamarripa M.D. CV STRESS PROCEDUR ES documented in this encounter Visit Diagnoses Diagnosis Bypass Coronary Artery Graft Status Post Prosthesis Aortic Valve documented in this encounter
--- OUTSIDE RECORDS SUMMARY | 2024-07-24 21:24 | XMS_ITS | Encounter Summary ---
Author Organization [facility] Address [address] [place] [address] Care Team Providers Care Certified Nurse Name Role Phone Unavailable Primary Care Provider Unavailabl e Reason for Referral * Outpatient (Routine) - Authorized Specialty Diagnoses / Procedures Referred By Annette plunkett Referred To Contact Diagnoses Bypass Coronary Artery Graft Status Post Prosthesis Aortic Valve Procedures Cardiac Rehab Program Tim Zamarripa M.D. [address] [place] [address] [facility] Region Referral ID Status Reason Start Date Expiration Date V isits Requested Visits Authorized [id number] Authorized 2024 2025 99 99 Reason for Visit * Outpatient (Routine) - Authorized Specialty Diagnoses / Procedures Referred By Annette plunkett Referred To Contact Diagnoses Bypass Coronary Artery Graft Status Post Prosthesis Aortic Valve Procedures Cardiac Rehab Program Tim Zamarripa M.D. [address] [place] [address] [facility] Region Referral ID Status Reason Start Date Expiration Date V isits Requested Visits Authorized [id number] Authorized 2024 2025 99 99 Encounter Details Date Type Department Care Team (Latest Contact Info) Description 05/28/2024 1:00 PM CDT - 05/28/2024 11:59 PM CDT Hospital Encounter Department of Cardiac Rehabilitation in [address] [place] [address] Tim Zamarripa M.D. [address] [address] Bypass Coronary Artery Graft Status Post; Prosthesis [...] the tongue. documented as of this encounter Miscellaneous Notes * Exercise Prescription - Swapna Lux, CCRP, CEP - 05/28/2024 3:12 PM CDT EXERCISE PRESCRIPTION: Frequency Frequency of Sessions: Weekly Sessions per week: 3-5 Intensity Intensity: Work at a level that is comfortable but also challenging Rating of Perceived Exertion range (RPE): 11-14 Time Warm Up Minutes: 2-5 Aerobic exercise minutes: 20-25 Cool Down minutes: 2-5 Goal Minutes/session: Work up to 30 mins Goal Minutes/Week: Work up to 150 mins Type Rehab Aerobic Exercise Equipment: Treadmill; Recumbent stepper (with or without arms) Non-Rehab Aerobic Exercise Equipment: Walking Flexibility and Balance: Stretch major muscle groups daily Sternal precautions: Yes Sternal precautions comment: Per hospital discharge summary: do not lift [...] you are taking prescription pain medicine Strength Training: Tyson Number of strength sessions per week: 2-3 Weight: 0 Reps: 10 Sets: 1 Hobbies/Activities: Avoid prolonged sitting Progression Progression: Use RPE to guide when to increase work level intensity and duration; Increase 1-5 minutes each session, as tolerated; Follow/match rehab intensity documented in this encounter Plan of Treatment Upcoming Encounters Date Type Department Care Team (Late st Contact Info) Description 07/26/2024 11:00 AM CDT Appointment Department of Cardiac Rehabilitation in [address] [phone] Tim Zamarripa M.D. [address] [place] [phone] Scheduled Orders Name Type Priority Associated Diagnoses Orde r Schedule Cardiac Rehab Program Card Rehab Routine Bypass Coronary Artery Graft Status Post Prosthesis Aortic Valve Once for 1 Occurrences starting 05/28/2024 until 05/28/2024 documented as of this encounter Visit Diagnoses Diagnosis Bypass Coronary Artery Graft Status Post Prosthesis Aortic Valve documented in this encounter
--- OUTSIDE RECORDS SUMMARY | 2024-07-24 21:24 | XMS_ITS | Encounter Summary ---
Author Organization [facility] er Address [address] [place] [address] Care Team Providers Care Pump And Blower Operator Name Role Phone SerraJoanne Sandrine KIDD, ARCHITECTURE INTERN Primary Care Provi surinder Reason for Visit * Reason Comments Med Refill Encounter Details Date Type Department Care Team (Late st Contact Info) Description 02/27/2022 Refill [place] [address] [place] [address] Heraclio Horn MD [address] [facility] [address] [place] [address] Coronary artery disease without angina pectoris, unspecified vessel or lesion type, unspecified whether [place] or transplanted heart; Type 2 diabetes mellitus [...] unspecified vessel or lesion type, unspecified whether [place] or transplanted heart Type 2 diabetes mellitus with complication, without long-term current use of insulin (HCC) Essential hypertension Unspecified essential hypertension Hyperlipidemia, unspecified hyperlipidemia type documented in this encounter Care Teams Pump And Blower Operator Relationship Specialty Start Date End Date Joanne Serra, DIRECTOR OF HOUSING, ARCHITECTURE INTERN [address] [place] [address] PCP - General Family Medicine 06/13/22 documented as of this encounter
--- OUTSIDE RECORDS SUMMARY | 2024-07-24 21:24 | XMS_ITS | Encounter Summary ---
Author Organization [facility] Address [address] [place] [address] Care Team Providers Care Generation Technologist Name Role Phone Unavailable Primary Care Provider Unavailabl e Reason for Referral * Outpatient (Routine) - Authorized Specialty Diagnoses / Procedures Referred By Annette plunkett Referred To Contact Diagnoses Bypass Coronary Artery Graft Status Post Prosthesis Aortic Valve Procedures Cardiac Rehab Program Tim Zamarripa M.D. [address] [place] [address] [facility] Region Referral ID Status Reason Start Date Expiration Date V isits Requested Visits Authorized [id number] Authorized 2024 2025 99 99 Reason for Visit * Outpatient (Routine) - Authorized Specialty Diagnoses / Procedures Referred By Annette plunkett Referred To Contact Diagnoses Bypass Coronary Artery Graft Status Post Prosthesis Aortic Valve Procedures Cardiac Rehab Program Tim Zamarripa M.D. [address] [place] [address] [facility] Region Referral ID Status Reason Start Date Expiration Date V isits Requested Visits Authorized [id number] Authorized 2024 2025 99 99 Encounter Details Date Type Department Care Team (Latest Contact Info) Description 06/21/2024 1:45 PM CDT - 06/21/2024 11:59 PM CDT Hospital Encounter Department of Cardiac Rehabilitation in [address] [place] [address] Tim Zamarripa M.D. [address] [place] [phone] Bypass Coronary Artery Graft Status Post; Prosthesis [...] CDT Appointment Department of Cardiac Rehabilitation in [address] [phone] Tim Zamarripa M.D. [address] [place] [address] Scheduled Orders Name Type Priority Associated Diagnoses Orde r Schedule Cardiac Rehab Program Card Rehab Routine Bypass Coronary Artery Graft Status Post Prosthesis Aortic Valve Once for 1 Occurrences starting 06/21/2024 until 06/21/2024 documented as of this encounter Visit Diagnoses Diagnosis Bypass Coronary Artery Graft Status Post Prosthesis Aortic Valve documented in this encounter Additional Health Concerns Assessment Noted Time PHQ-9 Depression Total Score: 2 06/19/20 24 1:08 PM CDT documented as of this encounter
--- OUTSIDE RECORDS SUMMARY | 2024-07-24 21:24 | XMS_ITS | Encounter Summary ---
Author Organization [facility] Address [address] [place] [address] Care Team Providers Care Pigment Furnace Tender Name Role Phone Unavailable Primary Care Provider Unavailabl e Reason for Referral * Outpatient (Routine) - Authorized Specialty Diagnoses / Procedures Referred By Annette plunkett Referred To Contact Diagnoses Bypass Coronary Artery Graft Status Post Prosthesis Aortic Valve Procedures Cardiac Rehab Program Tim Zamarripa M.D. [address] [place] [address] [facility] Region Referral ID Status Reason Start Date Expiration Date V isits Requested Visits Authorized [id number] Authorized 2024 2025 99 99 Reason for Visit * Outpatient (Routine) - Authorized Specialty Diagnoses / Procedures Referred By Annette plunkett Referred To Contact Diagnoses Bypass Coronary Artery Graft Status Post Prosthesis Aortic Valve Procedures Cardiac Rehab Program Tim Zamarripa M.D. [address] [place] [address] [facility] Region Referral ID Status Reason Start Date Expiration Date V isits Requested Visits Authorized [id number] Authorized 2024 2025 99 99 Encounter Details Date Type Department Care Team (Latest Contact Info) Description 06/19/2024 12:53 PM CDT - 06/19/2024 11:59 PM CDT Hospital Encounter Department of Cardiac Rehabilitation in [address] [place] [address] Tim Zamarripa M.D. [address] [place] [phone] Bypass Coronary Artery Graft Status Post; Prosthesis [...] CDT Appointment Department of Cardiac Rehabilitation in [address] [phone] Tim Zamarripa M.D. [address] [place] [address] Scheduled Orders Name Type Priority Associated Diagnoses Orde r Schedule Cardiac Rehab Program Card Rehab Routine Bypass Coronary Artery Graft Status Post Prosthesis Aortic Valve Once for 1 Occurrences starting 06/19/2024 until 06/19/2024 documented as of this encounter Visit Diagnoses Diagnosis Bypass Coronary Artery Graft Status Post Prosthesis Aortic Valve documented in this encounter Additional Health Concerns Assessment Noted Time PHQ-9 Depression Total Score: 2 06/19/20 24 1:08 PM CDT documented as of this encounter
--- OUTSIDE RECORDS SUMMARY | 2024-07-24 21:24 | XMS_ITS | Encounter Summary ---
Author Organization [facility] Address [address] [place] [address] Care Team Providers Care Generator Man Name Role Phone Unavailable Primary Care Provider Unavailabl e Encounter Details Date Type Department Care Team (Late st Contact Info) Description 06/21/2024 1:40 PM CDT - 06/21/2024 1:44 PM CDT Hospital Encounter Department of Laboratory Medicine in [address] [phone] Joanne Serra, C.N.P. [address] [place] [phone] Insufficiency Renal Chronic; Hypertensive Chronic Kidney Disease [...] CDT Appointment Department of Cardiac Rehabilitation in [address] [phone] Tim Zamarripa M.D. [address] [place] [phone] documented as of this encounter Procedures Procedure Name Priority Date/Time Associated Diagnosis Comments BASIC METABOLIC PANEL, S/P Routine 06/21/2024 1:57 PM CDT Insufficiency Renal Chronic Hypertensive Chronic Kidney Disease With Stage 1 Through Stage 4 Chronic Kidney Disease, Or Unspecified Chronic Kidney Disease documented in this encounter Results * (ABNORMAL) Basic Metabolic Panel (06/21/2024 1:57 PM CDT) Potassium, P 4.7 3.6 - 5.2 mmol/L 06/21/2024 2:18 PM CDT CNFL Sodium, P 137 135 - 145 mmol/L 06/21/2024 2:18 PM CDT CNFL Chloride, P 99 98 - 107 mmol/L 06/21/2024 2:18 PM CDT CNFL Bicarbonate, P 28 22 - 29 mmol/L 06/21/2024 2:18 PM CDT CNFL Anion Gap, P 10 7 - 15 06/21/2024 2:18 PM CDT CNFL BUN (Blood Urea Nitrogen), P 48(H) 8 - 24 mg/dL 06/21/2024 2:18 PM CDT CNFL Creatinine 1.86(H) 0.74 - 1.35 mg/dL 06/21/2024 2:18 PM CDT CNFL Estimated GFR (eGFR) 38(L) >=60 mL/min/BSA 06/21/2024 2:18 PM CDT CNFL Comment: Estimated GFR calculated using the 2020 CKD_EPI creatinine equation. Calcium, Total, P 9.0 8.8 - 10.2 mg/dL 06/21/2024 2:18 PM CDT CNFL Glucose, P 212(H) 70 - 140 mg/dL 06/21/2024 2:18 PM CDT CNFL Blood (Blood, Venous) 06/21/2024 1:57 PM CDT 06/21/2024 1:58 PM CDT Joanne Serra C.N.P. LAB BLOOD ADD- ON [facility] [address] [place] [address], [facility] CNFL [place] [address] documented in this encounter Visit Diagnoses Diagnosis Insufficiency Renal Chronic Hypertensive Chronic Kidney Disease With Stage 1 Through Stage 4 Chronic Kidney Disease, Or Unspecified Chronic Kidney Disease documented in this encounter Additional Health Concerns Assessment Noted Time PHQ-9 Depression Total Score: 2 06/19/20 24 1:08 PM CDT documented as of this encounter
--- OUTSIDE RECORDS SUMMARY | 2024-07-24 21:24 | XMS_ITS | Encounter Summary ---
Author Organization [facility] Address [address] [place] [address] Care Team Providers Care Plumber Name Role Phone Unavailable Primary Care Provider Unavailabl e Reason for Referral * Outpatient (Routine) - Authorized Specialty Diagnoses / Procedures Referred By Annette plunkett Referred To Contact Diagnoses Bypass Coronary Artery Graft Status Post Prosthesis Aortic Valve Procedures Cardiac Rehab Program Tim Zamarripa M.D. [address] [place] [address] [facility] Region Referral ID Status Reason Start Date Expiration Date V isits Requested Visits Authorized [id number] Authorized 2024 2025 99 99 Reason for Visit * Outpatient (Routine) - Authorized Specialty Diagnoses / Procedures Referred By Annette plunkett Referred To Contact Diagnoses Bypass Coronary Artery Graft Status Post Prosthesis Aortic Valve Procedures Cardiac Rehab Program Tim Zamarripa M.D. [address] [place] [address] [facility] Region Referral ID Status Reason Start Date Expiration Date V isits Requested Visits Authorized [id number] Authorized 2024 2025 99 99 Encounter Details Date Type Department Care Team (Latest Contact Info) Description 06/12/2024 2:25 PM CDT - 06/12/2024 11:59 PM CDT Hospital Encounter Department of Cardiac Rehabilitation in [address] [place] [phone] Tim Zamarripa M.D. [address] [address] Bypass Coronary Artery Graft Status Post; Prosthesis [...] CDT Appointment Department of Cardiac Rehabilitation in [address] [phone] Tim Zamarripa M.D. [address] [place] [address] Scheduled Orders Name Type Priority Associated Diagnoses Orde r Schedule Cardiac Rehab Program Card Rehab Routine Bypass Coronary Artery Graft Status Post Prosthesis Aortic Valve Once for 1 Occurrences starting 06/12/2024 until 06/12/2024 documented as of this encounter Procedures Procedure Name Priority Date/Time Associated Diagnosis Comments GLUCOSE POCT, B Routine 06/12/2024 3:17 PM CDT GLUCOSE POCT, B Routine 06/12/2024 2:37 PM CDT documented in this encounter Results * Glucose, POCT (06/12/2024 3:17 PM CDT) Glucose, POCT, B 113 70 - 140 mg/dL 06/12/2024 3:17 PM CDT CNFL Blood 06/12/2024 3:17 PM CDT 06/12/2024 3:45 PM CDT Generic [facility] POCT ORDERABLES- MANUAL Performing Organization Address City[facility]/ZIP Co de Phone Number [address] [address], [address] [address] * Glucose, POCT (06/12/2024 2:37 PM CDT) Glucose, POCT, B 133 70 - 140 mg/dL 06/12/2024 2:37 PM CDT CNFL Blood 06/12/2024 2:37 PM CDT 06/12/2024 3:45 PM CDT Generic [facility] POCT ORDERABLES- MANUAL Performing Organization Address City[facility]/ZIP Co de Phone Number [address] [address], [facility] in [address] [address] documented in this encounter Visit Diagnoses Diagnosis Bypass Coronary Artery Graft Status Post Prosthesis Aortic Valve documented in this encounter
--- OUTSIDE RECORDS SUMMARY | 2024-07-24 21:24 | XMS_ITS | Encounter Summary ---
Author Organization [facility] er Address [address] [place] [address] Care Team Providers Care Tractor Trailer Mechanic Name Role Phone SerraSyedJoannejillian Deluca APRN, FORMING TUBE SELECTOR Primary Care Provi surinder Reason for Visit * Reason Comments Med Refill Encounter Details Date Type Department Care Team (Late st Contact Info) Description 12/08/2021 Refill [place] [address] [address] Heraclio Horn MD 17[address] [facility] [address] [place] [address] Type 2 diabetes mellitus with complication, without [...] - 12/09/2021 8:03 AM CST Please review. T MONITOR * Telephone Encounter - Montserrat Berg MA - 12/09/2021 7:[address] MONITOR Last visit in provider department: 08/13/2020 Last [...] Please contact patient to assist with scheduling. T MONITOR documented in this encounter Plan of Treatment Not on file documented as of this encounter Visit Diagnoses Diagnosis Type 2 diabetes mellitus with complication, without long-term current use of insulin (HCC) documented in this encounter Care Teams Tractor Trailer Mechanic Relationship Specialty Start Date End Date Joanne Serra APRN, FORMING TUBE SELECTOR [address] [place] [address] PCP - General Family Medicine 06/13/22 documented as of this encounter
--- OUTSIDE RECORDS SUMMARY | 2024-07-24 21:24 | XMS_ITS | Encounter Summary ---
Author Organization [facility] Address [address] [place] [address] Care Team Providers Care Roll Edge Stitcher Hand Name Role Phone Unavailable Primary Care Provider Unavailabl e Reason for Referral * Outpatient (Routine) - Authorized Specialty Diagnoses / Procedures Referred By Annette plunkett Referred To Contact Diagnoses Bypass Coronary Artery Graft Status Post Prosthesis Aortic Valve Procedures Cardiac Rehab Program Tim Zamarripa M.D. [address] [place] [address] [facility] Region Referral ID Status Reason Start Date Expiration Date V isits Requested Visits Authorized [id number] Authorized 2024 2025 99 99 Encounter Details Date Type Department Care Team (Late Contact Info) Description 2024 Orders Only Department of Cardiac Rehabilitation in [address] [phone] Swapna Lux, CCRP, CEP Bypass Coronary Artery Graft Status Post (Primary Dx); Prosthesis Aortic Valve Social History Tobacco Use [...] CDT Appointment Department of Cardiac Rehabilitation in [address] [phone] Tim Zamarripa M.D. [address] [place] [phone] Scheduled Orders Name Type Priority Associated Diagnoses Orde r Schedule Cardiac Rehab Program Card Rehab Routine Bypass Coronary Artery Graft Status Post Prosthesis Aortic Valve 99 Occurrences starting 2024 until 2025 documented as of this encounter Visit Diagnoses Diagnosis Bypass Coronary Artery Graft Status Post- Primary Prosthesis Aortic Valve documented in this encounter
--- OUTSIDE RECORDS SUMMARY | 2024-07-24 21:24 | XMS_ITS | Encounter Summary ---
Author Organization [facility] Address [address] [place] [address] Care Team Providers Care Clerical Grader Name Role Phone Unavailable Primary Care Provider Unavailabl e Encounter Details Date Type Department Care Team (Latest Contact Info) Description 05/28/2024 Plan of Care Documentation Department of Cardiac Rehabilitation in [address] [place] [phone] Social History Tobacco Use Types Packs/Day Years [...] Care - Swapna Lux, CCRP, CEP - 05/28/2024 3:11 PM CDT Images from the original note were not included. Mr. Knapp (69 y.o., : 1955, ) was [facility] to the [facility] on 05/14/2024, by Referred by Judith BELLAMY ([facility]); order signed by Dr.Tyler Zamarripa and has completed 0 sessions out of the 36 prescribed. PCP: No primary care provider on file. Aircraft Sheet Metal Mechanic: Henrietta Obrien PA Program: Cardiac Rehab Phase II Type: Center-Based Intake Date: 05/28/2024 Date of Enrollment: 06/03/2024 Primary Diagnosis: CABG 05/07/2024 Secondary Diagnosis: Valve 05/07/2024 AACVPR Risk: Low 05/28/2024 Symptoms ITP Inclusion: Symptoms Initial Synopsis Pt was referred for CR following CABGx3, AVR, s/p MAZE and LAAL on 05/07 at [facility].Leading up to cardiac surgery pt had been [...] has a [facility]. He does have a cardiac history which included DESx1 to prox LAD in 2012, HTN, HLD, DM2, and CKD stage III. Cardiovascular Symptoms Shortness of Breath;Fatigue Home O2 Use No Ejection Fraction Date 05/14/2024 Ejection Fraction (EF) % 65 % Other Education Documentation No documentation found. Exercise Assessment 05/28/2024 Exercise Assessment ITP Inclusion: Exercise Assessment Initial Resting Pulse 82 Pulse Rate Source Pulse oximetry Cardiac Rhythm SR;Other (Comment);A-fib Hx of pAfib (s/p MAZE and LAAL procedure, on Eliquis and amiodarone taper) Exercise Limitations Yes Limitation Description Sternal precautions 10 lb wt limit until 07/08, then can increase to 20 lbs until 08/07 Action Taken Will monitor sternal discomfort and progress workloads as tolerated Assistive Device None Aerobic Minutes per Day (Home) 0 minutes Aerobic Days per Week (Home) 0 Days Aerobic Minutes per Day (Rehab) 0 minutes Aerobic Days per Week (Rehab) 0 Days Aerobic Minutes per Week 0 Strength Training Days per Week 0 Days Flexibility Training Days per Week 0 05/28/2024 Exercise Prescription Frequency of Sessions Weekly Sessions per week 3-5 Intensity Work at a level that is comfortable but also challenging Rating of Perceived Exertion range (RPE): 11-14 Warm Up Minutes: 2-5 Aerobic exercise minutes: 20-25 Cool Down minutes: 2-5 Goal Minutes/session Work up to 30 mins Goal Minutes/Week Work up to 150 mins Rehab Aerobic Exercise Equipment Treadmill;Recumbent stepper (with or without arms) Non-Rehab Aerobic Exercise Equipment Walking Progression Use RPE to guide when to increase work level intensity and duration;Increase 1-5 minutes each session, as tolerated;Follow/match rehab intensity Flexibility and Balance Stretch major muscle groups daily Sternal precautions Yes Sternal precautions comment Per hospital discharge [...] taking prescription pain medicine Strength Training Calisthenics Number of strength sessions per week: 2-3 Weight: 0 Reps: 10 Sets: 1 Hobbies/Activities Avoid prolonged sitting 05/28/2024 Exercise Plan Goals Compliance to on-site program;Compliance [...] rehab will help him get there faster. Exercise Education Documentation Cardiac Rehab Program Expectations, taught by Swapna Lux, CCRP, CEP at 05/28/2024 3:07 PM. Learner: Patient Readiness: Acceptance Method: Explanation Response: Able to Teach Back Tyson, taught by Swapna Lux CCRP, CEP at 05/28/2024 3:07 PM. Learner: Patient Readiness: Acceptance Method: Explanation Response: Able to Teach Back Nutrition Assessment 05/28/2024 Nutrition Assessment ITP Inclusion: Nutrition Assessment Initial Height 182.9 cm Weight 99.5 kg BMI 29.74 Dietary Recommendations Low Salt;Diabetic;Low Fat/ Low Cholesterol Low Salt Amount 2000 mg Appetite Good 05/28/2024 Plan Goals Increase fruit intake;Increase vegetable intake;Decrease simple sugar intake;Decrease overallportions;Compliance with dietary guidelines;Reduce saturated fat intake;Limit sodium intake Limit sodium intake to 2000 mg Interventions Discussion on identifying/incorporating diet [...] daughters are nurses and 1 is a sports activities foul judge so they've been good support and resources when it comes to making these changes to his diet. Nutrition Education Documentation No documentation found. Psychosocial Assessment 05/28/2024 Psychosocial Assessment ITP Inclusion: Psychosocial Initial Social Determinants of Health have been reviewed. For high-risk areas identified, a plan of treatment and follow-up information will be documented in appropriate areas within the ITP Yes Current Medication Therapy No Current Issues Other (comment) Comment Frustration Patient Stress Factors Health changes Needs Expressed Physical 05/28/2024 Plan Goals Continue to use effective stress [...] He is retired from working in the [email or web address] industry. Sleep has been improving since he's been home. He is looking forward to being able to drive himself again next week. Psychosocial Education Documentation No documentation found. Other Core Components Hypertension Assessment 05/28/2024 Hypertension ITP Inclusion: Hypertension Assessment Initial History of Hypertension Yes Current Medication Therapy Yes Hypertension Medications metoprolol Blood Pressure 138/60 05/28/2024 Plan Goals Stable BP response;BP at physician prescribed goal;Continue lifestyle choices for optimal blood pressure changes;Decrease sodium intake;Medication compliance;Monitor BP at home Interventions Therapist discussion Progress Toward Goals Pt has [...] which has helped reduce the lightheadedness bouts. Hypertension Education Documentation No documentation found. Hyperlipidemia Assessment 05/28/2024 Hyperlipidemia Assessment History of Hyperlipidemia Yes Current Medication Therapy Yes Hyperlipidemia Medications Atorvastatin (recently increased dose to 40mg) Lipids 04/17/2024 6:07 AM CHOL 203 TRIG 168 HDL 51 TTLCHOLHDLRT 3.98 05/28/2024 Plan Goals Improve lipids;Lipids in optimal range;Understand current lipid profile;Decrease dietary trans fats/saturated fats/cholesterol;Increase aerobic exercise;Medication compliance;Continue lifestylechoices for optimal lipid management Interventions Therapist discussion;Review [...] CR 3x per week starting next week. Hyperlipidemia Education Documentation No documentation found. Education Comments No comments found. Diabetes Assessment 05/28/2024 Diabetes History of Diabetes Diabetes Type II Current Medication Therapy Yes Current Medication Therapy Jardiance, 30 units Lantus insulin Do you monitor your blood glucose at home? No Diabetic Labs No lab values to display. 05/28/2024 Plan Goals Fasting blood glucose In optimal [...] which will also help improve BS control. Diabetes Education Documentation No documentation found. Tobacco Assessment 05/28/2024 Tobacco Assessment Smoking Status Never - no goals/interventions indicated Social History Tobacco Use Smoking Status Never Smokeless Tobacco Never Tobacco Education Documentation No documentation found. Heart Failure Assessment 05/28/2024 Heart Failure Assessment History of Heart Failure No, no goals / interventions indicated Heart Failure Education Documentation No documentation found. Medication Compliance Assessment 05/28/2024 Medications Have you been compliant with all medications? Yes 05/28/2024 Plan Goals Medication compliance;Knowledge of medication Interventions Medication review;Therapist discussion Progress Toward Goals Pt reports he has a friend who has been setting up his medications. He didn'thave all of his medication memorized since his friend has been managing things for him however he reports compliance as far as he knows. Medication Compliance Education Documentation No documentation found. Medications were reviewed every visit. documented in this encounter Plan of Treatment Upcoming Encounters Date Type Department Care Team (Late st Contact Info) Description 07/26/2024 11:00 AM CDT Appointment Department of Cardiac Rehabilitation in [address] [phone] Tim Zamarripa M.D. [address] [place] [phone] documented as of this encounter Visit Diagnoses Not on filedocumented in this encounter
--- OUTSIDE RECORDS SUMMARY | 2024-07-24 21:24 | XMS_ITS | Encounter Summary ---
Author Organization [facility] er Address [address] [place] [address] Care Team Providers Care Piano Mechanic Name Role Phone SerraSyedJoannejillian Deluac APRN, TOUR PRODUCTION SUPERVISOR Primary Care Provi surinder Reason for Visit * Reason Comments Med Refill Encounter Details Date Type Department Care Team (Late st Contact Info) Description 01/24/2022 Refill [place] [address] [phone] Heraclio Horn MD 17[address] [facility] [address] [place] [address] Type 2 diabetes mellitus with complication, without [...] (HCC) documented in this encounter Care Teams Piano Mechanic Relationship Specialty Start Date End Date Joanne Serra, TREASURY AGENT, TOUR PRODUCTION SUPERVISOR [address] [place] [address] PCP - General Family Medicine 06/13/22 documented as of this encounter
--- OUTSIDE RECORDS SUMMARY | 2024-07-24 21:24 | XMS_ITS | Encounter Summary ---
Author Organization [facility] Address [address] [place] [address] Care Team Providers Care Steel Tier Name Role Phone Unavailable Primary Care Provider Unavailabl e Reason for Referral * Outpatient (Routine) - Authorized Specialty Diagnoses / Procedures Referred By Annette plunkett Referred To Contact Diagnoses Bypass Coronary Artery Graft Status Post Prosthesis Aortic Valve Procedures Cardiac Rehab Program Tim Zamarripa M.D. [address] [place] [phone] [facility] Region Referral ID Status Reason Start Date Expiration Date V isits Requested Visits Authorized [id number] Authorized 2024 2025 99 99 Reason for Visit * Outpatient (Routine) - Authorized Specialty Diagnoses / Procedures Referred By Annette plunkett Referred To Contact Diagnoses Bypass Coronary Artery Graft Status Post Prosthesis Aortic Valve Procedures Cardiac Rehab Program Tim Zamarripa M.D. [address] [place] [address] [facility] Region Referral ID Status Reason Start Date Expiration Date V isits Requested Visits Authorized [id number] Authorized 2024 2025 99 99 Encounter Details Date Type Department Care Team (Latest Contact Info) Description 06/05/2024 2:15 PM CDT - 06/05/2024 11:59 PM CDT Hospital Encounter Department of Cardiac Rehabilitation in [address] [place] [phone] Tim Zamarripa M.D. [address] [phone] Bypass Coronary Artery Graft Status Post; Prosthesis [...] Appointment Department of Cardiac Rehabilitation in [address] [phone] Tim Zamraripa M.D. [address] [place] [phone] Scheduled Orders Name Type Priority Associated Diagnoses Orde r Schedule Cardiac Rehab Program Card Rehab Routine Bypass Coronary Artery Graft Status Post Prosthesis Aortic Valve Once for 1 Occurrences starting 06/05/2024 until 06/05/2024 documented as of this encounter Procedures Procedure Name Priority Date/Time Associated Diagnosis Comments GLUCOSE POCT, B Routine 06/05/2024 3:13 PM CDT GLUCOSE POCT, B Routine 06/05/2024 2:38 PM CDT documented in this encounter Results * (ABNORMAL) Glucose, POCT (06/05/2024 3:13 PM CDT) Glucose, POCT, B 240(H) 70 - 140 mg/dL 06/05/2024 3:13 PM CDT CNFL Blood 06/05/2024 3:13 PM CDT 06/05/2024 3:21 PM CDT Generic [facility] POCT ORDERABLES- MANUAL Performing Organization Address City/[facility] [place] [address], [facility] in [address] [address] * (ABNORMAL) Glucose, POCT (06/05/2024 2:38 PM CDT) Glucose, POCT, B 280(H) 70 - 140 mg/dL 06/05/2024 2:38 PM CDT CNFL Blood 06/05/2024 2:38 PM CDT 06/05/2024 3:21 PM CDT Generic [facility] POCT ORDERABLES- MANUAL Performing Organization Address City/[facility]/ZIP Co de Phone Number [address] [address], [facility] [place] [address] documented in this encounter Visit Diagnoses Diagnosis Bypass Coronary Artery Graft Status Post Prosthesis Aortic Valve documented in this encounter
--- OUTSIDE RECORDS SUMMARY | 2024-07-24 21:24 | XMS_ITS | Encounter Summary ---
Author Organization [facility] Address [address] [place] [address] Care Team Providers Care Forest Fire Prevention Manager Name Role Phone Unavailable Primary Care Provider Unavailabl e Encounter Details Date Type Department Care Team (Late st Contact Info) Description 07/26/2004 Historical Ophthalmology RST OPH Tong Johnson M.D. [address] [place] [phone] Social History Tobacco Use Types Packs/Day Years Used Date Smoking Tobacco: Never Assessed Sex and Gender Information Value Date Recorded Sex Assigned at Not on file Gender Identity Not on file Sexual Orientation Not on file documented as of this encounter Progress Notes * Tong Johnson M.D. - 07/26/2004 12:00 AM CDT Eye General CHIEF COMPLAINT follow up bilateral nevus HISTORY OF PRESENT ILLNESS patient states vision is stable. no new concerns. IMPRESSION / REPORT / PLAN #1 Choroidal nevi, OU Both right and left eye choroidal nevi have grown since 1987, right one minimally, left one not visible at landmarks where it is now visible. no change from last photos, will get fundus photos recheck in 6 months #2 Ocular hypertension Letter to Dr. Aaron asking him to work pt up for Glaucoma. DIAGNOSIS #1 Choroidal nevi, OU #2 Ocular hypertension CDM Reports - EYEGEN Id: [id number] Status: Fnl documented in this encounter Plan of Treatment Upcoming Encounters Date Type Department Care Team (Late st Contact Info) Description 07/26/2024 11:00 AM CDT Appointment Department of Cardiac Rehabilitation in [place] [phone] Tim Zamarripa M.D. [address] [place] [phone] documented as of this encounter Visit Diagnoses Not on filedocumented in this encounter
--- OUTSIDE RECORDS SUMMARY | 2024-07-24 21:24 | XMS_ITS | Encounter Summary ---
Author Organization [facility] Address [address] [place] [address] Care Team Providers Care Multiple Slide Operator Name Role Phone Unavailable Primary Care Provider Unavailabl e Encounter Details Date Type Department Care Team (Late st Contact Info) Description 01/26/2005 Historical Ophthalmology RST OPH Tong Johnson M.D. [address] [place] [phone] Social History Tobacco Use Types Packs/Day Years Used Date Smoking Tobacco: Never Assessed Sex and Gender Information Value Date Recorded Sex Assigned at Not on file Gender Identity Not on file Sexual Orientation Not on file documented as of this encounter Progress Notes * Tong Johnson M.D. - 01/26/2005 12:00 AM CST Eye General CHIEF COMPLAINT Follow-up Choroidal nevus both eyes HISTORY OF PRESENT ILLNESS Patient returns for a 6 month recheck. States no changes in vision from last visit. IMPRESSION / REPORT / PLAN #1 Choroidal nevi, OU Both right and left eye choroidal nevi may have grown since 1987, right one minimally, left one notvisible at landmarks where it is now visible. no change from last photos, will get fundus photos recheck in 6 months #2 Ocular hypertension Letter to Dr. Aaron asking him to work pt up for Glaucoma. DIAGNOSIS #1 Choroidal nevi, OU #2 Ocular hypertension CDM Reports - EYEGEN Id: [id number] Status: Fnl documented in this encounter Plan of Treatment Upcoming Encounters Date Type Department Care Team (Late st Contact Info) Description 07/26/2024 11:00 AM CDT Appointment Department of Cardiac Rehabilitation in [address] [phone] Tim Zamarripa M.D. [address] [place] [phone] documented as of this encounter Visit Diagnoses Not on filedocumented in this encounter
--- OUTSIDE RECORDS SUMMARY | 2024-07-24 21:24 | XMS_ITS | Encounter Summary ---
Author Organization [facility] Address [address] [place] [address] Care Team Providers Care Farmworker Dairy Name Role Phone Unavailable Primary Care Provider Unavailabl e Encounter Details Date Type Department Care Team (Late st Contact Info) Description 03/25/2004 Historical Ophthalmology RST OPH Tong Johnson M.D. [address] [place] [phone] Social History Tobacco Use Types Packs/Day Years Used Date Smoking Tobacco: Never Assessed Sex and Gender Information Value Date Recorded Sex Assigned at Not on file Gender Identity Not on file Sexual Orientation Not on file documented as of this encounter Progress Notes * Tong Johnson M.D. - 03/25/2004 12:00 AM CDT Eye General CHIEF COMPLAINT nevus HISTORY OF PRESENT ILLNESS has been followed by dr nagel since 1987 for nevus in left eye. on recent follow up a nevus was noted in right eye which was not previously noted. patient has no vision concerns at this time. IMPRESSION / REPORT / PLAN #1 Choroidal nevi, OU Both right and left eye choroidal nevi have grown since 1987, right one minimally, left one not visible at landmarks where it is now visible. Recommend get fundus photos, U/S no volume on US make copies of Dr. Nagel's slides DIAGNOSIS #1 Choroidal nevi, OU CDM Reports - EYEGEN Id: [id number] Status: Fnl documented in this encounter Plan of Treatment Upcoming Encounters Date Type Department Care Team (Late st Contact Info) Description 07/26/2024 11:00 AM CDT Appointment Department of Cardiac Rehabilitation in [address] [phone] Tim Zamarripa M.D. [address] [place] [phone] documented as of this encounter Visit Diagnoses Not on filedocumented in this encounter
--- OUTSIDE RECORDS SUMMARY | 2024-07-24 21:24 | XMS_ITS | Encounter Summary ---
Author Organization [facility] er Address [address] [place] [address] Care Team Providers Care Warehouse Record Clerk Name Role Phone SerraSyedJoannejillian Deluca APRN, SLIME PLANT OPERATOR Primary Care Provi surinder Reason for Visit * Reason Comments Med Refill Encounter Details Date Type Department Care Team (Late st Contact Info) Description 12/07/2021 Refill [place] [address] [phone] Heraclio Horn MD 1705 [facility] [address] [place] [phone] Type 2 diabetes mellitus with complication, without [...] - 12/07/2021 2:42 PM CST Antonia in [place], [place] is requesting medication script written 01/18/2021 [...] Please contact patient to assist with scheduling. K SORTER documented in this encounter Plan of Treatment Not on file documented as of this encounter Visit Diagnoses Diagnosis Type 2 diabetes mellitus with complication, without long-term current use of insulin (HCC) documented in this encounter Care Teams Warehouse Record Clerk Relationship Specialty Start Date End Date Joanne Serra, EXECUTIVE BUSINESS COACH, SLIME PLANT OPERATOR [address] [place] [address] PCP - General Family Medicine 06/13/22 documented as of this encounter
--- OUTSIDE RECORDS SUMMARY | 2024-07-24 21:24 | XMS_ITS | Encounter Summary ---
Author Organization [facility] er Address [address] [place] [address] Care Team Providers Care Client Account Manager Name Role Phone Joanne Serra APRN, COMMERCIAL AIRPLANE PILOT Primary Care Provi surinder Reason for Visit * Reason Comments Annual Exam Encounter Details Date Type Department Care Team (Latest Contact Info) Description 04/25/2024 4:00 PM CDT Clinical Support [facility] [place] [address] [place] [address] Medicare annual wellness visit, subsequent (Primary Dx) [...] often do you attend chur ch or quaker services? More than 4 times per year 04/25/2024 Do you belong to any clubs o r organizations such as synagogue groups, unions, fraternal or athletic groups, or [...] Date Recorded PHQ-9 Total Score 1 04/25/2024 [facility] - Occupational Stress [...] any time in the past 12 m [facility], were you homeless or living in a halfway (including now)? No 04/25/2024 Sex and Gender [...] following reasons: The patient has a prior MD or stroke diagnosis Prostate Cancer Screening: (Male patients only) Lab Results Component Value Date PSA 0.4 06/11/2019 Hepatitis C Screening: Recommended for those born between 1850-9703, receiving blood transfusion before 1991, illicit injection [...] Strain - Medium Risk (04/17/2024) Received from [employer] [facility] Financial Resource Strain Difficulty of Paying Living [...] min Stress: No Stress Concern Present (04/25/2024) [employer] of Occupational Health - Occupational Stress Questionnaire Feeling of Stress : Not at all Social Connections: Moderately Integrated (04/25/2024) Social Connection and Isolation Panel [NHANES] Frequency of Communication with Friends and Family: More than three times a week Frequency of Social Gatherings with Friends and Family: Twice a week Attends Jew Services: More than 4 times per year [...] up with his primary care provider in [place] for this. He also declines colonoscopy at this time. documented in this encounter Plan of Treatment Not on file documented as of this encounter Visit Diagnoses Diagnosis Medicare annual wellness visit, subsequent- Primary documented in this encounter Care Teams Client Account Manager Relationship Specialty Start Date End Date Joanne Serra, HOOK AND EYE SEWING MACHINE OPERATOR, COMMERCIAL AIRPLANE PILOT [address] [place] [address] PCP - General Family Medicine 06/13/22 documented as of this encounter
--- OUTSIDE RECORDS SUMMARY | 2024-07-24 21:24 | XMS_ITS | Encounter Summary ---
Author Organization [facility] Address [address] [place] [address] Care Team Providers Care Parts Counter Salesperson Name Role Phone Unavailable Primary Care Provider Unavailabl e Reason for Referral * Outpatient (Routine) - Authorized Specialty Diagnoses / Procedures Referred By Annette plunkett Referred To Contact Diagnoses Bypass Coronary Artery Graft Status Post Prosthesis Aortic Valve Procedures Cardiac Rehab Program Tim Zamarripa M.D. [address] [place] [address] [facility] Region Referral ID Status Reason Start Date Expiration Date V isits Requested Visits Authorized [id number] Authorized 2024 2025 99 99 Reason for Visit * Outpatient (Routine) - Authorized Specialty Diagnoses / Procedures Referred By Annette plunkett Referred To Contact Diagnoses Bypass Coronary Artery Graft Status Post Prosthesis Aortic Valve Procedures Cardiac Rehab Program Tim Zamarripa M.D. [address] [place] [address] [facility] Region Referral ID Status Reason Start Date Expiration Date V isits Requested Visits Authorized [id number] Authorized 2024 2025 99 99 Encounter Details Date Type Department Care Team (Latest Contact Info) Description 06/07/2024 2:23 PM CDT - 06/07/2024 11:59 PM CDT Hospital Encounter Department of Cardiac Rehabilitation in [address] [place] [address] Tim Zamarripa M.D. [address] [place] [address] Bypass Coronary Artery Graft Status Post; Prosthesis [...] Appointment Department of Cardiac Rehabilitation in [address] [phone] Tim Zamarripa M.D. [address] [place] [address] Scheduled Orders Name Type Priority Associated Diagnoses Orde r Schedule Cardiac Rehab Program Card Rehab Routine Bypass Coronary Artery Graft Status Post Prosthesis Aortic Valve Once for 1 Occurrences starting 06/07/2024 until 06/07/2024 documented as of this encounter Procedures Procedure Name Priority Date/Time Associated Diagnosis Comments GLUCOSE POCT, B Routine 06/07/2024 3:15 PM CDT GLUCOSE POCT, B Routine 06/07/2024 2:39 PM CDT documented in this encounter Results * Glucose, POCT (06/07/2024 3:15 PM CDT) Glucose, POCT, B 102 70 - 140 mg/dL 06/07/2024 3:15 PM CDT CNFL Blood 06/07/2024 3:15 PM CDT 06/07/2024 3:37 PM CDT Generic [facility] POCT ORDERABLES- MANUAL Performing Organization Address City/[facility]/ZIP Co de Phone Number [address] [address], [address] [address] * Glucose, POCT (06/07/2024 2:39 PM CDT) Glucose, POCT, B 129 70 - 140 mg/dL 06/07/2024 2:39 PM CDT CNFL Blood 06/07/2024 2:39 PM CDT 06/07/2024 3:37 PM CDT Generic [facility] POCT ORDERABLES- MANUAL Performing Organization Address City/[facility]/ZIP Co de Phone Number [address] [address], [facility] in [address] [address] documented in this encounter Visit Diagnoses Diagnosis Bypass Coronary Artery Graft Status Post Prosthesis Aortic Valve documented in this encounter
--- OUTSIDE RECORDS SUMMARY | 2024-07-24 21:24 | XMS_ITS | Encounter Summary ---
Author Organization [facility] Address [address] [place] [address] Care Team Providers Care Hose Mender Name Role Phone Unavailable Primary Care Provider Unavailabl e Reason for Referral * Outpatient (Routine) - Authorized Specialty Diagnoses / Procedures Referred By Annette plunkett Referred To Contact Diagnoses Bypass Coronary Artery Graft Status Post Prosthesis Aortic Valve Procedures Cardiac Rehab Program Tim Zamarripa M.D. [address] [place] [address] [facility] Region Referral ID Status Reason Start Date Expiration Date V isits Requested Visits Authorized [id number] Authorized 2024 2025 99 99 Reason for Visit * Outpatient (Routine) - Authorized Specialty Diagnoses / Procedures Referred By Annette plunkett Referred To Contact Diagnoses Bypass Coronary Artery Graft Status Post Prosthesis Aortic Valve Procedures Cardiac Rehab Program Tim Zamarripa M.D. [address] [place] [address] [facility] Region Referral ID Status Reason Start Date Expiration Date V isits Requested Visits Authorized [id number] Authorized 2024 2025 99 99 Encounter Details Date Type Department Care Team (Latest Contact Info) Description 06/17/2024 12:42 PM CDT - 06/17/2024 11:59 PM CDT Hospital Encounter Department of Cardiac Rehabilitation in [address] [place] [address] Tim Zamarripa M.D. [address] [place] [address] Bypass Coronary Artery Graft Status Post; Prosthesis [...] CDT Appointment Department of Cardiac Rehabilitation in [address] [phone] Tim Zamarripa M.D. [address] [place] [address] Scheduled Orders Name Type Priority Associated Diagnoses Orde r Schedule Cardiac Rehab Program Card Rehab Routine Bypass Coronary Artery Graft Status Post Prosthesis Aortic Valve Once for 1 Occurrences starting 06/17/2024 until 06/17/2024 documented as of this encounter Procedures Procedure Name Priority Date/Time Associated Diagnosis Comments GLUCOSE POCT, B Routine 06/17/2024 1:44 PM CDT GLUCOSE POCT, B Routine 06/17/2024 1:04 PM CDT documented in this encounter Results * (ABNORMAL) Glucose, POCT (06/17/2024 1:44 PM CDT) Glucose, POCT, B 159(H) 70 - 140 mg/dL 06/17/2024 1:44 PM CDT CNFL Blood 06/17/2024 1:44 PM CDT 06/18/2024 9:00 AM CDT Generic [facility] POCT ORDERABLES- MANUAL Performing Organization Address City/[facility]/ZIP Co de Phone Number [facility] [address] [place] [phone], [facility] in [address] [address] * (ABNORMAL) Glucose, POCT (06/17/2024 1:04 PM CDT) Glucose, POCT, B 172(H) 70 - 140 mg/dL 06/17/2024 1:04 PM CDT CNFL Blood 06/17/2024 1:04 PM CDT 06/18/2024 9:00 AM CDT Generic [facility] POCT ORDERABLES- MANUAL Performing Organization Address City/[facility]/ZIP Co de Phone Number [address] [address], [facility] in [address] [address] documented in this encounter Visit Diagnoses Diagnosis Bypass Coronary Artery Graft Status Post Prosthesis Aortic Valve documented in this encounter
--- OUTSIDE RECORDS SUMMARY | 2024-07-24 21:24 | XMS_ITS | Encounter Summary ---
Author Organization [facility] Address [address] [place] [address] Care Team Providers Care Guide Escort Name Role Phone Unavailable Primary Care Provider Unavailabl e Reason for Referral * Outpatient (Routine) - Authorized Specialty Diagnoses / Procedures Referred By Annette plunkett Referred To Contact Diagnoses Bypass Coronary Artery Graft Status Post Prosthesis Aortic Valve Procedures Cardiac Rehab Program Tim Zamarripa M.D. [address] [place] [address] [facility] Region Referral ID Status Reason Start Date Expiration Date V isits Requested Visits Authorized [id number] Authorized 2024 2025 99 99 Reason for Visit * Outpatient (Routine) - Authorized Specialty Diagnoses / Procedures Referred By Annette plunkett Referred To Contact Diagnoses Bypass Coronary Artery Graft Status Post Prosthesis Aortic Valve Procedures Cardiac Rehab Program Tim Zamarripa M.D. [address] [place] [address] [facility] Region Referral ID Status Reason Start Date Expiration Date V isits Requested Visits Authorized [id number] Authorized 2024 2025 99 99 Encounter Details Date Type Department Care Team (Latest Contact Info) Description 06/10/2024 2:21 PM CDT - 06/10/2024 11:59 PM CDT Hospital Encounter Department of Cardiac Rehabilitation in [address] [place] [address] Tim Zamarripa M.D. [address] [place] [address] Bypass Coronary Artery Graft Status Post; Prosthesis [...] Appointment Department of Cardiac Rehabilitation in [address] [address] Tim Zamarripa M.D. [address] [place] [address] Scheduled Orders Name Type Priority Associated Diagnoses Orde r Schedule Cardiac Rehab Program Card Rehab Routine Bypass Coronary Artery Graft Status Post Prosthesis Aortic Valve Once for 1 Occurrences starting 06/10/2024 until 06/10/2024 documented as of this encounter Procedures Procedure Name Priority Date/Time Associated Diagnosis Comments GLUCOSE POCT, B Routine 06/10/2024 3:16 PM CDT GLUCOSE POCT, B Routine 06/10/2024 2:37 PM CDT documented in this encounter Results * Glucose, POCT (06/10/2024 3:16 PM CDT) Glucose, POCT, B 133 70 - 140 mg/dL 06/10/2024 3:16 PM CDT CNFL Blood 06/10/2024 3:16 PM CDT 06/10/2024 3:39 PM CDT Generic [facility] POCT ORDERABLES- MANUAL Performing Organization Address City/[facility]/ZIP Co de Phone Number [address] [address], [address] [address] * Glucose, POCT (06/10/2024 2:37 PM CDT) Glucose, POCT, B 138 70 - 140 mg/dL 06/10/2024 2:37 PM CDT CNFL Blood 06/10/2024 2:37 PM CDT 06/10/2024 3:39 PM CDT Generic [facility] POCT ORDERABLES- MANUAL Performing Organization Address City/[facility]/ZIP Co de Phone Number [address] [address], [facility] in [address] [address] documented in this encounter Visit Diagnoses Diagnosis Bypass Coronary Artery Graft Status Post Prosthesis Aortic Valve documented in this encounter
--- OUTSIDE RECORDS SUMMARY | 2024-07-24 21:24 | XMS_ITS | Encounter Summary ---
Author Organization [facility] Address [address] [place] [address] Care Team Providers Care Airport Operations Manager Name Role Phone Unavailable Primary Care Provider Unavailabl e Reason for Visit * Reason Onset Date Comments Cardiac Rehab 2024 Encounter Details Date Type Department Care Team (Latest Contact Info) Description 2024 Clinical Communication Department of Cardiac Rehabilitation in [address] [place] [address] Swapna uLx CCRP, CEP Cardiac Rehab Social History Tobacco Use Types Packs/Day Years [...] Miscellaneous Notes * Telephone Encounter - Swapna Lux CCRP, CEP - 2024 3:45 PM CDT Patient was contacted to discuss cardiac rehab and schedule orientation. The program and benefits were explained. Pt is scheduled for orientation on 05/28 at 1pm. documented in this encounter Plan of Treatment Upcoming Encounters Date Type Department Care Team (Late st Contact Info) Description 07/26/2024 11:00 AM CDT Appointment Department of Cardiac Rehabilitation in [address] [phone] Tim Zamarripa M.D. [address] [place] [phone] documented as of this encounter Visit Diagnoses Not on filedocumented in this encounter
--- OUTSIDE RECORDS SUMMARY | 2024-07-24 21:24 | XMS_ITS | Clinical Summary ---
Author Organization [facility] Address [address] [place] [address] Care Team Providers Care Color Checker Name Role Phone SerraJoanne nieves Sandrine KIDD, SAND SHOVELER Primary Care Provi surinder Allergies Active Allergy Reactions Criticality Noted Date Comments Pollen Extract Other (see comments) 08/06/2013 Pollen, causes watery eyes. Medications Medication Sig Dispensed Refills Start Date End Date Status aspirin 81 MG chewable tabletIndications:C oronary artery disease without angina pectoris, unspecified vessel or lesion type, unspecified whether [place] or transplanted heart Chew 1 tablet (81 [...] unspecified vessel or lesion type, unspecified whether [place] or transplanted heart Place 1 tablet (0.4 [...] long-term current use of insulin ([facility]) Inject 0.3 mL (1.8 mg total) under the skin 1 (one) time each day 27 mL 11/17/2021 Active Additional Information Patient not taking.Reported on 04/25/2024 Jardiance 25 MG tabletIndications:T ype 2 diabetes mellitus with complication, without long-term current use of insulin ([facility]) Take 1 tablet by mouth once daily 30 tablet 12/07/2021 Active glipiZIDE (GLUCOTROL) 5 MG tabletIndications:T ype 2 diabetes mellitus with complication, without long-term current use of insulin ([facility]) Take 1 tablet (5 mg total) by mouth 1 (one) time each day with breakfast 30 tablet 12/09/2021 Active Additional Information Patient not taking.Reported on 04/25/2024 atenolol (TENORMIN) 50 MG tabletIndications:C oronary artery disease without angina pectoris, unspecified vessel or lesion type, unspecified whether [place] or transplanted heart TAKE 1 TABLET DAILY (NEED APPOINTMENT FOR FURTHER REFILLS) 14 tablet 02/28/2022 Active lisinopril (ZESTRIL) 40 MG tabletIndications:T ype 2 diabetes mellitus with complication, without long-term current use of insulin ([facility]),Essential hypertension TAKE 1 TABLET DAILY (NEED APPOINTMENT FOR FURTHER REFILLS) 14 tablet 02/28/2022 Active metFORMIN (GLUCOPHAGE) 1000 MG tabletIndications:T ype 2 diabetes mellitus with complication, without long-term current use of insulin ([facility]) TAKE 1 TABLET TWICE A DAY (NEEDS [...] before and morning of surgery 04/22/2024 Active Active Problems Problem Noted Date Diagnosed Date Essential hypertension 08/13/2020 Radiculopathy, lumbar region 07/23/2020 Pain of right lower extremity 07/23/2020 History of skin cancer 05/04/2020 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 Gout, unspecified 12/02/2016 Atherosclerotic heart diseas e of [place] coronary artery without angina pectoris 10/15/2015 Type [...] Description 04/25/2024 4:00 PM CDT Clinical Support [address] [address] Medicare annual wellness visit, subsequent (Primary Dx) from Last 3 Months Immunizations Name Administration Dates Next Due Flu Vaccine High Dose 65yrs and Older IM 07/23/2020,08/22/2019,07/23/2018 INFLUENZA QUADRIVALENT MDV (IM) 08/11/2015 Influenza 6mo-64yrs Quad Pre servative Free IM 08/22/2019,10/13/2016,10/09/2016,08/11,08/13/2014,08/12/2013,11/10/2012 ,09/11/2010 Influenza, Split Virus, Triv alent, Preservative 10/13/2016,08/13/2014,11/10/2012,09/11 Influenza, Trivalent, PF 10/09/2016,08/12/2013 Influenza, Unspecified 08/11/2015 Pneumococcal Conjugate 13-Valent 10/15/2015 [...] often do you attend chur ch or adventism services? More than 4 times per year 04/25/2024 Do you belong to any clubs o r organizations such as bahai groups, unions, fraternal or athletic groups, or [...] Date Recorded PHQ-9 Total Score 1 04/25/2024 [facility] [place] of Occupat ional [facility] - Occupational Stress Questionnaire Answer Date Recorded [...] time in the past 12 m [facility], were you homeless or living in a assisted (including now)? No 04/25/2024 Sex and Gender [...] 07/24/2019 Colorectal Cancer Screening 07/24/2022 COVID-19 Vaccine ( - season) 2024 Influenza Vaccine (#1) 2024 , 08/22/2019, 08/22/2019, Additional history exists DTaP,Tdap,and Td [...] AM CDT) Cologuard result Negative Not Applicable [employer] Comment: A negative result indicates a low [...] screened with both Cologuard and colonoscopy. (Sonia Farley al, N Engl J Med 2014;370(14):4568-6261) COLOGUARD RE-SCREENING RECOMMENDATION: Periodic routine colorectal cancer screening is an important part of preventive healthcare for asymptomatic persons at average risk for colorectal cancer. Following a negative Cologuard result, the [employer] and U.S. Multi-Society Task Force screening guidelines recommend a Cologuard re-screening interval of 3 years. References: [employer] (ACS). Colorectal cancer prevention and early detection. [place], [place]: [employer]; [updated 2015Feb 20]. https://www.cancer.org/cancer/aehrd-qelcpx-jilqgx/moeumceua-bqmjrqfsu-mzbhfaz/ac s-rec ommendations.html. Accessed June 29, 2018; Daniel DK, Kermit CHRIS, Faith CroftK, Colorectal Cancer Screening: Recommendations for Physicians and Patients from the U.S. Multi-Society Task Force on Colorectal Cancer Screening, Am J Gastroenterology 2017; 112:5896-0728. Test Type: Composite algorithmic analysis of stool [...] can be accessed at the following location: www.[employer]/results. Additional description of the Cologuard test process, warnings and precautions can be found at www.cologuardtest.com. Rx Only. [employer], [address] [place] [address]., [place], [address], , [facility]a olsen Intelligence Officer, GIANNI ZAMAN, Ph.D., [facility], CLIA NO: [id number] Stool 07/18/2019 7:30 AM CDT 07/19/2019 3:12 PM CDT Joanne Serra APRN, [facility] UIDS AND STOOLS ORDERABLES [employer], [facility] [address] [facility] [address] [place] [address], from Last 3 Months or Most Recently Relevant to Health Maintenance Care Teams Color Checker Relationship Specialty Start Date End Date Joanne Serra APRN, SAND SHOVELER [address] [facility] [place] [address] PCP - General Family Medicine 06/13/22
--- OUTSIDE RECORDS SUMMARY | 2024-07-24 21:24 | XMS_ITS | Encounter Summary ---
Author Organization [facility] Address [address] [place] [address] Care Team Providers Care Discharge Door Operator Name Role Phone Unavailable Primary Care Provider Unavailabl e Reason for Visit * Reason Onset Date Comments Scheduling 06/21/2024 Encounter Details Date Type Department Care Team (Late st Contact Info) Description 06/21/2024 Clinical Communication Department of Cardiac Rehabilitation in [address] [phone] Swapna Lux, CCRP, [facility] Scheduling Social History Tobacco Use Types Packs/Day [...] CDT Appointment Department of Cardiac Rehabilitation in [address] [phone] Tim Zamarripa M.D. [address] [place] [phone] documented as of this encounter Visit Diagnoses Not on filedocumented in this encounter Additional Health Concerns Assessment Noted Time PHQ-9 Depression Total Score: 2 06/19/20 24 1:08 PM CDT documented as of this encounter
--- OUTSIDE RECORDS SUMMARY | 2024-07-24 21:24 | XMS_ITS | Encounter Summary ---
Author Organization [facility] Address [address] [place] [address] Care Team Providers Care Ditch Inspector Name Role Phone Unavailable Primary Care Provider Unavailabl e Encounter Details Date Type Department Care Team (Late st Contact Info) Description 07/25/2005 Historical Ophthalmology [facility] Tong Johnson M.D. [address] [place] [phone] Social History Tobacco Use Types Packs/Day Years Used Date Smoking Tobacco: Never Assessed Sex and Gender Information Value Date Recorded Sex Assigned at Not on file Gender Identity Not on file Sexual Orientation Not on file documented as of this encounter Progress Notes * Tong Johnson M.D. - 07/25/2005 12:00 AM CDT Eye General CHIEF COMPLAINT 6 month recheck for choroidal nevi, both eyes HISTORY OF PRESENT ILLNESS Since last visit on january 26, patient states that vision has been stable. Denies flashing lights and floaters. IMPRESSION / REPORT / PLAN #1 Choroidal nevi, OU Both right and left eye choroidal nevi may have grown since 1987, right one minimally, left one notvisible at landmarks where it is now visible. no change from last photos. #2 Ocular hypertension IOP even higher than last time Letter to Dr. Aaron indicating IOP today DIAGNOSIS #1 Choroidal nevi, OU #2 Ocular hypertension CDM Reports - EYEGEN Id: [id number] Status: Fnl documented in this encounter Plan of Treatment Upcoming Encounters Date Type Department Care Team (Late st Contact Info) Description 07/26/2024 11:00 AM CDT Appointment Department of Cardiac Rehabilitation in [address] [phone] Tim Zamarripa M.D. [address] [place] [phone] documented as of this encounter Visit Diagnoses Not on filedocumented in this encounter
--- OUTSIDE RECORDS SUMMARY | 2024-07-24 21:25 | XMS_ITS | Clinical Summary ---
Author Organization [employer] [facility] Address [place], [place] [address] Care Team Providers Care Outreach Analyst Name Role Phone Al Orourke MD Unavailable [phone] Joanne Serra NP Primary Care Provider Henrietta Doherty Unavailable [phone] Allergies Active Allergy Reactions Criticality Noted Date Comments Pollen Extracts Runny Nose 08/05/2020 Itchy watery eyes Medications Medication Sig Dispensed Refills Start Date End Date Status aspirin 81 mg tablet Take 81 mg by mouth once daily. Active Jardiance 25 mg tablet Take 25 mg by mouth once daily. 03/16/2024 Active Lantus Solostar U-100 Insulin 100 unit/mL (3 mL) pen Inject 30 units subcutaneous once daily in the morning. 03/11/2024 Active atorvastatin (LIPITOR) 40 mg tabletIndications: Coronary artery disease, unspecified vessel or lesion type, unspecified whether angina present, unspecified whether [place] or transplanted heart Take 1 Tablet (40 mg) by mouth at bedtime. 30 Tablet 11 04/19/2024 Active nitroglycerin (NITROSTAT) 0.4 mg sublingual tabletIndications: Coronary artery disease, unspecified vessel or lesion type, unspecified whether angina present, unspecified whether [place] or transplanted heart Place 1 Tablet (0.4 mg) under the tongue every 5 minutes if needed for Chest pain 1st choice. Up to 3 tablets in 15 minutes. 25 Tablet 1 04/19/2024 Active metoprolol tartrate (LOPRESSOR) 25 mg tabletIndications: S/P CABG x 3 Take 1 Tablet (25 mg) by mouth two times daily. 180 Tablet 3 05/14/2024 Active acetaminophen (TYLENOL EXTRA STRGTH) 500 mg tabletIndications: S/P CABG x 3,Postoperative pain Take 2 Tablets (1,000 mg) by mouth every 6 hours if needed for Pain. Max acetaminophen dose: 4000mg in 24 hrs. 05/14/2024 Active amiodarone (CORDARONE) 200 mg tabletIndications: S/P CABG x 3,Paroxysmal atrial fibrillation (HC) Take 1 Tablet (200 mg) by mouth once daily. Take 1 Tablet (200 mg) by mouth once daily, until August 07, then discontinue 55 Tablet 06/13/2024 Active amoxicillin 500 mg capsuleIndications :PROPHYLAXIS Take 4 capsules by mouth, in a single dose, 30-60 minutes before procedure. (Dose = 2,000 mg) For SBE prophylaxis 8 Capsule 1 06/13/2024 Active apixaban (ELIQUIS) 5 mg tabletIndications: New onset atrial fibrillation (HC) Take 1 Tablet (5 mg) by mouth two times daily. 60 Tablet 1 06/13/2024 Active furosemide (LASIX) 40 mg tabletIndications: Hypervolemia, unspecified hypervolemia type Take 1 Tablet (40 mg) by mouth once daily in the morning. 20 Tablet 06/14/2024 Active Active Problems Problem Noted Date Diagnosed Date s/p AVR (Inspiris #27) 05/07/2024 05/07/2024 Overview (05/07/2024): Dr. Oliveira s/p 3V CABG (MCGILL-LAD, SVG-OM1, SVG-PDA) 4 05/07/2024 Overview (05/07/2024): Dr. Oliveira s/p Biatrial MAZE and LAAL [...] Date Resolved Date DIC (disseminated intravascular coagulation) 4 05/07/2024 Encounters Date Type Department Care Team Description 06/27/2024 11:00 AM CDT Office Visit [facility] [address] [place] [address] Jordon Salmon MD 06/14/2024 Telephone [facility] [address] [place] [address] Henrietta Obrien PA Results 06/13/2024 1:40 PM CDT Office Visit [facility] [address] [place] [address] Henrietta Obrien PA Follow Up 06/13/2024 1:00 PM CDT Orders Only [facility] [address] [place] [address] Lab 06/13/2024 Travel 06/11/2024 Travel 05/23/2024 10:00 AM CDT Home Care Visit [address] [address] Tete Hope RN SN - OASIS DISCHARGE 05/22/2024 Telephone [facility] [address] [place] [address] Judith Marrero PA Follow Up 05/17/2024 Plan of Care Documentation [address] [address] 05/16/2024 9:00 AM CDT Home Care Visit [address] [address] Dayna Olvera RN SN - OASIS START OF CARE 05/07/2024 7:40 AM CDT Anesthesia Event [address] [address] Irseal Larry MD Spillers Sylviamartha Hodge CRNA 05/07/2024 7:00 AM CDT - 05/07/2024 4:08 PM CDT Surgery [address] [address] Kumar Valera MD CORONARY ARTERY BYPASS WITH GRAFTING X3, AORTIC VALVE REPLACEMENT, LEFT ATRIAL APPENDAGE CLIP, RUFINO x2, TEMPORARY V-PACING WIRES 05/07/2024 5:30 AM CDT - 05/14/2024 4:34 PM CDT Hospital Encounter [address] [address] Kumar Valera MD s/p 3V CABG (MCGILL-LAD, SVG-OM1, SVG-PDA) 05/07/2024 (Primary Dx); Aortic valve stenosis, etiology of cardiac valve disease unspecified; Postoperative pain; Paroxysmal atrial fibrillation (HC); s/p AVR (Inspiris #27) 05/07/2024 Discharge Disposition: Home Health 05/06/2024 9:40 AM CDT Education [address] [address] Education 05/06/2024 9:15 AM CDT - 05/06/2024 11:59 PM CDT Hospital Encounter [address] [address] Kumar Valera MD Coronary artery disease, unspecified vessel or lesion type, unspecified whether angina present, unspecified whether [place] or transplanted heart 05/06/2024 Travel 04/30/[address] [phone] Judith Marrero PA Cardiovascular Diagnostic Testing from Last 3 Months Social History Tobacco [...] Sign Reading Time Taken Comments Blood Pressure 130/66 06/13/2024 1:37 PM CDT Pulse 67 06/13/2024 1:37 PM CDT Temperature 36.6 ??C (97.9 ??F) 05/23/2024 10:28 AM C DT Respiratory Rate 15 06/13/2024 1:37 PM CDT Oxygen Saturation 96% 06/13/2024 1:37 PM CDT Inhaled Oxygen Concentration - - Weight 102.1 kg (225 lb) 06/13/2024 1:37 PM CDT Height 182.2 cm (5' 11.75) 06/13/2024 1:37 PM C DT Body Mass Index 30.73 06/13/2024 1:37 PM CDT Plan of Treatment Upcoming Encounters Date Type Department Care Team (Late st Contact Info) Description 07/25/2024 10:30 AM CDT Office Visit [facility] [address] [place] [address] Hollis Haro MD [facility] [facility] [address] Health Maintenance Due Date Last Done Comments Pneumococcal series for age 65+ (1 of 2 - PCV) 1959 Tdap 1964 Depression screening for age 12+ 1965 Hepatitis C screening for age 18-79 1971 Tetanus booster 1973 Colonoscopy through age 75 1998 Zoster (shingles) series for age 50+ (1 of 2) 2003 Medicare Wellness for age 65+ 2018 COVID-19 vaccine series ( - 2023-25 season) 2024 Influenza for age 65+ 06/30/2024 BMI (ht and wt on same day) for age 18+ 06/13/2025 06/13/2024 Lipids for age 45-75 06/13/2029 06/13/2024, 04/17/2024, 08/06/2013 Medical Devices Implanted Type Area Machine Fur Cleaner Device Identifier Shelf Expiration Date Model / Serial / Lot [id number] - [id number] Implanted:Qt y: 1 on 07/30/2020 by Nikko Galindo MD at [facility]plants Left: Eye [employer] 08/06/2024 [id number] / [id number] / NA Description:Tecnis Aspheric IOL +21.0 Iol Tensas +21 Tecnis [id number] - [id number] Implanted:Qt y: 1 on 08/06/2020 by Nikko Galindo MD at [facility] Right: Eye [employer] 02/25/2025 [id number] 21.0# / [id number] / N/A Occluder Christelle 40mm Atriclip Flex V Exclusion Sys - [id number] Implanted:Qt y: 1 on 05/07/2024 by Kumar Valera MD at [facility] Left: Heart [employer] 11/30/2026 [id number] / / [id number] Valve Aortic 27mm Inspirus Resilia Tissue - [id number] Implanted:Qt y: 1 on 05/07/2024 by Kumar Valera MD at [facility] Aortic Valve [employer] Kavin [id number] 12/06/2027 [id number] / [id number] / Procedures Procedure Name Priority Date/Time Associated Diagnosis Comments LIPID PANEL W REFLEX MEASURED LDL Routine 06/13/2024 2:31 PM CDT s/p 3V CABG (MCGILL-LAD, SVG-OM1, SVG-PDA) 05/07/2024 PRO-BNP Routine 06/13/2024 2:31 PM CDT Hypervolemia, unspecified hypervolemia type MAGNESIUM Routine 06/13/2024 2:31 PM CDT s/p 3V CABG (MCGILL-LAD, SVG-OM1, SVG-PDA) 05/07/2024 HEMOGLOBIN Routine 06/13/2024 2:31 PM CDT s/p 3V CABG (MCGILL-LAD, SVG-OM1, SVG-PDA) 05/07/2024 BASIC METABOLIC PANEL Routine 06/13/2024 2:31 PM CDT s/p 3V CABG (MCGILL-LAD, SVG-OM1, SVG-PDA) 05/07/2024 SCAN-CARDIAC STRIP 05/16/2024 2:27 AM CDT SCAN-CARDIAC [...] 05/07/2024 4:03 PM CDT FIBRINOGEN,QUANTITATIVE STAT 05/07/20 24 4:03 PM CDT THROMBIN TIME STAT 05/07/2024 [...] stenosis, etiology of cardiac valve disease unspecified [facility] CATH INFUSION PR70 Routine 05/07/20 11:03 AM CDT [facility] KIT PR5 Routine 05/07/2024 11:03 AM CDT C AN INTRODUCER 2 LUMEN PERFORMABLE Routine 05/07/2024 11:03 AM CDT [facility] DRSG PR1 Routine 05/07/2024 11:03 AM CDT [facility] DRSG PR5 Routine 05/07/2024 11:03 AM CDT [facility] TUBING PR5 Routine 05/07/2024 11:03 AM CDT [facility] KIT MONITORING PR5 Routine 05/07/20 11:03 AM CDT [facility] ADPTR PR1 Routine 05/07/2024 11:03 AM CDT [facility] CATH INFUSION PR30 Routine 05/07/20 11:03 AM CDT [facility] TUBING PR1 Routine 05/07/2024 11:03 AM CDT [facility] TUBING PR5 Routine 05/07/2024 11:03 AM CDT [facility] TUBING PR1 Routine 05/07/2024 11:03 AM CDT HC ANES US GUIDE FOR VASC ACCESS Routine 05/07/2024 11:03 AM CDT [facility] STOPCOCK PR5 Routine 05/07/2024 11:03 AM CDT CVC TRIPLE LUMEN Routine 05/07/2024 11:03 AM CDT [facility] KIT PR5 Routine 05/07/2024 11:02 AM CDT [facility] STATLOCK PR1 Routine 05/07/2024 11:02 AM CDT [facility] DRSG PR5 Routine 05/07/2024 11:02 AM CDT [facility] DRSG PR1 Routine 05/07/2024 11:02 AM CDT [facility] TUBING PR20 Routine 05/07/2024 11:02 AM CDT [facility] TUBING PR1 Routine 05/07/2024 11:02 AM CDT [...] 8HRSPERFUSION - Confirmed for 7am with Angel #[id number] - 04/22-Confirmed time change to 0930 W/Rahel 07/05 ANW / Time chg to 0800 w/Aamir 0800 05/06 NRAtricure rep notified about case 04/24/24 [facility] Special Needs HT - 5' 222 LBS HYPERTENSION DIABETICCHRONIC KIDNEY DISEASE MAZE PROCEDURE 05/07/2024 7:10 AM CDT CORONARY ARTERY DISEASE Case Notes SWING - 8HRSPERFUSION - Confirmed for 7am with Angel #[id number] - 04/22-Confirmed time change to 0930 W/Rahel 07/05 ANW / Time chg to 0800 w/Aamir 0800 05/06 [employer] rep notified about case 04/24/24 [facility] Special Needs HT - 5' 222 LBS HYPERTENSION DIABETICCHRONIC KIDNEY DISEASE BYPASS CORONARY ARTERY WITH REPLACEMENT AORTIC VALVE 05/07/2024 7:10 AM CDT CORONARY ARTERY DISEASE Case Notes SWING - 8HRSPERFUSION - Confirmed for 7am with Angel #[id number] - 04/22-Confirmed time change to 0930 W/Rahel 07/05 ANW / Time chg to 0800 w/Aamir 0800 8 [employer] rep notified about case 04/24/24 [facility] Special Needs HT - 5' 222 LBS HYPERTENSION DIABETICCHRONIC KIDNEY DISEASE GLUCOSE [...] SCAN-OPERATIVE/PROCEDUR E REPORT 05/07/2024 12:00 AM CDT SIGNWRITER BLOOD TYPE STAT 05/06/2024 9:36 AM CDT Coronary artery disease, unspecified vessel or lesion type, unspecified whether angina present, unspecified whether [place] or transplanted heart SIGNWRITER QUESTION TEST STAT 05/06/2024 9:33 AM CDT Coronary artery disease, unspecified vessel or lesion type, unspecified whether angina present, unspecified whether [place] or transplanted heart TYPE & SCREEN STAT 05/06/2024 9:33 AM CDT Coronary artery disease, unspecified vessel or lesion type, unspecified whether angina present, unspecified whether [place] or transplanted heart TSH STAT 05/06/2024 9:33 AM CDT Coronary artery disease, unspecified vessel or lesion type, unspecified whether angina present, unspecified whether [place] or transplanted heart T4 (THYROXINE) STAT 05/06/2024 9:33 AM CDT Coronary artery disease, unspecified vessel or lesion type, unspecified whether angina present, unspecified whether [place] or transplanted heart PROTIME-INR STAT 05/06/2024 9:33 AM CDT Coronary artery disease, unspecified vessel or lesion type, unspecified whether angina present, unspecified whether [place] or transplanted heart HEPATIC FUNCTION PANEL STAT 9:33 AM CDT Coronary artery disease, unspecified vessel or lesion type, unspecified whether angina present, unspecified whether [place] or transplanted heart CBC W PLT NO DIFF STAT 05/06/2024 9:33 AM CDT Coronary artery disease, unspecified vessel or lesion type, unspecified whether angina present, unspecified whether [place] or transplanted heart BASIC METABOLIC PANEL STAT 05/06/2024 9:33 AM CDT Coronary artery disease, unspecified vessel or lesion type, unspecified whether angina present, unspecified whether [place] or transplanted heart HEMOGLOBIN A1C STAT 05/06/2024 9:33 AM CDT Coronary artery disease, unspecified vessel or lesion type, unspecified whether angina present, unspecified whether [place] or transplanted heart from Last 3 Months Results * (ABNORMAL) LIPID PANEL W REFLEX MEASURED LDL (06/13/2024 2:31 PM CDT) [facility] CHOLESTEROL,TOTAL 109 100 - 199 mg/dL 06/13/2024 3:37 PM T [facility] Comment: Cholesterol, Total Reference Ranges Desirable <200 mg/dL Borderline 200-239 mg/dL High >=240 mg/dL TRIGLYCERIDES 165(H) <150 mg/dL 06/13/2024 3:37 PM T [facility] HDL CHOLESTEROL 53 >40 mg/dL 3:37 PM T [facility] NON-HDL CHOLESTEROL 56 <145 mg/dl 06/13/2024 3:37 PM T [facility] CHOL/HDL RATIO 2.06 <4.50 06/13/2024 3:37 PM T [facility] LDL CHOLESTEROL 23 <=130 mg/dL 06/13/2024 3:37 PM T [facility] VLDL CHOLESTEROL 33(H) <=30 mg/dL 06/13/2024 3:37 PM T [facility] PROVIDER ORDERED STATUS RANDOM 06/13/2024 3:37 PM T [facility] Blood BLOOD SPECIMEN / Unknown Venipuncture / Unknown 06/13/2024 2:31 PM CDT 06/13/2024 2:31 PM CDT Henrietta BELLAMY CHEMISTRY [facility] SENDOUT [address]NAL [address] [address] [address] [place] [address] * (ABNORMAL) HEMOGLOBIN (06/13/2024 2:31 PM CDT) Only the most recent of9 resultswithin the time period is included. HEMOGLOBIN 12.2(L) 13.5 - 17.5 g/dL 06/13/2024 3:18 PM CDT [facility] MCV 89 80 - 100 fL 06/13/2024 3:18 PM CDT [facility] Blood BLOOD SPECIMEN / Unknown Venipuncture / Unknown 06/13/2024 2:31 PM CDT 06/13/2024 2:31 PM CDT [facility] - 06/13/2024 3:18 PM CDT This procedure was originally ordered at [facility]. Henrietta BELLAMY HEMATOLOGY [facility] SENDOUT INTERNAL ZIP [address] [place] [address] * (ABNORMAL) PRO-BNP (06/13/2024 2:31 PM CDT) PRO-BNP 1,249(H) <125 pg/mL 06/13/2024 3:38 PM CDT [facility] Blood BLOOD SPECIMEN / Unknown Venipuncture / Unknown 06/13/2024 2:31 PM CDT 06/13/2024 2:31 PM CDT [facility] LAB[facility]ATORY - 06/13/2024 3:38 PM CDT The following cut-points have been [...] 72% for acute congestive heart failure. ? Henrietta BELLAMY SEND OUTS Performing Organization Address [facility]/ZIP Co de Phone Number [facility] SENDOUT INTERNAL ZIP [address] [place] [address] * MAGNESIUM (06/13/2024 2:31 PM CDT) Only the most recent of9 resultswithin the time period is included. MAGNESIUM 2.4 1.6 - 2.4 mg/dL 06/13/2024 3:37 PM CDT [facility] Blood BLOOD SPECIMEN / Unknown Venipuncture / Unknown 06/13/2024 2:31 PM CDT 06/13/2024 2:31 PM CDT Henrietta BELLAMY CHEMISTRY Performing Organization Address [facility]/ZIP Co de Phone Number [facility] SENDOUT INTERNAL ZIP [phone] [place] [address] * (ABNORMAL) BASIC METABOLIC PANEL (06/13/2024 2:31 PM CDT) Only the most recent of10 resultswithin the time period is included. SODIUM 138 136 - 145 mmol/L 06/13/2024 3:38 PM CDT [facility] POTASSIUM 5.6(H) 3.5 - 5.1 mmol/L 06/13/2024 3:38 PM CDT [facility] CHLORIDE 101 98 - 107 mmol/L 06/13/2024 3:38 PM CDT [facility] CO2,TOTAL 26 22 - 29 mmol/L 06/13/2024 3:38 PM CDT [facility] ANION GAP 11 5 - 18 06/13/2024 3:38 PM CDT [facility] GLUCOSE 172(H) 70 - 99 mg/dL 06/13/2024 3:38 PM CDT [facility] CALCIUM 9.1 8.8 - 10.2 mg/dL 06/13/2024 3:38 PM CDT [facility] BUN 36(H) 8 - 23 mg/dL 06/13/2024 3:38 PM CDT [facility] CREATININE 2.58(H) 0.70 - 1.20 mg/dL 06/13/2024 3:38 PM CDT [facility] BUN/CREAT RATIO 14 10 - 20 4 3:38 PM CDT [facility] eGFR 26(L) >90 mL/min/1.7 3m2 06/13/2024 3:38 PM CDT [facility] Comment:As of 2022, eG FR is calculated by the CKD-EPI creatinine equation without race adjustment. ??eGFR can be influenced by muscle mass, exercise, and diet. ??The reported eGFR is an estimation only and is only applicable if the renal function is stable. Blood BLOOD SPECIMEN / Unknown Venipuncture / Unknown 06/13/2024 2:31 PM CDT 06/13/2024 2:31 PM CDT Henrietta BELLAMY CHEMISTRY [facility] SENDOUT INTERNAL ZIP [phone] [place] [address] * SCAN-CARDIAC STRIP (05/16/2024 2:27 AM CDT) Scanner OTHER * SCAN-CARDIAC STRIP (05/15/2024 10:31 PM CDT) Scanner OTHER * SCAN-CARDIAC STRIP (05/15/2024 9:03 AM CDT) Scanner OTHER * ECHO TTE COMPLETE W CONTRAST (05/14/2024 12:59 PM CDT) EJECTION FRACTION 65% PROSOLV Anatomical Region Laterality Modality Ultrasound 05/14/2024 12:0 0 PM CDT Narrative 05/14/2024 3:40 [place] [address] Main: [email or web address] ? Transthoracic Echo Report JOSEPH KNAPP Andriyian ID: [id number] Age: 68 : 1955 Ordering Provider: AMALIA MAURICE Exam Date: 05/14/2024 12:00 Gender: M Seam Hammerer: DRAKE Height: 71 in BSA: 2.19 m?? BP: 132 / 70 Weight: 218 lbs BMI: 30.4 kg/m?? HR: 79 Location: [facility] Rhythm: Normal Sinus Rhythm Procedure Components: 2D imaging with contrast, Color Doppler, Spectral Doppler Indications: Aortic valve replacement Technical Quality: Very technically difficult study Contrast: Definity Constrast Dose (ml): .30 [facility]#: [id number] Final Conclusion Previous Study: 03/27/2024 1. Normal [...] ?2.75 mmHg Esthela Lincoln MD (Electronically Signed) [facility] Accredited Site Final Date: 14 May 2024 15:39 ICD-10 Codes: V43.3 Procedure Note Esthela Lincoln MD - 05/14/2024 [place] [address] Main: [email or web address] Transthoracic Echo Report JOSEPH KNAPP [employer] ID: [id number] Age: 68 : 1955 Ordering Provider: AMALIA MAURICE Exam Date: 05/14/2024 12:00 Gender: M Seam Hammerer: DRAKE Height: 71 in BSA: 2.19 m?? BP: 132 / 70 Weight: 218 lbs BMI: 30.4 kg/m?? HR: 79 Location: [facility] Rhythm: Normal SinusRhythm Procedure Components: 2D imaging with contrast, Color Doppler, SpectralDoppler Indications: Aortic valve replacement Technical Quality: Very technically difficult study Contrast: Definity Constrast Dose (ml): .30 [facility]#: [id number] Final Conclusion Previous Study: 03/27/2024 1. Normal [...] 2.75 mmHg Esthela Lincoln MD (Electronically Signed) [facility] Accredited Site Final Date: 14 May 2024 15:39 ICD-10 Codes: V43.3 Amalia BELLAMY ECHO ORD * POTASSIUM (05/14/2024 11:15 AM CDT) Only the most recent of5 resultswithin the time period is included. POTASSIUM 4.1 3.5 - 5.1 mmol/L 05/14/2024 12:10 PM CDT [facility] Blood BLOOD SPECIMEN / Unknown Venipuncture / Unknown 05/14/2024 11:15 AM CDT 05/14/2024 11:45 AM CDT Kumar Soni MD CHEMISTRY [facility] SENDOUT INTERNAL Z[address] [address] [address] [place] [address] * (ABNORMAL) GLUCOSE METER (05/14/2024 11:08 AM CDT) Only the most recent of47 resultswithin the time period is included. [facility] GLUCOSE METER 202(H) 65 - 100 mg/dL 05/14/2024 11:22 AM CDT [facility] Blood BLOOD SPECIMEN / Unknown 05/14/2024 11:08 AM CDT 05/14/2024 11:22 AM CDT Kumar Soni MD CHEMISTRY Performing Organization Address [facility] Co de Phone Number [facility] SENDOUT INTERNAL Z[address] [phone] [place] [address] * EKG 12 LEAD (05/14/2024 10:43 AM CDT) Only the most recent of5 resultswithin the time period is included. [facility] Interpretation Sinus rhythm with 1st degree A-V block Prolonged QT Abnormal ECG When compared with ECG of 13-May-2024 12:54, No significant change was found BEYOND NOW Ventricular Rate 74 BPM BEYOND NOW Atrial Rate 74 BPM BEYOND NOW P-R Interval 236 ms BEYOND NOW QRS Duration 110 ms BEYOND NOW QT 434 ms BEYOND NOW QTc 481 ms BEYOND NOW P [place] 87 degrees BEYOND NOW R [place] 87 degrees BEYOND NOW T [place] 58 degrees BEYOND NOW 05/14/2024 10:4 3 AM CDT 05/14/2024 4:10 PM CDT Judith BELLAMY EKG ORD Performing Organization Address City/[facility] Co de Phone Number BEYOND NOW [place], [place] * SCAN-CARDIAC STRIP (05/14/2024 7:49 AM CDT) Scanner OTHER * PLATELET COUNT (05/14/2024 5:30 AM CDT) Only the most recent of6 resultswithin the time period is included. [facility] PLATELET COUNT 234 140 - 440 thou/cu mm 05/14/2024 5:51 AM CDT [facility] MPV 9.9 6.5 - 11.0 fL 05/14/2024 5:51 AM CDT [facility] Blood BLOOD SPECIMEN / Unknown Venipuncture / Unknown 05/14/2024 5:30 AM CDT 05/14/2024 5:42 AM CDT Oscar Flor MD HEMATOLOGY Performing Organization Address City/[facility]/ZIP Co de Phone Number [facility] SENDOUT INTERNAL ZIP [address] [place] [phone] * WHITE BLOOD COUNT (05/14/2024 5:30 AM CDT) Only the most recent of6 resultswithin the time period is included. WHITE BLOOD COUNT 4.6 4.5 - 11.0 thou/cu mm 05/14/2024 5:51 AM CDT [facility] NRBC 0.0 % 05/14/2024 5:51 AM CDT [facility] ABS NRBC 0.0 thou /cu mm 05/14/2024 5:51 AM CDT [facility] Blood BLOOD SPECIMEN / Unknown Venipuncture / Unknown 05/14/2024 5:30 AM CDT 05/14/2024 5:42 AM CDT Judith BELLAMY HEMATOLOGY Performing Organization Address [facility]/ZIP Co de Phone Number [facility] SENDOUT INTERNAL ZIP [phone] [place] [phone] * SCAN-CARDIAC STRIP (05/14/2024 12:00 AM CDT) [...] None Seen /HPF 05/10/2024 11:54 AM CDT [facility] WBC 0-2 0-2, 3-5, None Seen /HPF 05/10/2024 11:54 AM CDT [facility] BACTERIA None Seen None Seen, Rare, Few Bacteria/ HPF 05/10/2024 11:54 AM CDT [facility] EPITHELIAL CELLS None Seen None Seen, Few Epi/HPF 05/10/2024 11:54 AM CDT [facility] HYALINE CASTS 3-5 0-2, 3-5 /LPF 05/10/2024 11:54 AM CDT [facility] Urine URINE SPECIMEN / Unknown Non-Blood / Unknown 05/10/2024 11:38 AM CDT 05/10/2024 11:44 AM CDT Cristina Hu MD URINE [facility] SENDOUT INTERNAL ZIP [address] [address] [place] [address] * (ABNORMAL) UA W/ SEDIMENT EXAM REFLEXED PER CRITERIA (05/10/2024 11:38 AM CDT) COLOR Yellow Yellow Color 05/10/2024 11:53 AM CDT [facility] CLARITY Clear Clear Clarity 05/10/2024 11:53 AM T [facility] SPECIFIC GRAVITY,URINE 1.015 1.010, 1.015, 1.020, 1.025 05/10/2024 11:53 AM T [facility] PH,URINE 5.0(A) 6.0, 7.0, 8.0, 5.5, 6.5, 7.5, 8.5 05/10/2024 11:53 AM T [facility] UROBILINOGEN, QUALITATIVE Normal Normal EU/dl 05/10/2024 11:53 AM CDT [facility] PROTEIN, URINE Negative Negative mg/dL 05/10/2024 11:53 AM T [facility] GLUCOSE, URINE 100(A) Negative mg/dL 05/10/2024 11:53 AM T [facility] KETONES,URINE Negative Negative mg/dL 05/10/2024 11:53 AM T [facility] BILIRUBIN,URI NE Negative Negative 05/10/2024 11:53 AM T [facility] OCCULT BLOOD,URINE Trace(A) Negative 05/10/2024 11:53 AM CDT [facility] NITRITE Negative Negative 05/10/2024 11:53 AM T [facility] LEUKOCYTE ESTERASE Negative Negative 05/10/2024 11:53 AM T [facility] LABORATORY Urine URINE SPECIMEN / Unknown Non-Blood / Unknown 05/10/2024 11:38 AM CDT 05/10/2024 11:44 AM CDT Cristina Hu MD URINE [facility] SENDOUT [place] [address] [address] [place] [address] * XR CHEST 2 VIEWS PA AND LATERAL (05/10/2024 9:09 AM CDT) Anatomical Region Laterality Modality CHEST, THORAX, Lung, HEART Compu alyia Radiography 05/10/2024 9:09 AM CDT Impressions 05/10/2024 [...] CHEST 2 VIEWS PA AND LATERAL LOCATION: [facility] MEDICAL IMAGING DATE: 05/10/2024 INDICATION: Post Procedure [...] CHEST 2 VIEWS PA AND LATERAL LOCATION: [facility] MEDICAL IMAGING DATE: 05/10/2024 INDICATION: Post Procedure [...] EXAM: CT CHEST ABDOMEN PELVIS WO LOCATION: [facility] MEDICAL IMAGING DATE: 05/09/2024 INDICATION: Chest trauma, cardiac injury suspected COMPARISON: 04/18/[address] TECHNIQUE: CT scan of the chest, abdomen, and pelvis was performed without IV contrast. Multiplanar reformats were obtained. Dose reduction techniques were used. Exam significantly limited by lack of intravenous contrast. CONTRAST: None. FINDINGS: LUNGS AND PLEURA: Small left pneumothorax. Small left and [id number]-jacqwxfj right pleural effusions. Dependent consolidation within the [...] For Patients: As a result of the 21st Century Cures Act, medical imagingexams and procedure reports are released immediately into your electronicmedical record. You may view this report before your referring provider.If you have questions, please contact your health care provider. EXAM: CT CHEST ABDOMEN PELVIS WO LOCATION: [facility] MEDICAL IMAGING DATE: 05/09/2024 INDICATION: Chest trauma, cardiac injury suspected COMPARISON: 04/18/[address] TECHNIQUE: CT scan of the chest, abdomen, and pelvis was performed withoutIV contrast. Multiplanar reformats were obtained. Dose reductiontechniques were used. Exam significantly limited by lack of intravenouscontrast. CONTRAST: None. FINDINGS: LUNGS AND PLEURA: Small left pneumothorax. Small left nykhmnza-kq-eznzjwfd right pleural effusions. Dependent consolidation withinthe right [...] provider. EXAM: CT HEAD BRAIN WO LOCATION: [facility] MEDICAL IMAGING DATE: 05/09/2024 INDICATION: Mental status [...] provider. EXAM: CT HEAD BRAIN WO LOCATION: [facility] MEDICAL IMAGING DATE: 05/09/2024 INDICATION: Mental status [...] INR 1.3(H) <1.3 05/09/2024 5:35 AM CDT [facility] PROTIME 14.7(H) 10.3 - 12.3 sec 05/09/2024 5:35 AM CDT [facility] Blood BLOOD SPECIMEN / Unknown Line/Port / Unknown 05/09/2024 5:17 AM CDT 05/09/2024 5:26 AM CDT [facility] LABORATORY - 05/09/2024 5:35 AM CDT ?Therapeutic [...] is on UFH. Kumar Soni MD HEMATOLOGY [facility] SENDOUT INTERNAL ZIP [phone] [place] [address] * SCAN-CARDIAC STRIP (05/09/2024 1:17 AM CDT) [...] EXAM: XR CHEST 1 VIEW PORTABLE LOCATION: [facility] MEDICAL IMAGING DATE: 05/08/2024 INDICATION: ET tube placement COMPARISON: 05/07/2024 Procedure Note Leonard Wilson MD - 05/08/2024 For Patients: As a result of the Cures Act, medical imagingexams and procedure reports are released immediately into your electronicmedical record. You may view this report before your referring provider.If you have questions, please contact your health care provider. EXAM: XR CHEST 1 VIEW PORTABLE LOCATION: [facility] MEDICAL IMAGING DATE: 05/08/2024 INDICATION: ET tube [...] (ABNORMAL) Calcium Ionized (05/08/2024 4:05 AM CDT) Pathologist [facility] CALCIUM,IONIZE D 1.11(L) 1.15 - 1.27 mmol/L 05/08/2024 4:19 AM CDT [facility] Blood BLOOD SPECIMEN / Unknown Non-Lab Venipuncture / Unknown 05/08/2024 4:05 AM CDT 05/08/2024 4:16 AM CDT Kumar Soni MD CHEMISTRY [facility] SENDOUT INTERNAL ZIP [phone] [place] [address] * SCAN-CARDIAC STRIP (05/08/2024 12:37 AM CDT) Scanner OTHER * SCAN-CARDIAC STRIP (05/07/2024 8:02 PM CDT) Scanner OTHER * (ABNORMAL) Thrombin Time - Immediate Postop (05/07/2024 4:03 PM CDT) Only the most recent of2 resultswithin the time period is included. THROMBIN TIME 28(H) <16 sec 05/07/2024 4:37 PM CDT [facility] Blood BLOOD SPECIMEN / Unknown Non-Lab Venipuncture / Unknown 05/07/2024 4:03 PM CDT 05/07/2024 4:11 PM CDT Kumar Soni MD HEMATOLOGY Performing Organization Address [facility]/ZIP Co de Phone Number [facility] SENDOUT INTERNAL ZIP [phone] [place] [address] * (ABNORMAL) ARTERIAL BLOOD GAS (05/07/2024 4:03 PM CDT) PH, ARTERIAL 7.49(H) 7.35 - 7.45 05/07/2024 4:17 PM CDT [facility] PCO2, ARTERIAL 32(L) 35 - 48 mmHg 05/07/2024 4:17 PM CDT [facility] PO2, ARTERIAL 160(H) 83 - 108 mmHg 05/07/2024 4:17 PM CDT [facility] HCO3, ARTERIAL 24 21 - 28 mmol/L 05/07/2024 4:17 PM CDT [facility] BASE EXCESS, ARTERIAL 1.7 -2.0 - 3.0 05/07/2024 4:17 PM CDT [facility] O2 SATURATION, ARTERIAL 99(H) 94 - 98 % 05/07/2024 4:17 PM CDT [facility] INSPIRED O2 05/07/2024 4:17 PM CDT [facility] Comment:Unit of Measure: Lit ers (L) if <=20; Percent (%) if >20 PATIENT TEMPERATURE 37.0 Degrees C 05/07/2024 4:17 PM CDT [facility] Blood ARTERIAL BLOOD SPECIMEN / Unknown Non-Lab Venipuncture / Unknown 05/07/2024 4:03 PM CDT 05/07/2024 4:11 PM CDT Kumar Soni MD CHEMISTRY [facility] SENDOUT INTERNAL ZIP [address] [address] [place] [address] * (ABNORMAL) APTT - Immediate Postop (05/07/2024 4:03 PM CDT) Only the most recent of2 resultswithin the time period is included. APTT 45(H) 28 - 36 sec 05/07/2024 4:37 PM CDT [facility] Blood BLOOD SPECIMEN / Unknown Non-Lab Venipuncture / Unknown 05/07/2024 4:03 PM CDT 05/07/2024 4:11 PM CDT Narrative [facility] - 05/07/2024 4:37 PM CDT Therapeutic Range: 57-87 seconds Kumar Soni MD HEMATOLOGY [facility] SENDOUT INTERNAL ZIP [address] [place] [address] * Fibrinogen, Quantitative - Immediate Postop (05/07/2024 4:03 PM CDT) Only the most recent of2 resultswithin the time period is included. FIBRINOGEN,ELIAS NTITATIVE 273 193 - 401 mg/dL 05/07/2024 4:37 PM CDT [facility] Blood BLOOD SPECIMEN / Unknown Non-Lab Venipuncture / Unknown 05/07/2024 4:03 PM CDT 05/07/2024 4:11 PM CDT Kumar Soni MD HEMATOLOGY Performing Organization Address City/[facility]/ZIP Co de Phone Number [facility] SENDOUT INTERNAL ZIP [address] [place] [address] * SCAN-CARDIAC STRIP (05/07/2024 4:00 PM CDT) [...] CDT) QUANTITY 2 05/07/2024 3:08 PM CDT [facility] BLOOD BANK Blood BLOOD SPECIMEN / Unknown 05/07/2024 3:06 PM CDT Swapna Gibbons CRNA BLOOD BANK Performing Organization Address [facility] Co de Phone Number [facility] BLOOD BANK [address] [place] [address] * PLASMA SNGL DON FFPEA UNIT (05/07/2024 3:07 PM CDT) Only the most recent of2 resultswithin the time period is included. PRODUCT BLOOD TYPE A Rh Positive [facility] BLOOD BANK PRODUCT ID NUMBER [id number] [facility] BLOOD B[facility] PRODUCT STATUS Transfused UNIT [facility] B[facility]OD B[facility] PRODUCT DESCRIPTION FP ACD-A Thaw [facility] BLOOD BANK PRODUCT CODE [id number] [facility] BLOOD BANK ISSUE DATE/TIME 05/07/24 15:09 [facility]OD [facility] Swapna Gibbons CRNA BLOOD BANK Performing Organization Address City/[facility] Co de Phone Number [facility] BLOOD BANK [address] [place] [phone] * (ABNORMAL) CBC WITH AUTO DIFFERENTIAL (05/07/2024 2:29 PM CDT) WHITE BLOOD COUNT 1.5(L) 4.5 - 11.0 thou/cu mm 05/07/2024 3:30 PM CDT [facility] RED BLOOD COUNT 3.64(L) 4.30 - 5.90 mil/cu mm 05/07/2024 3:30 PM CDT [facility] HEMOGLOBIN 10.5(L) 13.5 - 17.5 g/dL 05/07/2024 3:30 PM CDT [facility] HEMATOCRIT 30.0(L) 37.0 - 53.0 % 05/07/2024 3:30 PM CDT [facility] MCV 82 80 - 100 fL 05/07/2024 3:30 PM CDT [facility] MCH 28.8 26.0 - 34.0 pg 05/07/2024 3:30 PM CDT [facility] MCHC 35.0 32.0 - 36.0 g/dL 05/07/2024 3:30 PM CDT [facility] RDW 14.9 11.5 - 15.5 % 05/07/2024 3:30 PM CDT [facility] PLATELET COUNT 97(L) 140 - 440 thou/cu mm 05/07/2024 3:30 PM CDT [facility] MPV 10.1 6.5 - 11.0 fL 05/07/2024 3:30 PM CDT [facility] NRBC 0.0 % 05/07/2024 3:30 PM CDT [facility] ABS NRBC 0.0 thou /cu mm 05/07/2024 3:30 PM CDT [facility] Blood BLOOD SPECIMEN / Unknown Line/Port / Unknown 05/07/2024 2:29 PM CDT 05/07/2024 2:38 PM CDT Sylvia Taylor CRNA HEMATOLOGY [facility] SENDOUT INTERNAL [facility] [address] [place] [phone] * (ABNORMAL) Cardiac Thromboelastography (05/07/2024 2:29 PM CDT) Only the most recent of2 resultswithin the time period is included. VLADIMIR REASON Diffuse Cardiac Bleeding 05/07/2024 8:33 PM CDT [facility] INTEM CT 164 122 - 208 s 05/07/2024 8:33 PM CDT [facility] INTEM CFT 86 45 - 110 s 05/07/2024 8:33 PM CDT [facility] INTEM ALPHA 75 70 - 81 ?? 05/07/2024 8:33 PM CDT [facility] INTEM A10 51 46 - 67 mm 05/07/2024 8:33 PM CDT [facility] INTEM A20 57 51 - 72 mm 05/07/2024 8:33 PM CDT [facility] INTEM MCF 57 51 - 72 mm 05/07/2024 8:33 PM CDT [facility] INTEM ML 8 % 05/07/2024 8:33 PM CDT [facility] INTEM LI30 99 % 05/07/2024 8:33 PM CDT [facility] EXTEM CT 91(H) 43 - 82 s 05/07/2024 8:33 PM CDT [facility] EXTEM CFT 91 48 - 127 s 05/07/2024 8:33 PM CDT [facility] EXTEM ALPHA 72 65 - 80 ?? 05/07/2024 8:33 PM CDT [facility] EXTEM A10 52 46 - 67 mm 05/07/2024 8:33 PM CDT [facility] EXTEM A20 58 50 - 70 mm 05/07/2024 8:33 PM CDT [facility] EXTEM MCF 59 52 - 70 mm 05/07/2024 8:33 PM CDT [facility] EXTEM ML 9 % 05/07/2024 8:33 PM CDT [facility] EXTEM LI30 100 % 05/07/2024 8:33 PM CDT [facility] FIBTEM CT 80 s 05/07/2024 8:33 PM CDT [facility] FIBTEM ALPHA 60 ?? 05/07/2024 8:33 PM CDT [facility] FIBTEM A10 15 7 - 24 mm 05/07/2024 8:33 PM CDT [facility] FIBTEM A20 17 7 - 24 mm 05/07/2024 8:33 PM CDT [facility] FIBTEM MCF 17 7 - 24 mm 05/07/2024 8:33 PM CDT [facility] FIBTEM ML 0 % 05/07/2024 8:33 PM CDT [facility] FIBTEM LI30 100 % 05/07/2024 8:33 PM CDT [facility] HEPTEM CT 178 122 - 208 s 05/07/2024 8:33 PM CDT [facility] HEPTEM CFT 108 45 - 110 s 05/07/2024 8:33 PM CDT [facility] HEPTEM ALPHA 72 70 - 81 ?? 05/07/2024 8:33 PM CDT [facility] HEPTEM A10 46 mm 05/07/2024 8:33 PM CDT [facility] HEPTEM A20 51 51 - 72 mm 05/07/2024 8:33 PM CDT [facility] HEPTEM MCF 51 51 - 72 mm 05/07/2024 8:33 PM CDT [facility] HEPTEM ML 14 % 05/07/2024 8:33 PM CDT [facility] Blood BLOOD SPECIMEN / Unknown Line/Port / Unknown 05/07/2024 2:29 PM CDT 05/07/2024 2:38 PM CDT Sylvia E Rayers SPAGHETTI MACHINE OPERATOR HEMATOLOGY [facility] SENDOUT INTERNAL ZIP [address] [place] [address] * (ABNORMAL) RED CELL MORPHOLOGY (05/07/2024 2:29 PM CDT) ELLIPTOCYTES Few 05/07/2024 3:29 PM CDT [facility] RBC COMMENT Present(A ) RBC morphology appears normal, RBC morphology within normal limits for newborns. 05/07/2024 3:29 PM CDT [facility] Blood BLOOD SPECIMEN / Unknown Line/Port / Unknown 05/07/2024 2:29 PM CDT 05/07/2024 2:38 PM CDT Sylvia E Brandon SPAGHETTI MACHINE OPERATOR HEMATOLOGY [facility] SENDOUT INTERNAL ZIP [address] [place] [address] * (ABNORMAL) PLATELET ESTIMATE (05/07/2024 2:29 PM CDT) Pathologist [facility] PLATELET ESTIMATE Decreased (A) Adequate, No estimate 05/07/2024 3:29 PM CDT [facility] Blood BLOOD SPECIMEN / Unknown Line/Port / Unknown 05/07/2024 2:29 PM CDT 05/07/2024 2:38 PM CDT Sylvia E Brandon SPAGHETTI MACHINE OPERATOR HEMATOLOGY [facility] SENDOUT INTERNAL ZIP [address] [place] [address] * (ABNORMAL) MANUAL DIFFERENTIAL (05/07/2024 2:29 PM CDT) % NEUTROPHILS 57.0 % 05/07/2024 3:29 PM CDT [facility] % LYMPHOCYTES 40.0 % 05/07/2024 3:29 PM CDT [facility] % MONOCYTES 3.0 % 05/07/2024 3:29 PM CDT [facility] % EOSINOPHILS 0.0 % 05/07/2024 3:29 PM CDT [facility] % BASOPHILS 0.0 % 05/07/2024 3:29 PM CDT [facility] NEUTROPHILS ABSOLUTE 0.9(L) 1.7 - 7.0 thou/cu mm 05/07/2024 3:29 PM CDT [facility] LYMPHOCYTES ABSOLUTE 0.6(L) 0.9 - 2.9 thou/cu mm 05/07/2024 3:29 PM CDT [facility] MONOCYTES ABSOLUTE 0.0 <0.9 thou/cu mm 05/07/2024 3:29 PM CDT [facility] EOSINOPHILS ABSOLUTE 0.0 <0.5 thou/cu mm 05/07/2024 3:29 PM CDT [facility] BASOPHILS ABSOLUTE 0.0 <0.3 thou/cu mm 05/07/2024 3:29 PM CDT [facility] Blood BLOOD SPECIMEN / Unknown Line/Port / Unknown 05/07/2024 2:29 PM CDT 05/07/2024 2:38 PM CDT Sylvia Taylor SPAGHETTI MACHINE OPERATOR HEMATOLOGY [facility] SENDOUT INTERNAL ZIP [address] [place] [address] * PATH TISSUE EXAM (05/07/2024 2:20 PM CDT) Case Report Pathology Report ?Case: [id number] ? Authorizing Provider: ??Tee Soni, ?Collected: ? 05/07/2024 1420 ? Kumar, MD ? Ordering Location: ? [facility] ?Received: ?05/07/2024 1525 ? Pathologist: ? Balaji Queen MD ? Specimen: ?Aortic Valve Leaflets, Aortic valve leaflets for routine ? 05/22/2024 10:32 AM CDT [facility]-C ENTRAL LABORATORY Amendment This amendment is added to include the [employer] results. This case is sent to Dr. Clair Kelly at the [employer] [facility] for evaluation. The [employer] report ([id number]) is scanned. 05/22/2024 10:32 AM CDT [facility] Final Diagnosis A) AORTIC VALVE, EXCISION: 1. 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 Negative for vegetations or valvulitis 05/22/2024 10:32 AM CDT [facility] Amendment electronically signed by Balaji Queen MD on 05/22/2024 at 10:32 AM Clinical Information Aortic stenosis, coronary artery disease, atrial fibrillation. 05/22/2024 10:32 AM CDT [facility] LAB[facility] Gross Description A) Received fresh labeled with the patient's name and aortic valve leaflets, are 3 separate valve leaflets averaging 3.0 x 2.0 x 0.3 cm. There is marked calcification and atherosclerotic plaque. Fruit Picker Machine Operator sections are submitted in 1 cassette following decalcification. A photograph is uploaded. TTP 05/07/2024 05/22/2024 10:32 AM CDT [facility] Microscopic Description The final diagnosis is based on microscopic examination of appropriate sections of all specimens. 05/22/2024 10:32 AM CDT [facility] Additional Information Interpreted at [facility], Central Laboratory - [address], [place] [address] 05/22/2024 10:32 AM CDT [facility]-C ENTRAL LABORATORY Tissue (Aortic Valve Leaflets) 05/07/2024 2:20 PM CDT 05/07/2024 3:25 PM CDT Kumar Soni MD PATHOLOGY/ CYTOLOGY [facility]-C[facility]AL LABORATORY [address] [place] [address], [facility] SENDOUT INTERNAL ZIP [address] [address] [place] [address] * ECHO RUFINO WO CONTRAST W COLOR W LTD DOPPLER (05/07/2024 2:10 PM CDT) EJECTION FRACTION 60-65% PROSOLV Anatomical Region Laterality Modality Ultrasound, Othe r 05/07/2024 8:29 AM CDT Narrative 05/07/2024 4:10 [place] [address] Main: [email or web address] ?Transesophageal Echo Report JOSEPH KNAPP ID: [id number] Age: 68 : 1955 Ordering Provider: KUMAR VALERA Exam Date: 05/07/2024 08:29 Gender: M Seam Hammerer: ALLY Height: 71 in BSA: 2.18 m?? [...] Velocity Time Integral ? 27.8 cm Wenceslao oG MD [facility] Accredited Site (Electronically Signed) Final Date: 07 May 2024 16:10 ICD-10 Codes: I35.0 Procedure Note Wenceslao Go MD - 05/07/2024 [place] [address] Main: [email or web address] Transesophageal Echo Report JOSEPH KNAPP Andriyian ID: [id number] Age: 68 : 1955 Ordering Provider:KUMAR VALERA Exam Date: 05/07/2024 08:29 Gender: M Seam Hammerer: ALLY Height: 71 in BSA: 2.18 m?? [...] Time Integral 27.8 cm Wenceslao Go MD [facility] Accredited Site (Electronically Signed) Final Date: 07 [...] HCHG CATHINFUSION PR70 (05/07/2024 11:03 AM CDT) Narrative Isreal Larry MD - 05/07/2024 11:03 AM CDT Isreal [...] HCHG KIT PR5 (05/07/2024 11:02 AM CDT) Narrative Isreal Larry MD - 05/07/2024 11:02 AM CDT Isreal [...] by: AnesthesiologistProbe Type: multiplane Report generated by: Bill Sorter Stomach suctioned: yes Bite block inserted Anesthesia [...] included. QUANTITY 2 05/07/2024 6:14 AM CDT [facility] BLOOD BANK Blood BLOOD SPECIMEN / Unknown 05/07/2024 6:06 AM CDT Sylvia E Rayligia SPAGHETTI MACHINE OPERATOR BLOOD BANK Performing Organization Address City/[facility] Co de Phone Number [facility] BLOOD BANK [address] [place] [phone] * RED BLOOD CELLS EA UNIT (05/07/2024 6:13 AM CDT) Only the most recent of6 resultswithin the time period is included. CROSSMATCH Compatible Compatible [facility] BLOOD BANK PRODUCT BLOOD TYPE A Rh Positive [facility] BLOOD BANK PRODUCT ID NUMBER [id number] [facility] BLOOD BANK PRODUCT STATUS /Relea sed [facility] BLOOD BANK PRODUCT DESCRIPTION RBC -1 LR [facility] BLOOD BANK PRODUCT CODE [id number] [facility] BLOOD BANK Sylviamartha Taylor SPAGHETTI MACHINE OPERATOR BLOOD BANK Performing Organization Address City/[facility] Co de Phone Number [facility] BLOOD BANK [address] [place] [phone] * SCAN-CARDIAC STRIP (05/07/2024 12:00 AM CDT) Narrative 05/07/2024 12:00 AM CDT Ordered by an unspecified provider. Other Clinical Staff OTHER * SCAN-OPERATIVE/PROCEDURE REPORT (05/07/2024 12:00 AM CDT) Narrative 05/07/2024 12:00 AM CDT Ordered by an unspecified provider. Other Clinical Staff OTHER * SIGNWRITER BLOOD TYPE (05/06/2024 9:36 AM CDT) ABORH A Rh Positive 05/06/2024 10:23 AM CDT [facility] BLOOD BANK Blood BLOOD SPECIMEN / Unknown Venipuncture / Unknown 05/06/2024 9:36 AM CDT 05/06/2024 9:36 AM CDT Judith BELLAMY BLOOD BANK Performing Organization Address City/[facility] Co de Phone Number [facility] BLOOD BANK [address] [place] [phone] * SIGNWRITER QUESTION TEST (05/06/2024 9:33 AM CDT) QABT Question Yes 05/06/2024 10:03 AM CDT [facility] BLOOD BANK Blood BLOOD SPECIMEN / Unknown Venipuncture / Unknown 05/06/2024 9:33 AM CDT 05/06/2024 9:36 AM CDT Judith BELLAMY BLOOD BANK Performing Organization Address [facility] de Phone Number [facility] BLOOD BANK [address] [place] [phone] * (ABNORMAL) HEMOGLOBIN A1C SCREENING (05/06/2024 9:33 AM CDT) HEMOGLOBIN A1C SCREENING 9.5(H) <=6.4 % 05/06/2024 9:54 AM CDT [facility] Blood BLOOD SPECIMEN / Unknown Venipuncture / Unknown 05/06/2024 9:33 AM CDT 05/06/2024 9:36 AM CDT Narrative [facility] - 05/06/2024 9:54 AM CDT ? (<5.7%) ?Normal ? (5.7% to 6.4%) ? Indicates prediabetes ? (>=6.5%) ? Confirms diabetes Falsely low levels may be seen with: Recent Transfusion, Recent Significant Blood Loss, Hemolytic Diseases, or Falsely elevated levels may be seen with: Untreated Anemias, Splenectomy Judith BELLAMY CHEMISTRY Performing Organization Address City/[facility] Co de Phone Number [facility] SENDOUT INTERNAL ZIP [phone] [place] [address] * TSH (05/06/2024 9:33 AM CDT) TSH 2.31 0.27 - 4.20 uIU/mL 05/06/2024 10:23 AM CDT [facility] Blood BLOOD SPECIMEN / Unknown Venipuncture / Unknown 05/06/2024 9:33 AM CDT 05/06/2024 9:36 AM CDT Narrative [facility] - 05/06/2024 10:23 AM CDT In Adults, TSH values between 5.00 and 10.00 uIU/ml do not necessarily indicate the presence of Hypothyroidism. Correlation with clinical findings such as presence of goiter and/or Thyroperoxidase (TPO) Antibody may be helpful. For more information please refer to LUIZ 2004; 291: 228-238. Judith BELLAMY CHEMISTRY Performing Organization Address City/[facility]/ZIP Co de Phone Number [facility] SENDOUT INTERNAL ZIP [phone] [place] [address] * TYPE & SCREEN (05/06/2024 9:33 AM CDT) ABORH A Rh Positive 05/06/2024 10:35 AM CDT [facility] BLOOD BANK ANTIBODY SCREEN Negative Negative 05/06/2024 10:35 AM CDT [facility] BLOOD BANK SPECIMEN EXPIRATION DATE/TIME 05/09/24 23:59 05/06/2024 10:35 AM CDT [facility] BLOOD BANK Blood BLOOD SPECIMEN / Unknown Venipuncture / Unknown 05/06/2024 9:33 AM CDT 05/06/2024 9:36 AM CDT Judith BELLAMY BLOOD BANK [facility] BLOOD BANK [address] [place] [phone] * (ABNORMAL) CBC W PLT NO DIFF (05/06/2024 9:33 AM CDT) WHITE BLOOD COUNT 5.2 4.5 - 11.0 thou/cu mm 05/06/2024 9:52 AM CDT [facility] RED BLOOD COUNT 6.08(H) 4.30 - 5.90 mil/cu mm 05/06/2024 9:52 AM T [facility] HEMOGLOBIN 17.0 13.5 - 17.5 g/dL 05/06/2024 9:52 AM T [facility] HEMATOCRIT 50.5 37.0 - 53.0 % 05/06/2024 9:52 AM T [facility] MCV 83 80 - 100 fL 05/06/2024 9:52 AM T [facility] MCH 28.0 26.0 - 34.0 pg 05/06/2024 9:52 AM T [facility] MCHC 33.7 32.0 - 36.0 g/dL 05/06/2024 9:52 AM T [facility] RDW 15.2 11.5 - 15.5 % 05/06/2024 9:52 AM T [facility] PLATELET COUNT 221 140 - 440 thou/cu mm 05/06/2024 9:52 AM T [facility] MPV 10.9 6.5 - 11.0 fL 05/06/2024 9:52 AM T [facility] NRBC 0.0 % 05/06/2024 9:52 AM T [facility] ABS NRBC 0.0 thou /cu mm 05/06/2024 9:52 AM T [facility] Blood BLOOD SPECIMEN / Unknown Venipuncture / Unknown 05/06/2024 9:33 AM CDT 05/06/2024 9:36 AM CDT [facility] - 05/06/2024 9:52 AM CDT To be collected on 05/06/2024, at [facility] lab ONLY, for upcoming surgery on 05/07/2024. This procedure was originally ordered at [facility]. Judith BELLAMY HEMATOLOGY [facility] [place]OUT [place] [address] [id number] [address] [place] [address] * T4 (THYROXINE) (05/06/2024 9:33 AM CDT) T4 (THYROXINE) 7.0 4.5 - 11.7 ug/dL 05/06/2024 2:48 PM CDT [facility] Blood BLOOD SPECIMEN / Unknown Venipuncture / Unknown 05/06/2024 9:33 AM CDT 05/06/2024 9:36 AM CDT Judith BELLAMY CHEMISTRY [facility] [address] [place] [address], * HEPATIC FUNCTION PANEL (05/06/2024 9:33 AM CDT) ALBUMIN 4.1 4.0 - 4.9 g/dL 05/06/2024 10:23 AM CDT [facility] PROTEIN,TOTAL 7.2 6.0 - 8.0 g/dL 05/06/2024 10:23 AM CDT [facility] BILIRUBIN,TOTAL 0.4 0.0 - 1.2 mg/dL 05/06/2024 10:23 AM T [facility] BILIRUBIN,DIRECT <0.2 0.0 - 0.3 mg/dL 05/06/2024 10:23 AM CDT [facility] BILIRUBIN,INDIRE CT 05/06/2024 10:23 AM T [facility] Comment:Unable to calculate, Direct Bili <0.2 ALK PHOSPHATASE 80 40 - 129 IU/L 05/06/2024 10:23 AM T [facility] ALT (SGPT) 13 10 - 50 IU/L 05/06/2024 10:23 AM CDT [facility] AST (SGOT) 22 10 - 50 IU/L 05/06/2024 10:23 AM T [facility] Blood BLOOD SPECIMEN / Unknown Venipuncture / Unknown 05/06/2024 9:33 AM CDT 05/06/2024 9:36 AM CDT Judith BELLAMY CHEMISTRY [facility] [employer] [place]NAL ZIP [id number] [place] [id number] from Last 3 Months Advance Directives * Full Code (Latest Code Status on File) Date Activated Date Inactivated Comments 05/07/2024 5:58 AM 05/14/2024 6:39 PM Question Answer Comments Code Status Discussion: Per Existing Order * Full Code Date Activated Date Inactivated Comments 04/16/2024 5:15 PM 04/19/2024 7:01 PM Question Answer Comments Code Status Discussion: Reviewed Preferences Care Teams Outreach Analyst Relationship Specialty Start Date End Date Joanne Serra NP [address] [place] [address] PCP - General Emergency Medicine 02/11/22 Al Orourke MD [address] [place] [address] Consulting Physician Cardiovascular Disease 01/16/15 Henrietta Obrien PA [address] [facility] [address] [place] [address] Physician Payroll Tax Specialist 05/24/24
--- OUTSIDE RECORDS SUMMARY | 2024-07-24 21:25 | XMS_ITS | Encounter Summary ---
Author Organization [facility] er Address [address] [place] [address] Care Team Providers Care Semiconductor Wafers Tester Name Role Phone SerraJoanne nieves Sandrine KIDD, SENIOR BRANCH MANAGER Primary Care Provi surinder Reason for Visit * Reason Comments Med Refill Encounter Details Date Type Department Care Team (Late st Contact Info) Description 11/28/2021 Refill [place] [address] [place] [id number] Heraclio Horn MD [address] [facility] 20 [place] [address] Type 2 diabetes mellitus with complication, without long-term current use of insulin (HCC); Essential hypertension; Coronary artery disease without angina pectoris, unspecified vessel or lesion type, unspecified whether [place] or transplanted heart; Hyperlipidemia, unspecified hyperlipidemia type [...] Heraclio Horn MD - 11/30/2021 11:43 AM STRIP CATCHER Needs appointment for further refills. 90 day supply ordered. P CATCHER * Telephone Encounter - Shivani Nicole MA - 11/30/2021 10:17 AM STRIP CATCHER Last visit in provider department: 08/13/20 Last [...] Please contact patient to assist with scheduling. P CATCHER documented in this encounter Plan of Treatment Not on file documented as of this encounter Visit Diagnoses Diagnosis Type 2 diabetes mellitus with complication, without long-term current use of insulin (HCC) Essential hypertension Unspecified essential hypertension Coronary artery disease without angina pectoris, unspecified vessel or lesion type, unspecified whether [place] or transplanted heart Hyperlipidemia, unspecified hyperlipidemia type documented in this encounter Care Teams Semiconductor Wafers Tester Relationship Specialty Start Date End Date Joanne Serra APRN, SENIOR BRANCH MANAGER [address] [place] [address] PCP - General Family Medicine 06/13/22 documented as of this encounter
--- OUTSIDE RECORDS SUMMARY | 2024-07-24 21:25 | XMS_ITS | Encounter Summary ---
Author Organization [facility] er Address [address] [place] [address] Care Team Providers Care Divorce Lawyer Name Role Phone Joanne Serra APRN, JUMP ROLL OPERATOR Primary Care Provi surinder Reason for Visit * Reason Comments Med Refill Encounter Details Date Type Department Care Team (Late st Contact Info) Description 04/24/2019 Refill [place] [address] [place] [address] Joanne Serra APRN, JUMP ROLL OPERATOR [address] [place] [address] Chronic gout without tophus, unspecified cause, unspecified [...] site documented in this encounter Care Teams Divorce Lawyer Relationship Specialty Start Date End Date Joanne Serra, PREPLEATER, JUMP ROLL OPERATOR [address] [place] [address] PCP - General Family Medicine 06/13/22 documented as of this encounter
--- OUTSIDE RECORDS SUMMARY | 2024-07-24 21:25 | XMS_ITS | Encounter Summary ---
Author Organization [facility] er Address [address] [place] [address] Care Team Providers Care Enrollment Consultant Name Role Phone Joanne Serra Sandrine KIDD, RADIOGRAPHER CARDIAC CATHETERIZATION Primary Care Provi surinder Reason for Visit * Reason Comments Med Refill Encounter Details Date Type Department Care Team (Late st Contact Info) Description 10/13/2020 Refill [place] [address] [place] [phone] Rosy Bustillo MD 1705 [facility] 20 [place] [address] Gout, unspecified cause, unspecified chronicity, unspecified site [...] at lowest dose given his risk of DC (s/p Drug eluting stent in 2012).He states he has tried gout prophylactic medication in the past but it did not sit well with him. Offered alternative agent but patient declined. FACTURING PROCESS ENGINEER * Telephone Encounter - Rosy Bustillo MD - 10/14/2020 11:03 AM MANUFACTURING PROCESS ENGINEER Joseph recently had a physical with Dr. Horn. Even though I have filled his Rx for Indocin previously I would send this request to Dr. Horn. Let me know when you send this to him and I will remove this from my worklist. Thanks. FACTURING PROCESS ENGINEER * Telephone Encounter - Elvia Byrd MA [...] appt. Please advise on extension until appt. FACTURING PROCESS ENGINEER documented in this encounter Plan of Treatment Not on file documented as of this encounter Visit Diagnoses Diagnosis Gout, unspecified cause, unspecified chronicity, unspecified site documented in this encounter Care Teams Enrollment Consultant Relationship Specialty Start Date End Date Joanne Serra, SPECIAL OFFICER, RADIOGRAPHER CARDIAC CATHETERIZATION [address] [place] [address] PCP - General Family Medicine 06/13/22 documented as of this encounter
--- OUTSIDE RECORDS SUMMARY | 2024-07-24 21:25 | XMS_ITS | Encounter Summary ---
Author Organization [facility] er Address [address] [place] [address] Care Team Providers Care Ophthalmic Medical Technologist Name Role Phone SerraJoanne nieves Sandrine KIDD, POLYSOMNOGRAPHY TECHNICIAN Primary Care Provi surinder Reason for Visit * Reason Comments Med Refill Encounter Details Date Type Department Care Team (Late st Contact Info) Description 08/23/2021 Refill [place] [address] [place] [id number] Heraclio Horn MD 1705 [facility] 20 [place] [address] Gout, unspecified cause, unspecified chronicity, unspecified site [...] taken his cares to Joanne Serra at [facility]. No need to contact Pt further. * Telephone Encounter - Kimberly Young RN - 08/23/2021 11:08 AM CDT Please call patient to schedule labs. * Telephone Encounter - Kimberly Young RN - 08/23/2021 10:03 AM CDT Review request. * Telephone Encounter - Rhoda Galvan MA - 08/23/2021 9:44 AM CDT [...] site documented in this encounter Care Teams Ophthalmic Medical Technologist Relationship Specialty Start Date End Date Joanne Serra, BANKING ATTORNEY, POLYSOMNOGRAPHY TECHNICIAN [address] [place] [address] PCP - General Family Medicine 06/13/22 documented as of this encounter
--- OUTSIDE RECORDS SUMMARY | 2024-07-24 21:25 | XMS_ITS | Encounter Summary ---
Author Organization [facility] er Address [address] [place] [address] Care Team Providers Care Breading Machine Tender Name Role Phone Joanne Serra APRN, CARD ROOM MANAGER Primary Care Provi surinder Reason for Visit * Reason Comments Med Refill Encounter Details Date Type Department Care Team (Late st Contact Info) Description 07/04/2019 Refill [place] [address] [place] [address] Joanne Serra APRN, CARD ROOM MANAGER [address] [place] [address] Neck pain Social History Tobacco Use Types [...] - 07/09/2019 11:25 AM CDT SENT TO [facility]. Does the prescription request still need to [...] upright [facility] or [facility] FAX: [phone] State: upright upright soft tissue neck with [...] Cervicalgia documented in this encounter Care Teams Breading Machine Tender Relationship Specialty Start Date End Date Joanne Serra, ORTHOPAEDIC DOCTOR, CARD ROOM MANAGER [address] [place] [address] PCP - General Family Medicine 06/13/22 documented as of this encounter
--- NOTE | 2024-08-12 09:11 | W.PM.SLEEP ---
Sleep Study Details Details Interpreting Provider: Silvia Date of Sleep Study: 07/24/24 Sleep Study Details: STUDY TYPE:? Hospital-based ? BMI:? 29.8 ORDERING PROVIDER:Gilberto Salmon INDICATION:? Concern about sleep apnea ? SLEEP SUMMARY:? 216 minutes total sleep time, decreased% of REM stage sleep at 12.3% RESPIRATORY SUMMARY:? 69.4 minutes oxygen between 80 and 88%, 1.5 minutes oxygen between 70 and 79%, AHI 52.8 using CMS guideline, per rule 1 AHI is 60.8. REM AHI is 47.5. Note entire study was done in a nonsupine position. PERIODIC LIMB MOVEMENTS OF SLEEP:? None noted CARDIAC:? Awake 64 asleep 64 no arrhythmias noted IMPRESSION:? Severe obstructive sleep apnea with significant hypo oxygenation RECOMMENDATION: In-lab titration for CPAP or AutoSet CPAP.
== END 2024-07-24 21:21 | disposition home or self-care (01) ==
LOC: SLEEP 21:21
PROVIDERS: PCP Nurse Practitioner Family; Visit Provider Internal Medicine Cardiovascular Disease
DX: G47.33 Obstructive sleep apnea (adult) (pediatric) (principal)
CPT/HCPCS: 95811

== ENCOUNTER 2024-08-08 09:39 | Outpatient (CLI) | payer MEDICARE, OTHER, SELFPAY ==
--- OUTSIDE RECORDS SUMMARY | 2024-08-08 09:45 | XMS_ITS | Clinical Summary ---
Author Organization [facility] Address [address] [place] [address] Care Team Providers Care Inside Sales Supervisor Name Role Phone Unavailable Primary Care Provider Unavailabl e Source Comments Patient records contain information from all sites at [facility]. For routine questions regarding patient records, call [phone] during business hours, M-F 8:00 AM - 5:00 PM Central Time. 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 Bypass Coronary Artery Graft Status Post; Prosthesis Aortic Valve Discharge Disposition: Home or Self Care 07/31/2024 11:00 AM CDT - 07/31/2024 11:59 PM CDT Hospital Encounter Department of Cardiac Rehabilitation in [address] [address] Tim Zamarripa M.D. Bypass Coronary Artery Graft Status Post; Prosthesis Aortic Valve Discharge Disposition: Home or Self Care 07/26/2024 10:53 AM CDT - 07/26/2024 11:59 PM CDT Hospital Encounter Department of Cardiac Rehabilitation in [address] [address] Tim Zamarripa M.D. Bypass Coronary Artery Graft Status Post; Prosthesis Aortic Valve Discharge Disposition: Home or Self Care 07/24/2024 10:55 AM CDT - 07/24/2024 11:59 PM CDT Hospital Encounter Department of Cardiac Rehabilitation in [address] [address] Tim Zamarripa M.D. Bypass Coronary Artery Graft Status Post; Prosthesis Aortic Valve Discharge Disposition: Home or Self Care 07/23/2024 Plan of Care Documentation Department of Cardiac Rehabilitation in [address] [address] 07/22/2024 10:52 AM CDT - 07/22/2024 11:59 PM CDT Hospital Encounter Department of Cardiac Rehabilitation in [address] [address] Tim Zamarripa M.D. Bypass Coronary Artery Graft Status Post; Prosthesis Aortic Valve Discharge Disposition: Home or Self Care 07/19/2024 Clinical Communication Department of Cardiac Rehabilitation in [address] [address] Swapna Lux CCRP, CEP Scheduling 07/17/2024 10:39 AM CDT - 07/17/2024 11:59 PM CDT Hospital Encounter Department of Cardiac Rehabilitation in [address] [address] Tim Zamarripa M.D. Bypass Coronary Artery Graft Status Post; Prosthesis Aortic Valve Discharge Disposition: Home or Self Care 07/12/2024 2:00 PM CDT - 07/12/2024 11:59 PM CDT Hospital Encounter Department of Cardiac Rehabilitation in [address] [address] Tim Zamarripa M.D. Bypass Coronary Artery Graft Status Post; Prosthesis Aortic Valve Discharge Disposition: Home or Self Care 07/12/2024 2:00 PM CDT - 07/12/2024 11:59 PM CDT Hospital Encounter Department of Laboratory Medicine in [address] [address] Joanne Serra C.NZach. Chronic Kidney Disease Discharge Disposition: Home or Self Care 07/12/2024 Clinical Communication Department of Cardiac Rehabilitation in [address] [address] Swapna Lux CCRP, CEP Scheduling 07/05/2024 2:23 PM CDT - 07/05/2024 11:59 PM CDT Hospital Encounter Department of Cardiac Rehabilitation in [address] [place] [address] Tim Zamarripa M.D. Bypass Coronary Artery Graft Status Post; Prosthesis Aortic Valve Discharge Disposition: Home or Self Care 07/05/2024 Clinical Communication Department of Cardiac Rehabilitation in [address] [address] Swapna Lux, CCRP, CEP Scheduling 07/03/2024 12:54 PM CDT - 07/03/2024 11:59 PM CDT Hospital Encounter Department of Cardiac Rehabilitation in [address] [address] iTm Zamarripa M.D. Bypass Coronary Artery Graft Status Post; Prosthesis Aortic Valve Discharge Disposition: Home or Self Care 06/28/2024 10:52 AM CDT - 06/28/2024 11:59 PM CDT Hospital Encounter Department of Cardiac Rehabilitation in [address] [address] Tim Zamarripa M.D. Bypass Coronary Artery Graft Status Post; Prosthesis Aortic Valve Discharge Disposition: Home or Self Care 06/26/2024 10:50 AM CDT - 06/26/2024 11:59 PM CDT Hospital Encounter Department of Cardiac Rehabilitation in [address] [address] Tim Zamarripa M.D. Bypass Coronary Artery Graft Status Post; Prosthesis Aortic Valve Discharge Disposition: Home or Self Care 06/25/2024 Plan of Care Documentation Department of Cardiac Rehabilitation in [address] [address] 06/24/2024 12:52 PM CDT - 06/24/2024 11:59 PM CDT Hospital Encounter Department of Cardiac Rehabilitation in [address] [address] Tim Zamarripa M.D. Bypass Coronary Artery Graft Status Post; Prosthesis Aortic Valve Discharge Disposition: Home or Self Care 06/21/2024 1:45 PM CDT - 06/21/2024 11:59 PM CDT Hospital Encounter Department of Cardiac Rehabilitation in [address] [address] Tim Zamarripa M.D. Bypass Coronary Artery Graft Status Post; Prosthesis Aortic Valve Discharge Disposition: Home or Self Care 06/21/2024 1:40 PM CDT - 06/21/2024 1:44 PM CDT Hospital Encounter Department of Laboratory Medicine in [address] [address] Joanne Serra C.N.P. Insufficiency Renal Chronic; Hypertensive Chronic Kidney Disease With Stage 1 Through Stage 4 Chronic Kidney Disease, Or Unspecified Chronic Kidney Disease Discharge Disposition: Home or Self Care 06/21/2024 Clinical Communication Department of Cardiac Rehabilitation in [address] [address] Swapna Lux, CCRP, CEP Scheduling 06/19/2024 12:53 PM CDT - 06/19/2024 11:59 PM CDT Hospital Encounter Department of Cardiac Rehabilitation in [address] [address] Tim Zamarripa M.D. Bypass Coronary Artery Graft Status Post; Prosthesis Aortic Valve Discharge Disposition: Home or Self Care 06/17/2024 12:42 PM CDT - 06/17/2024 11:59 PM CDT Hospital Encounter Department of Cardiac Rehabilitation in [address] [address] Tim Zamarripa M.D. Bypass Coronary Artery Graft Status Post; Prosthesis Aortic Valve Discharge Disposition: Home or Self Care 06/12/2024 2:25 PM CDT - 06/12/2024 11:59 PM CDT Hospital Encounter Department of Cardiac Rehabilitation in [address] [address] Tim Zamarripa M.D. Bypass Coronary Artery Graft Status Post; Prosthesis Aortic Valve Discharge Disposition: Home or Self Care 06/10/2024 2:21 PM CDT - 06/10/2024 11:59 PM CDT Hospital Encounter Department of Cardiac Rehabilitation in [address] [address] Tim Zamarripa M.D. Bypass Coronary Artery Graft Status Post; Prosthesis Aortic Valve Discharge Disposition: Home or Self Care 06/07/2024 2:23 PM CDT - 06/07/2024 11:59 PM CDT Hospital Encounter Department of Cardiac Rehabilitation in [address] [address] Tim Zamarripa M.D. Bypass Coronary Artery Graft Status Post; Prosthesis Aortic Valve Discharge Disposition: Home or Self Care 06/05/2024 2:15 PM CDT - 06/05/2024 11:59 PM CDT Hospital Encounter Department of Cardiac Rehabilitation in [address] [address] Tim Zamarripa M.D. Bypass Coronary Artery Graft Status Post; Prosthesis Aortic Valve Discharge Disposition: Home or Self Care 06/03/2024 2:21 PM CDT - 06/03/2024 11:59 PM CDT Hospital Encounter Department of Cardiac Rehabilitation in [address] [address] Tim Zamarripa M.D. Bypass Coronary Artery Graft Status Post; Prosthesis Aortic Valve Discharge Disposition: Home or Self Care 05/28/2024 1:00 PM CDT - 05/28/2024 11:59 PM CDT Hospital Encounter Department of Cardiac Rehabilitation in [address] [address] Tim Zamarripa M.D. Bypass Coronary Artery Graft Status Post; Prosthesis Aortic Valve Discharge Disposition: Home or Self Care 05/28/2024 Plan of Care Documentation Department of Cardiac Rehabilitation in [address] [address] 2024 Clinical Communication Department of Cardiac Rehabilitation in [address] [address] Swapna Lux CCRP, CEP Cardiac Rehab 2024 Orders Only Department of Cardiac Rehabilitation in [address] [address] Swapna Lux CCRP, CEP Bypass Coronary Artery [...] Care Team (Late st Contact Info) Description 08/09/2024 11:00 AM CDT Appointment Department of Cardiac Rehabilitation in [address] [address] Tim Zamarripa M.D. [address] [place] [phone] Health Maintenance Due Date Last Done Comments [...] Fall Risk Screen (Annual) 10/30/2023 COVID-19 Vaccine ( - 2023-2 5 season) 2024 Influenza Vaccine [...] LAB BLOOD ADD- ON [facility] [id number] [address], [facility] in [address] [address] * (ABNORMAL) Glucose, POCT (06/17/2024 1:44 PM CDT) Only the most recent of12 resultswithin the time period is included. Glucose, POCT, B 159(H) 70 - 140 mg/dL 06/17/2024 1:44 PM CDT CNFL Blood 06/17/2024 1:44 PM CDT 06/18/2024 9:00 AM CDT Generic Rals LAB POCT ORDERABLES- MANUAL [facility] [address] [place] [id number], [facility] in [address] [address] * 6 MINUTE WALK (06/03/2024 2:30 PM [...]
--- OUTSIDE RECORDS SUMMARY | 2024-08-08 09:46 | XMS_ITS | Referral Summary ---
Author Organization [facility] Address [address] [place] [address] Care Team Providers Care Rotor Coil Taper Name Role Phone Unavailable Primary Care Provider Unavailabl e Source Comments Patient records contain information from all sites at [facility]. For routine questions regarding patient records, call [phone] during business hours, M-F 8:00 AM - 5:00 PM Central Time. Record requests for emergency care only can be directed to [phone] at any time.[facility] Encounters Date Type Department Care Team Description 08/05/2024 10:55 AM CDT - 08/05/2024 11:59 PM CDT Hospital Encounter Department of Cardiac Rehabilitation in [address] [address] Tim Zamarripa M.D. Bypass Coronary Artery Graft Status Post; Prosthesis Aortic Valve Discharge Disposition: Home or Self Care 07/31/2024 11:00 AM CDT - 07/31/2024 11:59 PM CDT Hospital Encounter Department of Cardiac Rehabilitation in [address] [address] Tim Zamarripa M.D. Bypass Coronary Artery Graft Status Post; Prosthesis Aortic Valve Discharge Disposition: Home or Self Care 07/26/2024 10:53 AM CDT - 07/26/2024 11:59 PM CDT Hospital Encounter Department of Cardiac Rehabilitation in [address] [address] Tim Zamarripa M.D. Bypass Coronary Artery Graft Status Post; Prosthesis Aortic Valve Discharge Disposition: Home or Self Care 07/24/2024 10:55 AM CDT - 07/24/2024 11:59 PM CDT Hospital Encounter Department of Cardiac Rehabilitation in [address] [address] Tim Zamarripa M.D. Bypass Coronary Artery Graft Status Post; Prosthesis Aortic Valve Discharge Disposition: Home or Self Care 07/23/2024 Plan of Care Documentation Department of Cardiac Rehabilitation in [address] [address] 07/22/2024 10:52 AM CDT - 07/22/2024 11:59 PM CDT Hospital Encounter Department of Cardiac Rehabilitation in [address] [address] Tim Zamarripa M.D. Bypass Coronary Artery Graft Status Post; Prosthesis Aortic Valve Discharge Disposition: Home or Self Care 07/19/2024 Clinical Communication Department of Cardiac Rehabilitation in [address] [address] Swapna Lux CCRP, CEP Scheduling 07/17/2024 10:39 AM CDT - 07/17/2024 11:59 PM CDT Hospital Encounter Department of Cardiac Rehabilitation in [address] [address] Tim Zamarripa M.D. Bypass Coronary Artery Graft Status Post; Prosthesis Aortic Valve Discharge Disposition: Home or Self Care 07/12/2024 Clinical Communication Department of Cardiac Rehabilitation in [address] [address] Swapna Lux CCRP, CEP Scheduling 07/12/2024 2:00 PM CDT - 07/12/2024 11:59 PM CDT Hospital Encounter Department of Cardiac Rehabilitation in [address] [address] Tim Zamarripa M.D. Bypass Coronary Artery Graft Status Post; Prosthesis Aortic Valve Discharge Disposition: Home or Self Care 07/12/2024 2:00 PM CDT - 07/12/2024 11:59 PM CDT Hospital Encounter Department of Laboratory Medicine in [address] [address] Joanne Serra C.N.P. Chronic Kidney Disease Discharge Disposition: Home or Self Care 07/05/2024 Clinical Communication Department of Cardiac Rehabilitation in [address] [address] Swapna Lux, CCRP, CEP Scheduling 07/05/2024 2:23 PM CDT - 07/05/2024 11:59 PM CDT Hospital Encounter Department of Cardiac Rehabilitation in [address] [address] Tim Zamarripa M.D. Bypass Coronary Artery Graft Status Post; Prosthesis Aortic Valve Discharge Disposition: Home or Self Care 07/03/2024 12:54 PM CDT - 07/03/2024 11:59 PM CDT Hospital Encounter Department of Cardiac Rehabilitation in [address] [address] Tim Zamarripa M.D. Bypass Coronary Artery Graft Status Post; Prosthesis Aortic Valve Discharge Disposition: Home or Self Care 06/28/2024 10:52 AM CDT - 06/28/2024 11:59 PM CDT Hospital Encounter Department of Cardiac Rehabilitation in [address] [address] Tim Zamarripa M.D. Bypass Coronary Artery Graft Status Post; Prosthesis Aortic Valve Discharge Disposition: Home or Self Care 06/26/2024 10:50 AM CDT - 06/26/2024 11:59 PM CDT Hospital Encounter Department of Cardiac Rehabilitation in [address] [address] Tim Zamarripa M.D. Bypass Coronary Artery Graft Status Post; Prosthesis Aortic Valve Discharge Disposition: Home or Self Care 06/25/2024 Plan of Care Documentation Department of Cardiac Rehabilitation in [address] [address] 06/24/2024 12:52 PM CDT - 06/24/2024 11:59 PM CDT Hospital Encounter Department of Cardiac Rehabilitation in [address] [address] Tim Zamarripa M.D. Bypass Coronary Artery Graft Status Post; Prosthesis Aortic Valve Discharge Disposition: Home or Self Care 06/21/2024 Clinical Communication Department of Cardiac Rehabilitation in [address] [address] Swapna Lux, CCRP, CEP Scheduling 06/21/2024 1:40 PM CDT - 06/21/2024 1:44 PM CDT Hospital Encounter Department of Laboratory Medicine in [address] [address] Joanne Serra C.NBrittany Insufficiency Renal Chronic; Hypertensive Chronic Kidney Disease With Stage 1 Through Stage 4 Chronic Kidney Disease, Or Unspecified Chronic Kidney Disease Discharge Disposition: Home or Self Care 06/21/2024 1:45 PM CDT - 06/21/2024 11:59 PM CDT Hospital Encounter Department of Cardiac Rehabilitation in [address] [address] Tim Zamarripa M.D. Bypass Coronary Artery Graft Status Post; Prosthesis Aortic Valve Discharge Disposition: Home or Self Care 06/19/2024 12:53 PM CDT - 06/19/2024 11:59 PM CDT Hospital Encounter Department of Cardiac Rehabilitation in [address] [address] Tim Zamarripa M.D. Bypass Coronary Artery Graft Status Post; Prosthesis Aortic Valve Discharge Disposition: Home or Self Care 06/17/2024 12:42 PM CDT - 06/17/2024 11:59 PM CDT Hospital Encounter Department of Cardiac Rehabilitation in [address] [address] Tim Zamarripa M.D. Bypass Coronary Artery Graft Status Post; Prosthesis Aortic Valve Discharge Disposition: Home or Self Care 06/12/2024 2:25 PM CDT - 06/12/2024 11:59 PM CDT Hospital Encounter Department of Cardiac Rehabilitation in [address] [address] Tim Zamarripa M.D. Bypass Coronary Artery Graft Status Post; Prosthesis Aortic Valve Discharge Disposition: Home or Self Care 06/10/2024 2:21 PM CDT - 06/10/2024 11:59 PM CDT Hospital Encounter Department of Cardiac Rehabilitation in [address] [address] Tim Zamarripa M.D. Bypass Coronary Artery Graft Status Post; Prosthesis Aortic Valve Discharge Disposition: Home or Self Care 06/07/2024 2:23 PM CDT - 06/07/2024 11:59 PM CDT Hospital Encounter Department of Cardiac Rehabilitation in [address] [address] Tim Zamarripa M.D. Bypass Coronary Artery Graft Status Post; Prosthesis Aortic Valve Discharge Disposition: Home or Self Care 06/05/2024 2:15 PM CDT - 06/05/2024 11:59 PM CDT Hospital Encounter Department of Cardiac Rehabilitation in [address] [address] Tim Zamarripa M.D. Bypass Coronary Artery Graft Status Post; Prosthesis Aortic Valve Discharge Disposition: Home or Self Care 06/03/2024 2:21 PM CDT - 06/03/2024 11:59 PM CDT Hospital Encounter Department of Cardiac Rehabilitation in [address] [address] Tim Zamarripa M.D. Bypass Coronary Artery Graft Status Post; Prosthesis Aortic Valve Discharge Disposition: Home or Self Care 05/28/2024 Plan of Care Documentation Department of Cardiac Rehabilitation in [address] [address] 05/28/2024 1:00 PM CDT - 05/28/2024 11:59 PM CDT Hospital Encounter Department of Cardiac Rehabilitation in [address] [address] Tim Zamarripa M.D. 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 [address] [facility] [place] [address] Procedures Procedure Name Priority Date/Time Associated Diagnosis [...] resultswithin the time period is included. Pathologist [facility] Potassium, P 5.1 3.6 - 5.2 mmol/L [...] Joanne Serra C.N.P. LAB BLOOD ADD- ON [facility] [address] [place] [address], [facility] in [address] [address] * (ABNORMAL) Glucose, POCT (06/17/2024 1:44 PM CDT) Only the most recent of12 resultswithin the time period is included. Glucose, POCT, B 159(H) 70 - 140 mg/dL 06/17/2024 1:44 PM CDT CNFL Blood 06/17/2024 1:44 PM CDT 06/18/2024 9:00 AM CDT Generic Rals LAB POCT ORDERABLES- MANUAL [facility] [address] [address], [facility] in [address] [address] * 6 MINUTE WALK (06/03/2024 2:30 PM [...]
--- OUTSIDE RECORDS SUMMARY | 2024-08-08 09:46 | XMS_ITS | Encounter Summary ---
Author Organization [facility] Address [address] [place] [address] Care Team Providers Care Precipitator Name Role Phone Unavailable Primary Care Provider Unavailabl e Reason for Referral * Outpatient (Routine) - Authorized Specialty Diagnoses / Procedures Referred By Annette plunkett Referred To Contact Diagnoses Bypass Coronary Artery Graft Status Post Prosthesis Aortic Valve Procedures Cardiac Rehab Program Tim Zamarripa M.D. [address] [place] [address] [facility] Region Referral ID Status Reason Start Date Expiration Date V isits Requested Visits Authorized [id number] Authorized 2024 2025 99 99 Reason for Visit * Outpatient (Routine) - Authorized Specialty Diagnoses / Procedures Referred By Annette plunkett Referred To Contact Diagnoses Bypass Coronary Artery Graft Status Post Prosthesis Aortic Valve Procedures Cardiac Rehab Program Tim Zamarripa M.D. [address] [place] [address] [facility] Region Referral ID Status Reason Start Date Expiration Date V isits Requested Visits Authorized [id number] Authorized 2024 2025 99 99 Encounter Details Date Type Department Care Team (Latest Contact Info) Description 07/31/2024 11:00 AM CDT - 07/31/2024 11:59 PM CDT Hospital Encounter Department of Cardiac Rehabilitation in [address] [place] [address] Tim Zamarripa M.D. [address] [place] [phone] Bypass Coronary Artery Graft Status Post; Prosthesis [...] CDT Appointment Department of Cardiac Rehabilitation in [address] [address] Tim Zamarripa M.D. [address] [facility] [place] [phone] Scheduled Orders Name Type Priority Associated Diagnoses Orde r Schedule Cardiac Rehab Program Card Rehab Routine Bypass Coronary Artery Graft Status Post Prosthesis Aortic Valve Once for 1 Occurrences starting 07/31/2024 until 07/31/2024 documented as of this encounter Visit Diagnoses Diagnosis Bypass Coronary Artery Graft Status Post Prosthesis Aortic Valve documented in this encounter Additional Health Concerns Assessment Noted Time PHQ-9 Depression Total Score: 2 06/19/20 24 1:08 PM CDT documented as of this encounter
--- OUTSIDE RECORDS SUMMARY | 2024-08-08 09:46 | XMS_ITS | Encounter Summary ---
Author Organization [facility] Address [address] [place] [address] Care Team Providers Care Director Web Name Role Phone Unavailable Primary Care Provider Unavailabl e Reason for Referral * Outpatient (Routine) - Authorized Specialty Diagnoses / Procedures Referred By Annette plunkett Referred To Contact Diagnoses Bypass Coronary Artery Graft Status Post Prosthesis Aortic Valve Procedures Cardiac Rehab Program Tim Zamarripa M.D. [address] [place] [address] [facility] Region Referral ID Status Reason Start Date Expiration Date V isits Requested Visits Authorized [id number] Authorized 2024 2025 99 99 Reason for Visit * Outpatient (Routine) - Authorized Specialty Diagnoses / Procedures Referred By Annette plunkett Referred To Contact Diagnoses Bypass Coronary Artery Graft Status Post Prosthesis Aortic Valve Procedures Cardiac Rehab Program Tim Zamarripa M.D. [address] [place] [address] [facility] Region Referral ID Status Reason Start Date Expiration Date V isits Requested Visits Authorized [id number] Authorized 2024 2025 99 99 Encounter Details Date Type Department Care Team (Latest Contact Info) Description 06/28/2024 10:52 AM CDT - 06/28/2024 11:59 PM CDT Hospital Encounter Department of Cardiac Rehabilitation in [address] [address] Tim Zamarripa M.D. [address] [place] [phone] Bypass Coronary Artery Graft Status Post; Prosthesis [...] Appointment Department of Cardiac Rehabilitation in [address] [address] Tim Zamarripa M.D. [address] [facility] [place] [phone] Scheduled Orders Name Type Priority Associated Diagnoses [...]
--- OUTSIDE RECORDS SUMMARY | 2024-08-08 09:46 | XMS_ITS | Encounter Summary ---
Author Organization [facility] Address [address] [place] [address] Care Team Providers Care Dice Dealer Name Role Phone Unavailable Primary Care Provider Unavailabl e Reason for Referral * Outpatient (Routine) - Authorized Specialty Diagnoses / Procedures Referred By Annette plunkett Referred To Contact Diagnoses Bypass Coronary Artery Graft Status Post Prosthesis Aortic Valve Procedures Cardiac Rehab Program Tim Zamarripa M.D. [address] [place] [address] [facility] Region Referral ID Status Reason Start Date Expiration Date V isits Requested Visits Authorized [id number] Authorized 2024 2025 99 99 Reason for Visit * Outpatient (Routine) - Authorized Specialty Diagnoses / Procedures Referred By Annette plunkett Referred To Contact Diagnoses Bypass Coronary Artery Graft Status Post Prosthesis Aortic Valve Procedures Cardiac Rehab Program Tim Zamarripa M.D. [address] [place] [address] [facility] Region Referral ID Status Reason Start Date Expiration Date V isits Requested Visits Authorized [id number] Authorized 2024 2025 99 99 Encounter Details Date Type Department Care Team (Latest Contact Info) Description 07/17/2024 10:39 AM CDT - 07/17/2024 11:59 PM CDT Hospital Encounter Department of Cardiac Rehabilitation in [address] [address] Tim Zamarripa M.D. [address] [place] [phone] Bypass Coronary Artery Graft Status Post; Prosthesis [...] CDT Appointment Department of Cardiac Rehabilitation in [address] [address] Tim Zamarripa M.D. [address] [place] [phone] Scheduled Orders Name Type Priority Associated Diagnoses [...]
--- OUTSIDE RECORDS SUMMARY | 2024-08-08 09:46 | XMS_ITS | Encounter Summary ---
Author Organization [facility] Address [address] [place] [address] Care Team Providers Care Pigment Making Supervisor Name Role Phone Unavailable Primary Care Provider Unavailabl e Reason for Visit * Reason Onset Date Comments Scheduling 06/21/2024 Encounter Details Date Type Department Care Team (Late st Contact Info) Description 06/21/2024 Clinical Communication Department of Cardiac Rehabilitation in [address] [phone] Swapna Lux, CCRP, [facility] Scheduling Social History Tobacco Use Types Packs/Day [...] CDT Appointment Department of Cardiac Rehabilitation in [address] [phone] Tim Zamarripa M.D. [address] [place] [phone] documented as of this encounter Visit Diagnoses Not on filedocumented in this encounter Additional Health Concerns Assessment Noted Time PHQ-9 Depression Total Score: 2 06/19/20 24 1:08 PM CDT documented as of this encounter
--- OUTSIDE RECORDS SUMMARY | 2024-08-08 09:46 | XMS_ITS | Encounter Summary ---
Author Organization [facility] Address [address] [place] [address] Care Team Providers Care Forestry Support Specialist Name Role Phone Unavailable Primary Care Provider Unavailabl e Encounter Details Date Type Department Care Team (Latest Contact Info) Description 06/25/2024 Plan of Care Documentation Department of Cardiac Rehabilitation in [address] [place] [address] Social History Tobacco Use Types Packs/Day Years [...] : 1955, ) was referred to the [facility] Card[facility]hab[facility] on 05/14/2024, by Referred by Judith BELLAMY ([facility]); order signed by Dr.Tyler Zamarripa and has completed 9 sessions out of the 36 prescribed. PCP: No primary care provider on file. Electric Drill Operator: Henrietta Obrien P.A.-C. Program: Cardiac Rehab Phase II Type: Center-Based Intake Date: 05/28/2024 Date of Enrollment: 06/03/2024 Primary Diagnosis: CABG 05/07/2024 Secondary Diagnosis: Valve 05/07/2024 AACVPR Risk: Low 05/28/2024 06/25/2024 Symptoms ITP Inclusion: Symptoms Initial Reassessment Synopsis Pt was referred for CR following CABGx3, AVR, s/p MAZE and LAAL on 05/[address] [facility].Leading up to cardiac surgery pt had [...] has a f/u visit [facility]with [facility]. He does have a [...] Teach Back Risk Factors For Heart Disease NN1395-83, taught by Swapna Lux CCRP, CEP at [...] daughters are nurses and 1 is a critical care registered nurse so they've been good support and resources [...] fried chicken sandwich for lunch from [facility] prior to rehab. He's demonstrated growth in understanding of the impact carbs has on his BS. Will continue toprovide education and resources as needed. Nutrition Education Documentation Risk Factors For Heart Disease [id number], taught by Swapna Lux, CCRP, CEP at 06/25/2024 1:41 PM. 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 Sleep has been improving since he's [...] Education Documentation Risk Factors For Heart Disease [id number], taught by Swapna Lux, CCRP, CEP at [...] Education Documentation Risk Factors For Heart Disease [id number], taught by Swapna Lux, CCRP, CEP at [...] ate a fried chicken sandwich at the [facility] just prior to that visit. Education [...] CDT Appointment Department of Cardiac Rehabilitation in [address] [address] Tim Zamarripa M.D. [address] [place] [phone] documented as of this encounter Visit Diagnoses Not on filedocumented in this encounter Additional Health Concerns Assessment Noted Time PHQ-9 Depression Total Score: 2 06/19/20 24 1:08 PM CDT documented as of this encounter
--- OUTSIDE RECORDS SUMMARY | 2024-08-08 09:46 | XMS_ITS | Encounter Summary ---
Author Organization [facility] Address [address] [place] [address] Care Team Providers Care Domestic Helper Name Role Phone Unavailable Primary Care Provider Unavailabl e Reason for Referral * Outpatient (Routine) - Authorized Specialty Diagnoses / Procedures Referred By Annette plunkett Referred To Contact Diagnoses Bypass Coronary Artery Graft Status Post Prosthesis Aortic Valve Procedures Cardiac Rehab Program Tim Zamarripa M.D. [address] [place] [address] [facility] Region Referral ID Status Reason Start Date Expiration Date V isits Requested Visits Authorized [id number] Authorized 2024 2025 99 99 Reason for Visit * Outpatient (Routine) - Authorized Specialty Diagnoses / Procedures Referred By Annette plunkett Referred To Contact Diagnoses Bypass Coronary Artery Graft Status Post Prosthesis Aortic Valve Procedures Cardiac Rehab Program Tim Zamarripa M.D. [address] [place] [address] [facility] Region Referral ID Status Reason Start Date Expiration Date V isits Requested Visits Authorized [id number] Authorized 2024 2025 99 99 Encounter Details Date Type Department Care Team (Latest Contact Info) Description 07/05/2024 2:23 PM CDT - 07/05/2024 11:59 PM CDT Hospital Encounter Department of Cardiac Rehabilitation in [address] [place] [address] Tim Zamarripa M.D. [address] [place] [phone] Bypass Coronary Artery Graft Status Post; Prosthesis [...] CDT Appointment Department of Cardiac Rehabilitation in [address] [phone] Tim Zamarripa M.D. [address] [facility] [place] [phone] Scheduled Orders Name Type Priority Associated Diagnoses [...]
--- OUTSIDE RECORDS SUMMARY | 2024-08-08 09:46 | XMS_ITS | Encounter Summary ---
Author Organization [facility] Address [address] [place] [address] Care Team Providers Care Python Java Developer Name Role Phone Unavailable Primary Care Provider Unavailabl e Reason for Referral * Outpatient (Routine) - Authorized Specialty Diagnoses / Procedures Referred By Annette plunkett Referred To Contact Diagnoses Bypass Coronary Artery Graft Status Post Prosthesis Aortic Valve Procedures Cardiac Rehab Program Tim Zamarripa M.D. [address] [place] [address] [facility] Region Referral ID Status Reason Start Date Expiration Date V isits Requested Visits Authorized [id number] Authorized 2024 2025 99 99 Reason for Visit * Outpatient (Routine) - Authorized Specialty Diagnoses / Procedures Referred By Annette plunkett Referred To Contact Diagnoses Bypass Coronary Artery Graft Status Post Prosthesis Aortic Valve Procedures Cardiac Rehab Program Tim Zamarripa M.D. [address] [place] [address] [facility] Region Referral ID Status Reason Start Date Expiration Date V isits Requested Visits Authorized [id number] Authorized 2024 2025 99 99 Encounter Details Date Type Department Care Team (Latest Contact Info) Description 07/24/2024 10:55 AM CDT - 07/24/2024 11:59 PM CDT Hospital Encounter Department of Cardiac Rehabilitation in [address] [address] Tim Zamarripa M.D. [address] [place] [phone] Bypass Coronary Artery Graft Status Post; Prosthesis [...] Appointment Department of Cardiac Rehabilitation in [address] [address] Tim Zamarripa M.D. [address] [facility] [place] [phone] Scheduled Orders Name Type Priority Associated Diagnoses [...]
--- OUTSIDE RECORDS SUMMARY | 2024-08-08 09:46 | XMS_ITS | Encounter Summary ---
Author Organization [facility] Address [address] [place] [address] Care Team Providers Care Pilot Plant Research Technician Name Role Phone Unavailable Primary Care Provider Unavailabl e Encounter Details Date Type Department Care Team (Latest Contact Info) Description 07/23/2024 Plan of Care Documentation Department of Cardiac Rehabilitation in [address] [place] [address] Social History Tobacco Use Types Packs/Day [...] : 1955, ) was referred to the [facility] on 05/14/2024, by Referred by Judith BELLAMY ([facility]); order signed by Dr.Tyler Zamarripa and has completed 16 sessions out of the 36 prescribed. PCP: No primary care provider on file. Social Welfare Clerk: Henrietta Obrien P.A.-CDionna Program: Cardiac Rehab Phase II Type: Center-Based Intake Date: 05/28/2024 Date of Enrollment: 06/03/2024 Primary Diagnosis: CABG 05/07/2024 Secondary Diagnosis: Valve 05/07/2024 AACVPR Risk: Low 05/28/2024 06/25/2024 07/23/2024 Symptoms ITP Inclusion: Symptoms Initial Reassessment Reassessment Synopsis Pt was referred for CR following CABGx3, AVR, s/p MAZE and LAAL on 05/07 at [facility].Leading up to cardiac surgery pt had [...] has a f/u visit scheduledwith [facility] at [facility] on 06/13. He does have a cardiac [...] f/u visit on 06/27 with CVD in [place], he was instructed to stop Lasix at [...] to make a point to go to [employer] and walk laps for aroudn 1 hr. 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 He's been consistent with CR 3x per week and is tolerating exercise well. Adjustments were made to TM workloads d/t hip and back pain. We discussed options to increase home exercise. Pt is interested in walking laps at the [employer] and field as he feels the ofe of the track is easier on his joints than the indoor fieldhouse in . He would also consider joining the [facility] at the conclusion of CR to gain access to a pool to mix in some swimming or pool walking as part of his cardio workout. Exercise Education Documentation Individualized ExRx, taught by Swapna Lux CCRP, CEP at 06/25/2024 1:41 PM. Learner: Patient Readiness: Acceptance Method: Explanation Response: Able to Teach Back Risk Factors For Heart Disease ER5272-28, taught by Swapna Lux CCRP, CEP at [...] daughters are nurses and 1 is a registered diet technician so they've been good support and resources [...] fried chicken sandwich for lunch from the [facility] prior to rehab. He's demonstrated growth in [...] Education Documentation Risk Factors For Heart Disease [id number], taught by Swapna Lux, EAGLEP, CEP at 06/25/2024 1:41 PM. Learner: Patient Readiness: Acceptance Method: Explanation Response: Able to Teach Back Psychosocial Assessment 06/19/2024 PHQ-9 PHQ-9 Total Score (max 27) 2 PHQ-9 Interpretation None to minimal depression 06/19/2024 [facility] Total Score 23 05/28/2024 06/25/2024 07/23/2024 Psychosocial [...] He is retired from working in the [employer] industry. Sleep has been improving since he's [...] Education Documentation Risk Factors For Heart Disease [id number], taught by Swapna Lux, CCRP, CEP at [...] Education Documentation Risk Factors For Heart Disease LS1224-57, taught by Swapna Lux, CCRP, CEP at [...] ate a fried chicken sandwich at the [facility] just prior to that visit. Education was [...] CDT Appointment Department of Cardiac Rehabilitation in [address] [phone] Tim Zamarripa M.D. [address] [place] [phone] documented as of this encounter Visit Diagnoses Not on filedocumented in this encounter Additional Health Concerns Assessment Noted Time PHQ-9 Depression Total Score: 2 08/21/20 24 1:08 PM CDT documented as of this encounter
--- OUTSIDE RECORDS SUMMARY | 2024-08-08 09:46 | XMS_ITS | Encounter Summary ---
Author Organization [facility] Address [address] [place] [address] Care Team Providers Care Detective Captain Name Role Phone Unavailable Primary Care Provider Unavailabl e Reason for Referral * Outpatient (Routine) - Authorized Specialty Diagnoses / Procedures Referred By Annette plunkett Referred To Contact Diagnoses Bypass Coronary Artery Graft Status Post Prosthesis Aortic Valve Procedures Cardiac Rehab Program Tim Zamarripa M.D. [address] [place] [address] [facility] Region Referral ID Status Reason Start Date Expiration Date V isits Requested Visits Authorized [id number] Authorized 2024 2025 99 99 Reason for Visit * Outpatient (Routine) - Authorized Specialty Diagnoses / Procedures Referred By Annette plunkett Referred To Contact Diagnoses Bypass Coronary Artery Graft Status Post Prosthesis Aortic Valve Procedures Cardiac Rehab Program Tim Zamarripa M.D. [address] [place] [phone] [facility] Region Referral ID Status Reason Start Date Expiration Date V isits Requested Visits Authorized [id number] Authorized 2024 2025 99 99 Encounter Details Date Type Department Care Team (Latest Contact Info) Description 06/21/2024 1:45 PM CDT - 06/21/2024 11:59 PM CDT Hospital Encounter Department of Cardiac Rehabilitation in [address] [phone] Tim Zamarripa M.D. [address] [place] [phone] Bypass Coronary Artery Graft Status Post; Prosthesis [...] Appointment Department of Cardiac Rehabilitation in [address] [phone] Tim Zamarripa M.D. 701 [place] [phone] Scheduled Orders Name Type Priority Associated Diagnoses [...]
--- OUTSIDE RECORDS SUMMARY | 2024-08-08 09:46 | XMS_ITS | Encounter Summary ---
Author Organization [facility] Address [address] [place] [address] Care Team Providers Care Barback Name Role Phone Unavailable Primary Care Provider Unavailabl e Reason for Referral * Outpatient (Routine) - Authorized Specialty Diagnoses / Procedures Referred By Annette plunkett Referred To Contact Diagnoses Bypass Coronary Artery Graft Status Post Prosthesis Aortic Valve Procedures Cardiac Rehab Program Tim Zamarripa M.D. [address] [place] [address] [facility] Region Referral ID Status Reason Start Date Expiration Date V isits Requested Visits Authorized [id number] Authorized 2024 2025 99 99 Reason for Visit * Outpatient (Routine) - Authorized Specialty Diagnoses / Procedures Referred By Annette plunkett Referred To Contact Diagnoses Bypass Coronary Artery Graft Status Post Prosthesis Aortic Valve Procedures Cardiac Rehab Program Tim Zamarripa M.D. [address] [place] [phone] [facility] Region Referral ID Status Reason Start Date Expiration Date V isits Requested Visits Authorized [id number] Authorized 2024 2025 99 99 Encounter Details Date Type Department Care Team (Latest Contact Info) Description 06/19/2024 12:53 PM CDT - 06/19/2024 11:59 PM CDT Hospital Encounter Department of Cardiac Rehabilitation in [address] [phone] Tim Zamarripa M.D. [address] [place] [phone] Bypass Coronary Artery Graft Status Post; Prosthesis [...] CDT Appointment Department of Cardiac Rehabilitation in [address] [phone] Tim Zamarripa M.D. 701 [place] [phone] Scheduled Orders Name Type Priority Associated Diagnoses [...]
--- OUTSIDE RECORDS SUMMARY | 2024-08-08 09:46 | XMS_ITS | Encounter Summary ---
Author Organization [facility] Address [address] [place] [address] Care Team Providers Care Military Pay Clerk Name Role Phone Unavailable Primary Care Provider Unavailabl e Reason for Visit * Reason Onset Date Comments Scheduling 07/05/2024 Encounter Details Date Type Department Care Team (Late st Contact Info) Description 07/05/2024 Clinical Communication Department of Cardiac Rehabilitation in [address] [phone] Swapna Lux, CCRP, [facility] Scheduling Social History Tobacco Use Types Packs/Day [...] CDT Appointment Department of Cardiac Rehabilitation in [address] [phone] Tim Zamarripa M.D. [address] [place] [phone] documented as of this encounter Visit Diagnoses Not on filedocumented in this encounter Additional Health Concerns Assessment Noted Time PHQ-9 Depression Total Score: 2 06/19/20 24 1:08 PM CDT documented as of this encounter
--- OUTSIDE RECORDS SUMMARY | 2024-08-08 09:46 | XMS_ITS | Encounter Summary ---
Author Organization [facility] Address [address] [place] [address] Care Team Providers Care Wedger Name Role Phone Unavailable Primary Care Provider Unavailabl e Reason for Referral * Outpatient (Routine) - Authorized Specialty Diagnoses / Procedures Referred By Annette plunkett Referred To Contact Diagnoses Bypass Coronary Artery Graft Status Post Prosthesis Aortic Valve Procedures Cardiac Rehab Program Tim Zamarripa M.D. [address] [place] [address] [facility] Region Referral ID Status Reason Start Date Expiration Date V isits Requested Visits Authorized [id number] Authorized 2024 2025 99 99 Reason for Visit * Outpatient (Routine) - Authorized Specialty Diagnoses / Procedures Referred By Annette plunkett Referred To Contact Diagnoses Bypass Coronary Artery Graft Status Post Prosthesis Aortic Valve Procedures Cardiac Rehab Program Tim Zamarripa M.D. [address] [place] [address] [facility] Region Referral ID Status Reason Start Date Expiration Date V isits Requested Visits Authorized [id number] Authorized 2024 2025 99 99 Encounter Details Date Type Department Care Team (Latest Contact Info) Description 08/05/2024 10:55 AM CDT - 08/05/2024 11:59 PM CDT Hospital Encounter Department of Cardiac Rehabilitation in [address] [phone] Tim Zamarripa M.D. [address] [place] [phone] Bypass Coronary Artery Graft Status Post; Prosthesis [...] CDT Appointment Department of Cardiac Rehabilitation in [address] [phone] Tim Zamarripa M.D. 701 [facility] [place] [phone] Scheduled Orders Name Type Priority Associated Diagnoses Orde r Schedule Cardiac Rehab Program Card Rehab Routine Bypass Coronary Artery Graft Status Post Prosthesis Aortic Valve Once for 1 Occurrences starting 08/05/2024 until 08/05/2024 documented as of this encounter Visit Diagnoses Diagnosis Bypass Coronary Artery Graft Status Post Prosthesis Aortic Valve documented in this encounter Additional Health Concerns Assessment Noted Time PHQ-9 Depression Total Score: 2 06/19/20 24 1:08 PM CDT documented as of this encounter
--- OUTSIDE RECORDS SUMMARY | 2024-08-08 09:46 | XMS_ITS | Encounter Summary ---
Author Organization [facility] Address [address] [place] [address] Care Team Providers Care Transportation Clerk Name Role Phone Unavailable Primary Care Provider Unavailabl e Reason for Referral * Outpatient (Routine) - Authorized Specialty Diagnoses / Procedures Referred By Annette plunkett Referred To Contact Diagnoses Bypass Coronary Artery Graft Status Post Prosthesis Aortic Valve Procedures Cardiac Rehab Program Tim Zamarripa M.D. [address] [place] [address] [facility] Region Referral ID Status Reason Start Date Expiration Date V isits Requested Visits Authorized [id number] Authorized 2024 2025 99 99 Reason for Visit * Outpatient (Routine) - Authorized Specialty Diagnoses / Procedures Referred By Annette plunkett Referred To Contact Diagnoses Bypass Coronary Artery Graft Status Post Prosthesis Aortic Valve Procedures Cardiac Rehab Program Tim Zamarripa M.D. [address] [place] [address] [facility] Region Referral ID Status Reason Start Date Expiration Date V isits Requested Visits Authorized [id number] Authorized 2024 2025 99 99 Encounter Details Date Type Department Care Team (Latest Contact Info) Description 07/22/2024 10:52 AM CDT - 07/22/2024 11:59 PM CDT Hospital Encounter Department of Cardiac Rehabilitation in [address] [phone] Tim Zamarripa M.D. [address] [place] [phone] Bypass Coronary Artery Graft Status Post; Prosthesis [...] CDT Appointment Department of Cardiac Rehabilitation in [address] [phone] Tim Zamarripa M.D. 701 [facility] [place] [phone] Scheduled Orders Name Type Priority Associated Diagnoses [...]
--- OUTSIDE RECORDS SUMMARY | 2024-08-08 09:46 | XMS_ITS | Encounter Summary ---
Author Organization [facility] Address [address] [place] [address] Care Team Providers Care Driller Brake Lining Name Role Phone Unavailable Primary Care Provider Unavailabl e Reason for Visit * Reason Onset Date Comments Scheduling 07/19/2024 Encounter Details Date Type Department Care Team (Late st Contact Info) Description 07/19/2024 Clinical Communication Department of Cardiac Rehabilitation in [address] [phone] Swapna Lux, CCRP, [facility] Scheduling Social History Tobacco Use Types Packs/Day [...] Appointment Department of Cardiac Rehabilitation in [address] [phone] Tim Zamarripa M.D. [address] [place] [phone] documented as of this encounter Visit Diagnoses Not on filedocumented in this encounter Additional Health Concerns Assessment Noted Time PHQ-9 Depression Total Score: 2 06/19/20 24 1:08 PM CDT documented as of this encounter
--- OUTSIDE RECORDS SUMMARY | 2024-08-08 09:46 | XMS_ITS | Encounter Summary ---
Author Organization [facility] Address [address] [place] [address] Care Team Providers Care Senior Commissions Analyst Name Role Phone Unavailable Primary Care Provider Unavailabl e Encounter Details Date Type Department Care Team (Late st Contact Info) Description 06/21/2024 1:40 PM CDT - 06/21/2024 1:44 PM CDT Hospital Encounter Department of Laboratory Medicine in [address] [phone] Joanne Serra, C.N.P. [address] [place] [phone] Insufficiency Renal Chronic; Hypertensive Chronic Kidney Disease [...] Appointment Department of Cardiac Rehabilitation in [address] [phone] Tim Zamarripa M.D. [address] [place] [phone] documented as of this encounter Procedures Procedure [...] LAB BLOOD ADD- ON Performing Organization Address City/State/[facility] Co de Phone Number [facility] [address] [place] [address], [facility] [place] [address] documented in this encounter Visit Diagnoses Diagnosis Insufficiency Renal Chronic Hypertensive Chronic Kidney Disease With Stage 1 Through Stage 4 Chronic Kidney Disease, Or Unspecified Chronic Kidney Disease documented in this encounter Additional Health Concerns Assessment Noted Time PHQ-9 Depression Total Score: 2 06/19/20 24 1:08 PM CDT documented as of this encounter
--- OUTSIDE RECORDS SUMMARY | 2024-08-08 09:46 | XMS_ITS | Encounter Summary ---
Author Organization [facility] Address [address] [place] [address] Care Team Providers Care Tube Blower Name Role Phone Unavailable Primary Care Provider Unavailabl e Reason for Referral * Outpatient (Routine) - Authorized Specialty Diagnoses / Procedures Referred By Annette plunkett Referred To Contact Diagnoses Bypass Coronary Artery Graft Status Post Prosthesis Aortic Valve Procedures Cardiac Rehab Program Tim Zamarripa M.D. [address] [place] [address] [facility] Region Referral ID Status Reason Start Date Expiration Date V isits Requested Visits Authorized [id number] Authorized 2024 2025 99 99 Reason for Visit * Outpatient (Routine) - Authorized Specialty Diagnoses / Procedures Referred By Annette plunkett Referred To Contact Diagnoses Bypass Coronary Artery Graft Status Post Prosthesis Aortic Valve Procedures Cardiac Rehab Program Tim Zamarripa M.D. [address] [place] [address] [facility] Region Referral ID Status Reason Start Date Expiration Date V isits Requested Visits Authorized [id number] Authorized 2024 2025 99 99 Encounter Details Date Type Department Care Team (Latest Contact Info) Description 06/26/2024 10:50 AM CDT - 06/26/2024 11:59 PM CDT Hospital Encounter Department of Cardiac Rehabilitation in [address] [phone] Tim Zamarripa M.D. [address] [place] [phone] Bypass Coronary Artery Graft Status Post; Prosthesis [...] Appointment Department of Cardiac Rehabilitation in [address] [phone] Tim Zamarripa M.D. 701 [place] [phone] Scheduled Orders Name Type Priority Associated Diagnoses [...]
--- OUTSIDE RECORDS SUMMARY | 2024-08-08 09:46 | XMS_ITS | Encounter Summary ---
Author Organization [facility] Address [address] [place] [address] Care Team Providers Care Dust Mill Operator Name Role Phone Unavailable Primary Care Provider Unavailabl e Reason for Referral * Outpatient (Routine) - Authorized Specialty Diagnoses / Procedures Referred By Annette plunkett Referred To Contact Diagnoses Bypass Coronary Artery Graft Status Post Prosthesis Aortic Valve Procedures Cardiac Rehab Program Tim Zamarripa M.D. [address] [place] [address] [facility] Region Referral ID Status Reason Start Date Expiration Date V isits Requested Visits Authorized [id number] Authorized 2024 2025 99 99 Reason for Visit * Outpatient (Routine) - Authorized Specialty Diagnoses / Procedures Referred By Annette plunkett Referred To Contact Diagnoses Bypass Coronary Artery Graft Status Post Prosthesis Aortic Valve Procedures Cardiac Rehab Program Tim Zamarripa M.D. [address] [place] [address] [facility] Region Referral ID Status Reason Start Date Expiration Date V isits Requested Visits Authorized [id number] Authorized 2024 2025 99 99 Encounter Details Date Type Department Care Team (Latest Contact Info) Description 07/12/2024 2:00 PM CDT - 07/12/2024 11:59 PM CDT Hospital Encounter Department of Cardiac Rehabilitation in [address] [phone] Tim Zamarripa M.D. [address] [place] [phone] Bypass Coronary Artery Graft Status Post; Prosthesis [...] Appointment Department of Cardiac Rehabilitation in [address] [phone] Tim Zamarripa M.D. 701 [place] [phone] Scheduled Orders Name Type Priority Associated Diagnoses [...]
--- OUTSIDE RECORDS SUMMARY | 2024-08-08 09:46 | XMS_ITS | Encounter Summary ---
Author Organization [facility] Address [address] [place] [address] Care Team Providers Care Ply Bander Name Role Phone Unavailable Primary Care Provider Unavailabl e Reason for Visit * Reason Onset Date Comments Scheduling 07/12/2024 Encounter Details Date Type Department Care Team (Late st Contact Info) Description 07/12/2024 Clinical Communication Department of Cardiac Rehabilitation in [address] [place] [address] [phone] Swapna Lux, CCRP, [facility] Scheduling Social History Tobacco Use Types Packs/Day [...] Appointment Department of Cardiac Rehabilitation in [address] [place] [address] [phone] Tim Zamarripa M.D. [address] [place] [phone] documented as of this encounter Visit Diagnoses Not on filedocumented in this encounter Additional Health Concerns Assessment Noted Time PHQ-9 Depression Total Score: 2 06/19/20 24 1:08 PM CDT documented as of this encounter
--- OUTSIDE RECORDS SUMMARY | 2024-08-08 09:46 | XMS_ITS | Encounter Summary ---
Author Organization [facility] Address [address] [place] [address] Care Team Providers Care Predatory Hunter Name Role Phone Unavailable Primary Care Provider Unavailabl e Encounter Details Date Type Department Care Team (Late st Contact Info) Description 07/12/2024 2:00 PM CDT - 07/12/2024 11:59 PM CDT Hospital Encounter Department of Laboratory Medicine in [address] [phone] Joanne Serra, CDionnaN.P. [address] [place] [phone] Chronic Kidney Disease Discharge Disposition: Home or [...] Appointment Department of Cardiac Rehabilitation in [address] [phone] Tim Zamarripa M.D. [address] [place] [phone] documented as of this encounter Procedures Procedure [...] LAB BLOOD ADD- ON Performing Organization Address City/State/[facility] Co de Phone Number [facility] [address] [place] [address], [facility] CNFL in [address] [address] documented in this encounter Visit Diagnoses Diagnosis Chronic Kidney Disease documented in this encounter Additional Health Concerns Assessment Noted Time PHQ-9 Depression Total Score: 2 06/19/20 24 1:08 PM CDT documented as of this encounter
--- OUTSIDE RECORDS SUMMARY | 2024-08-08 09:46 | XMS_ITS | Encounter Summary ---
Author Organization [facility] Address [address] [place] [address] Care Team Providers Care Special Systems Technician Name Role Phone Unavailable Primary Care Provider Unavailabl e Reason for Referral * Outpatient (Routine) - Authorized Specialty Diagnoses / Procedures Referred By Annette plunkett Referred To Contact Diagnoses Bypass Coronary Artery Graft Status Post Prosthesis Aortic Valve Procedures Cardiac Rehab Program Tim Zamarripa M.D. [address] [place] [address] [facility] Region Referral ID Status Reason Start Date Expiration Date V isits Requested Visits Authorized [id number] Authorized 2024 2025 99 99 Reason for Visit * Outpatient (Routine) - Authorized Specialty Diagnoses / Procedures Referred By Annette plunkett Referred To Contact Diagnoses Bypass Coronary Artery Graft Status Post Prosthesis Aortic Valve Procedures Cardiac Rehab Program Tim Zamarripa M.D. [address] [place] [phone] [facility] Region Referral ID Status Reason Start Date Expiration Date V isits Requested Visits Authorized [id number] Authorized 2024 2025 99 99 Encounter Details Date Type Department Care Team (Latest Contact Info) Description 06/24/2024 12:52 PM CDT - 06/24/2024 11:59 PM CDT Hospital Encounter Department of Cardiac Rehabilitation in [address] [phone] Tim Zamarripa M.D. [address] [place] [phone] Bypass Coronary Artery Graft Status Post; Prosthesis [...] Appointment Department of Cardiac Rehabilitation in [address] [phone] Tim Zamarripa M.D. 701 [facility] [place] [phone] Scheduled Orders Name Type Priority Associated Diagnoses [...]
--- OUTSIDE RECORDS SUMMARY | 2024-08-08 09:46 | XMS_ITS | Encounter Summary ---
Author Organization [facility] Address [address] [place] [address] Care Team Providers Care And Rescue Fire Fighter Crash Fire Name Role Phone Unavailable Primary Care Provider Unavailabl e Reason for Referral * Outpatient (Routine) - Authorized Specialty Diagnoses / Procedures Referred By Annette plunkett Referred To Contact Diagnoses Bypass Coronary Artery Graft Status Post Prosthesis Aortic Valve Procedures Cardiac Rehab Program Tmi Zamarripa M.D. [address] [place] [address] [facility] Region Referral ID Status Reason Start Date Expiration Date V isits Requested Visits Authorized [id number] Authorized 2024 2025 99 99 Reason for Visit * Outpatient (Routine) - Authorized Specialty Diagnoses / Procedures Referred By Annette plunkett Referred To Contact Diagnoses Bypass Coronary Artery Graft Status Post Prosthesis Aortic Valve Procedures Cardiac Rehab Program Tim Zamarripa M.D. [address] [place] [address] [facility] Region Referral ID Status Reason Start Date Expiration Date V isits Requested Visits Authorized [id number] Authorized 2024 2025 99 99 Encounter Details Date Type Department Care Team (Latest Contact Info) Description 07/26/2024 10:53 AM CDT - 07/26/2024 11:59 PM CDT Hospital Encounter Department of Cardiac Rehabilitation in [address] [phone] Tim Zamarripa M.D. [address] [place] [phone] Bypass Coronary Artery Graft Status Post; Prosthesis [...] CDT Appointment Department of Cardiac Rehabilitation in [address] [phone] Tim Zamarripa M.D. [address] [facility] [place] [phone] Scheduled Orders Name Type Priority Associated Diagnoses Orde r Schedule Cardiac Rehab Program Card Rehab Routine Bypass Coronary Artery Graft Status Post Prosthesis Aortic Valve Once for 1 Occurrences starting 07/26/2024 until 07/26/2024 documented as of this encounter Visit Diagnoses Diagnosis Bypass Coronary Artery Graft Status Post Prosthesis Aortic Valve documented in this encounter Additional Health Concerns Assessment Noted Time PHQ-9 Depression Total Score: 2 06/19/20 24 1:08 PM CDT documented as of this encounter
--- OUTSIDE RECORDS SUMMARY | 2024-08-08 09:46 | XMS_ITS ---
Author Organization [facility] Address [address] [place] [address] Care Team Providers Care Service Restorer Emergency Name Role Phone Unavailable Unavailable Unavailable Surgery Details Not on file Complications Check Surgery Details section. Procedure Estimated Blood Loss Check Surgery Details section. Procedure Findings Check Surgery Details section. Procedure Specimens Taken Check Surgery Details section.
--- OUTSIDE RECORDS SUMMARY | 2024-08-08 09:46 | XMS_ITS | Encounter Summary ---
Author Organization [facility] Address [address] [place] [address] Care Team Providers Care Cubing Machine Tender Name Role Phone Unavailable Primary Care Provider Unavailabl e Reason for Referral * Outpatient (Routine) - Authorized Specialty Diagnoses / Procedures Referred By Annette plunkett Referred To Contact Diagnoses Bypass Coronary Artery Graft Status Post Prosthesis Aortic Valve Procedures Cardiac Rehab Program Tim Zamarripa M.D. [address] [place] [address] [facility] Region Referral ID Status Reason Start Date Expiration Date V isits Requested Visits Authorized [id number] Authorized 2024 2025 99 99 Reason for Visit * Outpatient (Routine) - Authorized Specialty Diagnoses / Procedures Referred By Annette plunkett Referred To Contact Diagnoses Bypass Coronary Artery Graft Status Post Prosthesis Aortic Valve Procedures Cardiac Rehab Program Tim Zamarripa M.D. [address] [place] [phone] [facility] Region Referral ID Status Reason Start Date Expiration Date V isits Requested Visits Authorized [id number] Authorized 2024 2025 99 99 Encounter Details Date Type Department Care Team (Latest Contact Info) Description 07/03/2024 12:54 PM CDT - 07/03/2024 11:59 PM CDT Hospital Encounter Department of Cardiac Rehabilitation in [address] [place] [address] Tim Zamarripa M.D. [address] [place] [phone] Bypass Coronary Artery Graft Status Post; Prosthesis [...] CDT Appointment Department of Cardiac Rehabilitation in [address] [phone] Tim Zamarripa M.D. [address] [facility] [phone] Scheduled Orders Name Type Priority Associated Diagnoses [...]
--- OUTSIDE RECORDS SUMMARY | 2024-08-08 09:47 | XMS_ITS | Encounter Summary ---
Author Organization [facility] er Address [address] [place] [address] Care Team Providers Care Interline Clerk Name Role Phone Joanne Serra Sandrine KIDD, COLLECTIONS OFFICER Primary Care Provi surinder Reason for Visit * Reason Comments Med Refill Encounter Details Date Type Department Care Team (Late st Contact Info) Description 10/13/2020 Refill [place] [address] [place] [address] Rosy Bustillo MD [facility] [facility] [address] [place] [address] Gout, unspecified cause, unspecified chronicity, unspecified site [...] at lowest dose given his risk of IN (s/p Drug eluting stent in 2012).He states he has tried gout prophylactic medication in the past but it did not sit well with him. Offered alternative agent but patient declined. CLE AND EQUIPMENT CLEANER * Telephone Encounter - Rosy Bustillo MD - 10/14/2020 11:03 AM VEHICLE AND EQUIPMENT CLEANER Joseph recently had a physical with Dr. Horn. Even though I have filled his Rx for Indocin previously I would send this request to Dr. Horn. Let me know when you send this to him and I will remove this from my worklist. Thanks. CLE AND EQUIPMENT CLEANER * Telephone Encounter - Elvia Byrd MA [...] appt. Please advise on extension until appt. CLE AND EQUIPMENT CLEANER documented in this encounter Plan of Treatment Not on file documented as of this encounter Visit Diagnoses Diagnosis Gout, unspecified cause, unspecified chronicity, unspecified site documented in this encounter Care Teams Interline Clerk Relationship Specialty Start Date End Date Joanne Serra, INTERMEDIATE SCHOOL TEACHER, COLLECTIONS OFFICER [address] [place] [address] PCP - General Family Medicine 06/13/22 documented as of this encounter
--- OUTSIDE RECORDS SUMMARY | 2024-08-08 09:47 | XMS_ITS | Encounter Summary ---
Author Organization [facility] er Address [address] [place] [address] Care Team Providers Care Director Print Name Role Phone SerraJoanne nieves Sandrine KIDD, DIRECTOR OF CORPORATE REAL ESTATE Primary Care Provi surinder Reason for Visit * Reason Comments Med Refill Encounter Details Date Type Department Care Team (Late st Contact Info) Description 08/23/2021 Refill [place] [address] [place] [address] Heraclio Horn MD 1705 [facility] 20 [place] [address] Gout, unspecified cause, unspecified chronicity, unspecified site [...] taken his cares to Joanne Serra at [facility]. No need to contact Pt further. * [...] site documented in this encounter Care Teams Director Print Relationship Specialty Start Date End Date Joanne Serra, DREDGE MATE, DIRECTOR OF CORPORATE REAL ESTATE [address] [place] [address] PCP - General Family Medicine 06/13/22 documented as of this encounter
--- OUTSIDE RECORDS SUMMARY | 2024-08-08 09:47 | XMS_ITS | Encounter Summary ---
Author Organization [facility] Address [address] [place] [address] Care Team Providers Care Nurse Anesthetist Name Role Phone Unavailable Primary Care Provider Unavailabl e Reason for Referral * Outpatient (Routine) - Authorized Specialty Diagnoses / Procedures Referred By Contac t Referred To Contact Diagnoses Bypass Coronary Artery Graft Status Post Prosthesis Aortic Valve Procedures Cardiac Rehab Program Tim Zamarripa M.D. [address] [place] [phone] [facility] Region Referral ID Status Reason Start Date Expiration Date V isits Requested Visits Authorized [id number] Authorized 2024 2025 99 99 Encounter Details Date Type Department Care Team (Late Contact Info) Description 2024 Orders Only Department of Cardiac Rehabilitation in [address] [phone] Swapna Lux, CCRP, [facility] Bypass Coronary Artery Graft Status Post (Primary [...] Encounters Date Type Department Care Team (Late Contact Info) Description 08/09/2024 11:00 AM CDT Appointment Department of Cardiac Rehabilitation in [address] [phone] Tim Zamarripa M.D. [address] [place] [phone] Scheduled Orders Name Type Priority Associated Diagnoses Orde r Schedule Cardiac Rehab Program Card Rehab Routine Bypass Coronary Artery Graft Status Post Prosthesis Aortic Valve 99 Occurrences starting 2024 until 2025 documented as of this encounter Visit Diagnoses Diagnosis Bypass Coronary Artery Graft Status Post- Primary Prosthesis Aortic Valve documented in this encounter
--- OUTSIDE RECORDS SUMMARY | 2024-08-08 09:47 | XMS_ITS | Encounter Summary ---
Author Organization [facility] Address [address] [place] [address] Care Team Providers Care Information Security Director Name Role Phone Unavailable Primary Care Provider Unavailabl e Encounter Details Date Type Department Care Team (Late st Contact Info) Description 07/25/2005 Historical Ophthalmology RST OPH Tong Johnson M.D. [address] [place] [phone] Social History Tobacco Use Types Packs/Day Years [...] Ocular hypertension CDM Reports - EYEGEN Id: [id number] Status: Fnl documented in this encounter Plan of Treatment Upcoming Encounters Date Type Department Care Team (Late st Contact Info) Description 08/09/2024 11:00 AM CDT Appointment Department of Cardiac Rehabilitation in [address] [phone] Tim Zamarripa M.D. [address] [place] [phone] documented as of this encounter Visit Diagnoses Not on filedocumented in this encounter
--- OUTSIDE RECORDS SUMMARY | 2024-08-08 09:47 | XMS_ITS | Encounter Summary ---
Author Organization [facility] Address [address] [place] [address] Care Team Providers Care Awning Frame Maker Name Role Phone Unavailable Primary Care Provider Unavailabl e Reason for Referral * Outpatient (Routine) - Authorized Specialty Diagnoses / Procedures Referred By Annette plunkett Referred To Contact Diagnoses Bypass Coronary Artery Graft Status Post Prosthesis Aortic Valve Procedures Cardiac Rehab Program Tim Zamarripa M.D. [address] [place] [address] [facility] Region Referral ID Status Reason Start Date Expiration Date V isits Requested Visits Authorized [id number] Authorized 2024 2025 99 99 Reason for Visit * Outpatient (Routine) - Authorized Specialty Diagnoses / Procedures Referred By Annette plunkett Referred To Contact Diagnoses Bypass Coronary Artery Graft Status Post Prosthesis Aortic Valve Procedures Cardiac Rehab Program Tim Zamarripa M.D. [address] [place] [address] [facility] Region Referral ID Status Reason Start Date Expiration Date V isits Requested Visits Authorized [id number] Authorized 2024 2025 99 99 Encounter Details Date Type Department Care Team (Latest Contact Info) Description 06/05/2024 2:15 PM CDT - 06/05/2024 11:59 PM CDT Hospital Encounter Department of Cardiac Rehabilitation in [address] [phone] Tim Zamarripa M.D. [address] [place] [phone] Bypass Coronary Artery Graft Status Post; Prosthesis [...] Appointment Department of Cardiac Rehabilitation in [address] [phone] Tim Zamarripa M.D. [address] [place] [phone] Scheduled Orders Name Type Priority Associated Diagnoses [...] CDT Generic [facility] LAB POCT ORDERABLES- MANUAL [address] [address], [facility] in [address] [address] * (ABNORMAL) Glucose, POCT (06/05/2024 2:38 PM CDT) Glucose, POCT, B 280(H) 70 - 140 mg/dL 06/05/2024 2:38 PM CDT CNFL Blood 06/05/2024 2:38 PM CDT 06/05/2024 3:21 PM CDT Generic [facility] LAB POCT ORDERABLES- MANUAL Performing Organization Address City/[facility]/ZIP Co de Phone Number [address] [address], [facility] in [address] [address] documented in this encounter Visit Diagnoses Diagnosis Bypass Coronary Artery Graft Status Post Prosthesis Aortic Valve documented in this encounter
--- OUTSIDE RECORDS SUMMARY | 2024-08-08 09:47 | XMS_ITS | Encounter Summary ---
Author Organization [facility] Address [address] [place] [address] Care Team Providers Care Sisal Picker Name Role Phone Unavailable Primary Care Provider Unavailabl e Reason for Referral * Outpatient (Routine) - Authorized Specialty Diagnoses / Procedures Referred By Annette plunkett Referred To Contact Diagnoses Bypass Coronary Artery Graft Status Post Prosthesis Aortic Valve Procedures Cardiac Rehab Program Tim Zamarripa M.D. [address] [place] [address] [facility] Region Referral ID Status Reason Start Date Expiration Date V isits Requested Visits Authorized [id number] Authorized 2024 2025 99 99 Reason for Visit * Outpatient (Routine) - Authorized Specialty Diagnoses / Procedures Referred By Annette plunkett Referred To Contact Diagnoses Bypass Coronary Artery Graft Status Post Prosthesis Aortic Valve Procedures Cardiac Rehab Program Tim Zamarripa M.D. [address] [place] [address] [facility] Region Referral ID Status Reason Start Date Expiration Date V isits Requested Visits Authorized [id number] Authorized 2024 2025 99 99 Encounter Details Date Type Department Care Team (Latest Contact Info) Description 06/10/2024 2:21 PM CDT - 06/10/2024 11:59 PM CDT Hospital Encounter Department of Cardiac Rehabilitation in [address] [phone] Tim Zamarrpia M.D. [address] [place] [phone] Bypass Coronary Artery Graft Status Post; Prosthesis [...] Appointment Department of Cardiac Rehabilitation in [address] [phone] Tim aZmarripa M.D. [address] [place] [phone] Scheduled Orders Name Type Priority Associated Diagnoses [...] LAB POCT ORDERABLES- MANUAL Performing Organization Address City/[facility]/ZIP Co de Phone Number [address] [address], [facility] in [address] [address] * Glucose, POCT (06/10/2024 2:37 PM CDT) Glucose, POCT, B 138 70 - 140 mg/dL 06/10/2024 2:37 PM CDT CNFL Blood 06/10/2024 2:37 PM CDT 06/10/2024 3:39 PM CDT Generic [facility] LAB POCT ORDERABLES- MANUAL Performing Organization Address City/[facility]/ZIP Co de Phone Number [address] [address], [facility] in [address] [address] documented in this encounter Visit Diagnoses Diagnosis Bypass Coronary Artery Graft Status Post Prosthesis Aortic Valve documented in this encounter
--- OUTSIDE RECORDS SUMMARY | 2024-08-08 09:47 | XMS_ITS | Encounter Summary ---
Author Organization [facility] er Address [address] [place] [address] Care Team Providers Care Straightener And Aligner Name Role Phone SerraSyedJoannejillian Deluca APRN, COMMERCIAL CREDIT OFFICER Primary Care Provi surinder Reason for Visit * Reason Comments Med Refill Encounter Details Date Type Department Care Team (Late st Contact Info) Description 12/08/2021 Refill [place] [address] [address] Heraclio Horn MD 1705 [facility] 20 [place] [address] Type 2 diabetes mellitus with complication, without [...] - 12/09/2021 8:03 AM CST Please review. ECTIONAL MANAGER * Telephone Encounter - Montserrat Berg MA - 12/09/2021 7:56 AM CORRECTIONAL MANAGER Last visit in provider department: 08/13/2020 Last [...] Please contact patient to assist with scheduling. ECTIONAL MANAGER documented in this encounter Plan of Treatment Not on file documented as of this encounter Visit Diagnoses Diagnosis Type 2 diabetes mellitus with complication, without long-term current use of insulin (HCC) documented in this encounter Care Teams Straightener And Aligner Relationship Specialty Start Date End Date Joanne Serra APRN, COMMERCIAL CREDIT OFFICER [address] [place] [address] PCP - General Family Medicine 06/13/22 documented as of this encounter
--- OUTSIDE RECORDS SUMMARY | 2024-08-08 09:47 | XMS_ITS | Encounter Summary ---
Author Organization [facility] Address [address] [place] [address] Care Team Providers Care Woodenware Assembler Name Role Phone Unavailable Primary Care Provider Unavailabl e Encounter Details Date Type Department Care Team (Latest Contact Info) Description 05/28/2024 Plan of Care Documentation Department of Cardiac Rehabilitation in [address] [place] [phone] Social History Tobacco Use Types Packs/Day [...] 1955, ) was [facility] to the [facility] on 05/14/2024, by Referred by Judith BELLAMY ([facility]); order signed by Dr.Tyler Zamarripa and has completed 0 sessions out of the 36 prescribed. PCP: No primary care provider on file. Cable Weaver: Henrietta Obrien PA Program: Cardiac Rehab Phase II Type: Center-Based Intake Date: 05/28/2024 Date of Enrollment: 06/03/2024 Primary Diagnosis: CABG 05/07/2024 Secondary Diagnosis: Valve 05/07/2024 AACVPR Risk: Low 05/28/2024 Symptoms ITP Inclusion: Symptoms Initial Synopsis Pt was referred for CR following CABGx3, AVR, s/p MAZE and LAAL on 05/07 at [facility].Leading up to cardiac surgery pt had [...] has a f/u visit scheduledwith [facility] on [facility]. He does have a [...] daughters are nurses and 1 is a clinical registered nurse so they've been good support [...] He is retired from working in the [employer] industry. Sleep has been improving since he's [...] CDT Appointment Department of Cardiac Rehabilitation in [address] [phone] Tim Zamarripa M.D. [address] [place] [phone] documented as of this encounter Visit Diagnoses Not on filedocumented in this encounter
--- OUTSIDE RECORDS SUMMARY | 2024-08-08 09:47 | XMS_ITS | Encounter Summary ---
Author Organization [facility] er Address [address] [place] [address] Care Team Providers Care Numerical Control Machine Operator Name Role Phone SerraSyedJoannejillian Deluca APRN, SENIOR CLINICAL DATA ANALYST Primary Care Provi surinder Reason for Visit * Reason Comments Med Refill Encounter Details Date Type Department Care Team (Late st Contact Info) Description 01/24/2022 Refill [place] [address] [address] Heraclio Horn MD 1705 [facility] 20 [place] [address] Type 2 diabetes mellitus with complication, without [...] (HCC) documented in this encounter Care Teams Numerical Control Machine Operator Relationship Specialty Start Date End Date Joanne Serra, LOGGING SHOVEL OPERATOR, SENIOR CLINICAL DATA ANALYST [address] [place] [address] PCP - General Family Medicine 06/13/22 documented as of this encounter
--- OUTSIDE RECORDS SUMMARY | 2024-08-08 09:47 | XMS_ITS | Encounter Summary ---
Author Organization [facility] Address [address] [place] [address] Care Team Providers Care Vp Care Management Name Role Phone Unavailable Primary Care Provider Unavailabl e Reason for Referral * Outpatient (Routine) - Authorized Specialty Diagnoses / Procedures Referred By Annette plunkett Referred To Contact Diagnoses Bypass Coronary Artery Graft Status Post Prosthesis Aortic Valve Procedures Cardiac Rehab Program Tim Zamarripa M.D. [address] [place] [address] [facility] Region Referral ID Status Reason Start Date Expiration Date V isits Requested Visits Authorized [id number] Authorized 2024 2025 99 99 Reason for Visit * Outpatient (Routine) - Authorized Specialty Diagnoses / Procedures Referred By Annette plunkett Referred To Contact Diagnoses Bypass Coronary Artery Graft Status Post Prosthesis Aortic Valve Procedures Cardiac Rehab Program Tim Zamarripa M.D. [address] [place] [address] [facility] Region Referral ID Status Reason Start Date Expiration Date V isits Requested Visits Authorized [id number] Authorized 2024 2025 99 99 Encounter Details Date Type Department Care Team (Latest Contact Info) Description 06/03/2024 2:21 PM CDT - 06/03/2024 11:59 PM CDT Hospital Encounter Department of Cardiac Rehabilitation in [address] [phone] Tim Zamarripa M.D. [address] [place] [phone] Bypass Coronary Artery Graft Status Post; Prosthesis [...] Appointment Department of Cardiac Rehabilitation in [address] [phone] Tim Zamarripa M.D. [address] [place] [phone] Scheduled Orders Name Type Priority Associated Diagnoses [...] LAB POCT ORDERABLES- MANUAL Performing Organization Address City/[facility] Co de Phone Number [facility] [address] [place] [address], [facility] [place] [address] * (ABNORMAL) Glucose, POCT (06/03/2024 2:37 PM CDT) Glucose, POCT, B 144(H) 70 - 140 mg/dL 06/03/2024 2:37 PM CDT CNFL Blood 06/03/2024 2:37 PM CDT 06/03/2024 3:38 PM CDT Generic [facility] LAB POCT ORDERABLES- MANUAL Performing Organization Address [facility] Co de Phone Number [facility] [address] [place] [address], [facility] [address] * 6 MINUTE WALK (06/03/2024 2:30 PM [...]
--- OUTSIDE RECORDS SUMMARY | 2024-08-08 09:47 | XMS_ITS | Encounter Summary ---
Author Organization [facility] er Address [address] [place] [address] Care Team Providers Care Research Management Associate Name Role Phone Joanne Serra APRN, BUSINESS PRACTICES OFFICER Primary Care Provi surinder Reason for Visit * Reason Comments Med Refill Encounter Details Date Type Department Care Team (Late st Contact Info) Description 07/04/2019 Refill [place] [place] [address] [place] [address] Joanne Serra APRN, BUSINESS PRACTICES OFFICER [address] [place] [phone] Neck pain Social History Tobacco Use Types [...] - 07/09/2019 11:25 AM CDT SENT TO [facility]. Does the prescription request still need to [...] upright [facility] or [place] FAX: [phone] State: upright upright soft tissue neck with [...] Cervicalgia documented in this encounter Care Teams Research Management Associate Relationship Specialty Start Date End Date Joanne Serra, SLEEVE BOTTOM FELLER, BUSINESS PRACTICES OFFICER [address] [place] [address] PCP - General Family Medicine 06/13/22 documented as of this encounter
--- OUTSIDE RECORDS SUMMARY | 2024-08-08 09:47 | XMS_ITS | Encounter Summary ---
Author Organization [facility] er Address [address] [place] [address] Care Team Providers Care Hotel Lobby Concierge Name Role Phone SerraJoanne nieves Sandrine KIDD, FILLER IN Primary Care Provi surinder Reason for Visit * Reason Comments Med Refill Encounter Details Date Type Department Care Team (Late st Contact Info) Description 11/28/2021 Refill [place] [address] [place] [phone] Heraclio Horn MD 1705 [facility] 20 [place] [address] Type 2 diabetes mellitus with complication, without long-term current use of insulin (HCC); Essential hypertension; Coronary artery disease without angina pectoris, unspecified vessel or lesion type, unspecified whether grindstone or transplanted heart; Hyperlipidemia, unspecified hyperlipidemia type [...] Heraclio Horn MD - 11/30/2021 11:43 AM PET CARE ASSISTANT Needs appointment for further refills. 90 day supply ordered. CARE ASSISTANT * Telephone Encounter - Shivani Nicole MA - 11/30/2021 10:17 AM PET CARE ASSISTANT Last visit in provider department: 08/13/20 Last [...] Please contact patient to assist with scheduling. CARE ASSISTANT documented in this encounter Plan of Treatment Not on file documented as of this encounter Visit Diagnoses Diagnosis Type 2 diabetes mellitus with complication, without long-term current use of insulin (HCC) Essential hypertension Unspecified essential hypertension Coronary artery disease without angina pectoris, unspecified vessel or lesion type, unspecified whether grindstone or transplanted heart Hyperlipidemia, unspecified hyperlipidemia type documented in this encounter Care Teams Hotel Lobby Concierge Relationship Specialty Start Date End Date Joanne Serra APRN, FILLER IN [address] [place] [address] PCP - General Family Medicine 06/13/22 documented as of this encounter
--- OUTSIDE RECORDS SUMMARY | 2024-08-08 09:47 | XMS_ITS | Clinical Summary ---
Author Organization [facility] er Address [address] [place] [address] Care Team Providers Care Insurance Billing Clerk Name Role Phone SerraJoanne nieves Sandrine KIDD, MANAGER METAL Primary Care Provi surinder Allergies Active Allergy Reactions Criticality Noted Date Comments Pollen Extract Other (see comments) 08/06/2013 Pollen, causes watery eyes. Medications Medication Sig Dispensed Refills Start Date End Date Status aspirin 81 MG chewable tabletIndications:C oronary artery disease without angina pectoris, unspecified vessel or lesion type, unspecified whether [place] or transplanted heart Chew 1 tablet (81 [...] unspecified vessel or lesion type, unspecified whether [place] or transplanted heart Place 1 tablet (0.4 [...] complication, without long-term current use of insulin ([facility]) Inject 0.3 mL (1.8 mg total) under the skin 1 (one) time each day 27 mL 11/17/2021 Active Additional Information Patient not taking.Reported on 04/25/2024 Jardiance 25 MG tabletIndications:T ype 2 diabetes mellitus with complication, without long-term current use of insulin ([facility]) Take 1 tablet by mouth once daily 30 tablet 12/07/2021 Active glipiZIDE (GLUCOTROL) 5 MG tabletIndications:T ype 2 diabetes mellitus with complication, without long-term current use of insulin ([facility]) Take 1 tablet (5 mg total) by mouth 1 (one) time each day with breakfast 30 tablet 12/09/2021 Active Additional Information Patient not taking.Reported on 04/25/2024 atenolol (TENORMIN) 50 MG tabletIndications:C oronary artery disease without angina pectoris, unspecified vessel or lesion type, unspecified whether [place] or transplanted heart TAKE 1 TABLET DAILY (NEED APPOINTMENT FOR FURTHER REFILLS) 14 tablet 02/28/2022 Active lisinopril (ZESTRIL) 40 MG tabletIndications:T ype 2 diabetes mellitus with complication, without long-term current use of insulin ([facility]),Essential hypertension TAKE 1 TABLET DAILY (NEED APPOINTMENT FOR FURTHER REFILLS) 14 tablet 02/28/2022 Active metFORMIN (GLUCOPHAGE) 1000 MG tabletIndications:T ype 2 diabetes mellitus with complication, without long-term current use of insulin ([facility]) TAKE 1 TABLET TWICE A [...] unspecified 12/02/2016 Atherosclerotic heart diseas e of [place] coronary artery without angina pectoris 10/15/2015 Type 2 diabetes mellitus wit h complication, without long-term current use of insulin 10/15/2015 CAD (coronary artery disease) 08/12/2013 Myocardial infarction 08/07/2013 Mixed hyperlipidemia 08/07/2013 Overview: date of onset unknown Benign neoplasm of unspecified choroid 4 Resolved Problems Problem Noted Date Diagnosed Date Resolved Date Exertional hypertension 10/15/201307/30 Immunizations Name Administration Dates Next Due Flu [...] week 04/25/2024 How often do you attend [facility] or [facility]ze services? More than 4 times per year [...] Date Recorded PHQ-9 Total Score 1 04/25/2024 [facility] - Occupational [...] any time in the past [facility], were you homeless or living in a custodial (including now)? No 04/25/2024 Sex and Gender [...] Cancer Screening 07/24/2022 COVID-19 Vaccine ( season) 2024 Influenza Vaccine (#1) 2024 , [...] AM CDT) Cologuard result Negative Not Applicable [employer] Comment: A negative result indicates a low [...] were screened with both Cologuard and colonoscopy. (oSnia Farley al, N Engl J Med 2014;370(14):8962-7989) COLOGUARD RE-SCREENING RECOMMENDATION: Periodic routine colorectal cancer screening is an important part of preventive healthcare for asymptomatic persons at average risk for colorectal cancer. Following a negative Cologuard result, the [place] Cancer Society and U.S. Multi-Society Task Force screening guidelines recommend a Cologuard re-screening interval of 3 years. References: [place] Cancer Society (ACS). Colorectal cancer prevention and early detection. [place], [place]: [place] Cancer Society; [updated 2015Feb 20]. https://www.cancer.org/cancer/kkunq-qtvkll-rlhtvn/whvplizlo-hgplskfig-fplwlol/ac s-rec ommendations.html. Accessed June 29, 2018; Daniel DK, Kermit CHRIS, Faith CroftK, Colorectal Cancer Screening: Recommendations for Physicians and Patients from the U.S. Multi-Society Task Force on Colorectal Cancer Screening, Am J Gastroenterology 2017; 112:8746-6586. Test Type: Composite algorithmic analysis of stool [...] can be accessed at the following location: www.[employer]/results. Additional description of the Cologuard test process, warnings and precautions can be found at www.cologuardtest.com. Rx Only. [employer], [address] [place] [address] RD[address] [place], [address], , Clinical Liz olsen Marketing Information Manager, GIANNI ZAMAN, Ph.D., [facility], CLIA NO: [id number] Stool 07/18/2019 7:30 AM CDT 07/19/2019 3:12 PM CDT Joanne Serra APRN, [facility] UIDS AND STOOLS ORDERABLES [employer], [facility] [address] [facility] [address] [place] [address], from Last 3 Months or Most Recently Relevant to Health Maintenance Care Teams Insurance Billing Clerk Relationship Specialty Start Date End Date Joanne Serra APRN, MANAGER METAL [address] [place] [address] PCP - General Family Medicine 06/13/22
--- OUTSIDE RECORDS SUMMARY | 2024-08-08 09:47 | XMS_ITS | Encounter Summary ---
Author Organization [facility] Address [address] [place] [address] Care Team Providers Care Industrial Psychology Teacher Name Role Phone Unavailable Primary Care Provider Unavailabl e Reason for Referral * Outpatient (Routine) - Authorized Specialty Diagnoses / Procedures Referred By Annette plunkett Referred To Contact Diagnoses Bypass Coronary Artery Graft Status Post Prosthesis Aortic Valve Procedures Cardiac Rehab Program Tim Zamarripa M.D. [address] [place] [address] [facility] Region Referral ID Status Reason Start Date Expiration Date V isits Requested Visits Authorized [id number] Authorized 2024 2025 99 99 Reason for Visit * Outpatient (Routine) - Authorized Specialty Diagnoses / Procedures Referred By Annette plunkett Referred To Contact Diagnoses Bypass Coronary Artery Graft Status Post Prosthesis Aortic Valve Procedures Cardiac Rehab Program Tim Zamarripa M.D. [address] [place] [phone] [facility] Region Referral ID Status Reason Start Date Expiration Date V isits Requested Visits Authorized [id number] Authorized 2024 2025 99 99 Encounter Details Date Type Department Care Team (Latest Contact Info) Description 06/17/2024 12:42 PM CDT - 06/17/2024 11:59 PM CDT Hospital Encounter Department of Cardiac Rehabilitation in [address] [phone] Tim Zamarripa M.D. [address] [place] [phone] Bypass Coronary Artery Graft Status Post; Prosthesis [...] CDT Appointment Department of Cardiac Rehabilitation in [address] [address] Tim Zamarripa M.D. [address] [place] [phone] Scheduled Orders Name Type Priority Associated Diagnoses [...] CDT Generic Rals LAB POCT ORDERABLES- MANUAL [address] [address], [facility] in [address] [address] * (ABNORMAL) Glucose, POCT (06/17/2024 1:04 PM CDT) Glucose, POCT, B 172(H) 70 - 140 mg/dL 06/17/2024 1:04 PM CDT CNFL Blood 06/17/2024 1:04 PM CDT 06/18/2024 9:00 AM CDT Generic [facility] LAB POCT ORDERABLES- MANUAL Performing Organization Address City/[facility]/ZIP Co de Phone Number [address] [address], [facility] in [address] [address] documented in this encounter Visit Diagnoses Diagnosis Bypass Coronary Artery Graft Status Post Prosthesis Aortic Valve documented in this encounter
--- OUTSIDE RECORDS SUMMARY | 2024-08-08 09:47 | XMS_ITS | Encounter Summary ---
Author Organization [facility] Address [address] [place] [address] Care Team Providers Care Roll Grinder Operator Name Role Phone Unavailable Primary Care Provider Unavailabl e Reason for Referral * Outpatient (Routine) - Authorized Specialty Diagnoses / Procedures Referred By Annette plunkett Referred To Contact Diagnoses Bypass Coronary Artery Graft Status Post Prosthesis Aortic Valve Procedures Cardiac Rehab Program Tim Zamarripa M.D. [address] [place] [address] [facility] Region Referral ID Status Reason Start Date Expiration Date V isits Requested Visits Authorized [id number] Authorized 2024 2025 99 99 Reason for Visit * Outpatient (Routine) - Authorized Specialty Diagnoses / Procedures Referred By Annette plunkett Referred To Contact Diagnoses Bypass Coronary Artery Graft Status Post Prosthesis Aortic Valve Procedures Cardiac Rehab Program Tim Zamarripa M.D. [address] [place] [address] [facility] Region Referral ID Status Reason Start Date Expiration Date V isits Requested Visits Authorized [id number] Authorized 2024 2025 99 99 Encounter Details Date Type Department Care Team (Latest Contact Info) Description 06/12/2024 2:25 PM CDT - 06/12/2024 11:59 PM CDT Hospital Encounter Department of Cardiac Rehabilitation in [address] [place] [address] Tim Zamarripa M.D. [address] [place] [phone] Bypass Coronary Artery Graft Status Post; Prosthesis [...] Appointment Department of Cardiac Rehabilitation in [address] [address] Tim Zamarripa M.D. [address] [place] [phone] Scheduled Orders Name Type Priority Associated Diagnoses [...] LAB POCT ORDERABLES- MANUAL Performing Organization Address City/[facility]/ZIP Co de Phone Number [address] [address], [facility] in [address] [address] * Glucose, POCT (06/12/2024 2:37 PM CDT) Glucose, POCT, B 133 70 - 140 mg/dL 06/12/2024 2:37 PM CDT CNFL Blood 06/12/2024 2:37 PM CDT 06/12/2024 3:45 PM CDT Generic [facility]als LAB POCT ORDERABLES- MANUAL Performing Organization Address City/[facility]/ZIP Co de Phone Number [address] [address], [facility] in [address] [address] documented in this encounter Visit Diagnoses Diagnosis Bypass Coronary Artery Graft Status Post Prosthesis Aortic Valve documented in this encounter
--- OUTSIDE RECORDS SUMMARY | 2024-08-08 09:47 | XMS_ITS | Encounter Summary ---
Author Organization [facility] er Address [address] [place] [address] Care Team Providers Care Coin Wrapping Machine Operator Name Role Phone SerraSyedJoannejillian Deluca APRN, PLC PROGRAMMER Primary Care Provi surinder Reason for Visit * Reason Comments Med Refill Encounter Details Date Type Department Care Team (Late st Contact Info) Description 12/07/2021 Refill [place] [address] [address] Heraclio Horn MD 1705 [facility] 20 [place] [address] Type 2 diabetes mellitus with complication, without [...] - 12/07/2021 2:42 PM CST Antonia in [place], [place] is requesting medication script written 01/18/2021 [...] Please contact patient to assist with scheduling. OPEDICS PEDIATRIC PHYSICIAN documented in this encounter Plan of Treatment Not on file documented as of this encounter Visit Diagnoses Diagnosis Type 2 diabetes mellitus with complication, without long-term current use of insulin (HCC) documented in this encounter Care Teams Coin Wrapping Machine Operator Relationship Specialty Start Date End Date Joanne Serra, MULTIMEDIA MANAGER, PLC PROGRAMMER [address] [place] [address] PCP - General Family Medicine 06/13/22 documented as of this encounter
--- OUTSIDE RECORDS SUMMARY | 2024-08-08 09:47 | XMS_ITS | Encounter Summary ---
Author Organization [facility] Address [address] [place] [address] Care Team Providers Care Supervisor Housecleaner Name Role Phone Unavailable Primary Care Provider Unavailabl e Reason for Visit * Reason Onset Date Comments Cardiac Rehab 2024 Encounter Details Date Type Department Care Team (Latest Contact Info) Description 2024 Clinical Communication Department of Cardiac Rehabilitation in [address] [place] [phone] Swapna Lux CCRP, CEP Cardiac Rehab Social History Tobacco [...] Upcoming Encounters Date Type Department Care Team ( Contact Info) Description 08/09/2024 11:00 AM CDT Appointment Department of Cardiac Rehabilitation in [address] [address] Tim Zamarripa M.D. [address] [place] [phone] documented as of this encounter Visit Diagnoses Not on filedocumented in this encounter
--- OUTSIDE RECORDS SUMMARY | 2024-08-08 09:47 | XMS_ITS | Encounter Summary ---
Author Organization [facility] Address [address] [place] [address] Care Team Providers Care Powdered Metal Supervisor Name Role Phone Unavailable Primary Care Provider Unavailabl e Encounter Details Date Type Department Care Team (Late st Contact Info) Description 03/25/2004 Historical Ophthalmology RST OPH Tong Johnson M.D. [address] [place] [phone] Social History Tobacco Use Types Packs/Day [...] nevi, OU CDM Reports - EYEGEN Id: [id number] Status: Fnl documented in this encounter Plan of Treatment Upcoming Encounters Date Type Department Care Team (Late st Contact Info) Description 08/09/2024 11:00 AM CDT Appointment Department of Cardiac Rehabilitation in [address] [place] [address] Tim Zamarripa M.D. [address] [place] [phone] documented as of this encounter Visit Diagnoses Not on filedocumented in this encounter
--- OUTSIDE RECORDS SUMMARY | 2024-08-08 09:47 | XMS_ITS | Encounter Summary ---
Author Organization [facility] Address [address] [place] [address] Care Team Providers Care Program Director Group Work Name Role Phone Unavailable Primary Care Provider Unavailabl e Reason for Referral * Outpatient (Routine) - Authorized Specialty Diagnoses / Procedures Referred By Annette plunkett Referred To Contact Diagnoses Bypass Coronary Artery Graft Status Post Prosthesis Aortic Valve Procedures Cardiac Rehab Program Tim Zamarripa M.D. [address] [place] [address] [facility] Region Referral ID Status Reason Start Date Expiration Date V isits Requested Visits Authorized [id number] Authorized 2024 2025 99 99 Reason for Visit * Outpatient (Routine) - Authorized Specialty Diagnoses / Procedures Referred By Annette plunkett Referred To Contact Diagnoses Bypass Coronary Artery Graft Status Post Prosthesis Aortic Valve Procedures Cardiac Rehab Program Tim Zamarripa M.D. [address] [place] [address] [facility] Region Referral ID Status Reason Start Date Expiration Date V isits Requested Visits Authorized [id number] Authorized 2024 2025 99 99 Encounter Details Date Type Department Care Team (Latest Contact Info) Description 05/28/2024 1:00 PM CDT - 05/28/2024 11:59 PM CDT Hospital Encounter Department of Cardiac Rehabilitation in [address] [place] [address] Tim Zamarripa M.D. [address] [place] [phone] Bypass Coronary Artery Graft Status Post; Prosthesis [...] CDT Appointment Department of Cardiac Rehabilitation in [address] [phone] Tim Zamarripa M.D. [address] [place] [phone] Scheduled Orders Name Type Priority Associated Diagnoses Orde r Schedule Cardiac Rehab Program Card Rehab Routine Bypass Coronary Artery Graft Status Post Prosthesis Aortic Valve Once for 1 Occurrences starting 05/28/2024 until 05/28/2024 documented as of this encounter Visit Diagnoses Diagnosis Bypass Coronary Artery Graft Status Post Prosthesis Aortic Valve documented in this encounter
--- OUTSIDE RECORDS SUMMARY | 2024-08-08 09:47 | XMS_ITS | Encounter Summary ---
Author Organization [facility] Address [address] [place] [address] Care Team Providers Care Rural Route Carrier Name Role Phone Unavailable Primary Care Provider Unavailabl e Reason for Referral * Outpatient (Routine) - Authorized Specialty Diagnoses / Procedures Referred By Annette plunkett Referred To Contact Diagnoses Bypass Coronary Artery Graft Status Post Prosthesis Aortic Valve Procedures Cardiac Rehab Program Tim Zamarripa M.D. [address] [place] [address] [facility] Region Referral ID Status Reason Start Date Expiration Date V isits Requested Visits Authorized [id number] Authorized 2024 2025 99 99 Reason for Visit * Outpatient (Routine) - Authorized Specialty Diagnoses / Procedures Referred By Annette plunkett Referred To Contact Diagnoses Bypass Coronary Artery Graft Status Post Prosthesis Aortic Valve Procedures Cardiac Rehab Program Tim Zamarripa M.D. [address] [place] [address] [facility] Region Referral ID Status Reason Start Date Expiration Date V isits Requested Visits Authorized [id number] Authorized 2024 2025 99 99 Encounter Details Date Type Department Care Team (Latest Contact Info) Description 06/07/2024 2:23 PM CDT - 06/07/2024 11:59 PM CDT Hospital Encounter Department of Cardiac Rehabilitation in [address] [place] [address] Tim Zamarripa M.D. [address] [place] [phone] Bypass Coronary Artery Graft Status Post; Prosthesis [...] CDT Appointment Department of Cardiac Rehabilitation in [address] [phone] Tim Zamarripa M.D. [address] [place] [phone] Scheduled Orders Name Type Priority Associated Diagnoses [...] LAB POCT ORDERABLES- MANUAL Performing Organization Address City/[facility]/ZIP Co de Phone Number [address] [address], [facility] [place] [address] * Glucose, POCT (06/07/2024 2:39 PM CDT) Glucose, POCT, B 129 70 - 140 mg/dL 06/07/2024 2:39 PM CDT CNFL Blood 06/07/2024 2:39 PM CDT 06/07/2024 3:37 PM CDT Generic [facility] LAB POCT ORDERABLES- MANUAL Performing Organization Address City/[facility]/ZIP Co de Phone Number [address] [address], [facility] in [address] [address] documented in this encounter Visit Diagnoses Diagnosis Bypass Coronary Artery Graft Status Post Prosthesis Aortic Valve documented in this encounter
--- OUTSIDE RECORDS SUMMARY | 2024-08-08 09:47 | XMS_ITS | Encounter Summary ---
Author Organization [facility] Address [address] [place] [address] Care Team Providers Care Horticultural Farmworker Name Role Phone Unavailable Primary Care Provider Unavailabl e Encounter Details Date Type Department Care Team (Late st Contact Info) Description 01/26/2005 Historical Ophthalmology RST OPH Tong Johnson M.D. 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 [address] [place] [phone] documented as of this encounter Visit Diagnoses Not on filedocumented in this encounter
--- OUTSIDE RECORDS SUMMARY | 2024-08-08 09:47 | XMS_ITS | Encounter Summary ---
Author Organization [facility] er Address [address] [place] [address] Care Team Providers Care Grit Removal Operator Name Role Phone SerraJoanne Sandrine KIDD, OPTICIAN APPRENTICE DISPENSING Primary Care Provi surinder Reason for Visit * Reason Comments Med Refill Encounter Details Date Type Department Care Team (Late st Contact Info) Description 02/27/2022 Refill [place] [address] [place] [phone] Heraclio Horn MD 1705 [facility] 20 [place] [address] Coronary artery disease without angina pectoris, unspecified vessel or lesion type, unspecified whether [place] or transplanted heart; Type 2 diabetes mellitus [...] unspecified vessel or lesion type, unspecified whether [place] or transplanted heart Type 2 diabetes mellitus with complication, without long-term current use of insulin (HCC) Essential hypertension Unspecified essential hypertension Hyperlipidemia, unspecified hyperlipidemia type documented in this encounter Care Teams Grit Removal Operator Relationship Specialty Start Date End Date Joanne Serra, STEAK TENDERIZER MACHINE, OPTICIAN APPRENTICE DISPENSING [address] [place] [address] PCP - General Family Medicine 06/13/22 documented as of this encounter
--- OUTSIDE RECORDS SUMMARY | 2024-08-08 09:47 | XMS_ITS | Encounter Summary ---
Author Organization [facility] Address [address] [place] [address] Care Team Providers Care Measurement Psychologist Name Role Phone Unavailable Primary Care Provider Unavailabl e Encounter Details Date Type Department Care Team (Late st Contact Info) Description 07/26/2004 Historical Ophthalmology RST OPH Tong Johnson M.D. 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 [address] [facility] [place] [phone] documented as of this encounter Visit Diagnoses Not on filedocumented in this encounter
--- OUTSIDE RECORDS SUMMARY | 2024-08-08 09:47 | XMS_ITS | Encounter Summary ---
Author Organization [facility] er Address [address] [place] [address] Care Team Providers Care Supervisor Inspecting Name Role Phone Joanne Serra APRN, COLORECTAL SURGEON Primary Care Provi surinder Reason for Visit * Reason Comments Med Refill Encounter Details Date Type Department Care Team (Late st Contact Info) Description 04/24/2019 Refill [place] [place] [address] [place] [address] Joanne Serra APRN, COLORECTAL SURGEON [address] [place] [id number] Chronic gout without tophus, unspecified cause, unspecified [...] site documented in this encounter Care Teams Supervisor Inspecting Relationship Specialty Start Date End Date Joanne Serra, COMPUTATIONAL MATHEMATICIAN, COLORECTAL SURGEON [address] [place] [id number] PCP - General Family Medicine 06/13/22 documented as of this encounter
--- OUTSIDE RECORDS SUMMARY | 2024-08-08 09:48 | XMS_ITS | Clinical Summary ---
Author Organization [employer] [facility] Address [place], [place] [address] Care Team Providers Care Lean Engineer Name Role Phone Joanne Serra NP Primary Care Provider Jeannine [...] morning. 03/11/2024 Active atorvastatin (LIPITOR) 40 mg tabletIndications :Coronary artery disease, unspecified vessel or lesion type, unspecified whether angina present, unspecified whether catawba or transplanted heart Take 1 Tablet (40 mg) by mouth at bedtime. 30 Tablet 11 04/19/2024 Active nitroglycerin (NITROSTAT) 0.4 mg sublingual tabletIndications :Coronary artery disease, unspecified vessel or lesion type, unspecified whether angina present, unspecified whether [place] or transplanted heart Place 1 Tablet (0.4 mg) under the tongue every 5 minutes if needed for Chest pain 1st choice. Up to 3 tablets in 15 minutes. 25 Tablet 1 04/19/2024 Active metoprolol tartrate (LOPRESSOR) 25 mg tabletIndications :S/P CABG x 3 Take 1 Tablet (25 mg) by mouth two times daily. 180 Tablet 3 05/14/2024 Active acetaminophen (TYLENOL EXTRA STRGTH) 500 mg tabletIndications :S/P CABG x 3,Postoperative pain Take 2 Tablets (1,000 mg) by mouth every 6 hours if needed for Pain. Max acetaminophen dose: 4000mg in 24 hrs. 05/14/2024 Active amiodarone (CORDARONE) 200 mg tabletIndications :S/P CABG x 3,Paroxysmal atrial fibrillation (HC) Take 1 Tablet (200 mg) by mouth once daily. Take 1 Tablet (200 mg) by mouth once daily, until August 07, then discontinue 55 Tablet 06/13/2024 Active amoxicillin 500 mg capsuleIndication s:PROPHYLAXIS Take 4 capsules by mouth, in a single dose, 30-60 minutes before procedure. (Dose = 2,000 mg) For SBE prophylaxis 8 Capsule 1 06/13/2024 Active apixaban (ELIQUIS) 5 mg tabletIndications :New onset atrial fibrillation (HC) Take 1 Tablet (5 mg) by mouth two times daily. 60 Tablet 1 06/13/2024 Active furosemide (LASIX) 40 mg tabletIndications :Hypervolemia, unspecified hypervolemia type Take 1 Tablet (40 mg) by mouth once daily in the morning. 20 Tablet 06/14/2024 Active lisinopriL (PRINIVIL; ZESTRIL) 5 mg tabletIndications :HTN (hypertension) Take 1 Tablet (5 mg) by mouth once daily. 90 Tablet 4 07/25/2024 Discontinu ed(*Med complete/R egimen complete/L evel of care change) Active Problems Problem Noted Date Diagnosed Date [...] CKD (chronic kidney disease), stage III 04/16/20 24 Atrial fibrillation 04/16/2024 CAD (coronary artery disease) 10/01/2013 NSTEMI (non-ST elevated myocardial infarction) 1 Gout 08/07/2013 Hyperlipidemia, mixed 08/07/2013 HTN (hypertension) 08/06/2013 DM (diabetes mellitus) 08/06/2013 Resolved Problems Problem Noted Date Diagnosed Date Resolved Date DIC (disseminated intravascular coagulation) 4 05/07/2024 Encounters Date Type Department Care Team Description 07/29/[address] [facility] [place] [address] [facility] [address] [place] [address] Jordon Salmon MD Results (Sleep study ) 07/26/2024 Orders Only [facility] [place] [address] [facility] [address] [place] [address] Maritza Everett 1 scan: (1-Ord) [facility]; Polysomnography Report 07/24/2024 07/26/2024 Orders Only [facility] [place] [address] [facility] [address] [place] [address] Jordon Salmon MD <No scans attached> 07/25/2024 10:30 AM CDT Office Visit [facility] [place][note 2] [address] [place] [address] Hollis Haro MD 06/27/2024 11:00 AM CDT Office Visit [facility] [place]note 2] [address] [place] [address] Jordon Salmon MD 06/14/[address] [place] [address] Henrietta Obrien PA Results 06/13/2024 1:40 PM CDT Office Visit [facility] [address] [facility] [address] [place] [address] Henrietta Obrien PA Follow Up 06/13/2024 1:00 PM CDT Orders Only [facility] [address] [facility] [address] [place] [address] Lab 06/13/2024 Travel 06/11/2024 Travel 05/23/2024 10:00 AM CDT Home Care Visit Replaced By [facility] [address] [place] [address] Tete Hope RN SN - OASIS DISCHARGE 05/22/2024 Telephone [facility] [address] [facility] [address] [place] [address] Judith Marrero PA Follow Up 05/17/2024 Plan of Care Documentation Replaced By [facility] [address] [place] [address] 05/16/2024 9:00 AM CDT Home Care Visit Replaced By [facility] [address] [place] [address] Dayna Olvera RN SN - OASIS START OF CARE 05/07/2024 5:30 AM CDT - 05/14/2024 4:34 PM CDT Hospital Encounter [facility] [address] [place] [address] Kumar Araiza MD s/p 3V CABG (MCGILL-LAD, SVG-OM1, SVG-PDA) 05/07/2024 (Primary Dx); Aortic valve stenosis, etiology of cardiac valve disease unspecified; Postoperative pain; Paroxysmal atrial fibrillation (HC); s/p AVR (Inspiris #27) 05/07/2024 Discharge Disposition: Home Health from Last 3 Months Social History Tobacco [...] 06/13/2024 1:37 PM CDT Plan of Treatment Health Maintenance [...] 65+ 2018 COVID-19 vaccine series ( - season) 2024 Influenza for age 65+ 06/30/2024 BMI (ht and wt on same day) for age 18+ 06/13/2025 06/13/2024 Lipids for age 45-75 06/13/2029 06/13/2024, 04/17/2024, 08/06/2013 Medical Devices Implanted Type Area Photo Studio Assistant Device Identifier Shelf Expiration Date Model / Serial / Lot [id number] - [id number] Implanted:Qt y: 1 on 07/30/2020 by Nikko Galindo MD at [facility] Opthalmology Implants Left: Eye [employer] 08/06/2024 [id number] / [id number] / NA Description:Tecnis Aspheric IOL +21.0 Iol Crowley +21 Tecnis [id number] - [id number] Implanted:Qt y: 1 on 08/06/2020 by Nikko Galindo MD at [facility] Department Opthalmology Implants Right: Eye [employer] 02/25/2025 [id number] 21.0# / [id number] / N/A Occluder Christelle 40mm Atriclip Flex V Exclusion Sys - [id number] Implanted:Qt y: 1 on 05/07/2024 by Kumar Araiza MD at [facility] Left: Heart [employer] 11/30/2026 [id number] / / [id number] Valve Aortic 27mm Inspirus Resilia Tissue - [id number] Implanted:Qt y: 1 on 05/07/2024 by Kumar Araiza MD at [facility] Aortic Valve [employer] Kavin [id number] 12/06/2027 [id number] / [id number] / Procedures Procedure Name Priority Date/Time Associated Diagnosis Comments POLYSOMNOGRAM PER STANDARD PROTOCOL Routine 07/24/2024 Paroxysmal atrial fibrillation (HC) Suspected sleep apnea LIPID PANEL W REFLEX MEASURED LDL Routine [...] (MCGILL-LAD, SVG-OM1, SVG-PDA) 05/07/2024 SCAN-CARDIAC STRIP 05/16/2024 2: 27 AM CDT SCAN-CARDIAC STRIP 05/15/2024 10 :31 PM CDT SCAN-CARDIAC STRIP 05/15/2024 9: 03 AM CDT ECHO TTE COMPLETE W CONTRAST Routine 05/14/2024 12:59 PM CDT POTASSIUM Timed 05/14/2024 11:15 AM CDT GLUCOSE METER Timed 05/14/2024 11:08 AM CDT EKG 12 LEAD Routine 05/14/2024 10:43 AM CDT GLUCOSE METER Timed 05/14/2024 8:06 AM CDT SCAN-CARDIAC STRIP 05/14/2024 7: 49 AM CDT PLATELET COUNT Early AM 05/14/2024 5:30 AM CDT WHITE BLOOD COUNT Early AM 05/14/2024 5:3 0 AM CDT MAGNESIUM Early AM 05/14/2024 5:30 AM CDT HEMOGLOBIN Early AM 05/14/2024 5:30 AM CDT BASIC METABOLIC PANEL Early AM 05/14/2024 5:30 AM CDT SCAN-CARDIAC STRIP 05/14/2024 12 :00 AM CDT GLUCOSE METER Timed 05/13/2024 9:34 PM CDT GLUCOSE METER Timed 05/13/2024 6:03 PM CDT GLUCOSE METER Timed 05/13/2024 4:38 PM CDT SCAN-CARDIAC STRIP 05/13/2024 3: 51 PM CDT EKG 12 LEAD Routine 05/13/2024 12:54 PM CDT GLUCOSE METER Timed 05/13/2024 12:08 PM CDT GLUCOSE METER Timed 05/13/2024 8:14 AM CDT EKG 12 LEAD Routine 05/13/2024 6:42 AM CDT EKG 12 LEAD STAT 05/13/2024 4:55 AM CDT WHITE BLOOD COUNT Early AM 05/13/2024 4:4 8 AM CDT MAGNESIUM Early AM 05/13/2024 4:48 AM CDT HEMOGLOBIN Early AM 05/13/2024 4:48 AM CDT BASIC METABOLIC PANEL Early AM 05/13/2024 4:48 AM CDT SCAN-CARDIAC STRIP 05/13/2024 3: 41 AM CDT GLUCOSE METER Timed 05/12/2024 9:36 PM CDT SCAN-CARDIAC STRIP 05/12/2024 7: 28 PM CDT GLUCOSE METER Timed 05/12/2024 5:10 PM CDT GLUCOSE METER Timed 05/12/2024 11:34 AM CDT SCAN-CARDIAC STRIP 05/12/2024 10 :50 AM CDT GLUCOSE METER Timed 05/12/2024 7:48 AM CDT WHITE BLOOD COUNT Early AM 05/12/2024 6:1 3 AM CDT MAGNESIUM Early AM 05/12/2024 6:13 AM CDT HEMOGLOBIN Early AM 05/12/2024 6:13 AM CDT BASIC METABOLIC PANEL Early AM 05/12/2024 6:13 AM CDT SCAN-CARDIAC STRIP 05/12/2024 2: 11 AM CDT GLUCOSE METER Timed 05/11/2024 9:17 PM CDT SCAN-CARDIAC STRIP 05/11/2024 7: 10 PM CDT POTASSIUM Timed 05/11/2024 5:51 PM CDT GLUCOSE METER Timed 05/11/2024 5:26 PM CDT GLUCOSE METER Timed 05/11/2024 1:20 PM CDT POTASSIUM Timed 05/11/2024 12:30 PM CDT SCAN-CARDIAC STRIP 05/11/2024 10 :48 AM CDT GLUCOSE METER Timed 05/11/2024 7:56 AM CDT WHITE BLOOD COUNT Early AM 05/11/2024 5:4 1 AM CDT PLATELET COUNT Early AM 05/11/2024 5:41 AM CDT MAGNESIUM Early AM 05/11/2024 5:41 AM CDT HEMOGLOBIN Early AM 05/11/2024 5:41 AM CDT BASIC METABOLIC PANEL Early AM 05/11/2024 5:41 AM CDT SCAN-CARDIAC STRIP 05/11/2024 12 :59 AM CDT GLUCOSE METER Timed 05/11/2024 12:05 AM CDT GLUCOSE METER Timed 05/10/2024 9:08 PM CDT GLUCOSE METER Timed 05/10/2024 5:25 PM CDT SCAN-CARDIAC STRIP 05/10/2024 5: 15 PM CDT SCAN-CARDIAC STRIP 05/10/2024 3: 26 PM CDT URINALYSIS MICROSCOPIC Timed 05/10/2024 11:38 AM CDT UA W/ SEDIMENT EXAM [...] 05/09/2024 9:38 PM CDT SCAN-CARDIAC STRIP 05/09/2024 7: [address] CHEST ABDOMEN PELVIS WO STAT 05/09/2024 7:[address] HEAD BRAIN WO STAT 05/09/2024 7:32 PM CDT GLUCOSE METER Timed 05/09/2024 6:16 PM CDT SCAN-CARDIAC STRIP 05/09/2024 6: 10 PM CDT GLUCOSE METER Timed 05/09/2024 5:00 PM CDT SCAN-CARDIAC STRIP 05/09/2024 4: 41 PM CDT GLUCOSE METER Timed 05/09/2024 11:56 AM CDT GLUCOSE METER Timed 05/09/2024 7:44 AM CDT SCAN-CARDIAC STRIP 05/09/2024 7: 30 AM CDT WHITE BLOOD COUNT Early AM 05/09/2024 5:1 7 AM CDT PLATELET COUNT Early AM 05/09/2024 5:17 AM CDT MAGNESIUM Early AM 05/09/2024 5:17 AM CDT HEMOGLOBIN Early AM 05/09/2024 5:17 AM CDT BASIC METABOLIC PANEL Early AM 05/09/2024 5:17 AM CDT PROTIME-INR Early AM 05/09/2024 5:17 AM CDT SCAN-CARDIAC STRIP 05/09/2024 1: 17 AM CDT GLUCOSE METER Timed 05/08/2024 8:48 PM CDT GLUCOSE METER Timed 05/08/2024 5:03 PM CDT SCAN-CARDIAC STRIP 05/08/2024 4: 17 PM CDT GLUCOSE METER Timed 05/08/2024 2:08 PM CDT BASIC METABOLIC PANEL Today 05/08/2024 12:39 PM CDT GLUCOSE METER Timed 05/08/2024 12:09 PM CDT GLUCOSE METER Timed 05/08/2024 10:09 AM CDT GLUCOSE METER Timed 05/08/2024 8:03 AM CDT SCAN-CARDIAC STRIP 05/08/2024 7: 30 AM CDT EKG 12 LEAD Early AM 05/08/2024 6:24 AM CDT GLUCOSE METER Timed 05/08/2024 5:52 AM CDT GLUCOSE METER Timed 05/08/2024 5:05 AM CDT XR CHEST 1 VIEW PORTABLE Routine 05/08/2024 4:56 AM CDT GLUCOSE METER Timed 05/08/2024 4:07 AM CDT WHITE BLOOD COUNT Early AM 05/08/2024 4:0 5 AM CDT PLATELET COUNT Early AM 05/08/2024 [...] 05/08/2024 1:02 AM CDT SCAN-CARDIAC STRIP 05/08/2024 12 :37 AM CDT from Last 3 Months Results * POLYSOMNOGRAM PER STANDARD PROTOCOL (07/24/2024) Jordon Salmon MD [facility] * (ABNORMAL) LIPID PANEL W REFLEX MEASURED LDL (06/13/2024 2:31 PM CDT) CHOLESTEROL,TOTAL 109 100 - 199 mg/dL 06/13/2024 3:37 PM CDT [facility] Comment: Cholesterol, Total Reference Ranges Desirable <200 mg/dL Borderline 200-239 mg/dL High >=240 mg/dL TRIGLYCERIDES 165(H) <150 mg/dL 06/13/2024 3:37 PM CDT [facility] HDL CHOLESTEROL 53 >40 mg/dL 3:37 PM CDT [facility] NON-HDL CHOLESTEROL 56 <145 mg/dl 06/13/2024 3:37 PM CDT [facility] CHOL/HDL RATIO 2.06 <4.50 06/13/2024 3:37 PM CDT [facility] LDL CHOLESTEROL 23 <=130 mg/dL 06/13/2024 3:37 PM CDT [facility] VLDL CHOLESTEROL 33(H) <=30 mg/dL 06/13/2024 3:37 PM CDT [facility] PROVIDER ORDERED STATUS RANDOM 06/13/2024 3:37 PM CDT [facility] Blood BLOOD SPECIMEN / Unknown Venipuncture / Unknown 06/13/2024 2:31 PM CDT 06/13/2024 2:31 PM CDT Henrietta BELLAMY CHEMISTRY [facility] SENDOUT INTERNAL ZIP [phone] [place] [address] * (ABNORMAL) HEMOGLOBIN (06/13/2024 2:31 PM CDT) Only the most recent of8 resultswithin the time period is included. Pathologist [facility] HEMOGLOBIN 12.2(L) 13.5 - 17.5 g/dL 06/13/2024 3:18 PM CDT [facility] MCV 89 80 - 100 fL 06/13/2024 3:18 PM CDT [facility] Blood BLOOD SPECIMEN / Unknown Venipuncture / Unknown 06/13/2024 2:31 PM CDT 06/13/2024 2:31 PM CDT [facility] - 06/13/2024 3:18 PM CDT This procedure was originally ordered at [facility]. Henrietta BELLAMY HEMATOLOGY [facility] SENDOUT INTERNAL ZIP [phone] [place] [address] * (ABNORMAL) PRO-BNP (06/13/2024 2:31 PM CDT) PRO-BNP 1,249(H) <125 pg/mL 06/13/2024 3:38 PM CDT [facility] Blood BLOOD SPECIMEN / Unknown Venipuncture / Unknown 06/13/2024 2:31 PM CDT 06/13/2024 2:31 PM CDT Narrative [facility] - 06/13/2024 3:38 PM CDT The [...] heart failure. ? Henrietta BELLAMY SEND OUTS [facility] SENDOUT [place] [address]IP [phone] [place] [address] * MAGNESIUM (06/13/2024 2:31 PM CDT) Only the most recent of8 resultswithin the time period is included. MAGNESIUM 2.4 1.6 - 2.4 mg/dL 06/13/2024 3:37 PM T [facility] Blood BLOOD SPECIMEN / Unknown Venipuncture / Unknown 06/13/2024 2:31 PM CDT 06/13/2024 2:31 PM CDT Henrietta BELLAMY CHEMISTRY [facility] SENDOUT [place]NAL ZIP [phone] [place] [address] * (ABNORMAL) BASIC METABOLIC PANEL (06/13/2024 2:31 PM CDT) Only the most recent of9 resultswithin the time period is included. Pathologist [facility] SODIUM 138 136 - 145 mmol/L 06/13/2024 3:38 PM [facility] POTASSIUM 5.6(H) 3.5 - 5.1 mmol/L 06/13/2024 3:38 PM [facility] CHLORIDE 101 98 - 107 mmol/L 06/13/2024 3:38 PM [facility] CO2,TOTAL 26 22 - 29 mmol/L 06/13/2024 3:38 PM [facility] ANION GAP 11 5 - 18 06/13/2024 3:38 PM [facility] GLUCOSE 172(H) 70 - 99 mg/dL 06/13/2024 3:38 PM [facility] CALCIUM 9.1 8.8 - 10.2 mg/dL 06/13/2024 3:38 PM [facility] BUN 36(H) 8 - 23 mg/dL 06/13/2024 3:38 PM [facility] CREATININE 2.58(H) 0.70 - 1.20 mg/dL 06/13/2024 3:38 PM [facility] BUN/CREAT RATIO 14 10 - 20 3:38 PM [facility] eGFR 26(L) >90 mL/min/1.7 3m2 06/13/2024 3:38 PM CDT [facility] Comment:As of 2022, eG FR is calculated by the CKD-EPI creatinine equation without race adjustment. ??eGFR can be influenced by muscle mass, exercise, and diet. ??The reported eGFR is an estimation only and is only applicable if the renal function is stable. Blood BLOOD SPECIMEN / Unknown Venipuncture / Unknown 06/13/2024 2:31 PM CDT 06/13/2024 2:31 PM CDT Henrietta BELLAMY CHEMISTRY [facility] SENDOUT INTERNAL ZIP [phone] [place] [address] * SCAN-CARDIAC STRIP (05/16/2024 2:27 AM CDT) Scanner OTHER * SCAN-CARDIAC STRIP (05/15/2024 10:31 PM CDT) Scanner OTHER * SCAN-CARDIAC STRIP (05/15/2024 9:03 AM CDT) Scanner OTHER * ECHO TTE COMPLETE W CONTRAST (05/14/2024 12:59 PM CDT) EJECTION FRACTION 65% PROSOLV Anatomical Region Laterality Modality Ultrasound 05/14/2024 12:0 0 PM CDT Narrative 05/14/2024 3:40 [place] [address] Main: [email or web address] ? Transthoracic Echo Report JOSEPH KNAPP ID: [id number] Age: 68 : 1955 Ordering Provider: AMALIA MAURICE Exam Date: 05/14/2024 12:00 Gender: M [employer] Manager: DRAKE Height: 71 in BSA: 2.19 m?? BP: 132 / 70 Weight: 218 lbs BMI: 30.4 kg/m?? HR: 79 Location: [facility] Rhythm: Normal Sinus Rhythm Procedure Components: 2D imaging with contrast, Color Doppler, Spectral Doppler Indications: Aortic valve replacement Technical Quality: Very technically difficult study Contrast: Definity Constrast Dose (ml): .30 [facility]#: [id number] Final Conclusion Previous Study: 03/27/2024 1. Normal [...] ?2.75 mmHg Esthela Lincoln MD (Electronically Signed) [facility] Accredited Site Final Date: 14 May 2024 15:39 ICD-10 Codes: V43.3 Procedure Note Esthela Lincoln MD - 05/14/2024 [place] [address] Main: [email or web address] Transthoracic Echo Report JOSEPH KNAPP Paul ID: [id number] Age: 68 : 1955 Ordering Provider: AMALIA MAURICE Exam Date: 05/14/2024 12:00 Gender: M [employer] Manager: SB Height: 71 in BSA: 2.19 m?? BP: 132 / 70 Weight: 218 lbs BMI: 30.4 kg/m?? HR: 79 Location: [facility] Rhythm: Normal SinusRhythm Procedure Components: 2D imaging with contrast, Color Doppler, SpectralDoppler Indications: Aortic valve replacement Technical Quality: Very technically difficult study Contrast: Definity Constrast Dose (ml): .30 [facility]#: [id number] Final Conclusion Previous Study: 03/27/2024 1. Normal [...] 2.75 mmHg Esthela Lincoln MD (Electronically Signed) [facility] Accredited Site Final Date: 14 May 2024 15:39 ICD-10 Codes: V43.3 Amalia BELLAMY ECHO ORD * POTASSIUM (05/14/2024 11:15 AM CDT) Only the most recent of3 resultswithin the time period is included. POTASSIUM 4.1 3.5 - 5.1 mmol/L 05/14/2024 12:10 PM CDT [facility] Blood BLOOD SPECIMEN / Unknown Venipuncture / Unknown 05/14/2024 11:15 AM CDT 05/14/2024 11:45 AM CDT Kumar Soni MD CHEMISTRY Performing Organization Address City/[facility]/ZIP Co de Phone Number [facility] SENDOUT INTERNAL ZIP [phone] [place] [address] * (ABNORMAL) GLUCOSE METER (05/14/2024 11:08 AM CDT) Only the most recent of37 resultswithin the time period is included. GLUCOSE METER 202(H) 65 - 100 mg/dL 05/14/2024 11:22 AM CDT [facility] Blood BLOOD SPECIMEN / Unknown 05/14/2024 11:08 AM CDT 05/14/2024 11:22 AM CDT Kumar Soni MD CHEMISTRY [facility] SENDOUT [place]NAL ZIP [phone] [place] [address] * EKG 12 LEAD (05/14/2024 10:43 AM CDT) Only the most recent of5 resultswithin the time period is included. Pathologist [facility] Interpretation Sinus rhythm with 1st degree A-V block Prolonged QT Abnormal ECG When compared with ECG of 13-May-2024 12:54, No significant change was found BEYOND NOW Ventricular Rate 74 BPM BEYOND NOW Atrial Rate 74 BPM BEYOND NOW P-R Interval 236 ms BEYOND NOW QRS Duration 110 ms BEYOND NOW QT 434 ms BEYOND NOW QTc 481 ms BEYOND NOW P [place] 87 degrees BEYOND NOW R [place] 87 degrees BEYOND NOW T [place] 58 degrees BEYOND NOW 05/14/2024 10:4 3 AM CDT 05/14/2024 4:10 PM CDT Judith BELLAMY EKG ORD Performing Organization Address City/[facility]/ZIP Co de Phone Number BEYOND NOW [place], [place] * SCAN-CARDIAC STRIP (05/14/2024 7:49 AM CDT) Scanner OTHER * PLATELET COUNT (05/14/2024 5:30 AM CDT) Only the most recent of5 resultswithin the time period is included. [facility] PLATELET COUNT 234 140 - 440 thou/cu mm 05/14/2024 5:51 AM CDT [facility] MPV 9.9 6.5 - 11.0 fL 05/14/2024 5:51 AM CDT [facility] Blood BLOOD SPECIMEN / Unknown Venipuncture / Unknown 05/14/2024 5:30 AM CDT 05/14/2024 5:42 AM CDT Oscar Flor MD HEMATOLOGY [facility] SENDOUT INTERNAL ZIP [phone] [place] [address] * WHITE BLOOD COUNT (05/14/2024 5:30 AM CDT) Only the most recent of6 resultswithin the time period is included. [facility] WHITE BLOOD COUNT 4.6 4.5 - 11.0 thou/cu mm 05/14/2024 5:51 AM CDT [facility] NRBC 0.0 % 05/14/2024 5:51 AM CDT [facility] ABS NRBC 0.0 thou /cu mm 05/14/2024 5:51 AM CDT [facility] Blood BLOOD SPECIMEN / Unknown Venipuncture / Unknown 05/14/2024 5:30 AM CDT 05/14/2024 5:42 AM CDT Judith BELLAMY HEMATOLOGY [facility] SENDOUT INTERNAL ZIP [phone] [place] [address] * SCAN-CARDIAC STRIP (05/14/2024 12:00 AM CDT) [...] None Seen /HPF 05/10/2024 11:54 AM CDT [facility] WBC 0-2 0-2, 3-5, None Seen /HPF 05/10/2024 11:54 AM CDT [facility] BACTERIA None Seen None Seen, Rare, Few Bacteria/ HPF 05/10/2024 11:54 AM CDT [facility] EPITHELIAL CELLS None Seen None Seen, Few Epi/HPF 05/10/2024 11:54 AM CDT [facility] HYALINE CASTS 3-5 0-2, 3-5 /LPF 05/10/2024 11:54 AM CDT [facility] Urine URINE SPECIMEN / Unknown Non-Blood / Unknown 05/10/2024 11:38 AM CDT 05/10/2024 11:44 AM CDT Cristina Hu MD URINE [facility] SENDOUT INTERNAL ZIP [phone] [place] [address] * (ABNORMAL) UA W/ SEDIMENT EXAM REFLEXED PER CRITERIA (05/10/2024 11:38 AM CDT) COLOR Yellow Yellow Color 05/10/2024 11:53 AM CDT [facility] CLARITY Clear Clear Clarity 05/10/2024 11:53 AM CDT [facility] SPECIFIC GRAVITY,URINE 1.015 1.010, 1.015, 1.020, 1.025 05/10/2024 11:53 AM CDT [facility] PH,URINE 5.0(A) 6.0, 7.0, 8.0, 5.5, 6.5, 7.5, 8.5 05/10/2024 11:53 AM CDT [facility] UROBILINOGEN, QUALITATIVE Normal Normal EU/dl 05/10/2024 11:53 AM CDT [facility] PROTEIN, URINE Negative Negative mg/dL 05/10/2024 11:53 AM CDT [facility] GLUCOSE, URINE 100(A) Negative mg/dL 05/10/2024 11:53 AM CDT [facility] KETONES,URINE Negative Negative mg/dL 05/10/2024 11:53 AM CDT [facility] BILIRUBIN,URI NE Negative Negative 05/10/2024 11:53 AM CDT [facility] OCCULT BLOOD,URINE Trace(A) Negative 05/10/2024 11:53 AM CDT [facility] NITRITE Negative Negative 05/10/2024 11:53 AM CDT [facility] LEUKOCYTE ESTERASE Negative Negative 05/10/2024 11:53 AM CDT [facility] Urine URINE SPECIMEN / Unknown Non-Blood / Unknown 05/10/2024 11:38 AM CDT 05/10/2024 11:44 AM CDT Cristina Hu MD URINE [facility] SENDOUT [place] ZIP [id number] [place] [id number] * XR CHEST 2 VIEWS PA AND [...] CHEST 2 VIEWS PA AND LATERAL LOCATION: [facility] DATE: 05/10/2024 INDICATION: Post Procedure [...] CHEST 2 VIEWS PA AND LATERAL LOCATION: [facility] DATE: 05/10/2024 INDICATION: Post Procedure [...] EXAM: CT CHEST ABDOMEN PELVIS WO LOCATION: [facility] DATE: 05/09/2024 INDICATION: Chest trauma, cardiac injury suspected COMPARISON: 04/18/[address] TECHNIQUE: CT scan of the chest, abdomen, and pelvis was performed without IV contrast. Multiplanar reformats were obtained. Dose reduction techniques were used. Exam significantly limited by lack of intravenous contrast. CONTRAST: None. FINDINGS: LUNGS AND PLEURA: Small left pneumothorax. Small left and [id number] right pleural effusions. Dependent consolidation within the [...] sternotomy. L2 pars defects. Procedure Note Geovani uLnd MD - 05/09/2024 For Patients: As a result of the 21st Century Cures Act, medical imagingexams and procedure reports are released immediately into your electronicmedical record. You may view this report before your referring provider.If you have questions, please contact your health care provider. EXAM: CT CHEST ABDOMEN PELVIS WO LOCATION: [facility] DATE: 05/09/2024 INDICATION: Chest trauma, cardiac injury suspected COMPARISON: 04/18/2024 cardiac CT TECHNIQUE: CT scan of the chest, abdomen, and pelvis was performed withoutIV contrast. Multiplanar reformats were obtained. Dose reductiontechniques were used. Exam significantly limited by lack of intravenouscontrast. CONTRAST: None. FINDINGS: LUNGS AND PLEURA: Small left pneumothorax. Small left [id number] right pleural effusions. Dependent consolidation withinthe right [...] of the 21st Century Cures Act, medical imaging exams and procedure reports are released immediately into your electronic medical record. You may view this report before your referring provider. If you have questions, please contact your health care provider. EXAM: CT HEAD BRAIN WO LOCATION: [facility] MEDICAL IMAGING DATE: 05/09/2024 INDICATION: Mental status [...] provider. EXAM: CT HEAD BRAIN WO LOCATION: [facility] MEDICAL IMAGING DATE: 05/09/2024 INDICATION: Mental status [...] 5:17 AM CDT) Only the most recent of2 resultswithin the time period is included. INR 1.3(H) <1.3 05/09/2024 5:35 AM CDT [facility] PROTIME 14.7(H) 10.3 - 12.3 sec 05/09/2024 5:35 AM CDT [facility] Blood BLOOD SPECIMEN / Unknown Line/Port / Unknown 05/09/2024 5:17 AM CDT 05/09/2024 5:26 AM CDT Narrative [facility] - 05/09/2024 5:35 AM CDT ?Therapeutic [...] is on UFH. Kumar Soni MD HEMATOLOGY [facility] SENDOUT INTERNAL [facility] [address] [address] [place] [address] * SCAN-CARDIAC STRIP (05/09/2024 1:17 AM CDT) Scanner OTHER * SCAN-CARDIAC STRIP (05/08/2024 4:17 PM CDT) Scanner OTHER * SCAN-CARDIAC STRIP (05/08/2024 7:30 AM CDT) Scanner OTHER * XR Chest Portable 1 View- In AM (05/08/2024 4:56 AM CDT) Anatomical Region Laterality Modality HEART, THORAX, CHEST [...] EXAM: XR CHEST 1 VIEW PORTABLE LOCATION: [facility] MEDICAL IMAGING DATE: 05/08/2024 INDICATION: ET tube placement COMPARISON: 05/07/2024 Procedure Note Leonard Wilson MD - 05/08/2024 For Patients: As a result of the Cures Act, medical imagingexams and procedure reports are released immediately into your electronicmedical record. You may view this report before your referring provider.If you have questions, please contact your health care provider. EXAM: XR CHEST 1 VIEW PORTABLE LOCATION: [facility] MEDICAL IMAGING DATE: 05/08/2024 INDICATION: ET tube [...] - 1.27 mmol/L 05/08/2024 4:19 AM CDT [facility] Blood BLOOD SPECIMEN / Unknown Non-Lab Venipuncture / Unknown 05/08/2024 4:05 AM CDT 05/08/2024 4:16 AM CDT Kumar Soni MD CHEMISTRY [facility] SENDOUT [place]NAL [address] [id number] [address] [place] [address] * SCAN-CARDIAC STRIP (05/08/2024 12:37 AM CDT) Scanner OTHER from Last 3 Months Advance Directives * Full Code (Latest Code Status on File) Date Activated Date Inactivated Comments 05/07/2024 5:58 AM 05/14/2024 6:39 PM Question Answer Comments Code Status Discussion: Per Existing Order * Full Code Date Activated Date Inactivated Comments 04/16/2024 5:15 PM 04/19/2024 7:01 PM Question Answer Comments Code Status Discussion: Reviewed Preferences Care Teams Lean Engineer Relationship Specialty Start Date End Date Joanne Serra TRA[employer]ING AND DEVELOPMENT REP [address], [place] [address] PCP - General Emergency Medicine 02/11/22
== END 2024-08-08 09:40 | disposition home or self-care (01) ==
PROVIDERS: PCP Nurse Practitioner Family; Visit Provider Nurse Practitioner Family
DX: E11.22 Type 2 diabetes mellitus with diabetic chronic kidney disease (principal); I12.9 Hypertensive chronic kidney disease with stage 1 through stage 4 chronic kidney disease, or unspecified chronic kidney disease; N18.30 Chronic kidney disease, stage 3 unspecified; N40.0 Benign prostatic hyperplasia without lower urinary tract symptoms; Z13.21 Encounter for screening for nutritional disorder; Z12.5 Encounter for screening for malignant neoplasm of prostate; Z13.29 Encounter for screening for other suspected endocrine disorder
CPT/HCPCS: 80053; 82043; 82570; 82607; 83880; 84443; 85025; G0103

== ENCOUNTER 2024-09-03 09:55 | Outpatient (CLI) | payer MEDICARE, OTHER, SELFPAY ==
--- OUTSIDE RECORDS SUMMARY | 2024-09-03 09:58 | XMS_ITS | Clinical Summary ---
Author Organization [facility] Address [address] [place] [address] Care Team Providers Care Newsroom Intern Name Role Phone Unavailable Primary Care Provider Unavailabl e Source Comments Patient records contain information from all sites at [facility]. For routine questions regarding patient records, call [phone] during business hours, M-F 8:00 AM - 5:00 PM Central Time. Record requests for emergency care only can be directed to [phone] at any time.[facility] Allergies Active Allergy Reactions Criticality Noted Date Comments Bee Pollen Itching Medium 08/06/2013 Itchy watery eyes Medications aspirin 81 mg chewable tablet Chew 81 mg. Ac tive atenoloL (TENORMIN) 50 mg tablet 01/22/2020 Active atorvastatin (LIPITOR) 10 mg tablet 01/22/2020 Active glipiZIDE (GLUCOTROL) 10 mg tablet Take 10 mg by mouth. 01/17/2020 Active indomethacin (INDOCIN) 50 mg capsule Take 50 mg by mouth. 01/21/2020 Active lisinopriL (PRINIVIL,ZESTRI L) 40 mg tablet Take 40 mg by mouth. 01/17/2020 Active metFORMIN (GLUCOPHAGE) 1,000 mg tablet Take 1,000 mg by mouth. 01/17/2020 Active nitroglycerin (NITROSTAT) 0.[address] 0.4 mg under the tongue. 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 Bypass Coronary Artery Graft Status Post; Prosthesis Aortic Valve Discharge Disposition: Home or Self Care 08/28/2024 10:56 AM CDT - 08/28/2024 11:59 PM CDT Hospital Encounter Department of Cardiac Rehabilitation in [address] [address] Tim Zamarripa M.D. Bypass Coronary Artery Graft Status Post; Prosthesis Aortic Valve Discharge Disposition: Home or Self Care 08/23/2024 10:45 AM CDT - 08/23/2024 11:59 PM CDT Hospital Encounter Department of Cardiac Rehabilitation in [address] [address] Tim Zamarripa M.D. Bypass Coronary Artery Graft Status Post; Prosthesis Aortic Valve Discharge Disposition: Home or Self Care 08/23/2024 Clinical Communication Department of Cardiac Rehabilitation in [address] [address] Swapna Lux, CCRP, CEP Scheduling 08/21/2024 10:49 AM CDT - 08/21/2024 11:59 PM CDT Hospital Encounter Department of Cardiac Rehabilitation in [address] [address] Tim Zamarripa M.D. Bypass Coronary Artery Graft Status Post; Prosthesis Aortic Valve Discharge Disposition: Home or Self Care 08/21/2024 Plan of Care Documentation Department of Cardiac Rehabilitation in [address] [address] 08/19/2024 10:52 AM CDT - 08/19/2024 11:59 PM CDT Hospital Encounter Department of Cardiac Rehabilitation in [address] [address] Tim Zamarripa M.D. Bypass Coronary Artery Graft Status Post; Prosthesis Aortic Valve Discharge Disposition: Home or Self Care 08/14/2024 10:45 AM CDT - 08/14/2024 11:59 PM CDT Hospital Encounter Department of Cardiac Rehabilitation in [address] [address] Tim Zamarripa M.D. Bypass Coronary Artery Graft Status Post; Prosthesis Aortic Valve Discharge Disposition: Home or Self Care 08/12/2024 10:52 AM CDT - 08/12/2024 11:59 PM CDT Hospital Encounter Department of Cardiac Rehabilitation in [address] [address] Tim Zamarripa M.D. Bypass Coronary Artery Graft Status Post; Prosthesis Aortic Valve Discharge Disposition: Home or Self Care 08/12/2024 Clinical Communication Department of Cardiac Rehabilitation in [address] [address] Swapna Lux CCRP, CEP Scheduling 08/09/2024 Clinical Communication Department of Cardiac Rehabilitation in [address] [address] Swapna Lux CCRP, CEP Scheduling 08/05/2024 10:55 AM CDT - 08/05/2024 11:59 PM CDT Hospital Encounter Department of Cardiac Rehabilitation [address] [place] [address] Tim Zamarripa M.D. Bypass Coronary Artery Graft Status Post; Prosthesis Aortic Valve Discharge Disposition: Home or Self Care 07/31/2024 11:00 AM CDT - 07/31/2024 11:59 PM CDT Hospital Encounter Department of Cardiac Rehabilitation in [address] [address] Tim Zamarripa M.D. Bypass Coronary Artery Graft Status Post; Prosthesis Aortic Valve Discharge Disposition: Home or Self Care 07/26/2024 10:53 AM CDT - 07/26/2024 11:59 PM CDT Hospital Encounter Department of Cardiac Rehabilitation in [address] [address] Tim Zamarripa M.D. Bypass Coronary Artery Graft Status Post; Prosthesis Aortic Valve Discharge Disposition: Home or Self Care 07/24/2024 10:55 AM CDT - 07/24/2024 11:59 PM CDT Hospital Encounter Department of Cardiac Rehabilitation in [address] [address] Tim Zamarripa M.D. Bypass Coronary Artery Graft Status Post; Prosthesis Aortic Valve Discharge Disposition: Home or Self Care 07/23/2024 Plan of Care Documentation Department of Cardiac Rehabilitation in [address] [address] 07/22/2024 10:52 AM CDT - 07/22/2024 11:59 PM CDT Hospital Encounter Department of Cardiac Rehabilitation in [address] [address] Tim Zamarripa M.D. Bypass Coronary Artery Graft Status Post; Prosthesis Aortic Valve Discharge Disposition: Home or Self Care 07/19/2024 Clinical Communication Department of Cardiac Rehabilitation in [address] [address] Swapna Lux CCRP, CEP Scheduling 07/17/2024 10:39 AM CDT - 07/17/2024 11:59 PM CDT Hospital Encounter Department of Cardiac Rehabilitation in [address] [address] Tim Zamarripa M.D. Bypass Coronary Artery Graft Status Post; Prosthesis Aortic Valve Discharge Disposition: Home or Self Care 07/12/2024 2:00 PM CDT - 07/12/2024 11:59 PM CDT Hospital Encounter Department of Cardiac Rehabilitation in [address] [address] Tim Zamarripa M.D. Bypass Coronary Artery Graft Status Post; Prosthesis Aortic Valve Discharge Disposition: Home or Self Care 07/12/2024 2:00 PM CDT - 07/12/2024 11:59 PM CDT Hospital Encounter Department of Laboratory Medicine in [address] [address] Joanne Serra C.N.P. Chronic Kidney Disease Discharge Disposition: Home or Self Care 07/12/2024 Clinical Communication Department of Cardiac Rehabilitation in [address] [address] Swapna Lux CCRP, CEP Scheduling 07/05/2024 2:23 PM CDT - 07/05/2024 11:59 PM CDT Hospital Encounter Department of Cardiac Rehabilitation in [address] [address] Tim Zamarripa M.D. Bypass Coronary Artery Graft Status Post; Prosthesis Aortic Valve Discharge Disposition: Home or Self Care 07/05/2024 Clinical Communication Department of Cardiac Rehabilitation in [address] [phone] Swapna Lux CCRP, CEP Scheduling 07/03/2024 12:54 PM CDT - 07/03/2024 11:59 PM CDT Hospital Encounter Department of Cardiac Rehabilitation in [address] [address] Tim Zamarripa M.D. Bypass Coronary Artery Graft Status Post; Prosthesis Aortic Valve Discharge Disposition: Home or Self Care 06/28/2024 10:52 AM CDT - 06/28/2024 11:59 PM CDT Hospital Encounter Department of Cardiac Rehabilitation in [address] [address] Tim Zamarripa M.D. Bypass Coronary Artery Graft Status Post; Prosthesis Aortic Valve Discharge Disposition: Home or Self Care 06/26/2024 10:50 AM CDT - 06/26/2024 11:59 PM CDT Hospital Encounter Department of Cardiac Rehabilitation in [address] [address] Tim Zamarripa M.D. Bypass Coronary Artery Graft Status Post; Prosthesis Aortic Valve Discharge Disposition: Home or Self Care 06/25/2024 Plan of Care Documentation Department of Cardiac Rehabilitation in [address] [address] 06/24/2024 12:52 PM CDT - 06/24/2024 11:59 PM CDT Hospital Encounter Department of Cardiac Rehabilitation in [address] [address] Tim Zamarripa M.D. Bypass Coronary Artery Graft Status Post; Prosthesis Aortic Valve Discharge Disposition: Home or Self Care 06/21/2024 1:45 PM CDT - 06/21/2024 11:59 PM CDT Hospital Encounter Department of Cardiac Rehabilitation in [address] [address] Tim Zamarripa M.D. Bypass Coronary Artery Graft Status Post; Prosthesis Aortic Valve Discharge Disposition: Home or Self Care 06/21/2024 1:40 PM CDT - 06/21/2024 1:44 PM CDT Hospital Encounter Department of Laboratory Medicine in [address] [address] Joanne Serra C.N.P. Insufficiency Renal Chronic; Hypertensive Chronic Kidney Disease With Stage 1 Through Stage 4 Chronic Kidney Disease, Or Unspecified Chronic Kidney Disease Discharge Disposition: Home or Self Care 06/21/2024 Clinical Communication Department of Cardiac Rehabilitation in [address] [phone] Swapna Lux, EAGLEP, CEP Scheduling 06/19/2024 12:53 PM CDT - 06/19/2024 11:59 PM CDT Hospital Encounter Department of Cardiac Rehabilitation in [address] [address] Tim Zamarripa M.D. Bypass Coronary Artery Graft Status Post; Prosthesis Aortic Valve Discharge Disposition: Home or Self Care 06/17/2024 12:42 PM CDT - 06/17/2024 11:59 PM CDT Hospital Encounter Department of Cardiac Rehabilitation in [address] [address] Tim Zamarripa M.D. Bypass Coronary Artery Graft Status Post; Prosthesis Aortic Valve Discharge Disposition: Home or Self Care 06/12/2024 2:25 PM CDT - 06/12/2024 11:59 PM CDT Hospital Encounter Department of Cardiac Rehabilitation in [address] [address] Tim Zamarripa M.D. Bypass Coronary Artery Graft Status Post; Prosthesis Aortic Valve Discharge Disposition: Home or Self Care 06/10/2024 2:21 PM CDT - 06/10/2024 11:59 PM CDT Hospital Encounter Department of Cardiac Rehabilitation in [address] [address] Tim Zamarripa M.D. Bypass Coronary Artery Graft Status Post; Prosthesis Aortic Valve Discharge Disposition: Home or Self Care 06/07/2024 2:23 PM CDT - 06/07/2024 11:59 PM CDT Hospital Encounter Department of Cardiac Rehabilitation in [address] [address] Tim Zamarripa M.D. Bypass Coronary Artery Graft Status Post; Prosthesis Aortic Valve Discharge Disposition: Home or Self Care 06/05/2024 2:15 PM CDT - 06/05/2024 11:59 PM CDT Hospital Encounter Department of Cardiac Rehabilitation in [address] [address] Tim Zamarripa M.D. Bypass Coronary Artery Graft Status Post; Prosthesis Aortic Valve Discharge Disposition: Home or Self Care 06/03/2024 2:21 PM CDT - 06/03/2024 11:59 PM CDT Hospital Encounter Department of Cardiac Rehabilitation in [address] [address] Tim Zamarripa M.D. Bypass Coronary Artery Graft Status Post; Prosthesis Aortic Valve Discharge Disposition: Home or Self Care from Last 3 Months Immunizations Name Administration Dates Next Due Influenza, Unspecified 08/11/2015 Social History Tobacco Use Types Packs/Day Years Used Date Smoking Tobacco: Never Smokeless Tobacco: Never PHQ-2 Answer Date Recorded PHQ-2 Score 0 08/30/2024 Depression Answer Date Recor ded PHQ-9 Total Score (max 27) 0 08/30 Nutrition Answer Date Recorded Nutrition: EVOO Fat Source 13 07/14 Nutrition: Servings of Fruits/Vegetables per Day Not on file 07/14/2020 Dental Answer Date Recorded Dental: Regular Dentist Unknown 12/30/19 21 Sex and Gender Information Value Date Recorded Sex Assigned at Not on file 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 Gender Identity Not on file Sexual Orientation [...] 03/16/2020 10:10 AM CDT Plan of Treatment Health Maintenance Due Date Last Done Comments CT Colonography 1955 Colonoscopy 1955 Diabetic Office Visit with Foot Exam 1953 FIT 1953 Hepatitis C Screening 1955 Office Visit for Blood Pressure Check / Re-check 1953 Urine Albumin 1955 Zoster Vaccines (1 of 2) 2003 Dilated Eye Exam 07/25/2006 07/25/2005, , 03/25/2004 Hepatitis B Vaccines (1 of 3 - Risk 3-dose series) 2013 Depression Screening (Annual PHQ-2) 10/30/2023 Fall Risk Screen (Annual) 10/30/2023 COVID-19 Vaccine ( season) 2024 Influenza Vaccine (#1) 2024 , 08/22/2019, 07/23/2018, Additional history exists Hemoglobin A1C 08/06/2024 05/06/2024, 03/30, 01/13/2021, Additional history exists Creatinine Level (Kidney Function Test) 07/12/2025 07/12/2024, 06/21/2024, 06/13/2024, Additional history exists Potassium Level 07/12/2025 07/12/2024, 05/31, 06/13/2024, Additional history exists Sodium Level 07/12/2025 07/12/2024, 05/31, 06/13/2024, Additional history exists Cologuard 12/22/2025 12/22/2022, 07/18/2019 Colorectal Cancer Screening 12/22/2025 Lipid (Cholesterol) Screening 06/13/2029 06/13/2024, 04/17/2024, 07/23/2020, Additional history exists DTaP,Tdap,and Td Vaccines (4 - Td or Tdap) 06/15/2033 06/15/2023, 01/18/2013, 04/13/2010 Pneumococcal vaccine (65+ years) Completed 07/23/2020, 10/15/2015, 08/12/2013 IPV Vaccines Aged Out No longer eligi ble based on patient's age to complete this topic Procedures Procedure Name Priority Date/Time Associated Diagnosis Comments 6 MINUTE WALK Routine 08/30/2024 11:00 AM CDT Bypass Coronary Artery Graft Status Post Prosthesis Aortic Valve BASIC METABOLIC PANEL, S/P Routine 07/12/2024 2:06 [...] Recently Relevant to Health Maintenance Results * 6 MINUTE WALK (08/30/2024 11:00 AM CDT) Only the most recent of2 resultswithin the time period is included. Narrative Swapna Lux CCRP, FADY - 08/30/2024 11:00 AM CDT Swapna Lux CCRP, CEP ? 08/30/2024 12:53 PM Six Minute Walk Performed by: Swapna Lux CCRP, CEP Authorized by: Tim Zamarripa M.D. ?? Were medications taken in the last 24 hours?: yes ?? PRE WALK Assistive Device: ??None Height (cm): ??183 Weight (kg): ??101 BMI: ??30.2 Resting Heart Rate: ??80 Heart Rate Source: ??Telemetry Resp Rate: Resting SpO2: ??96 Resting BP: ??140/62Supplemental Oxygen used: ??Supplemental Oxygen Not Used Angina Scale: ??0 - No Angina Claudication Scale: ??1 - No Claudication Pain Jose Dyspnea: ??0 - Nothing at all Jose Fatigue: ??0 - Nothing at all Jose Rating of Perceived Exertion (RPE): ??6 - No exertion at all POST WALK Heart Rate: ??108 Heart Rate Source: ??Telemetry SpO2: ??96 BP: ??168/60 Pain Score: ??0 Angina Scale: ??0 - No Angina Claudication Scale: ??1 - No Claudication Pain Jose Dyspnea: ??0 - Nothing at all Jose Fatigue: ??0 - Nothing at all Jose Rating of Perceived Exertion: ??13 - Somewhat Hard Time of Test: ??11:00 CDT Total Distance Walked (Feet): ??1320 Total Distance Walked (Meters): ??402.34 Total # of Times Stopped: ??0 Time Stopped (Seconds): ??0 Time Walked (Seconds): ??360 CALCULATIONS Estimated MPH: ??2.5 Estimated METs: ??2.92 % of Predicted Distance: ??84.2 Tim Zamarripa M.D. CV STRESS PROCEDURES Final Result * (ABNORMAL) Basic Metabolic Panel (07/12/2024 2:06 PM CDT) Only the most recent of2 resultswithin the time period is included. Pathologist [facility] Potassium, P 5.1 3.6 - 5.2 mmol/L [...] PM CDT Joanne Serra C.N.P. LAB BLOOD ADD-ON Final Result Performing Organization Address [facility]/ZIP Co de Phone Number [facility] [address] [place] [address], [place] [address] * (ABNORMAL) Glucose, POCT (06/17/2024 1:44 PM CDT) Only the most recent of12 resultswithin the time period is included. Glucose, POCT, B 159(H) 70 - 140 mg/dL 06/17/2024 1:44 PM CDT [facility] Blood 06/17/2024 1:44 PM CDT 06/18/2024 9:00 AM CDT [facility] POCT ORDERABLES-MANUAL Final Result Performing Organization Address [facility]/ZIP Co de Phone Number [address] [address], [address] [address] * OPHTHALMOLOGY IMAGE EXAM (03/25/2004 12:00 PM CDT) Anatomical Region Laterality Modality Other 03/25/2004 12:0 0 PM CDT Addenda Addendum by Provider, Historical on 03/25/2004 12:00 PM CDT OPH^^^MCR US-Eye 03/25/2004 12:00:00 Historical Provider IMG NON RAD IMAGING PROCEDUR ES Final Result from Last 3 Months or Most Recently Relevant to Health Maintenance Insurance MEDICARE [facility]
--- OUTSIDE RECORDS SUMMARY | 2024-09-03 09:58 | XMS_ITS | Referral Summary ---
Author Organization [facility] Address [address] [place] [address] Care Team Providers Care Survey And Mapping Technician Name Role Phone Unavailable Primary Care Provider Unavailabl e Source Comments Patient records contain information from all sites at [facility]. For routine questions regarding patient records, call [phone] during business hours, M-F 8:00 AM - 5:00 PM Central Time. Record requests for emergency care only can be directed to [phone] at any time.[facility] Encounters Date Type Department Care Team Description 09/02/2024 Plan of Care Documentation Department of Cardiac Rehabilitation in [address] [address] 08/30/2024 10:55 AM CDT - 08/30/2024 11:59 PM CDT Hospital Encounter Department of Cardiac Rehabilitation in [address] [address] Tim Zamarripa M.D. Bypass Coronary Artery Graft Status Post; Prosthesis Aortic Valve Discharge Disposition: Home or Self Care 08/28/2024 10:56 AM CDT - 08/28/2024 11:59 PM CDT Hospital Encounter Department of Cardiac Rehabilitation in [address] [address] Tim Zamarripa M.D. Bypass Coronary Artery Graft Status Post; Prosthesis Aortic Valve Discharge Disposition: Home or Self Care 08/23/2024 Clinical Communication Department of Cardiac Rehabilitation in [address] [address] Swapna Lux, CCRP, CEP Scheduling 08/23/2024 10:45 AM CDT - 08/23/2024 11:59 PM CDT Hospital Encounter Department of Cardiac Rehabilitation in [address] [address] Tim Zamarripa M.D. Bypass Coronary Artery Graft Status Post; Prosthesis Aortic Valve Discharge Disposition: Home or Self Care 08/21/2024 Plan of Care Documentation Department of Cardiac Rehabilitation in [address] [address] 08/21/2024 10:49 AM CDT - 08/21/2024 11:59 PM CDT Hospital Encounter Department of Cardiac Rehabilitation in [address] [address] Tim Zamarripa M.D. Bypass Coronary Artery Graft Status Post; Prosthesis Aortic Valve Discharge Disposition: Home or Self Care 08/19/2024 10:52 AM CDT - 08/19/2024 11:59 PM CDT Hospital Encounter Department of Cardiac Rehabilitation in [address] [address] Tim Zamarripa M.D. Bypass Coronary Artery Graft Status Post; Prosthesis Aortic Valve Discharge Disposition: Home or Self Care 08/14/2024 10:45 AM CDT - 08/14/2024 11:59 PM CDT Hospital Encounter Department of Cardiac Rehabilitation in [address] [address] Tim Zamarripa M.D. Bypass Coronary Artery Graft Status Post; Prosthesis Aortic Valve Discharge Disposition: Home or Self Care 08/12/2024 Clinical Communication Department of Cardiac Rehabilitation in [address] [address] Swapna Lux, EAGLEP, CEP Scheduling 08/12/2024 10:52 AM CDT - 08/12/2024 11:59 PM CDT Hospital Encounter Department of Cardiac Rehabilitation in [address] [address] Tim Zamarripa M.D. Bypass Coronary Artery Graft Status Post; Prosthesis Aortic Valve Discharge Disposition: Home or Self Care 08/09/2024 Clinical Communication Department of Cardiac Rehabilitation in [address] [address] Swapna Lux, CCRP, CEP Scheduling 08/05/2024 10:55 AM CDT - 08/05/2024 11:59 PM CDT Hospital Encounter Department of Cardiac Rehabilitation in [address] [address] Tim Zamarripa M.D. Bypass Coronary Artery Graft Status Post; Prosthesis Aortic Valve Discharge Disposition: Home or Self Care 07/31/2024 11:00 AM CDT - 07/31/2024 11:59 PM CDT Hospital Encounter Department of Cardiac Rehabilitation in [address] [address] Tim Zamarripa M.D. Bypass Coronary Artery Graft Status Post; Prosthesis Aortic Valve Discharge Disposition: Home or Self Care 07/26/2024 10:53 AM CDT - 07/26/2024 11:59 PM CDT Hospital Encounter Department of Cardiac Rehabilitation in [address] [address] Tim Zamarripa M.D. Bypass Coronary Artery Graft Status Post; Prosthesis Aortic Valve Discharge Disposition: Home or Self Care 07/24/2024 10:55 AM CDT - 07/24/2024 11:59 PM CDT Hospital Encounter Department of Cardiac Rehabilitation in [address] [address] Tim Zamarripa M.D. Bypass Coronary Artery Graft Status Post; Prosthesis Aortic Valve Discharge Disposition: Home or Self Care 07/23/2024 Plan of Care Documentation Department of Cardiac Rehabilitation in [address] [address] 07/22/2024 10:52 AM CDT - 07/22/2024 11:59 PM CDT Hospital Encounter Department of Cardiac Rehabilitation in [address] [address] Tim Zamarripa M.D. Bypass Coronary Artery Graft Status Post; Prosthesis Aortic Valve Discharge Disposition: Home or Self Care 07/19/2024 Clinical Communication Department of Cardiac Rehabilitation in [address] [address] Swapna Lux CCRP, CEP Scheduling 07/17/2024 10:39 AM CDT - 07/17/2024 11:59 PM CDT Hospital Encounter Department of Cardiac Rehabilitation in [address] [address] Tim Zamarripa M.D. Bypass Coronary Artery Graft Status Post; Prosthesis Aortic Valve Discharge Disposition: Home or Self Care 07/12/2024 Clinical Communication Department of Cardiac Rehabilitation in [address] [address] Swapna Lux CCRP, CEP Scheduling 07/12/2024 2:00 PM CDT - 07/12/2024 11:59 PM CDT Hospital Encounter Department of Cardiac Rehabilitation in [address] [address] Tim Zamarripa M.D. Bypass Coronary Artery Graft Status Post; Prosthesis Aortic Valve Discharge Disposition: Home or Self Care 07/12/2024 2:00 PM CDT - 07/12/2024 11:59 PM CDT Hospital Encounter Department of Laboratory Medicine in [address] [address] Joanne Serra C.N.P. Chronic Kidney Disease Discharge Disposition: Home or Self Care 07/05/2024 Clinical Communication Department of Cardiac Rehabilitation in [address] [address] Swapna Lux CCRP, CEP Scheduling 07/05/2024 2:23 PM CDT - 07/05/2024 11:59 PM CDT Hospital Encounter Department of Cardiac Rehabilitation [address] [address] Tim Zamarripa M.D. Bypass Coronary Artery Graft Status Post; Prosthesis Aortic Valve Discharge Disposition: Home or Self Care 07/03/2024 12:54 PM CDT - 07/03/2024 11:59 PM CDT Hospital Encounter Department of Cardiac Rehabilitation in [address] [address] Tim Zamarripa M.D. Bypass Coronary Artery Graft Status Post; Prosthesis Aortic Valve Discharge Disposition: Home or Self Care 06/28/2024 10:52 AM CDT - 06/28/2024 11:59 PM CDT Hospital Encounter Department of Cardiac Rehabilitation in [address] [address] Tim Zamarripa M.D. Bypass Coronary Artery Graft Status Post; Prosthesis Aortic Valve Discharge Disposition: Home or Self Care 06/26/2024 10:50 AM CDT - 06/26/2024 11:59 PM CDT Hospital Encounter Department of Cardiac Rehabilitation [address] [address] Tim Zamarripa M.D. Bypass Coronary Artery Graft Status Post; Prosthesis Aortic Valve Discharge Disposition: Home or Self Care 06/25/2024 Plan of Care Documentation Department of Cardiac Rehabilitation in [address] [address] 06/24/2024 12:52 PM CDT - 06/24/2024 11:59 PM CDT Hospital Encounter Department of Cardiac Rehabilitation in [address] [address] Tim Zamarripa M.D. Bypass Coronary Artery Graft Status Post; Prosthesis Aortic Valve Discharge Disposition: Home or Self Care 06/21/2024 Clinical Communication Department of Cardiac Rehabilitation in [address] [address] Swapna Lux, CCRP, CEP Scheduling 06/21/2024 1:40 PM CDT - 06/21/2024 1:44 PM CDT Hospital Encounter Department of Laboratory Medicine in [address] [address] Joanne Serra C.N.P. Insufficiency Renal Chronic; Hypertensive Chronic Kidney Disease With Stage 1 Through Stage 4 Chronic Kidney Disease, Or Unspecified Chronic Kidney Disease Discharge Disposition: Home or Self Care 06/21/2024 1:45 PM CDT - 06/21/2024 11:59 PM CDT Hospital Encounter Department of Cardiac Rehabilitation in [address] [address] Tim Zamarripa M.D. Bypass Coronary Artery Graft Status Post; Prosthesis Aortic Valve Discharge Disposition: Home or Self Care 06/19/2024 12:53 PM CDT - 06/19/2024 11:59 PM CDT Hospital Encounter Department of Cardiac Rehabilitation in [address] [address] Tim Zamarripa M.D. Bypass Coronary Artery Graft Status Post; Prosthesis Aortic Valve Discharge Disposition: Home or Self Care 06/17/2024 12:42 PM CDT - 06/17/2024 11:59 PM CDT Hospital Encounter Department of Cardiac Rehabilitation in [address] [address] Tim Zamarripa M.D. Bypass Coronary Artery Graft Status Post; Prosthesis Aortic Valve Discharge Disposition: Home or Self Care 06/12/2024 2:25 PM CDT - 06/12/2024 11:59 PM CDT Hospital Encounter Department of Cardiac Rehabilitation in [address] [address] Tim Zamarripa M.D. Bypass Coronary Artery Graft Status Post; Prosthesis Aortic Valve Discharge Disposition: Home or Self Care 06/10/2024 2:21 PM CDT - 06/10/2024 11:59 PM CDT Hospital Encounter Department of Cardiac Rehabilitation in [address] [address] Tim Zamarripa M.D. Bypass Coronary Artery Graft Status Post; Prosthesis Aortic Valve Discharge Disposition: Home or Self Care 06/07/2024 2:23 PM CDT - 06/07/2024 11:59 PM CDT Hospital Encounter Department of Cardiac Rehabilitation in [address] [address] Tim Zamarripa M.D. Bypass Coronary Artery Graft Status Post; Prosthesis Aortic Valve Discharge Disposition: Home or Self Care 06/05/2024 2:15 PM CDT - 06/05/2024 11:59 PM CDT Hospital Encounter Department of Cardiac Rehabilitation in [address] [address] Tim Zamarripa M.D. Bypass Coronary Artery Graft Status Post; Prosthesis Aortic Valve Discharge Disposition: Home or Self Care 06/03/2024 2:21 PM CDT - 06/03/2024 11:59 PM CDT Hospital Encounter Department of Cardiac Rehabilitation in [address] [address] Tim Zamarripa M.D. 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 CV STRESS PROCEDURES Final [...] Serra C.N.P. LAB [place] [address], [place] [address] * (ABNORMAL) Glucose, POCT (06/17/2024 1:44 PM CDT) Only the most recent of12 resultswithin the time period is included. [facility] Signature Glucose, POCT, B 159(H) 70 - 140 mg/dL 06/17/2024 1:44 PM CDT [facility] Blood 06/17/2024 1:44 PM CDT 06/18/2024 9:00 AM CDT Generic Rals LAB POCT ORDERABLES-MANUAL Final Result Performing Organization Address [facility]/ZIP Co de Phone Number [address] [address], [facility] in [address] [address] * OPHTHALMOLOGY IMAGE EXAM (03/25/2004 12:00 PM CDT) Anatomical Region Laterality Modality Other 03/25/2004 12:0 0 PM CDT Addenda Addendum by Provider, Historical on 03/25/2004 12:00 PM CDT OPH^^^[facility] US-Eye 03/25/2004 12:00:00 Historical Provider IMG NON RAD IMAGING PROCEDUR ES Final Result from Last 3 Months or Most Recently Relevant to Health Maintenance Insurance MEDICARE [facility]
--- OUTSIDE RECORDS SUMMARY | 2024-09-03 09:59 | XMS_ITS | Encounter Summary ---
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
--- OUTSIDE RECORDS SUMMARY | 2024-09-03 09:59 | XMS_ITS | Encounter Summary ---
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
--- OUTSIDE RECORDS SUMMARY | 2024-09-03 09:59 | XMS_ITS | Encounter Summary ---
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
--- OUTSIDE RECORDS SUMMARY | 2024-09-03 09:59 | XMS_ITS | Encounter Summary ---
Author Organization [facility] Address [address] [place] [address] Care Team Providers Care Distribution Designer Name Role Phone Unavailable Primary Care Provider Unavailabl e Reason for Referral * Outpatient (Routine) - Authorized Specialty Diagnoses / Procedures Referred By Annette plunkett Referred To Contact Diagnoses Bypass Coronary Artery Graft Status Post Prosthesis Aortic Valve Procedures Cardiac Rehab Program Tim Zamarripa M.D. [address] [place] [phone] Phone: tel: [facility] Region Referral ID Status Reason Start Date Expiration Date V isits Requested Visits Authorized [id number] Authorized 2024 2025 99 99 Reason for Visit * Outpatient (Routine) - Authorized Specialty Diagnoses / Procedures Referred By Annette plunkett Referred To Contact Diagnoses Bypass Coronary Artery Graft Status Post Prosthesis Aortic Valve Procedures Cardiac Rehab Program Tim Zamarripa M.D. [address] [place] [phone] Phone: tel: [facility]: [facility] Region Referral ID Status Reason Start Date Expiration Date V isits Requested Visits Authorized [id number] Authorized 2024 2025 99 99 Encounter Details Date Type Department Care Team (Latest Contact Info) Description 08/23/2024 10:45 AM CDT - 08/23/2024 11:59 PM CDT Hospital Encounter Department of Cardiac Rehabilitation in [address] [phone] Tim Zamarripa M.D. 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 atenoloL (TENORMIN) 50 mg tablet 01/22/2020 atorvastatin (LIPITOR) 10 mg tablet 01/22/2020 glipiZIDE (GLUCOTROL) 10 mg tablet Take 10 mg by mouth. 01/17/2020 indomethacin (INDOCIN) 50 mg capsule Take 50 mg by mouth. 01/21/2020 nitroglycerin (NITROSTAT) 0.[address] 0.4 mg under the tongue. documented as of this encounter Plan of Treatment Scheduled Orders Name Type Priority Associated Diagnoses Orde r Schedule Cardiac Rehab Program Card Rehab Routine Bypass Coronary Artery Graft Status Post Prosthesis Aortic Valve Once for 1 Occurrences starting 08/23/2024 until 08/23/2024 documented as of this encounter Visit Diagnoses Diagnosis Bypass Coronary Artery Graft Status Post Prosthesis Aortic Valve documented in this encounter Additional Health Concerns Assessment Noted Time PHQ-9 Depression Total Score: 2 06/19/20 24 1:08 PM CDT documented as of this encounter
--- OUTSIDE RECORDS SUMMARY | 2024-09-03 09:59 | XMS_ITS | Encounter Summary ---
Author Organization [facility] Address [address] [place] [address] Care Team Providers Care Take Away Worker Name Role Phone Unavailable Primary Care Provider Unavailabl e Reason for Referral * Outpatient (Routine) - Authorized Specialty Diagnoses / Procedures Referred By Annette plunkett Referred To Contact Diagnoses Bypass Coronary Artery Graft Status Post Prosthesis Aortic Valve Procedures Cardiac Rehab Program Tim Zamarripa M.D. [address] [place] [phone] Phone: tel: [facility] Region Referral ID Status Reason Start Date Expiration Date V isits Requested Visits Authorized [id number] Authorized 2024 2025 99 99 Reason for Visit * Outpatient (Routine) - Authorized Specialty Diagnoses / Procedures Referred By Annette plunkett Referred To Contact Diagnoses Bypass Coronary Artery Graft Status Post Prosthesis Aortic Valve Procedures Cardiac Rehab Program Tim Zamarripa M.D. [address] [place] [phone] Phone: tel: fax: [facility] Region Referral ID Status Reason Start Date Expiration Date V isits Requested Visits Authorized [id number] Authorized 2024 2025 99 99 Encounter Details Date Type Department Care Team (Latest Contact Info) Description 08/28/2024 10:56 AM CDT - 08/28/2024 11:59 PM CDT Hospital Encounter Department of Cardiac Rehabilitation in [address] [phone] Tim Zamarripa M.D. 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
--- OUTSIDE RECORDS SUMMARY | 2024-09-03 09:59 | XMS_ITS | Encounter Summary ---
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
--- OUTSIDE RECORDS SUMMARY | 2024-09-03 09:59 | XMS_ITS | Encounter Summary ---
Author Organization [facility] Address [address] [place] [address] Care Team Providers Care Staff Field Engineer Name Role Phone Unavailable Primary Care Provider Unavailabl e Encounter Details Date Type Department Care Team (Latest Contact Info) Description 09/02/2024 Plan of Care Documentation Department of Cardiac Rehabilitation in [address] [place] [id number] Social History Tobacco Use Types Packs/Day [...] on file Legal Sex Male 5:16 PM ANIMATION DIRECTOR Gender Identity Not on file Sexual Orientation Not on file documented as of this encounter Miscellaneous Notes * Specialty Plan of Care - Swapna Lux, CCRP, CEP - 09/02/2024 8:51 AM ANIMATION DIRECTOR Images from the original note were not included. Mr. Knapp (69 y.o., : 1955, ) was referred to the [facility] on 05/14/2024, by Referred by Judith BELLAMY ([facility]); order signed by Dr.Tyler Zamarripa and has completed 27 sessions out of the 36 prescribed. PCP: No primary care provider on file. Child Life Specialist: Henrietta Obrien P.A.-C. Program: Cardiac Rehab Phase II Type: Center-Based Intake Date: 05/28/2024 Date of Enrollment: 06/03/2024 Primary Diagnosis: CABG 05/07/2024 Secondary Diagnosis: Valve 05/07/2024 AACVPR Risk: Low 05/28/2024 06/25/2024 07/23/2024 08/21/2024 08/30/2024 Symptoms ITP Inclusion: Symptoms Initial Reassessment Reassessment Reassessment Discharge Synopsis Pt was referred for CR following CABGx3, AVR, s/p MAZE and LAAL on 05/07 at [facility].Leading up to cardiac surgery pt had [...] has a f/u visit scheduledwith CVD at [facility] on 06/13. He does have a cardiac [...] f/u visit on 06/27 with CVD in [place], he was instructed to stop Lasix at [...] will f/u with CVD again on 07/25. Pt has recently been struggling with low energy levels and fatigue. He scheduled a f/u visitwith his PCP last week and was put back on Lasix and Lisinopril was added to BP regimen. Since medications changes fatigue hasn't improved much. He denies CP, SOB, lightheaded/dizziness. He was instructed to f/u with PCP this week for labs and to touch base since starting new meds, however he has not scheduled this yet. He's been consistent with his CR attendance and is tolerating exercise well. H ips have been feeling better so we have been able to increase TM workloads. Pt has completed >12weeks of CR. He's doing well from a cardiac perspective. No new or worsening symptoms, fatigue/energy levels are doing a little better. Pt continues on lasix and lisinopril. Cardiovascular Symptoms Shortness of Breath;Fatigue None Fatigue Fatigue None Home O2 Use No No No No No Ejection Fraction Date 05/14/2024 Ejection Fraction (EF) % 65 % Other Education Documentation Cardiac Rehab Progress Report, taught by Swapna Lux, CCRP, CEP at 08/30/2024 8:51 AM. Learner: Patient Readiness: Acceptance Method: Explanation Response: Able to Teach Back Exercise Assessment 06/19/2024 08/30/2024 DASI Calculations Estimated V02 Peak 16.24 29.47 Estimated MET Level 4.64 8.42 Six Minute Walk 06/03/2024 08/30/2024 Total Distance Walked (Meters) 298.7 402.34 Estimated METs 2.46 2.92 % of Predicted Distance 62.29 84.2 Comments 05/28/2024 06/24/2024 06/25/2024 07/22/2024 08/21/2024 08/30/2024 Exercise Assessment ITP Inclusion: Exercise Assessment Initial Reassessment Reassessment Reassessment Reassessment Discharge Resting HR (Telemetry) 75 65 76 80 Resting Pulse 82 Pulse Rate Source Pulse oximetry Pulse oximetry Cardiac Rhythm SR;Other (Comment);A-fib Hx [...] amiodarone taper) Exercise Limitations Yes Yes Yes No No Limitation Description Sternal precautions 10 lb wt [...] as tolerated Assistive Device None None None None None Peak METs 3.2 4.5 5 4.5 Aerobic Minutes per Day (Home) 0 minutes 0 minutes 60 minutes 60 minutes 60 minutes Aerobic Days per Week (Home) 0 Days 0 Days 1 Days 1 Days 1 Days Aerobic Minutes per Day (Rehab) 0 minutes 39 minutes 43 minutes 45 minutes 45 minutes Aerobic Days per Week (Rehab) 0 Days 3 Days 3 Days 3 Days 3 Days Aerobic Minutes per Week 0 117 189 195 195 Strength Training Days per Week 0 Days 0 Days 0 Days 0 Days Flexibility Training Days per Week 0 0 0 0 05/28/2024 06/25/2024 07/23/2024 08/21/2024 08/30/2024 Exercise Prescription Frequency of Sessions Weekly Weekly Weekly Weekly Weekly Sessions per week 3-5 3-5 3-5 3-5 3-5 Intensity Work at a level that is comfortable but also challenging Work at a level that is comfortable but also challenging Work at a level that is comfortable but also challenging Work at a level that is comfortable but also challenging Work at a level that is comfortable but also challenging Rating of Perceived Exertion range (RPE): 09-12 Warm Up Minutes: 2-5 2-5 2-5 2-5 2-5 Aerobic exercise minutes: 20-25 30-40 35-45 35-45 45-55 Cool Down minutes: 2-5 2-5 2-5 2-5 2-5 Goal Minutes/session Work up to 30 mins 30+ 40+ 40+ 45+ Goal Minutes/Week Work up to 150 mins 150+ 150+ 150+ 150+ Rehab Aerobic Exercise Equipment Treadmill;Recumbent stepper (with or without arms) Treadmill;Recumbent stepper (with or without arms);Arm Ergometer Treadmill;Arm Ergometer;Recumbent stepper (with orwithout arms) Treadmill;Arm Ergometer;Recumbent stepper (with or without arms) Treadmill;Arm Ergomet er;Recumbent stepper (with or without arms) Non-Rehab Aerobic Exercise Equipment Walking Walking Walking Walking Walking Progression Use RPE to [...] each session, as tolerated;Follow/match rehab intensity Use RPEto guide when to increase work level intensity and duration;Increase 1-5 minutes each session, as tolerated;Follow/match rehab intensity Flexibility and Balance Stretch major muscle groups daily Stretch major muscle groups daily Stretchmajor muscle groups daily Stretch major muscle groups daily Stretch major [...] after surgery Strength Training Calisthenics Calisthenics Calisthenics Calisthenics Calisthenics Number of strength sessions per week: 2-3 5-7 5-7 5-7 5-7 Weight: 0 0 0 Reps: 10 10-15 10-15 10-15 10-15 Sets: 1 1 1 1-2 1-2 Hobbies/Activities Avoid prolonged sitting Avoid prolonged sitting Avoid prolonged sitting Avoid prolonged sitting Avoid prolonged sitting 05/28/2024 06/25/2024 07/23/2024 08/21/2024 08/30/2024 Exercise Plan Goals Compliance to on-site program;Compliance to home program;Improve exercise tolerance;Increase exercise duration;Increase exercise intensity;Increase frequency of exercise;Establish independent exercise routine Compliance to on- site program;Compliance to home program;Improve exercise tolerance;Increase exercise duration;Increase exercise intensity;Increase frequency of exercise;Establish independent exercise routine Compliance to on-site program;Compliance to home program;Improve exercise tolerance;Increase exercise duration;Increase exercise intensity;Increase frequency of exercise;Establish independent exercise routine;Obtain gym membership Compliance to on-site program;Compliance to home program;Improve exercise tolerance;Increase exercise duration;Increase exercise intensity;Increase frequency of exercise;Establish independent exercise routine;Obtain gym membership Compliance tohome program;Obtain gym membership;Maintain current exercise routine, progress as tolerated Interventions Facility orientation;Equipment instruction;Review of signs/symptoms to report;Exercise/activity guidelines;Therapist Discussion Facility orientation;Equipment instruction;Review of signs/symptoms to report;Exercise/activity guidelines;Therapist Discussion Exercise/activity guidelines;Therapist Discussion Exercise/activity guidelines;Therapist Discussion Exercise/activity guidelines;Therapist Discussion;Individual Exercise Prescription Reviewed / Given Progress Toward Goals Since surgery pt has [...] to make a point to go to [employer] and walk laps for aroudn 1 hr. 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 He's been consistent with CR 3x per week and is tolerating exercise well. Adjustments were made to TM workloads d/t hip and back pain. We discussed options to increase home exercise. Pt is interested in walking laps at the [employer] and field as he feels the ofe of the track is easier on his joints than the indoor fieldhouse in . He would also consider joining the [facility] at the conclusion of CR to gain access to a pool to mix in some swimming or pool walking as part of his cardio workout. Pt continues to attend CR 3x per week and is tolerating exercise well. Home exercise remains mostly ADLs. He is still contemplating home exercise options such as a gym membership/outdoor walking. He's been recently struggling with low energy levels which may be contributing to lack of motivation with home exercise. Will continue to provide support and encouragement. Pt has been enrolled in CR for 12 weeks now, pt continues to receive benefit. Once home exercise routine is better establish we will discuss discharge planning. Pt feels ready to graduate from CR. He has plans to continue walking daily at home in place of rehab. He is going to look into a membership at the [employer] to utilize their in door and outdoor track. He has also considered a [employer] membership in [place] if walking on the track starts to irritate his shins. Reviewed exercise recommendations, including rehab progress report. Exercise Education Documentation Individualized ExRx, taught by Swapna Lux CCRP, CEP at 08/30/2024 8:51 AM. Learner: Patient Readiness: Acceptance Method: Explanation Response: Able to Teach Back Individualized ExRx, taught by Swapna Lux CCRP, CEP at 06/25/2024 1:41 PM. Learner: Patient Readiness: Acceptance Method: Explanation Response: Able to Teach Back Risk Factors For Heart Disease [id number], taught by Swapna Lux CCRP, CEP at [...] Able to Teach Back Nutrition Assessment 06/19/2024 08/30/2024 Picture Your Plate Total Score 59 67 Total Score Interpretation A PYP score of 51-60 indicates a more healthful dietary pattern, with some room for improvement A PYP score greater than 60 likely indicates a healthful dietary pattern, although there may be some specific eating behaviors that could be improved 05/28/2024 06/24/2024 06/25/2024 07/22/2024 08/21/2024 08/30/2024 Nutrition Assessment ITP Inclusion: Nutrition Assessment Initial Reassessment Reassessment Reassessment Reassessment Discharge Height 182.9 cm 182.9 cm 182.9 cm 182.9 cm 182.9 cm Weight 99.5 kg 101 kg 101 kg 101 kg 101 kg BMI 29.74 30.19 30.07 30.07 30.07 Dietary Recommendations Low Salt;Diabetic;Low Fat/ Low Cholesterol Low Salt;Diabetic;Low Fat/ Low Cholesterol Low Salt;Diabetic;Low Fat/ Low Cholesterol Low Salt;Diabetic;Low Fat/ Low Cholesterol LowSalt;Diabetic;Low Fat/ Low Cholesterol Low Salt Amount 2000 mg 2000 mg 2000 mg 2000 mg 2000 mg Appetite Good Good Good Good Good 05/28/2024 06/25/2024 07/23/2024 08/21/2024 08/30/2024 Plan Goals Increase fruit intake;Increase vegetable intake;Decrease simple sugar intake;Decrease overallportions;Compliance with dietary guidelines;Reduce saturated fat intake;Limit sodium intake Increase fruit intake;Increase vegetable intake;Decrease simple sugar intake;Decrease overall portions;Compl iance with dietary guidelines;Reduce saturated fat intake;Limit sodium intake Increase fruit intake;Increase vegetable intake;Decrease simple sugar intake;Decrease overall portions;Compliance with dietary guidelines;Reduce saturated fat intake;Limit sodium intake Increase fruit intake;Increase veget able intake;Decrease simple sugar intake;Decrease overall portions;Compliance with dietary guidelines;Reduce saturated fat intake;Limit sodium intake Decrease simple sugar intake;Decrease overall portions;Compliance with dietary guidelines;Reduce saturated fat intake;Limit sodium intake;Continue tomake appropriate heart healthy diet choices Limit sodium intake to 2000 mg 2000 mg 2000 mg 2000 mg 2000 mg Nutrition Counseling Staff education only Staff education only Staff education only Interventions Discussion on identifying/incorporating diet changes;Discussion on current eating habits;Healthy shopping tips/food labels/eating out;Therapist discussion;Importance of dietary compliance Discussion on identifying/incorporating diet changes;Discussion on current eating habits;Healthy shopping tips/food labels/eating out;Therapist discussion;Importance of dietary compliance Discussion on identifying/incorporating diet changes;Discussion on current eating habits;Healthy shopping tips/food labels/eating out;Therapist discussion;Importance of dietary compliance Discussion on identify ing/incorporating diet changes;Discussion on current eating habits;Healthy shopping tips/food labels/eating out;Therapist discussion;Importance of dietary compliance Discussion on current eating habits;Therapist discussion;Diet survey review Progress Toward Goals Since cardiac surgery 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 He's demonstrated growth in understanding of the impact carbs has on his BS. Will continue toprovide education and resources as needed. Dietary habits have remained the same. He continues to monitor sodium and sugar intake. He has gotten into a routine of checking BS at home on avg 4x per week. These readings have been within goal range. BP was elevated today for which could be related to stress levels but also sodium intake. Pt shared that he enjoyed a few bags of popcorn at local football games over the last week or so. He denies noticing any LE edema or worsening SOB. Reviewed sodium recommendations and encouraged pt to avoid high sodium foods over the next few days to see if BP improves. Pt will benefit from continued discussion and education on heart healthy dietary recommendations. Pt has made good progress with dietary changes. Overall he's become more aware of sodium content and carb intake since starting rehab. BS have been stable at home, per pt. Reviewed recommendations and provided encouragement. Nutrition Education Documentation Risk Factors For Heart Disease [id number], taught by Swapna Lux, DONTA, CEP at 06/25/2024 1:41 PM. Learner: Patient Readiness: Acceptance Method: Explanation Response: Able to Teach Back Psychosocial Assessment 06/19/2024 08/30/2024 PHQ-9 PHQ-9 Total Score (max 27) 2 0 PHQ-9 Interpretation None to minimal depression None to minimal depression 06/19/2024 08/30/2024 [facility] Total Score 23 16 05/28/2024 06/25/2024 07/23/2024 08/21/2024 08/30/2024 Psychosocial Assessment ITP Inclusion: Psychosocial Initial Reassessment Reassessment Reassessment Discharge Social Drivers of Health have been reviewed. For high-risk areas identified, a plan of treatment and follow-up information will be documented in appropriate areas within the ITP Yes Yes Yes Yes Yes Current Medication Therapy No No No No No Current Issues Other (comment) Other (comment) Other (comment) None Comment Frustration Frustration Frustration Patient Stress Factors Health changes Health changes Health changes Health changes None identified Needs Expressed Physical Denies Denies Denies Denies 05/28/2024 06/25/2024 07/23/2024 08/21/2024 08/30/2024 Plan Goals Continue to use effective stress [...] social activities;Demonstrate self- management strategies;Normailize sleep patterns Continue to use effective stress management techniques;Utilize a support system;Effective stress management;Improved used of coping strategies;Returnto leisure and social activities;Demonstrate self-management strategies;Normailize sleep patterns Co ntinue to use effective stress management techniques;Utilize a support system;Effective stress management;Demonstrate self-management strategies;Normailize sleep patterns Interventions Discussed/reviewed current [...] He is retired from working in the [employer] industry. Sleep has been improving since he's [...] testings later this week to r/o HEMA. Pt reports recent increase in stress levels related to family drama and having alot going on. BP readings have been elevated in rehab despite the addition of ACI inhibitor and Lasix. He also continues to struggle with low energy levels, no concerns with sleep quality at night though. Stress levels have been up and down over the last few weeks which has also been reflected in pts BP readings at home and in rehab. He confirms feels well supported by family and friends. He recently sold all of his chickens so this has lifted some stress off of his shoulders. No concerns withsleep quality. Psychosocial Education Documentation No documentation found. Other Core Components Hypertension Assessment 05/28/2024 06/24/2024 06/25/2024 07/22/2024 08/21/2024 08/30/2024 Hypertension ITP Inclusion: Hypertension Assessment Initial Reassessment Reassessment Reassessment Reassessment Discharge History of Hypertension Yes Yes Yes Yes Yes Current Medication Therapy Yes Yes Yes Yes Yes Hypertension Medications metoprolol metoprolol, lasix metoprolol metoprolol, lisinopril metoprolol,lisinopril, lasix Blood Pressure 138/60 Resting BP (Telemetry) 126/58 148/62 160/80 140/62 05/28/2024 06/25/2024 07/23/2024 08/21/2024 08/30/2024 Plan Goals Stable BP response;BP at physician [...] Interventions Therapist discussion Therapist discussion Therapist discussion Therapist discussion Therapist discussion Progress [...] and bring these with to clinic visits. Pt met with PCP last week to discuss worsening energy levels/fatigue. BP was quite elevated at visit and has been in rehab over the last few months. PCP had pt start lisinopril and added lasix again. Pts stress levels have been elevated recently which may also be contributing toelevated readings. Encouraged pt to continue checking at home and if HTN persists we will reach outto PCP again next week. Pt remains on lisinopril, metoprolol, and lasix. He has yet to f/u with PCP, therapist encouraged pt to reach out to his PCP clinic for direction on lasix timeline/lab work. BP has varied in rehab, strongly encouraged pt to continue monitoring at home and if readings persist>130/80 to reach out to PCP for recommendations. Pt was receptive. Hypertension Education Documentation Risk Factors For Heart Disease [id number], taught by Swapna Lux, CCRP, CEP at 06/25/2024 1:41 PM. Learner: Patient Readiness: Acceptance Method: Explanation Response: Able to Teach Back Hyperlipidemia Assessment 05/28/2024 06/25/2024 07/23/2024 08/21/2024 08/30/2024 Hyperlipidemia Assessment History of Hyperlipidemia Yes Yes Yes Yes Yes Current Medication Therapy Yes Yes Yes Yes Yes Hyperlipidemia Medications Atorvastatin (recently increased dose to 40mg) Atorvastatin AtorvastatinAtorvastatin Atorvastatin Lipids 04/17/2024 06/13/2024 6:07 AM 2:31 PM CHOL 203 109 TRIG 168 165 HDL 51 53 TTLCHOLHDLRT 3.98 2.06 05/28/2024 06/25/2024 07/23/2024 08/21/2024 08/30/2024 Plan Goals Improve lipids;Lipids in optimal range;Understand [...] hyperlipidemia medications Therapist discussion;Discussion on hyperlipidemia medications Therapist discussion;Discussion on hyperlipidemia medications Therapist discussion;Discussion on hyperlipidemia [...] working on planninga better home exercise routine. He continues to work on dietary habits and is doing well in CR but could benefit from establishing a more regular exercise routine at home on non rehab days. Hip joints have been feeling better lately so this hasn't been a limiting factor this week with exercise progression like it had been. Reviewed cardiac risk factor assessment and secondary prevention strategies including cholesterol control. Pt has a good plan to continue with regular exercise independently and has become more mindful of dietary choices since starting CR. Joint pain has improved without any changes to statin. Hyperlipidemia Education Documentation Risk Factors For Heart Disease [id number], taught by Swapna Lux, CCRP, CEP at 06/25/2024 1:41 PM. Learner: Patient Readiness: Acceptance Method: Explanation Response: Able to Teach Back Education Comments No comments found. Diabetes Assessment 05/28/2024 06/25/2024 07/23/2024 08/21/2024 08/30/2024 Diabetes History of Diabetes Diabetes Type II Diabetes Type II Diabetes Type II Diabetes Type II Diabetes Type II Current Medication Therapy Yes Yes Yes Yes Yes Current Medication Therapy Jardiance, 30 units Lantus insulin Jardiance, 30 units Lantus insulin Jardiance, 30 units Lantus insulin Jardiance, 30 units Lantus insulin Jardiance, 30 units Lantus insulin Do you monitor your blood glucose at home? No No Yes Yes Yes How many times a day? Weekly Weekly Weekly Average Daily Range 120-150s 120-150s 120-150s Diabetic Labs 06/12/2024 06/12/2024 06/17/2024 06/17/2024 2:37 PM 3:17 PM 1:04 PM 1:44 PM POC GLUCOSE 133 113 172 159 05/28/2024 06/25/2024 07/23/2024 08/21/2024 08/30/2024 Plan Goals Fasting blood glucose In optimal [...] glucose monitoring/glucometer use;Discussion on glucose monitoring with exer cise;Therapist discussion Discussion on glucose monitoring/glucometer use;Therapist discussion Progress Toward Goals Pt reports that [...] ate a fried chicken sandwich at the [facility] just prior to that visit. Education [...] reported episodes of symptomatic hyper or hypoglycemia. Pt reports stable BS readings. No change in medication therapy and no reports of symptomatic episodes. Pt reports normal BS readings at home. He continues with current medication management and has had no reports of symptomatic episodes. He has become more aware of carb intake since starting CR and will striveto continue to manage DM through diet habits. Diabetes Education Documentation No documentation found. Tobacco [...] found. Medication Compliance Assessment 05/28/2024 06/25/2024 07/23/2024 08/21/2024 08/30/2024 Medications Have you been compliant with all medications? Yes Yes Yes Yes Yes 05/28/2024 06/25/2024 07/23/2024 08/21/2024 08/30/2024 Plan Goals Medication compliance;Knowledge of medication Medication compliance;Knowledge of medication Medication compliance;Knowledge of medication Medication compliance;Knowledge of medication Medication compliance;Knowledge of medication Interventions Medication review;Therapist discussion Medication review;Therapist discussion Medication review;Therapist discussion Medication review;Therapist discussion Medication [...] He continues to have assistance from his friendwith medication set up and management. Pt reports compliance with current medication. He continues to have assistance from his friend with medication set up and management. Medication Compliance Education Documentation No documentation found. Medications were reviewed every visit. ATION DIRECTOR documented in this encounter Plan of Treatment Not on file documented as of this encounter Visit Diagnoses Not on filedocumented in this encounter Additional Health Concerns Assessment Noted Time PHQ-9 Depression Total Score: 0 08/30/20 24 3:59 PM CDT documented as of this encounter
--- OUTSIDE RECORDS SUMMARY | 2024-09-03 09:59 | XMS_ITS | Encounter Summary ---
Author Organization [facility] Address [address] [place] [address] Care Team Providers Care Pharmacy General Manager Name Role Phone Unavailable Primary Care Provider Unavailabl e Reason for Referral * Outpatient (Routine) - Authorized Specialty Diagnoses / Procedures Referred By Annette plunkett Referred To Contact Diagnoses Bypass Coronary Artery Graft Status Post Prosthesis Aortic Valve Procedures Cardiac Rehab Program Tim Zamarripa M.D. [address] [place] [phone] Phone: tel: fax: [facility] Region Referral ID Status Reason Start Date Expiration Date V isits Requested Visits Authorized [id number] Authorized 2024 2025 99 99 Reason for Visit * Outpatient (Routine) - Authorized Specialty Diagnoses / Procedures Referred By Annette plunkett Referred To Contact Diagnoses Bypass Coronary Artery Graft Status Post Prosthesis Aortic Valve Procedures Cardiac Rehab Program Tim Zamarripa M.D. [address] [place] [phone] Phone: tel: fax: [facility] Region Referral ID Status Reason Start Date Expiration Date V isits Requested Visits Authorized [id number] Authorized 2024 2025 99 99 Encounter Details Date Type Department Care Team (Latest Contact Info) Description 08/14/2024 10:45 AM CDT - 08/14/2024 11:59 PM CDT Hospital Encounter Department of Cardiac Rehabilitation in [address] [phone] Tim Zamarripa M.D. 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
--- OUTSIDE RECORDS SUMMARY | 2024-09-03 09:59 | XMS_ITS | Encounter Summary ---
Author Organization [facility] Address [address] [place] [address] Care Team Providers Care Canopy Stringer Name Role Phone Unavailable Primary Care Provider Unavailabl e Reason for Referral * Outpatient (Routine) - Authorized Specialty Diagnoses / Procedures Referred By Annette plunkett Referred To Contact Diagnoses Bypass Coronary Artery Graft Status Post Prosthesis Aortic Valve Procedures Cardiac Rehab Program Tim Zamarripa M.D. [address] [place] [phone] Phone: tel: fax: [facility] Region Referral ID Status Reason Start Date Expiration Date V isits Requested Visits Authorized [id number] Authorized 2024 2025 99 99 Reason for Visit * Outpatient (Routine) - Authorized Specialty Diagnoses / Procedures Referred By Annette plunkett Referred To Contact Diagnoses Bypass Coronary Artery Graft Status Post Prosthesis Aortic Valve Procedures Cardiac Rehab Program Tim Zamarripa M.D. [address] [place] [phone] Phone: tel: fax: [facility] Region Referral ID Status Reason Start Date Expiration Date V isits Requested Visits Authorized [id number] Authorized 2024 2025 99 99 Encounter Details Date Type Department Care Team (Latest Contact Info) Description 08/12/2024 10:52 AM CDT - 08/12/2024 11:59 PM CDT Hospital Encounter Department of Cardiac Rehabilitation in [address] [phone] Tim Zamarripa M.D. 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
--- OUTSIDE RECORDS SUMMARY | 2024-09-03 09:59 | XMS_ITS | Encounter Summary ---
Author Organization [facility] Address [address] [place] [address] Care Team Providers Care Carburetor Mechanic Name Role Phone Unavailable Primary Care Provider Unavailabl e Reason for Referral * Outpatient (Routine) - Authorized Specialty Diagnoses / Procedures Referred By Annette plunkett Referred To Contact Diagnoses Bypass Coronary Artery Graft Status Post Prosthesis Aortic Valve Procedures Cardiac Rehab Program Tim Zamarripa M.D. [address] [place] [phone] Phone: tel: fax: [facility] Region Referral ID Status Reason Start Date Expiration Date V isits Requested Visits Authorized [id number] Authorized 2024 2025 99 99 Reason for Visit * Outpatient (Routine) - Authorized Specialty Diagnoses / Procedures Referred By Annette plunkett Referred To Contact Diagnoses Bypass Coronary Artery Graft Status Post Prosthesis Aortic Valve Procedures Cardiac Rehab Program Tim Zamarripa M.D. [address] [place] [phone] Phone: tel: fax: [facility] Region Referral ID Status Reason Start Date Expiration Date V isits Requested Visits Authorized [id number] Authorized 2024 2025 99 99 Encounter Details Date Type Department Care Team (Latest Contact Info) Description 08/05/2024 10:55 AM CDT - 08/05/2024 11:59 PM CDT Hospital Encounter Department of Cardiac Rehabilitation in [address] [phone] Tim Zamarripa M.D. 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
--- OUTSIDE RECORDS SUMMARY | 2024-09-03 09:59 | XMS_ITS | Encounter Summary ---
Author Organization [facility] Address [address] [place] [address] Care Team Providers Care Long Line Teamster Name Role Phone Unavailable Primary Care Provider Unavailabl e Reason for Referral * Outpatient (Routine) - Authorized Specialty Diagnoses / Procedures Referred By Annette plunkett Referred To Contact Diagnoses Bypass Coronary Artery Graft Status Post Prosthesis Aortic Valve Procedures Cardiac Rehab Program Tim Zamarripa M.D. [address] [place] [phone] Phone: tel: fax: [facility] Region Referral ID Status Reason Start Date Expiration Date V isits Requested Visits Authorized [id number] Authorized 2024 2025 99 99 Reason for Visit * Outpatient (Routine) - Authorized Specialty Diagnoses / Procedures Referred By Annette plunkett Referred To Contact Diagnoses Bypass Coronary Artery Graft Status Post Prosthesis Aortic Valve Procedures Cardiac Rehab Program Tim Zamarripa M.D. [address] [place] [phone] Phone: tel: fax: [facility] Region Referral ID Status Reason Start Date Expiration Date V isits Requested Visits Authorized [id number] Authorized 2024 2025 99 99 Encounter Details Date Type Department Care Team (Latest Contact Info) Description 08/21/2024 10:49 AM CDT - 08/21/2024 11:59 PM CDT Hospital Encounter Department of Cardiac Rehabilitation in [address] [phone] Tim Zamarripa M.D. 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
--- OUTSIDE RECORDS SUMMARY | 2024-09-03 09:59 | XMS_ITS | Encounter Summary ---
Author Organization [facility] Address [address] [place] [address] Care Team Providers Care Automobile Designer Name Role Phone Unavailable Primary Care Provider Unavailabl e Reason for Referral * Outpatient (Routine) - Authorized Specialty Diagnoses / Procedures Referred By Annette plunkett Referred To Contact Diagnoses Bypass Coronary Artery Graft Status Post Prosthesis Aortic Valve Procedures Cardiac Rehab Program Tim Zamarripa M.D. [address] [place] [phone] Phone: tel: fax: [facility] Region Referral ID Status Reason Start Date Expiration Date V isits Requested Visits Authorized [id number] Authorized 2024 2025 99 99 Reason for Visit * Outpatient (Routine) - Authorized Specialty Diagnoses / Procedures Referred By Annette plunkett Referred To Contact Diagnoses Bypass Coronary Artery Graft Status Post Prosthesis Aortic Valve Procedures Cardiac Rehab Program Tim Zamarripa M.D. [address] [place] [phone] Phone: tel: fax: [facility] Region Referral ID Status Reason Start Date Expiration Date V isits Requested Visits Authorized [id number] Authorized 2024 2025 99 99 Encounter Details Date Type Department Care Team (Latest Contact Info) Description 07/24/2024 10:55 AM CDT - 07/24/2024 11:59 PM CDT Hospital Encounter Department of Cardiac Rehabilitation in [address] [place] [address] [phone] Tim Zamarripa M.D. 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
--- OUTSIDE RECORDS SUMMARY | 2024-09-03 09:59 | XMS_ITS | Encounter Summary ---
Author Organization [facility] Address [address] [place] [address] Care Team Providers Care Police Service Technician Name Role Phone Unavailable Primary Care Provider Unavailabl e Reason for Referral * Outpatient (Routine) - Authorized Specialty Diagnoses / Procedures Referred By Annette plunkett Referred To Contact Diagnoses Bypass Coronary Artery Graft Status Post Prosthesis Aortic Valve Procedures Cardiac Rehab Program Tim Zamarripa M.D. [address] [place] [phone] Phone: tel: fax: [facility] Region Referral ID Status Reason Start Date Expiration Date V isits Requested Visits Authorized [id number] Authorized 2024 2025 99 99 Reason for Visit * Outpatient (Routine) - Authorized Specialty Diagnoses / Procedures Referred By Annette plunkett Referred To Contact Diagnoses Bypass Coronary Artery Graft Status Post Prosthesis Aortic Valve Procedures Cardiac Rehab Program Tim Zamarripa M.D. [address] [place] [phone] Phone: tel: fax: [facility] Region Referral ID Status Reason Start Date Expiration Date V isits Requested Visits Authorized [id number] Authorized 2024 2025 99 99 Encounter Details Date Type Department Care Team (Latest Contact Info) Description 08/19/2024 10:52 AM CDT - 08/19/2024 11:59 PM CDT Hospital Encounter Department of Cardiac Rehabilitation in [address] [phone] Tim Zamarripa M.D. 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
--- OUTSIDE RECORDS SUMMARY | 2024-09-03 09:59 | XMS_ITS | Encounter Summary ---
Author Organization [facility] Address [address] [place] [address] Care Team Providers Care Machinist Bench Name Role Phone Unavailable Primary Care Provider Unavailabl e Reason for Referral * Outpatient (Routine) - Authorized Specialty Diagnoses / Procedures Referred By Annette plunkett Referred To Contact Diagnoses Bypass Coronary Artery Graft Status Post Prosthesis Aortic Valve Procedures Cardiac Rehab Program Tim Zamarripa M.D. [address] [place] [phone] Phone: tel: fax: [facility] Region Referral ID Status Reason Start Date Expiration Date V isits Requested Visits Authorized [id number] Authorized 2024 2025 99 99 Reason for Visit * Outpatient (Routine) - Authorized Specialty Diagnoses / Procedures Referred By Annette plunkett Referred To Contact Diagnoses Bypass Coronary Artery Graft Status Post Prosthesis Aortic Valve Procedures Cardiac Rehab Program Tim Zamarripa M.D. [address] [place] [phone] Phone: tel: fax: [facility] Region Referral ID Status Reason Start Date Expiration Date V isits Requested Visits Authorized [id number] Authorized 2024 2025 99 99 Encounter Details Date Type Department Care Team (Latest Contact Info) Description 07/31/2024 11:00 AM CDT - 07/31/2024 11:59 PM CDT Hospital Encounter Department of Cardiac Rehabilitation in [address] [phone] Tim Zamarripa M.D. 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
--- OUTSIDE RECORDS SUMMARY | 2024-09-03 09:59 | XMS_ITS | Encounter Summary ---
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 Mr. Knapp (69 y.o., : 1955, ) was referred to the [facility] Cardiac RehabProgram on 05/14/2024, by Referred by Judith BELLAMY ([facility]); order signed by Dr.Tyler Zamarripa and has completed 24 sessions out of the 36 prescribed. PCP: No primary care provider on file. Pipe Puller: Henrietta Obrien P.A.-C. Program: Cardiac Rehab Phase II Type: Center-Based Intake Date: 05/28/2024 Date of Enrollment: 06/03/2024 Primary Diagnosis: CABG 05/07/2024 Secondary Diagnosis: Valve 05/07/2024 AACVPR Risk: Low 05/28/2024 06/25/2024 07/23/2024 08/21/2024 Symptoms ITP Inclusion: Symptoms Initial Reassessment Reassessment Reassessment Synopsis Pt was referred for CR following CABGx3, AVR, s/p MAZE and LAAL on 05/07 at [facility].Leading up to cardiac surgery pt had been [...] a f/u visit scheduledwith CVD at [facility] on 06/13. He does have [...] f/u visit on 06/27 with CVD in [place], he was instructed to stop Lasix at [...] have been able to increase TM workloads. Cardiovascular Symptoms Shortness of Breath;Fatigue None Fatigue Fatigue Home O2 Use No No No No Ejection Fraction Date 05/14/2024 Ejection Fraction (EF) % 65 % Other Education Documentation No documentation found. Exercise Assessment 06/19/2024 DASI Calculations Estimated V02 Peak 16.24 Estimated MET Level 4.64 Six Minute Walk 06/03/2024 Total Distance Walked (Meters) 298.7 Estimated METs 2.46 % of Predicted Distance 62.29 Comments 05/28/2024 06/24/2024 06/25/2024 07/22/2024 08/21/2024 Exercise Assessment ITP Inclusion: Exercise Assessment Initial Reassessment Reassessment Reassessment Reassessment Resting HR (Telemetry) 75 65 76 Resting Pulse 82 Pulse Rate Source Pulse [...] taper) Exercise Limitations Yes Yes Yes No Limitation Description Sternal precautions 10 lb [...] tolerated Assistive Device None None None None Peak METs 3.2 4.5 5 Aerobic Minutes per Day (Home) 0 minutes 0 minutes 60 minutes 60 minutes Aerobic Days per Week (Home) 0 Days 0 Days 1 Days 1 Days Aerobic Minutes per Day (Rehab) 0 minutes 39 minutes 43 minutes 45 minutes Aerobic Days per Week (Rehab) 0 Days 3 Days 3 Days 3 Days Aerobic Minutes per Week 0 117 189 195 Strength Training Days per Week 0 Days 0 Days 0 Days Flexibility Training Days per Week 0 0 0 05/28/2024 06/25/2024 07/23/2024 08/21/2024 Exercise Prescription Frequency of Sessions Weekly Weekly Weekly Weekly Sessions per week 3-5 3-5 3-5 3-5 Intensity Work at a level that is comfortable but also challenging Work at a level that is comfortable but also challenging Work at a level that is comfortable but also challenging Work at a level that is comfortable but also challenging Rating of Perceived Exertion range (RPE): 11-14 11-14 14 14 Warm Up Minutes: 2-5 2-5 2-5 2-5 Aerobic exercise minutes: 20-25 30-40 35-45 35-45 Cool Down minutes: 2-5 2-5 2-5 2-5 Goal Minutes/session Work up to 30 mins 30+ 40+ 40+ Goal Minutes/Week Work up to 150 mins 150+ 150+ 150+ Rehab Aerobic Exercise Equipment Treadmill;Recumbent stepper (with or without arms) Treadmill;Recumbent stepper (with or without arms);Arm Ergometer Treadmill;Arm Ergometer;Recumbent stepper (with orwithout arms) Treadmill;Arm Ergometer;Recumbent stepper (with or without arms) Non-Rehab Aerobic Exercise Equipment Walking Walking Walking Walking Progression Use RPE [...] surgery Strength Training Calisthenics Calisthenics Calisthenics Calisthenics Number of strength sessions per week: 2-3 5-7 5-7 5-7 Weight: 0 0 0 Reps: 10 10-15 10-15 10-15 Sets: 1 1 1 1-2 Hobbies/Activities Avoid prolonged sitting Avoid prolonged sitting Avoid prolonged sitting Avoid prolonged sitting 05/28/2024 06/25/2024 07/23/2024 08/21/2024 Exercise Plan Goals Compliance to on-site program;Compliance [...] Discussion Exercise/activity guidelines;Therapist Discussion Exercise/activity guidelines;Therapist Discussion Progress Toward [...] to make a point to go to [employer] and walk laps for aroudn 1 hr. 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 He's been consistent with CR 3x per week and is tolerating exercise well. Adjustments were made to TM workloads d/t hip and back pain. We discussed options to increase home exercise. Pt is interested in walking laps at the [employer] track and field as he feels the ofe of the track is easier on his joints than the indoor fieldhouse in . He would also consider joining the [facility] at the conclusion of CR to gain [...] better establish we will discuss discharge planning. Exercise Education Documentation Individualized ExRx, taught by Swapna Lux CCRP, CEP at 06/25/2024 1:41 PM. Learner: Patient Readiness: Acceptance Method: Explanation Response: Able to Teach Back Risk Factors For Heart Disease [id number], taught by Swapna Lux CCRP CEP at [...] room for improvement 05/28/2024 06/24/2024 06/25/2024 07/22/2024 08/21/2024 Nutrition Assessment ITP Inclusion: Nutrition Assessment Initial Reassessment Reassessment Reassessment Reassessment Height 182.9 cm 182.9 cm 182.9 cm 182.9 cm Weight 99.5 kg 101 kg 101 kg 101 kg BMI 29.74 30.19 30.07 30.07 Dietary Recommendations Low Salt;Diabetic;Low Fat/ Low Cholesterol Low Salt;Diabetic;Low Fat/ Low Cholesterol Low Salt;Diabetic;Low Fat/ Low Cholesterol Low Salt;Diabetic;Low Fat/ Low Cholesterol Low Salt Amount 2000 mg 2000 mg 2000 mg 2000 mg Appetite Good Good Good Good 05/28/2024 06/25/2024 07/23/2024 08/21/2024 Plan Goals Increase fruit intake;Increase vegetable intake;Decrease [...] Counseling Staff education only Staff education only Interventions [...] daughters are nurses and 1 is a safety glass installer so they've been good support and resources [...] fried chicken sandwich for lunch from the [facility] prior to rehab. He's demonstrated growth in [...] a few bags of popcorn at local [employer] games over the last week or so. He denies noticing any LE edema or worsening SOB. Reviewed sodium recommendations and encouraged pt to avoid high sodium foods over the next few days to see if BP improves. Pt will benefit from continued discussion and education on heart healthy dietary recommendations. Nutrition Education Documentation Risk Factors For Heart Disease [id number], taught by Swapna Lux, EAGLEP, CEP at 06/25/2024 1:41 PM. Learner: Patient Readiness: Acceptance Method: Explanation Response: Able to Teach Back Psychosocial Assessment 06/19/2024 PHQ-9 PHQ-9 Total Score (max 27) 2 PHQ-9 Interpretation None to minimal depression 06/19/2024 [facility] Total Score 23 05/28/2024 06/25/2024 07/23/2024 08/21/2024 Psychosocial Assessment ITP Inclusion: Psychosocial Initial Reassessment Reassessment Reassessment Social Drivers of Health have been reviewed. 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 Sleep has been improving since he's [...] concerns with sleep quality at night though. Psychosocial Education Documentation No documentation found. Other Core Components Hypertension Assessment 05/28/2024 06/24/2024 06/25/2024 07/22/2024 08/21/2024 Hypertension ITP Inclusion: Hypertension Assessment Initial Reassessment Reassessment Reassessment Reassessment History of Hypertension Yes Yes Yes Yes Current Medication Therapy Yes Yes Yes Yes Hypertension Medications metoprolol metoprolol, lasix metoprolol metoprolol, lisinopril Blood Pressure 138/60 Resting BP (Telemetry) 126/58 148/62 160/80 05/28/2024 06/25/2024 07/23/2024 08/21/2024 Plan Goals Stable BP response;BP at physician [...] will reach outto PCP again next week. Hypertension Education Documentation Risk Factors For Heart Disease [id number], taught by Swapna uLx, CCRP, CEP at 06/25/2024 1:41 PM. Learner: Patient Readiness: Acceptance Method: Explanation Response: Able to Teach Back Hyperlipidemia Assessment 05/28/2024 06/25/2024 07/23/2024 08/21/2024 Hyperlipidemia Assessment History of Hyperlipidemia Yes Yes Yes Yes Current Medication Therapy Yes Yes Yes Yes Hyperlipidemia Medications Atorvastatin (recently increased dose to 40mg) Atorvastatin AtorvastatinAtorvastatin Lipids 04/17/2024 06/13/2024 6:07 AM 2:31 PM CHOL 203 109 TRIG 168 165 HDL 51 53 TTLCHOLHDLRT 3.98 2.06 05/28/2024 06/25/2024 07/23/2024 08/21/2024 Plan Goals Improve lipids;Lipids in optimal range;Understand [...] with exercise progression like it had been. Hyperlipidemia Education Documentation Risk Factors For Heart Disease [id number], taught by Swapna Lux, CCRP, CEP at 06/25/2024 1:41 PM. Learner: Patient Readiness: Acceptance Method: Explanation Response: Able to Teach Back Education Comments No comments found. Diabetes Assessment 05/28/2024 06/25/2024 07/23/202408/21/2024 Diabetes History of Diabetes Diabetes Type II Diabetes Type II Diabetes Type II Diabetes Type II Current Medication Therapy Yes Yes Yes Yes Current Medication Therapy Jardiance, 30 units Lantus insulin Jardiance, 30 units Lantus insulin Jardiance, 30 units Lantus insulin Jardiance, 30 units Lantus insulin Do you monitor your blood glucose at home? No No Yes Yes How many times a day? Weekly Weekly Average Daily Range 120-150s 120-150s Diabetic Labs 06/12/2024 06/12/2024 06/17/2024 06/17/2024 2:37 PM 3:17 PM 1:04 PM 1:44 PM POC GLUCOSE 133 113 172 159 05/28/2024 06/25/2024 07/23/2024 08/21/2024 Plan Goals Fasting blood glucose In optimal [...] on glucose monitoring with exer cise;Therapist discussion Progress Toward Goals Pt reports that [...] ate a fried chicken sandwich at the [facility] just prior to that visit. Education was [...] therapy and no reports of symptomatic episodes. Diabetes Education Documentation No documentation found. Tobacco [...] Medication Compliance Assessment 05/28/2024 06/25/2024 07/23/2024 08/21/2024 Medications Have you been compliant with all medications? Yes Yes Yes Yes 05/28/2024 06/25/2024 07/23/2024 08/21/2024 Plan Goals Medication compliance;Knowledge of medication Medication [...] his friendwith medication set up and management. Medication Compliance [...]
--- OUTSIDE RECORDS SUMMARY | 2024-09-03 09:59 | XMS_ITS | Encounter Summary ---
Author Organization [facility] Address [address] [place] [address] Care Team Providers Care Ocean Fishing Guide Name Role Phone Unavailable Primary Care Provider Unavailabl e Reason for Referral * Outpatient (Routine) - Authorized Specialty Diagnoses / Procedures Referred By Annette plunkett Referred To Contact Diagnoses Bypass Coronary Artery Graft Status Post Prosthesis Aortic Valve Procedures Cardiac Rehab Program Tim Zamarripa M.D. [address] [place] [phone] Phone: tel: [facility] Region Referral ID Status Reason Start Date Expiration Date V isits Requested Visits Authorized [id number] Authorized 2024 2025 99 99 Reason for Visit * Outpatient (Routine) - Authorized Specialty Diagnoses / Procedures Referred By Annette plunkett Referred To Contact Diagnoses Bypass Coronary Artery Graft Status Post Prosthesis Aortic Valve Procedures Cardiac Rehab Program Tim Zamarripa M.D. [address] [place] [phone] Phone: tel: fax: [facility] Region Referral ID Status Reason Start Date Expiration Date V isits Requested Visits Authorized [id number] Authorized 2024 2025 99 99 Encounter Details Date Type Department Care Team (Latest Contact Info) Description 07/26/2024 10:53 AM CDT - 07/26/2024 11:59 PM CDT Hospital Encounter Department of Cardiac Rehabilitation in [address] [phone] Tim Zamarripa M.D. 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
--- OUTSIDE RECORDS SUMMARY | 2024-09-03 09:59 | XMS_ITS | Encounter Summary ---
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 Mr. Knapp (69 y.o., : 1955, ) was referred to the [facility] Cardiac RehabProgram on 05/14/2024, by Referred by Judith BELLAMY ([facility]); order signed by Dr.Tyler Zamarripa and has completed 16 sessions out of the 36 prescribed. PCP: No primary care provider on file. Parts Inspector: Henrietta Obrien P.A.-C. Program: Cardiac Rehab Phase II Type: Center-Based Intake Date: 05/28/2024 Date of Enrollment: 06/03/2024 Primary Diagnosis: CABG 05/07/2024 Secondary Diagnosis: Valve 05/07/2024 AACVPR Risk: Low 05/28/2024 06/25/2024 07/23/2024 Symptoms ITP Inclusion: Symptoms Initial Reassessment Reassessment Synopsis Pt was referred for CR following CABGx3, AVR, s/p MAZE and LAAL on 05/07 at [facility].Leading up to cardiac surgery pt had [...] a f/u visit scheduledwith CVD at [facility] on 06/13. He does have a [...] f/u visit on 06/27 with CVD in [place], he was instructed to stop Lasix at [...] month after surgery Strength Training Calisthenics Calisthenics Andrewisthenics Number of strength sessions per week: 2-3 [...] to make a point to go to [employer] and walk laps for [employer] 1 hr. 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 He's been consistent with CR 3x per week and is tolerating exercise well. Adjustments were made to TM workloads d/t hip and back pain. We discussed options to increase home exercise. Pt is interested in walking laps at the [employer] and field as he feels the ofe of the track is easier on his joints than the indoor fieldhouse in . He would also consider joining the [facility] at the conclusion of CR to gain access to a pool to mix in some swimming or pool walking as part of his cardio workout. Exercise Education Documentation Individualized ExRx, taught by Swapna Lux CCRP, CEP at 06/25/2024 1:41 PM. Learner: Patient Readiness: Acceptance Method: Explanation Response: Able to Teach Back Risk Factors For Heart Disease [id number], taught by Swapna Lux CCRP CEP at [...] daughters are nurses and 1 is a emergency room registered nurse so they've been good support [...] fried chicken sandwich for lunch from the counts include [facility] beds at the [facility] prior to rehab. He's demonstrated growth [...] Education Documentation Risk Factors For Heart Disease [id number], taught by Swapna Lux CCRP, CEP at 06/25/2024 1:41 PM. Learner: Patient Readiness: Acceptance Method: Explanation Response: Able to Teach Back Psychosocial Assessment 06/19/2024 PHQ-9 PHQ-9 Total Score (max 27) 2 PHQ-9 Interpretation None to minimal depression 06/19/2024 [facility] Total Score 23 05/28/2024 06/25/2024 07/23/2024 [...] is retired from working in the [employer] industry. Sleep has been improving since he's [...] Education Documentation Risk Factors For Heart Disease [id number], taught by Swapna Lux, CCRP, CEP at [...] Education Documentation Risk Factors For Heart Disease [id number], taught by Swapna Lux, CCRP, CEP at [...] ate a fried chicken sandwich at the counts include [facility] beds at the [facility] just prior to that visit. Education [...]
--- OUTSIDE RECORDS SUMMARY | 2024-09-03 09:59 | XMS_ITS ---
Author Organization [facility] Address [address] [place] [address] Care Team Providers Care Winch Truck Operator Name Role Phone Unavailable Unavailable Unavailable Surgery Details Not on file Complications Check Surgery Details section. Procedure Estimated Blood Loss Check Surgery Details section. Procedure Findings Check Surgery Details section. Procedure Specimens Taken Check Surgery Details section.
--- OUTSIDE RECORDS SUMMARY | 2024-09-03 09:59 | XMS_ITS | Encounter Summary ---
Author Organization [facility] Address [address] [place] [address] Care Team Providers Care Director Facilities Maintenance Name Role Phone Unavailable Primary Care Provider Unavailabl e Reason for Referral * Outpatient (Routine) - Authorized Specialty Diagnoses / Procedures Referred By Annette plunkett Referred To Contact Diagnoses Bypass Coronary Artery Graft Status Post Prosthesis Aortic Valve Procedures Cardiac Rehab Program Tim Zamarripa M.D. [address] [place] [phone] Phone: tel: [facility] Region Referral ID Status Reason Start Date Expiration Date V isits Requested Visits Authorized [id number] Authorized 2024 2025 99 99 Reason for Visit * Outpatient (Routine) - Authorized Specialty Diagnoses / Procedures Referred By Annette plunkett Referred To Contact Diagnoses Bypass Coronary Artery Graft Status Post Prosthesis Aortic Valve Procedures Cardiac Rehab Program Tim Zamarripa M.D. [address] [place] [phone] Phone: tel: [facility] Region Referral ID Status Reason Start Date Expiration Date V isits Requested Visits Authorized [id number] Authorized 2024 2025 99 99 Encounter Details Date Type Department Care Team (Latest Contact Info) Description 08/30/2024 10:55 AM CDT - 08/30/2024 11:59 PM CDT Hospital Encounter Department of Cardiac Rehabilitation in [address] [phone] Tim Zamarripa M.D. 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 Were medications taken in the last 24 hours?: yes PRE WALK Assistive Device: None Height (cm): 183 Weight (kg): 101 BMI: 30.2 Resting Heart Rate: 80 Heart Rate Source: Telemetry Resp Rate: Resting SpO2: 96 Resting BP: 140/62Supplemental Oxygen used: Supplemental Oxygen Not Used Angina Scale: 0 - No Angina Claudication Scale: 1 - No Claudication Pain Jose Dyspnea: 0 - Nothing at all Jose Fatigue: 0 - Nothing at all Jose Rating of Perceived Exertion (RPE): 6 - No exertion at all POST WALK Heart Rate: 108 Heart Rate Source: Telemetry SpO2: 96 BP: 168/60 Pain Score: 0 Angina Scale: 0 - No Angina Claudication Scale: 1 - No Claudication Pain Jose Dyspnea: 0 - Nothing at all Jose Fatigue: 0 - Nothing at all Jose Rating of Perceived Exertion: 13 - Somewhat Hard Time of Test: 11:00 CDT Total Distance Walked (Feet): 1320 Total Distance Walked (Meters): 402.34 Total # of Times Stopped: 0 Time Stopped (Seconds): 0 Time Walked (Seconds): 360 CALCULATIONS Estimated MPH: 2.5 Estimated METs: 2.92 % of Predicted Distance: 84.2 documented in this encounter Plan of Treatment Scheduled Orders Name Type Priority Associated Diagnoses Orde r Schedule Cardiac Rehab Program Card Rehab Routine Bypass Coronary Artery Graft Status Post Prosthesis Aortic Valve Once for 1 Occurrences starting 08/30/2024 until 08/30/2024 documented as of this encounter Procedures Procedure Name Priority Date/Time Associated Diagnosis Comments 6 MINUTE WALK Routine 08/30/2024 11:00 AM CDT Bypass Coronary Artery Graft Status Post Prosthesis Aortic Valve documented in this encounter Results * 6 MINUTE WALK (08/30/2024 11:00 AM CDT) Narrative Swapna Lux CCRP, CEP - 08/30/2024 11:00 AM CDT Swapna Lux [...] Zamarripa M.D. CV STRESS PROCEDURES Final Result documented in this encounter Visit Diagnoses Diagnosis Bypass Coronary Artery Graft Status Post Prosthesis Aortic Valve documented in this encounter Additional Health Concerns Assessment Noted Time PHQ-9 Depression Total Score: 0 08/30/20 24 3:59 PM CDT documented as of this encounter
[2024-09-03 13:44] LABS: Chloride* 99 mmol/L (96-114); Potassium* 5.4 mmol/L (3.6-5.1); Sodium* 138 mmol/L (135-149)
[2024-09-03 13:47] LABS: Anion Gap 10 mEq/L (7-15); Blood Urea Nitrogen* 37 mg/dL (7-30); Calcium* 9.7 mg/dL (8.4-10.6); Carbon Dioxide* 29 mmol/L (20-32); Creatinine* 1.9 mg/dL (0.5-1.5); Estimated Glomerular Filt Rate 37 ml/min; Glucose* 129 mg/dL (60-115)
[2024-09-03 13:49] LABS: NT Pro B Type NatriureticPept* 328 pg/mL
== END 2024-09-03 09:56 | disposition home or self-care (01) ==
PROVIDERS: PCP Nurse Practitioner Family; Visit Provider Nurse Practitioner Family
DX: I10 Essential (primary) hypertension (principal); R60.0 Localized edema; Z51.81 Encounter for therapeutic drug level monitoring
CPT/HCPCS: 80048; 83880

== ENCOUNTER 2024-10-18 12:51 | Outpatient (CLI) | payer MEDICARE, OTHER, SELFPAY | END 2024-10-18 12:52 | disposition home or self-care (01) | PROVIDERS: PCP Nurse Practitioner Family; Visit Provider Nurse Practitioner Family | DX: I10 Essential (primary) hypertension (principal) | CPT/HCPCS: 80048 ==

== ENCOUNTER 2025-01-24 08:53 | Outpatient (CLI) | payer MEDICARE, OTHER, SELFPAY | END 2025-01-24 08:54 | disposition home or self-care (01) | PROVIDERS: PCP Nurse Practitioner Family; Visit Provider Nurse Practitioner Family | DX: E11.22 Type 2 diabetes mellitus with diabetic chronic kidney disease (principal); I12.9 Hypertensive chronic kidney disease with stage 1 through stage 4 chronic kidney disease, or unspecified chronic kidney disease; N18.30 Chronic kidney disease, stage 3 unspecified; Z79.4 Long term (current) use of insulin | CPT/HCPCS: 80048 ==

== ENCOUNTER 2025-06-16 11:28 | Outpatient (CLI) | payer MEDICARE, SELFPAY | END 2025-06-16 11:29 | disposition home or self-care (01) | PROVIDERS: PCP Nurse Practitioner Family; Visit Provider Nurse Practitioner Family | DX: R06.00 Dyspnea, unspecified (principal); R60.0 Localized edema; I10 Essential (primary) hypertension | CPT/HCPCS: 80053; 83880; 85379 ==

== ENCOUNTER 2025-06-17 14:30 | Outpatient (CLI) | payer MEDICARE, OTHER, SELFPAY ==
--- NOTE | 2025-06-17 15:00 | CRLHL7_ITS ---
For Patients: As a result of the Century Cures Act, medical imaging exams and procedure reports are released immediately into your electronic medical record. You may view this report before your referring provider. If you have questions, please contact your health care provider. INDICATION: Localized edema, shortness of breath, positive D-dimer with recent travel TECHNIQUE: Ultrasound venous duplex lower extremity bilateral. Compression venous exam was performed using banerjee-scale, color Doppler, and spectral Doppler imaging. COMPARISON: None. FINDINGS: Sonographic imaging demonstrates the common femoral, deep femoral, superficial femoral, popliteal, posterior tibial and greater saphenous veins to be fully compressible with normal color Doppler blood flow in both lower extremities. There are bilateral fluid collections seen within the popliteal fossa the right side measuring 5.5 centimeters and left side measuring up to 4.0 centimeters. IMPRESSION: 1. No evidence of deep venous thrombosis. 2. 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 Dictated by Matt Wright MD @ 06/17/2025 4:00:26 PM (Electronically Signed)
--- NOTE | 2025-06-17 16:00 | CRLHL7_ITS ---
For Patients: As a result of the Century Cures Act, medical imaging exams and procedure reports are released immediately into your electronic medical record. You may view this report before your referring provider. If you have questions, please contact your health care provider. INDICATION: Pulmonary embolism suspected, high probability. TECHNIQUE: CT chest PE was acquired with 95 cc Omnipaque 350 IV contrast. Coronal and MIP reconstructions were performed. COMPARISON: None. FINDINGS: No pulmonary embolism is seen. The aorta caliber. Small left effusion. Mild multifocal atelectasis. No significant interlobular septal thickening to suggest edema. No consolidation. Indeterminate 10 x 7 millimeter nodule is seen within the medial basilar right lower lobe (157). Prominent mediastinal lymph nodes. For reference is a 11 millimeter right paratracheal lymph node (73). No hilar lymphadenopathy. Recommend close attention on follow-up. The heart is prominent. Aortic valve replacement. Atrial appendage clip. Small pericardial effusion. No axillary lymphadenopathy. No chest wall mass. Images of the upper abdomen are unremarkable. Bone windows demonstrate no suspicious lytic or sclerotic lesion. No fracture. IMPRESSION: 1. Small left pleural effusion. Mild multifocal atelectasis. 2. No pulmonary embolism. 3. Indeterminate 10 millimeter right lower lobe nodule. A follow-up chest CT is recommended in 3 months to document stability. Please note that all CT scans at this facility use dose modulation, iterative reconstruction, and/or weight-based dosing when appropriate to reduce radiation dose to as low as reasonably achievable. Dictated by Derek Interiano MD @ 06/17/2025 4:41:14 PM (Electronically Signed)
== END 2025-06-17 14:31 | disposition home or self-care (01) ==
LOC: US 14:33
PROVIDERS: PCP Nurse Practitioner Family; Visit Provider Nurse Practitioner Family
DX: R60.0 Localized edema (principal); M71.21 Synovial cyst of popliteal space [Baker], right knee; R06.00 Dyspnea, unspecified; R79.89 Other specified abnormal findings of blood chemistry
CPT/HCPCS: 71275; 93970; Q9967

== ENCOUNTER 2025-09-29 14:42 | Outpatient (CLI) | payer MEDICARE, OTHER, SELFPAY ==
--- NOTE | 2025-09-29 15:00 | CRLHL7_ITS ---
For Patients: As a result of the Century Cures Act, medical imaging exams and procedure reports are released immediately into your electronic medical record. You may view this report before your referring provider. If you have questions, please contact your health care provider. INDICATION: Follow-up pulmonary nodule. TECHNIQUE: CT chest without contrast. COMPARISON: Chest CTA 06/17/2025. FINDINGS: Lungs, pleura, and airways: Stable 10 mm right lower lobe nodule (series 3, image 84). Subcentimeter left upper and left lower lobe calcified granulomas. No new or enlarging nodules. No focal consolidations. No pleural effusions, pleural thickening, or pneumothorax. Airways are clear. No endobronchial lesion. No bronchiectasis. Heart and vasculature: Heart size is normal. No pericardial effusion. Thoracic aorta and pulmonary arteries are normal in caliber. Three vessel aortic arch. Post CABG changes and coronary atherosclerosis. Atrial appendage clip. Aortic valve prosthesis. Lymph nodes/mediastinum: No mediastinal, hilar, or axillary adenopathy. Prior mediastinal lymphadenopathy has resolved in interval. Subcentimeter hypodense right thyroid lobe nodule Soft tissues: Normal. Upper abdomen: No significant findings. Bones: No acute fracture. No worrisome osseous lesion. Moderate degenerative changes of the thoracic spine with DISH. IMPRESSION: 1. Stable 10 mm right lower lobe pulmonary nodule. Recommend additional six-month follow-up chest CT to document continued stability. 2. Interval resolution of previously described mediastinal lymphadenopathy. Please note that all CT scans at this facility use dose modulation, iterative reconstruction, and/or weight-based dosing when appropriate to reduce radiation dose to as low as reasonably achievable. Dictated by Leonard Finnegan MD @ 09/29/2025 7:55:27 PM (Electronically Signed)
== END 2025-09-29 14:43 | disposition home or self-care (01) ==
PROVIDERS: PCP Nurse Practitioner Family; Visit Provider Nurse Practitioner Family
DX: R91.1 Solitary pulmonary nodule (principal); Z09 Encounter for follow-up examination after completed treatment for conditions other than malignant neoplasm; Z95.1 Presence of aortocoronary bypass graft; I25.10 Atherosclerotic heart disease of native coronary artery without angina pectoris; Z95.0 Presence of cardiac pacemaker; Z92.89 Personal history of other medical treatment; M48.14 Ankylosing hyperostosis [Forestier], thoracic region; E04.1 Nontoxic single thyroid nodule
CPT/HCPCS: 71250

== ENCOUNTER 2025-09-30 13:13 | Outpatient (CLI) | payer MEDICARE, SELFPAY | END 2025-09-30 13:14 | disposition home or self-care (01) | PROVIDERS: PCP Nurse Practitioner Family; Visit Provider Nurse Practitioner Family | DX: Z00.00 Encounter for general adult medical examination without abnormal findings (principal); E11.628 Type 2 diabetes mellitus with other skin complications; Z13.0 Encounter for screening for diseases of the blood and blood-forming organs and certain disorders involving the immune mechanism | CPT/HCPCS: 80053; 80061; 82043; 82570; 82607; 84443; 85025; G0103 ==